=== PATIENT | female | born 1935 | race Caucasian/White ===

== ENCOUNTER 2016-05-29 10:18 | Inpatient (IN) | payer MEDICARE, MEDICAID ==
[~2016-05-29] VITALS: Ht 165.1 cm; Wt 54.4 kg
[~2016-05-29 10:18] MED LIST: BISACODYL5 MG ORAL; CARDIZEM30 M1 PO; COUMADIN6 MG ORAL; CULTURELLE1 EAC1 PO; D5NS 1000ml; DILTIAZEM HCL30 MG PO; DUONEB 0.5-3(2.53 ML HHN; HEPARIN SO5000 UNIT2 SUBQ; LEVOTHYROXINE112 MCG ORAL; LORAZEPAM1 MG ORAL; MILK OF MA400 MG/51 ORAL; MIRTAZAPINE15 M3 ORAL; MIRTAZAPINE15 MG ORAL; MOM30 ML ORAL; MORPHINE 22 MG/1 ML IV; MYLANTA PO; NAMENDA5 MG ORAL; RISPERDAL0.25 MG ORAL; SERTRALINE HCL100 MG PO; TEMAZEPAM15 MG ORAL; Tylenol PO; ZANTAC150 MG ORAL; ZOFRAN ODT4 MG ORAL; ZOFRAN4 M3 ORAL; ZOLOFT100 MG ORAL; ZOLOFT50 MG ORAL; [UNRECOGNIZED DRUG - OTHER]
[2016-05-29 10:28] VITALS: BP 132/90
[2016-05-29] MEDS ORDERED: SENNA LAX8.6 MG PO (10:34)
[2016-05-29] MEDS ORDERED: FAMOTIDINE20 MG ORAL (10:34)
[2016-05-29] MEDS ORDERED: ZOLPIDEM TARTRA10 MG ORAL (10:36)
--- NOTE | 2016-05-29 10:46 | Emergency Room Report ---
History of Present Illness General Chief Complaint: General Complaint Source: Patient, Medical Record, EMS, PMD Present Illness HPI Patient presents with insomnia. Taking ambien and ativan. Recurrent thoughts of not liking where she lives. Not suicidal. No antidepressants taken. Wants to go into a sleep study. Denies depression per se, but has rumination and perseveration with anxiety. Wants valium, though has been taking ativan. Constipation but moved bowels today (loose as took milk of magnesia). Prior was 3 days ago. No blood. Every time she eats she gets pain in her stomach. This is burning pain. She has not lost weight. There is no pain now. No fevers, chills, SOB, cough, vomiting, dysuria. Unknown if current thyroid problems as she has had low thyroid in the past. Allergies: Coded Allergies: PENICILLINS (Verified Allergy, Unknown, 01/12/16) SULFA (SULFONAMIDE ANTIBIOTICS) (Verified Allergy, Unknown, 01/12/16) Patient History Past Medical History: see triage record Past Surgical History: other - frederick rods Social History: Denies: alcohol use Social History Narrative [facility] - born in [place] Reviewed Nursing Documentation: PMH: Agreed, PSxH: Agreed Nursing Documentation-PMH Hx Cardiac Problems: Yes Hx Hypertension: Yes Hx Pacemaker: No Hx Asthma: No Hx COPD: Yes Hx Cancer: No Hx Dialysis: No History Of Psychiatric Problem: Yes - dementia,schizo Hx Neurological Problems: No Hx Cerebrovascular Accident: No Hx Seizures: No Review of Systems All Other Systems: negative except mentioned in HPI Physical Exam Vital Signs Date Time Temp Pulse Resp B/P Pulse Ox O2 Delivery O2 Flow Rate FiO2 05/29/16 10:18 97.5 100 16 144/88 96 Room Air Sp02 EP Interpretation: reviewed, normal General Appearance: well appearing, no apparent distress, GCS 15, thin Head: normocephalic, atraumatic Eyes: bilateral eye PERRL, bilateral eye normal inspection ENT: moist mucus membranes Neck: supple Respiratory: lungs clear, normal breath sounds Cardiovascular #1: tachycardia, irregularly irregular Cardiovascular #2: 2+ radial (R) Gastrointestinal: normal inspection, normal bowel sounds, non tender, no mass, non-distended Musculoskeletal: back normal, gait/station normal, normal range of motion Neurologic: alert, oriented x3, motor strength/tone normal, DTRs symmetric, sensory intact Psychiatric: no suicidal/homicidal ideation, anxious Skin: normal inspection, warm/dry, other - sallo Procedures Laceration/Wound Repair Laceration/Wound Repair : Consent: Verbal Wound Location: face Wound's Depth, Shape: stellate, contused tissue Wound Length (cm): 1 Wound Explored: clean Betadine Prep?: Yes Anesthesia: Lidocaine w/ Epi Wound Debrided: none Wound Repaired With: sutures Suture Size/Type: 6:0 Patient Tolerated: Well Complications: None Progress patient had lidocaine go down throat Medical Decision Making Diagnostic Impression: Primary Impression: Atrial fibrillation with RVR Additional Impressions: Abdominal pain Qualified Codes: R10.13 - Epigastric pain Hyperthyroidism Anxiety and depression ER Course Patient presents with resting tachycardia and inability to sleep with several GI complaints. DDx: hyperthyroid, electrolyte abnormality, arrhythmia, occult infection, anxiety/depression. Complicated patient needing broad w/u with labs , CXR, Abd films and EKG. Treatment with IV, ativan, zofran. EKG with a fib rapid vent response. Diltiazem given. Rate better. Patient ate here and had significant pain. Labs against pancreatitis. Treated with analgesia, mylanta and pepcid. Xrays unremarkable. Labs with low TSH suggesting hyperthyroidism. Improved with treatment but still with nausea, pain and anxiety. Admitted for observation to Dr. Kaiser. Laboratory Tests Test 05/29/16 10:50 05/29/16 11:00 Urine Color Yellow Urine Appearance Slightly cloudy Urine pH 8 (4.5-8.0) Urine Specific Welches 1.015 (1.005-1.035) Urine Protein Negative (NEGATIVE) Urine Glucose (UA) Negative (NEGATIVE) Urine Ketones Negative (NEGATIVE) Urine Occult Blood 1+ (NEGATIVE) H Urine Nitrite Negative (NEGATIVE) Urine Bilirubin Negative (NEGATIVE) Urine Urobilinogen Normal MG/DL (0.0-1.0) Urine Leukocyte Esterase 1+ (NEGATIVE) H Urine RBC 0-2 /HPF (0 - 2) Urine WBC 0-2 /HPF (0 - 2) Urine Squamous Epithelial Cells Few /LPF (NONE/OCC) Urine Bacteria Occasional /HPF (NONE) Urine Opiates Screen Negative (NEGATIVE) Urine Barbiturates Screen Negative (NEGATIVE) Phencyclidine (PCP) Screen Negative (NEGATIVE) Urine Amphetamines Screen Negative (NEGATIVE) Urine Benzodiazepines Screen Negative (NEGATIVE) Urine Cocaine Screen Negative (NEGATIVE) Urine Marijuana (THC) Screen Negative (NEGATIVE) White Blood Count 10.0 K/UL (4.8-10.8) Red Blood Count 4.99 M/UL (4.20-5.40) Hemoglobin 15.0 G/DL (12.0-16.0) Hematocrit 47.1 % (37.0-47.0) H Mean Corpuscular Volume 94 FL (80-99) Mean Corpuscular Hemoglobin 30.1 PG (27.0-31.0) Mean Corpuscular Hemoglobin Concent 31.8 G/DL (32.0-36.0) L Red Cell Distribution Width 12.1 % (11.6-14.8) Platelet Count 289 K/UL (150-450) Mean Platelet Volume 8.6 FL (6.5-10.1) Neutrophils (%) (Auto) 76.5 % (45.0-75.0) H Lymphocytes (%) (Auto) 12.4 % (20.0-45.0) L Monocytes (%) (Auto) 9.9 % (1.0-10.0) Eosinophils (%) (Auto) 0.8 % (0.0-3.0) Basophils (%) (Auto) 0.5 % (0.0-2.0) Prothrombin Time 10.3 SEC (9.30-11.50) Prothrombin Time INR 1.0 (0.9-1.1) PTT 25 SEC (23-33) Sodium Level 135 mEQ/L (135-145) Potassium Level 4.5 mEQ/L (3.4-4.9) Chloride Level 95 mEQ/L (98-107) L Carbon Dioxide Level 28 mEQ/L (20-30) Anion Gap 12 (5-15) Blood Urea Nitrogen 17 mg/dL (7-23) Creatinine 1.0 mg/dL (0.5-0.9) H Estimate Glomerular Filtration Rate mL/min (>60) Glucose Level 105 mg/dL (74-106) Calcium Level 9.1 mg/dL (8.6-10.2) Total Bilirubin 0.3 mg/dL (0.0-1.2) Aspartate Amino Transferase (AST) 16 U/L (5-40) Alanine Aminotransferase (ALT) 12 U/L (3-33) Alkaline Phosphatase 94 U/L (35-104) Total Creatine Kinase 66 U/L (26-140) Troponin I < 0.30 ng/mL (<=0.30) Pro-B-Type Natriuretic Peptide 2041 pg/mL (0-450) H Total Protein 7.0 g/dL (6.6-8.7) Albumin 3.7 g/dL (3.5-5.2) Globulin 3.3 g/dL Albumin/Globulin Ratio 1.1 (1.0-2.7) Thyroid Stimulating Hormone (TSH) 0.145 uIU/mL (0.300-4.500) EKG Diagnostic Results Rate: tachycardiac Rhythm: other - A fib ST Segments: no acute changes Rhythm Strip Diag. Results EP Interpretation: yes Rhythm: no PVC's, no ectopy, other - a fib Chest X-Ray Diagnostic Results EP Interpretation: Yes Findings: no consolidation, no effusion, no pneumothorax, other - frederick rods Number of Views: 1 Other X-Ray Diagnostic Results Other X-Ray Diagnostic Results : X-Ray Ordered: abd EP Interpretation: Yes Findings: other - frederick rods, nsbgp, no obstruction Number of Views: 1 Status: improved Disposition: ADMITTED INPATIENT Condition: Serious Alfredo Estrada M.D. May 29, 2016 10:46
[2016-05-29 11:06] LABS: BASOPHILS % (AUTO) 0.5 % (0.0-2.0); EOSINOPHILS % (AUTO) 0.8 % (0.0-3.0); LYMPHOCYTES % (AUTO) 12.4 % (20.0-45.0); MEAN CORPUSCULAR HEMOGLOBIN 30.1 PG (27.0-31.0); MEAN CORPUSCULAR HGB CONC 31.8 G/DL (32.0-36.0); MEAN CORPUSCULAR VOLUME 94 FL (80-99); MEAN PLATELET VOLUME 8.6 FL (6.5-10.1); MONOCYTES % (AUTO) 9.9 % (1.0-10.0); NEUTROPHILS % (AUTO) 76.5 % (45.0-75.0); PLATELET COUNT 289 K/UL (150-450); RED BLOOD COUNT 4.99 M/UL (4.20-5.40); RED CELL DISTRIBUTION WIDTH 12.1 % (11.6-14.8)
[2016-05-29 11:11] LABS: APPEARANCE,URINE SLIGHTLY CLOUDY; KETONES,URINE NEGATIVE (NEGATIVE); LEUKOCYTE ESTERASE ,URINE 1+ (NEGATIVE); NITRITE,URINE NEGATIVE (NEGATIVE); PH,URINE 8 (4.5-8.0); PROTEIN,URINE NEGATIVE (NEGATIVE); UROBILINOGEN,URINE NORMAL MG/DL (0.0-1.0)
[2016-05-29] MEDS ORDERED: Mylanta II UD 30ml ORAL ONE (11:15)
[2016-05-29] MEDS ORDERED: Diltiazem 50mg/10ml Inj IV ONE (11:15)
[2016-05-29] MEDS ORDERED: Famotidine 20 MG/ 2ML VIAL IVP ONE (11:15)
[2016-05-29 11:16] LABS: BACTERIA,URINE OCCASIONAL /HPF; RBC,URINE 0-2 /HPF (0 - 2); SQUAMOUS EPITHELIAL CELL,UR FEW /LPF (NONE/OCC); WBC,URINE 0-2 /HPF (0 - 2)
[2016-05-29 11:17] LABS: PROTHROMBIN TIME 10.3 SEC (9.30-11.50)
[2016-05-29 11:19] LABS: ALANINE AMINOTRANSFERASE 12 U/L (3-33); ALBUMIN/GLOBULIN RATIO 1.1 (1.0-2.7); ANION GAP 12 (5-15); ASPARTATE AMINO TRANSFERASE 16 U/L (5-40); CALCIUM 9.1 mg/dL (8.6-10.2); CARBON DIOXIDE 28 mEQ/L (20-30); CHLORIDE 95 mEQ/L (98-107); HEMOLYSIS 4; POTASSIUM 4.5 mEQ/L (3.4-4.9); SODIUM 135 mEQ/L (135-145); TROPONIN I < 0.30 ng/mL (<=0.30)
[2016-05-29 11:26] VITALS: BP 124/64
[2016-05-29] MEDS ORDERED: fentaNYL 100 mcg/2 mL IV ONE ×2 (13:00→14:30)
[2016-05-29 13:30] VITALS: BP 124/82
[2016-05-29] MEDS ORDERED: DuoNeb 0.5-3(2.5)mg/3ml neb HHN PRN (14:30)
[2016-05-29] MEDS ORDERED: Miralax 17gm pkt ORAL PRN (14:30)
[2016-05-29] MEDS ORDERED: Nitroglycerin Subl 0.4mg tab (Bottle Of 25) SL PRN (14:30)
[2016-05-29] MEDS ORDERED: Metoprolol 5mg/5ml Inj IVP PRN (14:30)
[2016-05-29] MEDS ORDERED: LORazepam Inj 2mg/ml 1ml IV ONE (14:45)
[2016-05-29 15:22] VITALS: BP 123/77
[2016-05-29 16:55] VITALS: BP 113/79
[2016-05-29] MEDS ORDERED: Morphine Sulfate 2mg/ml Inj IVP ONE (17:00)
[2016-05-29] MEDS ORDERED: Metoprolol 5mg/5ml Inj IVP ONE (19:40)
--- NOTE | 2016-05-29 19:57 | Cardiology Progress Note ---
Assessment/Plan Assessment/Plan The patient is seen and examined, full consult note will be dictated shortly. Objective Last 24 Hour Vital Signs Date Time Temp Pulse Resp B/P Pulse Ox O2 Delivery O2 Flow Rate FiO2 05/29/16 17:20 97.6 101 14 113/79 99 Room Air 95 05/29/16 16:55 97.6 95 14 113/79 99 Room Air 05/29/16 15:22 101 14 123/77 97 Room Air 05/29/16 15:18 97.5 05/29/16 14:15 97.5 05/29/16 13:30 94 14 124/82 97 Room Air 05/29/16 11:26 97.5 71 16 124/64 97 Room Air 05/29/16 11:13 96 132/90 05/29/16 10:28 97.5 96 16 132/90 97 Room Air 05/29/16 10:18 97.5 100 16 144/88 96 Room Air Laboratory Tests Test 05/29/16 10:50 05/29/16 11:00 Urine Color Yellow Urine Appearance Slightly cloudy Urine pH 8 (4.5-8.0) Urine Specific [place] 1.015 (1.005-1.035) Urine Protein Negative (NEGATIVE) Urine Glucose (UA) Negative (NEGATIVE) Urine Ketones Negative (NEGATIVE) Urine Occult Blood 1+ (NEGATIVE) H Urine Nitrite Negative (NEGATIVE) Urine Bilirubin Negative (NEGATIVE) Urine Urobilinogen Normal MG/DL (0.0-1.0) Urine Leukocyte Esterase 1+ (NEGATIVE) H Urine RBC 0-2 /HPF (0 - 2) Urine WBC 0-2 /HPF (0 - 2) Urine Squamous Epithelial Cells Few /LPF (NONE/OCC) Urine Bacteria Occasional /HPF (NONE) Urine Opiates Screen Negative (NEGATIVE) Urine Barbiturates Screen Negative (NEGATIVE) Phencyclidine (PCP) Screen Negative (NEGATIVE) Urine Amphetamines Screen Negative (NEGATIVE) Urine Benzodiazepines Screen Negative (NEGATIVE) Urine Cocaine Screen Negative (NEGATIVE) Urine Marijuana (THC) Screen Negative (NEGATIVE) White Blood Count 10.0 K/UL (4.8-10.8) Red Blood Count 4.99 M/UL (4.20-5.40) Hemoglobin 15.0 G/DL (12.0-16.0) Hematocrit 47.1 % (37.0-47.0) H Mean Corpuscular Volume 94 FL (80-99) Mean Corpuscular Hemoglobin 30.1 PG (27.0-31.0) Mean Corpuscular Hemoglobin Concent 31.8 G/DL (32.0-36.0) L Red Cell Distribution Width 12.1 % (11.6-14.8) Platelet Count 289 K/UL (150-450) Mean Platelet Volume 8.6 FL (6.5-10.1) Neutrophils (%) (Auto) 76.5 % (45.0-75.0) H Lymphocytes (%) (Auto) 12.4 % (20.0-45.0) L Monocytes (%) (Auto) 9.9 % (1.0-10.0) Eosinophils (%) (Auto) 0.8 % (0.0-3.0) Basophils (%) (Auto) 0.5 % (0.0-2.0) Prothrombin Time 10.3 SEC (9.30-11.50) Prothromb Time International Ratio 1.0 (0.9-1.1) Activated Partial Thromboplast Time 25 SEC (23-33) Sodium Level 135 mEQ/L (135-145) Potassium Level 4.5 mEQ/L (3.4-4.9) Chloride Level 95 mEQ/L (98-107) L Carbon Dioxide Level 28 mEQ/L (20-30) Anion Gap 12 (5-15) Blood Urea Nitrogen 17 mg/dL (7-23) Creatinine 1.0 mg/dL (0.5-0.9) H Estimat Glomerular Filtration Rate mL/min (>60) Glucose Level 105 mg/dL (74-106) Calcium Level 9.1 mg/dL (8.6-10.2) Total Bilirubin 0.3 mg/dL (0.0-1.2) Aspartate Amino Transf (AST/SGOT) 16 U/L (5-40) Alanine Aminotransferase (ALT/SGPT) 12 U/L (3-33) Alkaline Phosphatase 94 U/L (35-104) Total Creatine Kinase 66 U/L (26-140) Troponin I < 0.30 ng/mL (<=0.30) Pro-B-Type Natriuretic Peptide 2041 pg/mL (0-450) H Total Protein 7.0 g/dL (6.6-8.7) Albumin 3.7 g/dL (3.5-5.2) Globulin 3.3 g/dL Albumin/Globulin Ratio 1.1 (1.0-2.7) Thyroid Stimulating Hormone (TSH) 0.145 uIU/mL (0.300-4.500) PEREZ VILLEGAS May 29, 2016 19:57
[2016-05-29 20:00] VITALS: BP 121/69
[2016-05-29] MEDS: Eliquis 2.5mg tablet ORAL SCH (20:11)
[2016-05-29] MEDS: RisperiDONE 0.25mg tab ORAL SCH (20:12)
[2016-05-29] MEDS: Metoprolol 50mg tab ORAL SCH (20:18)
[2016-05-30] VITALS (7 sets, daily range): BP systolic 116–153; BP diastolic 69–99
[2016-05-30 07:06] LABS: BASOPHILS % (AUTO) 0.8 % (0.0-2.0); EOSINOPHILS % (AUTO) 1.9 % (0.0-3.0); LYMPHOCYTES % (AUTO) 18.3 % (20.0-45.0); MEAN CORPUSCULAR HEMOGLOBIN 30.7 PG (27.0-31.0); MEAN CORPUSCULAR HGB CONC 32.8 G/DL (32.0-36.0); MEAN CORPUSCULAR VOLUME 94 FL (80-99); MEAN PLATELET VOLUME 8.7 FL (6.5-10.1); MONOCYTES % (AUTO) 13.9 % (1.0-10.0); NEUTROPHILS % (AUTO) 65.1 % (45.0-75.0); PLATELET COUNT 243 K/UL (150-450); RED BLOOD COUNT 4.44 M/UL (4.20-5.40); RED CELL DISTRIBUTION WIDTH 12.2 % (11.6-14.8); WHITE BLOOD COUNT 7.6 K/UL (4.8-10.8)
[2016-05-30 07:29] LABS: INR 1.1 (0.9-1.1); PROTHROMBIN TIME 10.9 SEC (9.30-11.50)
[2016-05-30 07:36] LABS: CRP QUANT 0.3 mg/dL (< 0.5)
[2016-05-30 07:46] LABS: TROPONIN I < 0.30 ng/mL (<=0.30)
[2016-05-30] MEDS: RisperiDONE 0.25mg tab ORAL SCH ×2 (09:00→20:55)
[2016-05-30] MEDS: Sertraline 50mg tab ORAL SCH (09:25)
[2016-05-30] MEDS: Eliquis 2.5mg tablet ORAL SCH ×2 (09:25→20:55)
[2016-05-30] MEDS: Metoprolol 50mg tab ORAL SCH ×2 (09:25→20:54)
[2016-05-30] MEDS: Morphine Sulfate 2mg/ml Inj IVP PRN ×3 (11:00→19:12)
--- NOTE | 2016-05-30 11:23 | Diagnostic Imaging Report ---
Indication: Chest Pain Comparison: 01/12/16 A single view chest radiograph was obtained. Findings: Cardiac silhouette is enlarged. The lungs are clear. Fusion rods pedicle screws noted at most of the entire length of this thoracic spine. Bones are osteopenic. Impression: No acute cardiopulmonary disease
--- NOTE | 2016-05-30 11:23 | Diagnostic Imaging Report ---
Indication: Abdominal pain Comparison: None Single view of the abdomen obtained Findings: Bowel gas pattern is nonspecific. No mass, ectopic calcifications, or abnormal gas collections are identified. Bones are osteopenic. Degenerative changes of the lumbar spine noted. Impression: No acute findings
--- NOTE | 2016-05-30 12:22 | Consultation ---
History of Present Illness General Date patient seen: May 30, 2016 Chief Complaint: General Complaint Referring physician: Dr. Kaiser Present Illness HPI 80 year old female with psychiatric disorders presented with insomnia. She was found to have atrial fibrillation with rapid ventricular response. She is also complaining of chronic constipation but moved bowels today (loose as took milk of magnesia). Every time she eats she gets pain in her stomach. This is burning pain. she also has persistent cough and episodes of dyspnea. She is admitted to telemetry for further management. Allergies: Coded Allergies: PENICILLINS (Verified Allergy, Unknown, 01/12/16) SULFA (SULFONAMIDE ANTIBIOTICS) (Verified Allergy, Unknown, 01/12/16) Medication History Scheduled Diltiazem Hcl (Diltiazem Hcl), 30 MG PO Q8HR, (Reported) Famotidine (Famotidine), 20 MG ORAL DAILY, (Reported) Heparin Sod (Porcine) (Heparin Sodium*), 5,000 UNITS SUBQ EVERY 12 HOURS, ( Reported) Lactobacillus Rhamnosus Gg (Culturelle), 1 EACH PO TID, (Reported) Levothyroxine Sodium* (Levothyroxine Sodium*), 112 MCG ORAL ACBREAKFAST, ( Reported) Memantine Hcl* (Namenda*), 5 MG ORAL BID, (Reported) Mirtazapine* (Mirtazapine*), 15 MG ORAL BEDTIME, (Reported) Ranitidine Hcl* (Zantac*), 150 MG ORAL DAILY, (Reported) Risperidone* (Risperdal*), 0.25 MG ORAL BID, (Reported) Sertraline Hcl* (Zoloft*), 100 MG ORAL DAILY, (Reported) Scheduled PRN Lorazepam* (Lorazepam*), 1 MG ORAL Q6HR PRN for For Anxiety, (Reported) Magnesium Hydroxide (Milk of Magnesia), 30 ML ORAL Q6HR PRN for Constipation, ( Reported) Ondansetron Odt* (Zofran Odt*), 4 MG ORAL Q4HR PRN for Nausea & Vomiting, ( Reported) Temazepam (Temazepam*), 15 MG ORAL QHS PRN for Insomnia, (Reported) Zolpidem Tartrate* (Zolpidem Tartrate*), 10 MG ORAL BEDTIME PRN for Insomnia, ( Reported) Miscellaneous Medications Sennosides (Senna Lax), 8.6 MG PO, (Reported) Patient History Healthcare decision maker Resuscitation status Full Code Advanced Directive on File Past Medical/Surgical History Past Medical/Surgical History: (1) Anxiety and depression Family History Family History: (1) Anxiety and depression (2) Bronchitis Review of Systems Respiratory: Reports: cough Gastrointestinal: Reports: abdominal pain All Other Systems: negative except mentioned in HPI Physical Exam General Appearance: cachetic Lines, tubes and drains: peripheral, PICC HEENT: normocephalic, atraumatic Neck: non-tender, normal alignment Respiratory/Chest: chest wall non-tender, lungs clear Breasts: no masses Cardiovascular/Chest: normal rate Abdomen: normal bowel sounds, non tender, no organomegaly Last 24 Hour Vital Signs Date Time Temp Pulse Resp B/P Pulse Ox O2 Delivery O2 Flow Rate FiO2 05/30/16 11:30 98.3 05/30/16 11:22 98.3 72 18 130/80 97 Room Air 05/30/16 09:25 100 153/99 05/30/16 08:00 100 05/30/16 07:47 98.1 100 18 153/99 95 05/30/16 06:29 85 123/69 05/30/16 04:20 97.5 70 18 123/69 93 Room Air 05/30/16 04:00 85 05/30/16 00:37 98.6 69 19 128/76 98 Room Air 05/30/16 00:00 87 05/29/16 21:50 88 124/72 05/29/16 20:18 93 126/78 05/29/16 20:11 93 126/78 05/29/16 20:00 96.1 96 20 121/69 97 Room Air 05/29/16 20:00 78 05/29/16 17:30 96.1 05/29/16 17:20 97.6 101 14 113/79 99 Room Air 95 05/29/16 16:55 97.6 95 14 113/79 99 Room Air 05/29/16 15:22 101 14 123/77 97 Room Air 05/29/16 15:18 97.5 05/29/16 14:15 97.5 05/29/16 13:30 94 14 124/82 97 Room Air Intake and Output 05/29/16 05/30/16 19:00 07:00 Intake Total 120 ml Balance 120 ml Intake Oral 120 ml # Voids 1 4 Laboratory Tests Test 05/30/16 06:20 White Blood Count 7.6 K/UL (4.8-10.8) Red Blood Count 4.44 M/UL (4.20-5.40) Hemoglobin 13.6 G/DL (12.0-16.0) Hematocrit 41.6 % (37.0-47.0) Mean Corpuscular Volume 94 FL (80-99) Mean Corpuscular Hemoglobin 30.7 PG (27.0-31.0) Mean Corpuscular Hemoglobin Concent 32.8 G/DL (32.0-36.0) Red Cell Distribution Width 12.2 % (11.6-14.8) Platelet Count 243 K/UL (150-450) Mean Platelet Volume 8.7 FL (6.5-10.1) Neutrophils (%) (Auto) 65.1 % (45.0-75.0) Lymphocytes (%) (Auto) 18.3 % (20.0-45.0) L Monocytes (%) (Auto) 13.9 % (1.0-10.0) H Eosinophils (%) (Auto) 1.9 % (0.0-3.0) Basophils (%) (Auto) 0.8 % (0.0-2.0) Prothrombin Time 10.9 SEC (9.30-11.50) Prothromb Time International Ratio 1.1 (0.9-1.1) Activated Partial Thromboplast Time 25 SEC (23-33) Troponin I < 0.30 ng/mL (<=0.30) C-Reactive Protein, Quantitative 0.3 mg/dL (< 0.5) Triglycerides Level 61 mg/dL (< 150) Cholesterol Level 137 mg/dL (< 200) LDL Cholesterol 58 mg/dL (60-99) L HDL Cholesterol 67 mg/dL (> 60) H Cholesterol/HDL Ratio 2.0 (3.3-4.4) L Height (Feet): 5 Height (Inches): 5.00 Weight (Pounds): 120 Medications Current Medications Medications (Trade) Dose Ordered Sig/Dejan Route PRN Reason Start Time Stop Time Status Last Admin Dose Admin Acetaminophen (Tylenol) 650 mg Q4H PRN ORAL FEVER 05/29/16 14:30 06/28/16 14:29 Albuterol/ Ipratropium (DuoNeb 0.5-3(2.5)mg/3ml) 3 ml EVERY 4 HOURS PRN HHN Shortness of Breath 05/29/16 14:30 06/03/16 14:29 Apixaban (Eliquis) 2.5 mg Q12HR ORAL 05/29/16 21:00 06/28/16 20:59 05/30/16 09:25 Diazepam (Valium) 5 mg HSPRN PRN ORAL Insomnia 05/30/16 12:00 06/06/16 11:59 Diltiazem HCl (Cardizem) 30 mg Q8HR ORAL 05/29/16 22:00 06/28/16 21:59 05/30/16 06:29 Levothyroxine Sodium (Synthroid) 100 mcg ACBREAKFAST ORAL 05/31/16 06:30 06/30/16 06:29 Metoprolol Tartrate (Lopressor) 5 mg EVERY HOUR PRN IVP heart rate more than 140 05/29/16 14:30 06/28/16 14:29 Metoprolol Tartrate (Lopressor) 50 mg Q12HR ORAL 05/29/16 21:00 06/28/16 20:59 05/30/16 09:25 Morphine Sulfate (Morphine Sulfate) 2 mg EVERY 4 HOURS PRN IVP severe Pain (Pain Scale 7-10) 05/29/16 14:30 06/05/16 14:29 05/30/16 11:00 Nitroglycerin (Ntg) 0.4 mg Q5M PRN SL Prn Chest Pain 05/29/16 14:30 06/28/16 14:29 Ondansetron HCl (Zofran) 4 mg Q6H PRN IVP Nausea & Vomiting 05/29/16 14:30 06/28/16 14:29 Pantoprazole (Protonix) 40 mg DAILY ORAL 05/30/16 09:00 06/29/16 08:59 05/30/16 09:32 Polyethylene Glycol (Miralax) 17 gm DAILYPRN PRN ORAL Constipation 05/29/16 14:30 06/28/16 14:29 05/30/16 11:57 Risperidone (RisperDAL) 0.25 mg Q12HR ORAL 05/29/16 21:00 06/28/16 20:59 05/29/16 20:12 Sertraline HCl (Zoloft) 75 mg DAILY ORAL 05/30/16 09:00 06/29/16 08:59 05/30/16 09:25 Assessment/Plan Problem List: (1) Atrial fibrillation with RVR ICD Codes: I48.91 - Unspecified atrial fibrillation SNOMED: 869567383205895 (2) Bronchitis ICD Codes: J40 - Bronchitis, not specified as acute or chronic SNOMED: 85128474 (3) Abdominal pain ICD Codes: R10.9 - Unspecified abdominal pain SNOMED: 48985304 (4) halfway resident ICD Codes: Z59.3 - Problems related to living in residential institution SNOMED: 170436922 Assessment/Plan rate control, with Cardizem respiratory treatment antitussives check sputum psych evaluation. CRISTO BARAJAS May 30, 2016 12:22
--- NOTE | 2016-05-30 14:47 | History and Physical Report ---
DATE OF ADMISSION: 05/29/2016 Time Seen: Approximately 9:00 a.m. CONSULTANTS: 1. Sage Villalba M.D. 2. Richar Fleming M.D. 3. Natacha Snyder M.D. 4. Keon Candelaria M.D. CHIEF COMPLAINT: Abdominal pain and atrial fibrillation. BRIEF HISTORY: This is an 80-year-old female, from [facility], presents with increased abdominal pain and poor sleep. The patient was diagnosed with abdominal pain, atrial fibrillation with rapid ventricular response, anxiety, insomnia, and admitted to medical floor for further treatment. She is slightly anxious in bed, oriented x2, in no acute distress. PAST MEDICAL HISTORY: Atrial fibrillation, hiatal hernia, shortness of breath, hypothyroid, encephalopathy, and hypertension. PAST SURGICAL HISTORY: Unknown. ALLERGIES: Penicillin and sulfa. SOCIAL HISTORY: No smoking, no alcohol, and no intravenous drugs abuse. FAMILY HISTORY: Noncontributory. PHYSICAL EXAMINATION: GENERAL: Calm, slightly anxious in bed, oriented x2, in no acute distress. VITAL SIGNS: Temperature is 98, pulse 100, respirations 18, and blood pressure 153/99. CARDIOVASCULAR: Distant heart sounds. No murmur. LUNGS: Distant and clear. ABDOMEN: Positive bowel sounds. Soft, nontender, and nondistended. EXTREMITIES: No cyanosis, clubbing, or edema. NEUROLOGICAL: The patient moves all extremities, but slightly weak. LABORATORY DATA: Lab exam shows CBC is normal. BMP shows chloride 95 and creatinine 1.0. BNP is 2041. TSH is 0.145. INR is 1.1. Urinalysis, 1+ occult blood, 1+ leukocyte esterase. Urine toxicology is negative. MEDICATIONS: Zoloft, Protonix, Synthroid, Cardizem, Risperdal, Eliquis, Lopressor, nitroglycerin, Tylenol, morphine, MiraLax, and Zofran. ASSESSMENT: 1. Abdominal pain. 2. Urinary tract infection. 3. Atrial fibrillation with rapid ventricular response. 4. Anxiety. 5. Hypertension. 6. Insomnia. 7. Encephalopathy. PLAN: 1. Continue premeds. 2. GI followup. 3. Antibiotics per Infectious Disease. 4. Cardiology followup. 5. Blood pressure control. 6. Sleep aid as needed. 7. Psychiatric treatment. 8. OT/PT. 9. Dietary evaluation. 10. CBC and BMP in the morning. 11. Dr. Villalba, Dr. Fleming, Dr. Candelaria, Dr. Snyder, Dr. Monroy, and Dr. Dewey to consult. Ben Kaiser D.O. DR: ROMAN JOB#: [id number] CC:
--- NOTE | 2016-05-30 14:47 | Consultation ---
DATE OF CONSULTATION: 05/30/2016 CONSULTING PHYSICIAN: Osmani Monroy M.D. ATTENDING PHYSICIAN: Ben Kaiser D.O. REFERRING PHYSICIAN: Ben Kaiser D.O. REASON FOR CONSULTATION: Hypothyroidism. HISTORY OF PRESENT ILLNESS: The patient is a pleasant elderly lady who presents to the hospital with general complaints of insomnia. The patient is on Ambien and Ativan. As a part of an evaluation, the patient was noted to be in atrial fibrillation. Thyroid function test was obtained in which TSH was 0.1. The patient was diagnosed with hypothyroidism 3 years ago and she has been 112 mcg of levothyroxine. ALLERGIES: Penicillin and sulfa. PAST MEDICAL HISTORY: 1. Encephalopathy. 2. COPD. 3. Anxiety. 4. Atrial fibrillation. 5. Major depression. 6. CHF. 7. DVT. 8. Hypothyroidism. PAST SURGICAL HISTORY: Hysterectomy several years ago. MEDICATIONS: Reviewed and reconciled. Levothyroxine 112 mcg. SOCIAL HISTORY: The patient is a resident of a long-term facility. No smoking, alcohol, or drug use. REVIEW OF SYSTEMS: As per HPI. PHYSICAL EXAMINATION: VITAL SIGNS: Blood pressure 153/99, pulse of 100, temperature 98.1, respiratory rate 18. HEENT: Pupils are equal and reactive to light. Sclerae anicteric. NECK: No JVD. No thyromegaly. LUNGS: Clear. HEART: Irregular. ABDOMEN: Positive bowel sounds. EXTREMITIES: No clubbing, cyanosis, or edema. LABORATORY VALUES: WBC 10, hemoglobin 15, hematocrit 47, and platelets of 299,000. Sodium 135, potassium 4.5, chloride 95, bicarbonate 28, BUN 17, and creatinine 1.0. BNP 2041. TSH 0.145. LDL 58. DIAGNOSES: 1. Atrial fibrillation. 2. Insomnia. 3. Hypothyroidism. 4. Iatrogenic hyperthyroidism. PLAN: The current dose of levothyroxine is a bit too much. 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 Followup TSH should be obtained with free T4 in about two to three weeks. If free T4 is not done, I will order free T4 to be done during this admission as well. Thank you, Dr. Kaisre, for request of this consultation. Osmani Monroy M.D. DR: Levi JOB#: [id number] CC:
--- NOTE | 2016-05-30 23:19 | Cardiology Progress Note ---
Assessment/Plan Assessment/Plan 1. New onset atrial fibrillation, controlled better with metoprolol, will continue Eliquis. 2. HTN, increase metoprolol, DC Diltiazem 3. COPD 4. Dementia 5. Hypothyroidism Subjective Subjective A.fib with CVR at 86. Objective Last 24 Hour Vital Signs Date Time Temp Pulse Resp B/P Pulse Ox O2 Delivery O2 Flow Rate FiO2 05/30/16 21:00 84 118/76 05/30/16 20:54 82 116/72 05/30/16 20:00 97.2 82 20 116/72 97 Room Air 05/30/16 20:00 77 05/30/16 19:42 98.6 05/30/16 19:12 82 118/72 05/30/16 17:24 98.6 05/30/16 16:26 86 05/30/16 16:00 99.0 80 20 145/93 99 Room Air 05/30/16 16:00 66 05/30/16 15:04 72 130/80 05/30/16 11:22 98.3 72 18 130/80 97 Room Air 05/30/16 09:25 100 153/99 05/30/16 08:00 100 05/30/16 07:47 98.1 100 18 153/99 95 05/30/16 06:29 85 123/69 05/30/16 04:20 97.5 70 18 123/69 93 Room Air 05/30/16 04:00 85 05/30/16 00:37 98.6 69 19 128/76 98 Room Air 05/30/16 00:00 87 Intake and Output 05/29/16 05/30/16 19:00 07:00 Intake Total 120 ml Balance 120 ml Intake Oral 120 ml # Voids 1 4 2D Echo: EF 50%, ARNOLDO, severe MR, Restrictive LV physiology Laboratory Tests Test 05/30/16 06:20 White Blood Count 7.6 K/UL (4.8-10.8) Red Blood Count 4.44 M/UL (4.20-5.40) Hemoglobin 13.6 G/DL (12.0-16.0) Hematocrit 41.6 % (37.0-47.0) Mean Corpuscular Volume 94 FL (80-99) Mean Corpuscular Hemoglobin 30.7 PG (27.0-31.0) Mean Corpuscular Hemoglobin Concent 32.8 G/DL (32.0-36.0) Red Cell Distribution Width 12.2 % (11.6-14.8) Platelet Count 243 K/UL (150-450) Mean Platelet Volume 8.7 FL (6.5-10.1) Neutrophils (%) (Auto) 65.1 % (45.0-75.0) Lymphocytes (%) (Auto) 18.3 % (20.0-45.0) L Monocytes (%) (Auto) 13.9 % (1.0-10.0) H Eosinophils (%) (Auto) 1.9 % (0.0-3.0) Basophils (%) (Auto) 0.8 % (0.0-2.0) Prothrombin Time 10.9 SEC (9.30-11.50) Prothromb Time International Ratio 1.1 (0.9-1.1) Activated Partial Thromboplast Time 25 SEC (23-33) Troponin I < 0.30 ng/mL (<=0.30) C-Reactive Protein, Quantitative 0.3 mg/dL (< 0.5) Triglycerides Level 61 mg/dL (< 150) Cholesterol Level 137 mg/dL (< 200) LDL Cholesterol 58 mg/dL (60-99) L HDL Cholesterol 67 mg/dL (> 60) H Cholesterol/HDL Ratio 2.0 (3.3-4.4) L Free Thyroxine 1.62 ng/dL (0.86-1.85) Objective HEENT: Normocephalic, Pupils are equal and reactive to light, EOMI, Sclerae anicteric, dry mucosal membranes NECK: No JVD. no carotid bruit, upstroke 2+ LUNGS: Clear. HEART: Irregular irregular, normal S1S2, 2/6 HSM at the apex ABDOMEN: Positive bowel sounds, soft, Nt/ND EXTREMITIES: No clubbing, cyanosis, or edema. PEREZ VILLEGAS May 30, 2016 23:19
[2016-05-31 00:08] VITALS: BP 110/72
--- NOTE | 2016-05-31 04:27 | Consultation ---
DATE OF CONSULTATION: 05/29/2016 CARDIOLOGY CONSULTATION REFERRING PHYSICIAN: Ben Kaiser D.O. REASON FOR CONSULTATION: Management of new onset atrial tachy arrhythmias. HISTORY OF PRESENT ILLNESS: The patient is a very pleasant 80-year-old female, who was brought to [facility] Emergency Department with insomnia and . NOTE: Dictation Ends Abruptly Richar Fleming M.D. DR: Swapna JOB#: [id number] CC:
[2016-05-31 04:30] VITALS: BP 144/92
--- NOTE | 2016-05-31 04:57 | Consultation ---
DATE OF CONSULTATION: 05/29/2016 CARDIOLOGY CONSULTATION REFERRING PHYSICIAN: Ben Kaiser D.O. REASON FOR CONSULTATION: Management of atrial tachyarrhythmias. HISTORY OF PRESENT ILLNESS: The patient is a very unfortunate 80-year-old female, who is brought in to [facility] with complaints of insomnia, anxiety, and agitation, requesting for Valium for sleep. The patient also had some abdominal symptoms of constipation and abdominal pain, which according to her was something to do with eating food. At the time of arrival to the emergency department, she was found to be in atrial fibrillation with rapid ventricular response. Therefore, Cardiology consultation was made at the request of Dr. Ben Kaiser. In the emergency department, the patient received diltiazem, which helped with the ventricular response. PAST MEDICAL HISTORY: Includes history of COPD, history of hypertension, history of dementia, history of schizophrenia, and history of cardiac arrhythmias. PAST SURGICAL HISTORY: Presence of Poe rods. MEDICATIONS: List of medications includes diltiazem 30 mg p.o. q.8 h., famotidine 20 mg p.o. daily, heparin sulfate 5000 units q. 12h., lactobacillus rhamnosus one capsule three times daily, levothyroxine 112 mcg p.o. daily, lorazepam 1 mg p.o. q. 6h. p.r.n. anxiety, milk of magnesia 30 mL q. 6h. p.r.n. constipation, Namenda 5 mg p.o. twice daily, mirtazapine 15 mg p.o. nightly, Zofran 4 mg p.o. q. 4h. p.r.n. nausea and vomiting, Zantac 150 mg p.o. daily, Risperdal 0.25 mg twice daily, Senna-Lax 8.6 mg p.o. daily, Zoloft 100 mg p.o. daily, temazepam 15 mg p.o. nightly p.r.n. insomnia, and zolpidem 10 mg p.o. nightly p.r.n. insomnia. ALLERGIES: Penicillin and sulfa. REVIEW OF SYSTEMS: HEENT: Denies any headache, diplopia, or blurred vision. Constitutional: She complains of generalized weakness, but no fever or chills. Cardiovascular: Denies any chest pain, shortness of breath, PND, orthopnea, or leg swelling. She admits to fluttering of the heart every now and then. Pulmonary: Denies any cough, hemoptysis, or wheezing. Gastrointestinal: She had some burning abdominal pain with eating and constipation. No GI bleed. Genitourinary: Denies any hematuria, dysuria, or incontinence. Neurology: Denies any motor dysfunction, sensory deficits, or altered speech. PHYSICAL EXAMINATION: GENERAL: The patient is a very unfortunate 80-year-old female, in no apparent respiratory distress. Alert and oriented x4. VITAL SIGNS: Blood pressure was 144/88, pulse of 100, respirations 16, O2 saturation of 96% on room air, and temperature 97.5 degrees Fahrenheit. HEENT: Atraumatic and normocephalic. Anicteric. Pupils are equal, round, and reactive to light and accommodation. Extraocular muscles are intact. NECK: JVP is about 8 to 10 cm. No carotid bruits. Carotid upstrokes are 2+ bilaterally. CVS: Normal S1 and S2. Irregularly irregular rhythm. Tachycardic. A 2/6 mid systolic murmur in left sternal border. LUNGS: Clear to auscultation bilaterally. ABDOMEN: Soft, nontender, and nondistended. No hepatosplenomegaly. Positive bowel sounds. EXTREMITIES: No evidence of edema, clubbing, or cyanosis. LABORATORY AND DIAGNOSTIC DATA: WBC 10.0, hemoglobin 15.0, hematocrit 47.1, and platelet count 289,000. Sodium was 135, potassium was 4.5, chloride was 95, bicarbonate is 28, BUN of 17, creatinine 1.0, glucose is 105, and calcium is 9.1. ProBNP was 2041 and troponin I was less than 0.3. TSH was 0.145. Chest x-ray shows no acute cardiopulmonary disease. A 12-lead electrocardiogram showed atrial fibrillation at a rate of [address] and T-wave abnormalities. ASSESSMENT AND PLAN: This is a very unfortunate 80-year-old female, seen in Cardiology consultation at the request of Dr. Kaiser. 1. New onset atrial fibrillation. I would like to start the patient on 5 mg IV metoprolol followed by 50 mg metoprolol tartrate twice daily. I would consider discontinuing diltiazem for protection against cardioembolic stroke. I would like to start the patient on Eliquis 2.5 mg p.o. twice daily. We will continue monitoring the patient's rhythm. 2. History of hypertension. 3. History of chronic obstructive pulmonary disease. 4. History of dementia. I would like to obtain 2D echocardiography for assessment of LV systolic and diastolic function. I would like to thank Dr. Kaiser for allowing me to participate in the care of this patient. Richar Fleming M.D. DR: Marta JOB#: [id number] CC:
[2016-05-31 06:49] LABS: TROPONIN I < 0.30 ng/mL (<=0.30)
[2016-05-31 06:50] LABS: BASOPHILS % (AUTO) 0.7 % (0.0-2.0); EOSINOPHILS % (AUTO) 2.5 % (0.0-3.0); LYMPHOCYTES % (AUTO) 20.1 % (20.0-45.0); MEAN CORPUSCULAR HEMOGLOBIN 31.1 PG (27.0-31.0); MEAN CORPUSCULAR HGB CONC 32.5 G/DL (32.0-36.0); MEAN CORPUSCULAR VOLUME 96 FL (80-99); MEAN PLATELET VOLUME 8.4 FL (6.5-10.1); MONOCYTES % (AUTO) 12.7 % (1.0-10.0); PLATELET COUNT 231 K/UL (150-450); RED BLOOD COUNT 4.45 M/UL (4.20-5.40); WHITE BLOOD COUNT 7.7 K/UL (4.8-10.8)
[2016-05-31 06:56] LABS: ANION GAP 14 (5-15); CALCIUM 9.2 mg/dL (8.6-10.2); CARBON DIOXIDE 28 mEQ/L (20-30); CHLORIDE 95 mEQ/L (98-107); CREATININE 0.9 mg/dL (0.5-0.9); HEMOLYSIS 7; POTASSIUM 4.4 mEQ/L (3.4-4.9); SODIUM 137 mEQ/L (135-145)
--- NOTE | 2016-05-31 07:07 | General Progress Note ---
Assessment/Plan Problem List: (1) Iatrogenic hyperthyroidism ICD Codes: E05.80 - Other thyrotoxicosis without thyrotoxic crisis or storm SNOMED: 391487122 (2) Hypothyroidism ICD Codes: E03.9 - Hypothyroidism, unspecified SNOMED: 08547098 (3) Atrial fibrillation with RVR ICD Codes: I48.91 - Unspecified atrial fibrillation SNOMED: 009271913698409 Assessment/Plan levothyroxine dosage reduced to 100 mcg daily free T4 is normal and not elevated continue with current dosage - repeat TSH, free T4 in 4 weeks I will sign off Subjective Allergies: Coded Allergies: PENICILLINS (Verified Allergy, Unknown, 01/12/16) SULFA (SULFONAMIDE ANTIBIOTICS) (Verified Allergy, Unknown, 01/12/16) All Systems: reviewed and negative except above Subjective events noted - interval notes reviewed Objective Last 24 Hour Vital Signs Date Time Temp Pulse Resp B/P Pulse Ox O2 Delivery O2 Flow Rate FiO2 05/31/16 04:30 97.0 97 20 144/92 96 Room Air 05/31/16 04:00 58 05/31/16 00:08 97.0 75 20 110/72 98 Room Air 05/30/16 21:00 84 118/76 05/30/16 20:54 82 116/72 05/30/16 20:00 97.2 82 20 116/72 97 Room Air 05/30/16 20:00 77 05/30/16 19:42 98.6 05/30/16 19:12 82 118/72 05/30/16 17:24 98.6 05/30/16 16:26 86 05/30/16 16:00 99.0 80 20 145/93 99 Room Air 05/30/16 16:00 66 05/30/16 15:04 72 130/80 05/30/16 11:22 98.3 72 18 130/80 97 Room Air 05/30/16 09:25 100 153/99 05/30/16 08:00 100 05/30/16 07:47 98.1 100 18 153/99 95 Intake and Output 05/30/16 05/31/16 19:00 07:00 Intake Total 720 ml 240 ml Output Total 800 ml Balance 720 ml -560 ml Intake Oral 720 ml 240 ml Output Urine Total 800 ml # Voids 4 5 Laboratory Tests 05/31/16 05:30: White Blood Count 7.7, Red Blood Count 4.45, Hemoglobin 13.8, Hematocrit 42.6, Mean Corpuscular Volume 96, Mean Corpuscular Hemoglobin 31.1H, Mean Corpuscular Hemoglobin Concent 32.5, Red Cell Distribution Width 12.0, Platelet Count 231, Mean Platelet Volume 8.4, Neutrophils (%) (Auto) 64.0, Lymphocytes (%) (Auto) 20.1, Monocytes (%) (Auto) 12.7H, Eosinophils (%) (Auto) 2.5, Basophils (%) ( Auto) 0.7, Sodium Level 137, Potassium Level 4.4, Chloride Level 95L, Carbon Dioxide Level 28, Anion Gap 14, Blood Urea Nitrogen 18, Creatinine 0.9, Estimat Glomerular Filtration Rate , Glucose Level 99, Calcium Level 9.2, Troponin I < 0.30 Height (Feet): 5 Height (Inches): 5.00 Weight (Pounds): 120 General Appearance: no apparent distress Neck: normal alignment Cardiovascular: irregularly irregular Respiratory/Chest: normal breath sounds Abdomen: normal bowel sounds Pelvis: normal external exam Edema: no edema noted Arm (L), no edema noted Arm (R), no edema noted Leg (L), no edema noted Leg (R), no edema noted Pedal (L), no edema noted Pedal (R), no edema noted Generalized Objective Current Medications Medications (Trade) Dose Ordered Sig/Dejan Route PRN Reason Start Time Stop Time Status Last Admin Dose Admin Acetaminophen (Tylenol) 650 mg Q4H PRN ORAL FEVER 05/29/16 14:30 06/28/16 14:29 Albuterol/ Ipratropium (DuoNeb 0.5-3(2.5)mg/3ml) 3 ml EVERY 4 HOURS PRN HHN Shortness of Breath 05/29/16 14:30 06/03/16 14:29 Apixaban (Eliquis) 2.5 mg Q12HR ORAL 05/29/16 21:00 06/28/16 20:59 05/30/16 20:55 Diazepam (Valium) 5 mg HSPRN PRN ORAL Insomnia 05/30/16 12:00 06/06/16 11:59 05/30/16 22:15 Levothyroxine Sodium (Synthroid) 100 mcg ACBREAKFAST ORAL 05/31/16 06:30 06/30/16 06:29 05/31/16 06:42 Metoprolol Tartrate (Lopressor) 5 mg EVERY HOUR PRN IVP heart rate more than 140 05/29/16 14:30 06/28/16 14:29 Metoprolol Tartrate (Lopressor) 75 mg Q12HR ORAL 05/31/16 09:00 06/30/16 08:59 Morphine Sulfate (Morphine Sulfate) 2 mg EVERY 4 HOURS PRN IVP severe Pain (Pain Scale 7-10) 05/29/16 14:30 06/05/16 14:29 05/30/16 19:12 Nitroglycerin (Ntg) 0.4 mg Q5M PRN SL Prn Chest Pain 05/29/16 14:30 06/28/16 14:29 Ondansetron HCl (Zofran) 4 mg Q6H PRN IVP Nausea & Vomiting 05/29/16 14:30 06/28/16 14:29 Pantoprazole (Protonix) 40 mg DAILY ORAL 05/30/16 09:00 06/29/16 08:59 05/30/16 09:32 Polyethylene Glycol (Miralax) 17 gm DAILYPRN PRN ORAL Constipation 05/29/16 14:30 06/28/16 14:29 05/30/16 11:57 Risperidone (RisperDAL) 0.25 mg Q12HR ORAL 05/29/16 21:00 06/28/16 20:59 05/30/16 20:55 Sertraline HCl (Zoloft) 75 mg DAILY ORAL 05/30/16 09:00 06/29/16 08:59 05/30/16 09:25 RAMONA CARLISLE May 31, 2016 07:07
[2016-05-31 07:44] VITALS: BP 153/81
[2016-05-31] MEDS ORDERED: Metoprolol 25mg tab ORAL SCH (09:00)
[2016-05-31] MEDS: Eliquis 2.5mg tablet ORAL SCH ×3 (09:26→20:40)
[2016-05-31] MEDS: RisperiDONE 0.25mg tab ORAL SCH ×3 (09:26→20:40)
[2016-05-31] MEDS: Sertraline 50mg tab ORAL SCH (09:27)
[2016-05-31] MEDS: Morphine Sulfate 2mg/ml Inj IVP PRN ×2 (09:36→14:39)
--- NOTE | 2016-05-31 10:26 | Pulmonology Progress Note ---
Assessment/Plan Problems: (1) Atrial fibrillation with RVR (2) Bronchitis (3) Abdominal pain (4) group home resident (5) Anxiety and depression Assessment/Plan heart rate controlled titrate cardiac meds increase Valium at night to 10 start valium at 5 in am as requested by the pt, hold for somnolence. Subjective ROS Limited/Unobtainable: No Interval Events: still feels anxious, wants more valium at night and daytime as well Allergies: Coded Allergies: PENICILLINS (Verified Allergy, Unknown, 01/12/16) SULFA (SULFONAMIDE ANTIBIOTICS) (Verified Allergy, Unknown, 01/12/16) Objective Last 24 Hour Vital Signs Date Time Temp Pulse Resp B/P Pulse Ox O2 Delivery O2 Flow Rate FiO2 05/31/16 09:26 97 153/81 05/31/16 07:44 96.6 97 18 153/81 95 Room Air 05/31/16 04:30 97.0 97 20 144/92 96 Room Air 05/31/16 04:00 58 05/31/16 00:08 97.0 75 20 110/72 98 Room Air 05/30/16 21:00 84 118/76 05/30/16 20:54 82 116/72 05/30/16 20:00 97.2 82 20 116/72 97 Room Air 05/30/16 20:00 77 05/30/16 19:42 98.6 05/30/16 19:12 82 118/72 05/30/16 17:24 98.6 05/30/16 16:26 86 05/30/16 16:00 99.0 80 20 145/93 99 Room Air 05/30/16 16:00 66 05/30/16 15:04 72 130/80 05/30/16 11:22 98.3 72 18 130/80 97 Room Air Intake and Output 05/30/16 05/31/16 19:00 07:00 Intake Total 720 ml 240 ml Output Total 800 ml Balance 720 ml -560 ml Intake Oral 720 ml 240 ml Output Urine Total 800 ml # Voids 4 5 General Appearance: WD/WN HEENT: normocephalic, atraumatic Respiratory/Chest: chest wall non-tender, lungs clear Breasts: no masses Cardiovascular: normal peripheral pulses, normal rate Abdomen: normal bowel sounds, soft, non tender Genitourinary: normal external genitalia Extremities: no clubbing Skin: no rash Microbiology Date/Time Source Procedure Growth Status 05/29/16 14:00 Nasal Nares MRSA Culture - Final NO METHICILLIN RESISTANT STAPH AUREUS... Complete 05/29/16 14:00 Rectum VRE Culture - Final NO VANCOMYCIN RESISTANT ENTEROCOCCUS ... Complete Laboratory Tests 05/31/16 05:30: White Blood Count 7.7, Red Blood Count 4.45, Hemoglobin 13.8, Hematocrit 42.6, Mean Corpuscular Volume 96, Mean Corpuscular Hemoglobin 31.1H, Mean Corpuscular Hemoglobin Concent 32.5, Red Cell Distribution Width 12.0, Platelet Count 231, Mean Platelet Volume 8.4, Neutrophils (%) (Auto) 64.0, Lymphocytes (%) (Auto) 20.1, Monocytes (%) (Auto) 12.7H, Eosinophils (%) (Auto) 2.5, Basophils (%) ( Auto) 0.7, Sodium Level 137, Potassium Level 4.4, Chloride Level 95L, Carbon Dioxide Level 28, Anion Gap 14, Blood Urea Nitrogen 18, Creatinine 0.9, Estimat Glomerular Filtration Rate , Glucose Level 99, Calcium Level 9.2, Troponin I < 0.30 Current Medications Medications (Trade) Dose Ordered Sig/Dejan Route PRN Reason Start Time Stop Time Status Last Admin Dose Admin Acetaminophen (Tylenol) 650 mg Q4H PRN ORAL FEVER 05/29/16 14:30 06/28/16 14:29 Albuterol/ Ipratropium (DuoNeb 0.5-3(2.5)mg/3ml) 3 ml EVERY 4 HOURS PRN HHN Shortness of Breath 05/29/16 14:30 06/03/16 14:29 Apixaban (Eliquis) 2.5 mg Q12HR ORAL 05/29/16 21:00 06/28/16 20:59 05/31/16 09:26 Diazepam (Valium) 5 mg HSPRN PRN ORAL Insomnia 05/30/16 12:00 06/06/16 11:59 05/30/16 22:15 Levothyroxine Sodium (Synthroid) 100 mcg ACBREAKFAST ORAL 05/31/16 06:30 06/30/16 06:29 05/31/16 06:42 Metoprolol Tartrate (Lopressor) 5 mg EVERY HOUR PRN IVP heart rate more than 140 05/29/16 14:30 06/28/16 14:29 Metoprolol Tartrate (Lopressor) 75 mg Q12HR ORAL 05/31/16 09:00 06/30/16 08:59 05/31/16 09:26 Morphine Sulfate (Morphine Sulfate) 2 mg EVERY 4 HOURS PRN IVP severe Pain (Pain Scale 7-10) 05/29/16 14:30 06/05/16 14:29 05/31/16 09:36 Nitroglycerin (Ntg) 0.4 mg Q5M PRN SL Prn Chest Pain 05/29/16 14:30 06/28/16 14:29 Ondansetron HCl (Zofran) 4 mg Q6H PRN IVP Nausea & Vomiting 05/29/16 14:30 06/28/16 14:29 Pantoprazole (Protonix) 40 mg DAILY ORAL 05/30/16 09:00 06/29/16 08:59 05/31/16 09:26 Polyethylene Glycol (Miralax) 17 gm DAILYPRN PRN ORAL Constipation 05/29/16 14:30 06/28/16 14:29 05/30/16 11:57 Risperidone (RisperDAL) 0.25 mg Q12HR ORAL 05/29/16 21:00 06/28/16 20:59 05/31/16 09:26 Sertraline HCl (Zoloft) 75 mg DAILY ORAL 05/30/16 09:00 06/29/16 08:59 05/31/16 09:27 CRISTO BARAJAS May 31, 2016 10:26
--- NOTE | 2016-05-31 11:02 | Cardiology Report ---
APPROVED REPORT EXAM: Two-dimensional and M-mode echocardiogram with Doppler and color Doppler. INDICATION Atrial Fibrillation M-Mode DIMENSIONS IVSd0.5 (0.7-1.1cm)Left Atrium (MM)4.0 (1.6-4.0cm) LVDd5.8 (3.5-5.6cm)Aortic Root2.3 (2.0-3.7cm) PWd0.9 (0.7-1.1cm)Aortic Cusp Exc.1.7 (1.5-2.0cm) LVDs4.7 (2.5-4.0cm) PWs1.1 cm Increased left ventricular chamber size. Global LV hypokinesis. Left ventricular ejection fraction estimated to be 35 %. No evidence of left ventricular hypertrophy. No evidence of pericardial fat or effusion. Moderate left atrial enlargement by 2D. Mild right atrial enlargement by 2D. Focal aortic valve sclerosis with adequate cusp excursion Thickened mitral valve leaflets with normal excursion. Mitral annulus and aortic root calcification. Pulmonic valve not well visualized. Normal tricuspid valve structure. IVC is normal in size with physiologic collapse. A color flow and spectral Doppler study was performed and revealed: No aortic regurgitation. Moderate mitral regurgitation. Left ventricular diastolic dysfunction grade 3. Trace tricuspid regurgitation.
[2016-05-31 11:20] VITALS: BP 129/77
--- NOTE | 2016-05-31 12:27 | GI Initial Consult Note ---
MeghannLila Kent N.P. 05/31/16 1227: History of Present Illness General Date patient seen: May 31, 2016 Time patient seen: 10:00 Reason for Hospitalization: General Complaint Referring physician: Dr. Kaiser Reason for Consultation: CONSTIPATION Present Illness HPI Patient presents with insomnia. Taking ambien and ativan. Recurrent thoughts of not liking where she lives. Not suicidal. No antidepressants taken. Wants to go into a sleep study. Denies depression per se, but has rumination and perseveration with anxiety. Wants valium, though has been taking ativan. Constipation but moved bowels today (loose as took milk of magnesia). Prior was 3 days ago. No blood. Every time she eats she gets pain in her stomach. This is burning pain. She has not lost weight. There is no pain now. No fevers, chills, SOB, cough, vomiting, dysuria. Unknown if current thyroid problems as she has had low thyroid in the past. GI CONSULT: HPI as noted above. Pt seen on floor, awake A&Ox2 NAD c/o of insomnia and occasional abdominal pain. Pain directed to the lower pelvis, non tender. Pt states she has increased frequency of urination. In addition, the patient complains of constipation, last BM 4-5 days ago with no relief from lactulose. Denies any N/V. CBC, LFTs, Utox, and KUB all unremarkable. Unknown history of any endoscopic procedures. Home Meds Reported Medications Zolpidem Tartrate* (ZOLPIDEM TARTRATE*) 10 Mg Tablet, 10 MG ORAL BEDTIME Y for Insomnia, TAB 0 Refills 05/29/16 Sennosides (SENNA LAX) 8.6 Mg Tablet, 8.6 MG PO, TAB 05/29/16 Famotidine (FAMOTIDINE) 20 Mg Tablet, 20 MG ORAL DAILY, #30 TAB 0 Refills 05/29/16 Temazepam (TEMAZEPAM*) 15 Mg Capsule, 15 MG ORAL QHS Y for Insomnia, #30 CAP 0 Refills 01/14/16 Sertraline Hcl* (ZOLOFT*) 100 Mg Tablet, 100 MG ORAL DAILY, TAB 01/14/16 Risperidone* (RISPERDAL*) 0.25 Mg Tablet, 0.25 MG ORAL BID, #30 TAB 0 Refills 9/14/16 Ranitidine Hcl* (ZANTAC*) 150 Mg Tablet, 150 MG ORAL DAILY, #30 TAB 0 Refills 01/14/16 Ondansetron Odt* (ZOFRAN ODT*) 4 Mg Tab.rapdis, 4 MG ORAL Q4HR Y for Nausea & Vomiting, #30 TAB 01/14/16 Mirtazapine* (MIRTAZAPINE*) 15 Mg Tablet, 15 MG ORAL BEDTIME, TAB 01/14/16 Memantine Hcl* (NAMENDA*) 5 Mg Tablet, 5 MG ORAL BID, TAB 01/14/16 Magnesium Hydroxide (Milk of Magnesia) 400 Mg/5 Ml Oral.susp, 30 ML ORAL Q6HR Y for Constipation, ML 01/14/16 Lorazepam* (LORAZEPAM*) 1 Mg Tablet, 1 MG ORAL Q6HR Y for For Anxiety, TAB 01/14/16 Levothyroxine Sodium* (LEVOTHYROXINE SODIUM*) 112 Mcg Tablet, 112 MCG ORAL ACBREAKFAST, TAB Take in the morning on an empty stomach, at least 30 minutes before food. 01/14/16 Lactobacillus Rhamnosus Gg (CULTURELLE) 1 Each Cap.sprink, 1 EACH PO TID, CAP 01/14/16 Heparin Sod (Porcine) (HEPARIN SODIUM*) 5 000/1 Ml Vial, 5000 UNITS SUBQ EVERY 12 HOURS, VIAL 01/14/16 Diltiazem Hcl (DILTIAZEM HCL) 30 Mg Tablet, 30 MG PO Q8HR, TAB 01/14/16 Med list reviewed/reconciled: Yes Allergies: Coded Allergies: PENICILLINS (Verified Allergy, Unknown, 01/12/16) SULFA (SULFONAMIDE ANTIBIOTICS) (Verified Allergy, Unknown, 01/12/16) Patient History Limited by: medical condition History Provided By: Patient, Medical Record PMH Narrative Past Medical History: see triage record Past Surgical History: other - yoly gillis Social History: Denies: alcohol use Social History Narrative [place] - born in [place] Reviewed Nursing Documentation: PMH: Agreed, PSxH: Agreed Nursing Documentation-PM Hx Cardiac Problems: Yes Hx Hypertension: Yes Hx Pacemaker: No Hx Asthma: No Hx COPD: Yes Hx Cancer: No Hx Dialysis: No History Of Psychiatric Problem: Yes - dementia,schizo Hx Neurological Problems: No Hx Cerebrovascular Accident: No Hx Seizures: No Review of Systems All Other Systems: negative except mentioned in HPI Physical Exam Vital Signs Date Time Temp Pulse Resp B/P Pulse Ox O2 Delivery O2 Flow Rate FiO2 05/29/16 10:18 97.5 100 16 144/88 96 Room Air Sp02 EP Interpretation: reviewed Labs Laboratory Tests Test 05/31/16 05:30 White Blood Count 7.7 K/UL (4.8-10.8) Red Blood Count 4.45 M/UL (4.20-5.40) Hemoglobin 13.8 G/DL (12.0-16.0) Hematocrit 42.6 % (37.0-47.0) Mean Corpuscular Volume 96 FL (80-99) Mean Corpuscular Hemoglobin 31.1 PG (27.0-31.0) H Mean Corpuscular Hemoglobin Concent 32.5 G/DL (32.0-36.0) Red Cell Distribution Width 12.0 % (11.6-14.8) Platelet Count 231 K/UL (150-450) Mean Platelet Volume 8.4 FL (6.5-10.1) Neutrophils (%) (Auto) 64.0 % (45.0-75.0) Lymphocytes (%) (Auto) 20.1 % (20.0-45.0) Monocytes (%) (Auto) 12.7 % (1.0-10.0) H Eosinophils (%) (Auto) 2.5 % (0.0-3.0) Basophils (%) (Auto) 0.7 % (0.0-2.0) Sodium Level 137 mEQ/L (135-145) Potassium Level 4.4 mEQ/L (3.4-4.9) Chloride Level 95 mEQ/L (98-107) L Carbon Dioxide Level 28 mEQ/L (20-30) Anion Gap 14 (5-15) Blood Urea Nitrogen 18 mg/dL (7-23) Creatinine 0.9 mg/dL (0.5-0.9) Estimat Glomerular Filtration Rate mL/min (>60) Glucose Level 99 mg/dL (74-106) Calcium Level 9.2 mg/dL (8.6-10.2) Troponin I < 0.30 ng/mL (<=0.30) General Appearance: no apparent distress, alert, thin Head: normocephalic EENT: normal ENT inspection Neck: full range of motion Respiratory: normal breath sounds, no respiratory distress Cardiovascular: normal rate Gastrointestinal: non tender, soft Rectal: deferred Musculoskeletal: back normal Neurologic: alert, responsive Psychiatric: no delusions Skin: normal inspection, normal color, no rash, warm/dry Lymphatic: normal inspection, no adenopathy Current Medications Current Medications Medications (Trade) Dose Ordered Sig/Dejan Route PRN Reason Start Time Stop Time Status Last Admin Dose Admin Acetaminophen (Tylenol) 650 mg Q4H PRN ORAL FEVER 05/29/16 14:30 06/28/16 14:29 Albuterol/ Ipratropium (DuoNeb 0.5-3(2.5)mg/3ml) 3 ml EVERY 4 HOURS PRN HHN Shortness of Breath 05/29/16 14:30 06/03/16 14:29 Apixaban (Eliquis) 2.5 mg Q12HR ORAL 05/29/16 21:00 06/28/16 20:59 05/31/16 09:26 Diazepam (Valium) 5 mg DAILY ORAL 05/31/16 10:30 06/07/16 10:29 05/31/16 11:29 Diazepam (Valium) 10 mg HSPRN PRN ORAL Insomnia 05/31/16 21:00 06/07/16 20:59 Levothyroxine Sodium (Synthroid) 100 mcg ACBREAKFAST ORAL 05/31/16 06:30 06/30/16 06:29 05/31/16 06:42 Metoprolol Tartrate (Lopressor) 5 mg EVERY HOUR PRN IVP heart rate more than 140 05/29/16 14:30 06/28/16 14:29 Metoprolol Tartrate (Lopressor) 75 mg Q12HR ORAL 05/31/16 09:00 06/30/16 08:59 05/31/16 09:26 Morphine Sulfate (Morphine Sulfate) 2 mg EVERY 4 HOURS PRN IVP severe Pain (Pain Scale 7-10) 05/29/16 14:30 06/05/16 14:29 05/31/16 09:36 Nitroglycerin (Ntg) 0.4 mg Q5M PRN SL Prn Chest Pain 05/29/16 14:30 06/28/16 14:29 Ondansetron HCl (Zofran) 4 mg Q6H PRN IVP Nausea & Vomiting 05/29/16 14:30 06/28/16 14:29 Pantoprazole (Protonix) 40 mg DAILY ORAL 05/30/16 09:00 06/29/16 08:59 05/31/16 09:26 Polyethylene Glycol (Miralax) 17 gm DAILYPRN PRN ORAL Constipation 05/29/16 14:30 06/28/16 14:29 05/30/16 11:57 Risperidone (RisperDAL) 0.25 mg Q12HR ORAL 05/29/16 21:00 06/28/16 20:59 05/31/16 09:26 Sertraline HCl (Zoloft) 75 mg DAILY ORAL 05/30/16 09:00 06/29/16 08:59 05/31/16 09:27 GI: Plan Problems: (1) Constipation (2) Abdominal pain (3) GERD (gastroesophageal reflux disease) (4) Hiatal hernia Plan KUB negative Utox negative UA negative symptomatic treatment at this time MOM prn colace ppi regular diet fu labs outpatient colonoscopy Discussed with Dr. Sylvester. Thank you for referring this patient, we will follow. JEFF SYLVESTER 06/02/16 1021: History of Present Illness General Reason for Hospitalization: General Complaint Present Illness Home Meds Reported Medications Zolpidem Tartrate* (ZOLPIDEM TARTRATE*) 10 Mg Tablet, 10 MG ORAL BEDTIME Y for Insomnia, TAB 0 Refills 05/29/16 Sennosides (SENNA LAX) 8.6 Mg Tablet, 8.6 MG PO, TAB 05/29/16 Famotidine (FAMOTIDINE) 20 Mg Tablet, 20 MG ORAL DAILY, #30 TAB 0 Refills 05/29/16 Temazepam (TEMAZEPAM*) 15 Mg Capsule, 15 MG ORAL QHS Y for Insomnia, #30 CAP 0 Refills 01/14/16 Sertraline Hcl* (ZOLOFT*) 100 Mg Tablet, 100 MG ORAL DAILY, TAB 01/14/16 Risperidone* (RISPERDAL*) 0.25 Mg Tablet, 0.25 MG ORAL BID, #30 TAB 0 Refills 01/14/16 Ranitidine Hcl* (ZANTAC*) 150 Mg Tablet, 150 MG ORAL DAILY, #30 TAB 0 Refills 01/14/16 Ondansetron Odt* (ZOFRAN ODT*) 4 Mg Tab.rapdis, 4 MG ORAL Q4HR Y for Nausea & Vomiting, #30 TAB 01/14/16 Mirtazapine* (MIRTAZAPINE*) 15 Mg Tablet, 15 MG ORAL BEDTIME, TAB 01/14/16 Memantine Hcl* (NAMENDA*) 5 Mg Tablet, 5 MG ORAL BID, TAB 01/14/16 Magnesium Hydroxide (Milk of Magnesia) 400 Mg/5 Ml Oral.susp, 30 ML ORAL Q6HR Y for Constipation, ML 01/14/16 Lorazepam* (LORAZEPAM*) 1 Mg Tablet, 1 MG ORAL Q6HR Y for For Anxiety, TAB 01/14/16 Levothyroxine Sodium* (LEVOTHYROXINE SODIUM*) 112 Mcg Tablet, 112 MCG ORAL ACBREAKFAST, TAB Take in the morning on an empty stomach, at least 30 minutes before food. 01/14/16 Lactobacillus Rhamnosus Gg (CULTURELLE) 1 Each Cap.sprink, 1 EACH PO TID, CAP 01/14/16 Heparin Sod (Porcine) (HEPARIN SODIUM*) 5 000/1 Ml Vial, 5000 UNITS SUBQ EVERY 12 HOURS, VIAL 01/14/16 Diltiazem Hcl (DILTIAZEM HCL) 30 Mg Tablet, 30 MG PO Q8HR, TAB 01/14/16 Allergies: Coded Allergies: PENICILLINS (Verified Allergy, Unknown, 01/12/16) SULFA (SULFONAMIDE ANTIBIOTICS) (Verified Allergy, Unknown, 01/12/16) GI: Plan Plan The patient was seen and examined at bedside and all new and available data was reviewed in the patients chart. I agree with the above findings, impression and plan. (Patient seen earlier today. Signature stamp does not reflect patient encounter time.). -Kristen Posey MDh Donte N.PLeon May 31, 2016 12:27 JEFF SYLVESTER Jun 02, 2016 10:21
[2016-05-31] MEDS ORDERED: Milk of Magnesia 30ml Ud ORAL PRN (12:30)
--- NOTE | 2016-05-31 12:40 | Cardiology Report ---
APPROVED REPORT EKG Measurement Heart [id number] Atrial fibrillation with rapid ventricular response Voltage criteria for left ventricular hypertrophy Abnormal ECG
--- NOTE | 2016-05-31 13:23 | General Progress Note ---
Assessment/Plan Problem List: (1) UTI (urinary tract infection) ICD Codes: N39.0 - Urinary tract infection, site not specified SNOMED: 12491604 (2) Insomnia ICD Codes: G47.00 - Insomnia, unspecified SNOMED: 787288271 (3) HTN (hypertension) ICD Codes: I10 - Essential (primary) hypertension SNOMED: 14272873 (4) Anxiety and depression ICD Codes: F41.9 - Anxiety disorder, unspecified; F32.9 - Major depressive disorder, single episode, unspecified SNOMED: 964975930 (5) Abdominal pain ICD Codes: R10.9 - Unspecified abdominal pain SNOMED: 12421459 Qualifiers: Qualified Codes: R10.13 - Epigastric pain (6) Atrial fibrillation with RVR ICD Codes: I48.91 - Unspecified atrial fibrillation SNOMED: 668008020787720 Status: stable, progressing, tolerating diet Assessment/Plan ot pt diet abx cbc bmp am psyc transfer Subjective Constitutional: Reports: weakness Allergies: Coded Allergies: PENICILLINS (Verified Allergy, Unknown, 01/12/16) SULFA (SULFONAMIDE ANTIBIOTICS) (Verified Allergy, Unknown, 01/12/16) All Systems: reviewed and negative except above Subjective sl anxious Objective Last 24 Hour Vital Signs Date Time Temp Pulse Resp B/P Pulse Ox O2 Delivery O2 Flow Rate FiO2 05/31/16 11:20 97.1 74 18 129/77 100 Room Air 05/31/16 10:06 96.6 05/31/16 09:26 97 153/81 05/31/16 07:48 117 05/31/16 07:44 96.6 97 18 153/81 95 Room Air 05/31/16 04:30 97.0 97 20 144/92 96 Room Air 05/31/16 04:00 58 05/31/16 00:08 97.0 75 20 110/72 98 Room Air 05/30/16 21:00 84 118/76 05/30/16 20:54 82 116/72 05/30/16 20:00 97.2 82 20 116/72 97 Room Air 05/30/16 20:00 77 05/30/16 19:12 82 118/72 05/30/16 17:24 98.6 05/30/16 16:26 86 05/30/16 16:00 99.0 80 20 145/93 99 Room Air 05/30/16 16:00 66 05/30/16 15:04 72 130/80 Intake and Output 05/30/16 05/31/16 19:00 07:00 Intake Total 720 ml 240 ml Output Total 800 ml Balance 720 ml -560 ml Intake Oral 720 ml 240 ml Output Urine Total 800 ml # Voids 4 5 Laboratory Tests 05/31/16 05:30: White Blood Count 7.7, Red Blood Count 4.45, Hemoglobin 13.8, Hematocrit 42.6, Mean Corpuscular Volume 96, Mean Corpuscular Hemoglobin 31.1H, Mean Corpuscular Hemoglobin Concent 32.5, Red Cell Distribution Width 12.0, Platelet Count 231, Mean Platelet Volume 8.4, Neutrophils (%) (Auto) 64.0, Lymphocytes (%) (Auto) 20.1, Monocytes (%) (Auto) 12.7H, Eosinophils (%) (Auto) 2.5, Basophils (%) ( Auto) 0.7, Sodium Level 137, Potassium Level 4.4, Chloride Level 95L, Carbon Dioxide Level 28, Anion Gap 14, Blood Urea Nitrogen 18, Creatinine 0.9, Estimat Glomerular Filtration Rate , Glucose Level 99, Calcium Level 9.2, Troponin I < 0.30 Height (Feet): 5 Height (Inches): 5.00 Weight (Pounds): 120 General Appearance: alert EENT: normal ENT inspection Neck: normal alignment Cardiovascular: normal peripheral pulses, normal rate, regular rhythm Respiratory/Chest: chest wall non-tender, lungs clear, normal breath sounds Abdomen: normal bowel sounds, non tender, soft Extremities: normal inspection Edema: no edema noted Arm (L), no edema noted Arm (R), no edema noted Leg (L), no edema noted Leg (R), no edema noted Pedal (L), no edema noted Pedal (R), no edema noted Generalized Neurologic: responsive, motor weakness Skin: normal pigmentation, warm/dry CARLOS MOREIRA May 31, 2016 13:23
[2016-05-31] MEDS: Docusate 100mg cap ORAL SCH ×2 (13:53→18:20)
[2016-05-31 16:00] VITALS: BP 123/63
[2016-05-31 20:10] VITALS: BP 134/68
[2016-05-31] MEDS: Metoprolol 25mg tab ORAL SCH ×2 (20:29→20:42)
[2016-05-31] MEDS: TraZODone 100mg tab ORAL SCH ×2 (20:29→20:40)
--- NOTE | 2016-05-31 20:57 | Consultation ---
DATE OF CONSULTATION: 05/30/2016 INITIAL PSYCHIATRIC CONSULTATION HISTORY OF PRESENT ILLNESS: This is a female patient, who is 80 years old. She was admitted to the hospital secondary to atrial fibrillation. She came in from [facility] and this patient has depression, anxiety, and mood lability. She has got no logical plan for own self-care, but she has feelings of helplessness and hopelessness. She states that lot of her depression and anxiety is secondary to difficulties with sleep and she is requesting something very strong now for sleep. She has been taking Valium 10 mg at bedtime as needed, but she states that it has not been helping her to sleep. She states she still wakes up throughout the night. PAST MEDICAL HISTORY: Includes hypertension, hypothyroidism, chronic obstructive pulmonary disease, and atrial fibrillation. PSYCHIATRIC HISTORY: Major depression with psychotic features. MEDICATIONS: Psychotropic medications on admission, Zoloft 75 mg daily, Risperdal 0.25 mg q.12 h. ALLERGIES: To penicillin and sulfa antibiotics. SOCIAL HISTORY: She lives in a [facility] and financially supported by [facility] and Medicare. SUBSTANCE ABUSE HISTORY: The patient denies use of any drug or alcohol use. MENTAL STATUS EXAMINATION: This is an 80-year-old female with psychomotor retardation. Mood is depressed. Affect is guarded and restricted. Thought process is slightly disorganized, but she is able state her needs. Her insight and judgment is fair. DIAGNOSIS: Major depression with psychotic features, rule out pseudodementia. PLAN: My plans for this patient is, I am going to place this patient on trazodone 100 mg at bedtime for insomnia, provide her with supportive therapy, and encourage her to interact appropriately with staff and other patients. Chart reviewed and discussed with staff. Seen and assessed at bedside. Natacha Snyder M.D. DR: KAT JOB#: [id number] CC:
--- NOTE | 2016-05-31 22:08 | Cardiology Progress Note ---
Assessment/Plan Assessment/Plan 1. New onset atrial fibrillation, low ventricular response at times, will lower the dose of metoprolol, will continue Eliquis. 2. HTN, continue metoprolol. 3. COPD 4. Dementia 5. Hypothyroidism Subjective Subjective A.fib with slow ventricular response as low as 40s. Objective Last 24 Hour Vital Signs Date Time Temp Pulse Resp B/P Pulse Ox O2 Delivery O2 Flow Rate FiO2 05/31/16 20:10 96.8 76 20 134/68 99 Room Air 05/31/16 16:00 97.3 65 20 123/63 Room Air 05/31/16 15:09 97.1 05/31/16 11:20 97.1 74 18 129/77 100 Room Air 05/31/16 09:26 97 153/81 05/31/16 07:48 117 05/31/16 07:44 96.6 97 18 153/81 95 Room Air 05/31/16 04:30 97.0 97 20 144/92 96 Room Air 05/31/16 04:00 58 05/31/16 00:08 97.0 75 20 110/72 98 Room Air Intake and Output 05/30/16 05/31/16 19:00 07:00 Intake Total 720 ml 240 ml Output Total 800 ml Balance 720 ml -560 ml Intake Oral 720 ml 240 ml Output Urine Total 800 ml # Voids 4 5 2D Echo: EF 50%, ARNOLDO, severe MR, Restrictive LV physiology Laboratory Tests Test 05/31/16 05:30 White Blood Count 7.7 K/UL (4.8-10.8) Red Blood Count 4.45 M/UL (4.20-5.40) Hemoglobin 13.8 G/DL (12.0-16.0) Hematocrit 42.6 % (37.0-47.0) Mean Corpuscular Volume 96 FL (80-99) Mean Corpuscular Hemoglobin 31.1 PG (27.0-31.0) H Mean Corpuscular Hemoglobin Concent 32.5 G/DL (32.0-36.0) Red Cell Distribution Width 12.0 % (11.6-14.8) Platelet Count 231 K/UL (150-450) Mean Platelet Volume 8.4 FL (6.5-10.1) Neutrophils (%) (Auto) 64.0 % (45.0-75.0) Lymphocytes (%) (Auto) 20.1 % (20.0-45.0) Monocytes (%) (Auto) 12.7 % (1.0-10.0) H Eosinophils (%) (Auto) 2.5 % (0.0-3.0) Basophils (%) (Auto) 0.7 % (0.0-2.0) Sodium Level 137 mEQ/L (135-145) Potassium Level 4.4 mEQ/L (3.4-4.9) Chloride Level 95 mEQ/L (98-107) L Carbon Dioxide Level 28 mEQ/L (20-30) Anion Gap 14 (5-15) Blood Urea Nitrogen 18 mg/dL (7-23) Creatinine 0.9 mg/dL (0.5-0.9) Estimat Glomerular Filtration Rate mL/min (>60) Glucose Level 99 mg/dL (74-106) Calcium Level 9.2 mg/dL (8.6-10.2) Troponin I < 0.30 ng/mL (<=0.30) Microbiology Date/Time Source Procedure Growth Status 05/29/16 14:00 Nasal Nares MRSA Culture - Final NO METHICILLIN RESISTANT STAPH AUREUS... Complete 05/29/16 14:00 Rectum VRE Culture - Final NO VANCOMYCIN RESISTANT ENTEROCOCCUS ... Complete Objective HEENT: Normocephalic, Pupils are equal and reactive to light, EOMI, Sclerae anicteric, dry mucosal membranes NECK: No JVD. no carotid bruit, upstroke 2+ LUNGS: Clear. HEART: Irregular irregular, normal S1S2, 2/6 HSM at the apex ABDOMEN: Positive bowel sounds, soft, Nt/ND EXTREMITIES: No clubbing, cyanosis, or edema. PEREZ VILLEGAS May 31, 2016 22:08
--- NOTE | 2016-05-31 23:27 | Progress Note ---
DATE: 05/31/2016 SUBJECTIVE: This is an 80-year-old female patient. She has atrial fibrillation. PLAN: Treat this patient with Risperdal 0.25 mg q.12 hours and Zoloft mg daily, Valium 10 mg at bedtime for insomnia. I am going to continue to treat this patient with psychotropic medications such as trazodone 100 mg at bedtime, started on trazodone 100 mg at bedtime for insomnia, and she will continue to be followed by Psychiatry throughout her hospital course. Dr. Mary Staples will see this patient for psychiatry consultation as well. Chart was reviewed and discussed with the staff. The patient was seen and assessed in her room today. Natacha Snyder M.D. DR: MARQUISE JOB#: [id number] CC:
[2016-06-01] VITALS (7 sets, daily range): BP systolic 97–145; BP diastolic 55–84
[2016-06-01] MEDS ORDERED: Metoprolol 5mg/5ml Inj IVP PRN (01:00)
[2016-06-01] MEDS ORDERED: DuoNeb 0.5-3(2.5)mg/3ml neb HHN PRN (01:00)
[2016-06-01] MEDS ORDERED: Nitroglycerin Subl 0.4mg tab (Bottle Of 25) SL PRN (01:05)
[2016-06-01 08:01] LABS: BASOPHILS % (AUTO) 0.6 % (0.0-2.0); EOSINOPHILS % (AUTO) 1.4 % (0.0-3.0); MEAN CORPUSCULAR HEMOGLOBIN 31.8 PG (27.0-31.0); MEAN CORPUSCULAR HGB CONC 34.1 G/DL (32.0-36.0); MEAN CORPUSCULAR VOLUME 93 FL (80-99); MEAN PLATELET VOLUME 8.9 FL (6.5-10.1); NEUTROPHILS % (AUTO) 72.1 % (45.0-75.0); PLATELET COUNT 233 K/UL (150-450); RED BLOOD COUNT 4.25 M/UL (4.20-5.40); RED CELL DISTRIBUTION WIDTH 12.2 % (11.6-14.8); WHITE BLOOD COUNT 8.6 K/UL (4.8-10.8)
[2016-06-01 08:27] LABS: ANION GAP 11 (5-15); CALCIUM 9.3 mg/dL (8.6-10.2); CARBON DIOXIDE 29 mEQ/L (20-30); CHLORIDE 96 mEQ/L (98-107); CREATININE 0.8 mg/dL (0.5-0.9); HEMOLYSIS 2; POTASSIUM 4.5 mEQ/L (3.4-4.9); SODIUM 136 mEQ/L (135-145)
[2016-06-01] MEDS: Sertraline 50mg tab ORAL SCH (09:00)
[2016-06-01] MEDS: Metoprolol 25mg tab ORAL SCH ×2 (09:00→20:27)
[2016-06-01] MEDS: RisperiDONE 0.25mg tab ORAL SCH ×2 (10:42→20:26)
[2016-06-01] MEDS: Eliquis 2.5mg tablet ORAL SCH ×2 (10:42→20:25)
[2016-06-01] MEDS: Docusate 100mg cap ORAL SCH ×3 (10:42→17:27)
--- NOTE | 2016-06-01 11:28 | GI Progress Note ---
Assessment/Plan Problems: (1) halfway resident ICD Codes: Z59.3 - Problems related to living in residential institution SNOMED: 978061636 (2) Insomnia ICD Codes: G47.00 - Insomnia, unspecified SNOMED: 092150066 (3) GERD (gastroesophageal reflux disease) ICD Codes: K21.9 - Gastro-esophageal reflux disease without esophagitis SNOMED: 323221445 (4) Constipation ICD Codes: K59.00 - Constipation, unspecified SNOMED: 28156312 (5) Abdominal pain ICD Codes: R10.9 - Unspecified abdominal pain SNOMED: 59157189 (6) Nausea ICD Codes: R11.0 - Nausea SNOMED: 941806304 Status: stable Status Narrative Discussed with Dr. Candelaria. Assessment/Plan KUB negative Utox negative UA negative symptomatic treatment at this time MOM prn colace ppi regular diet fu labs outpatient colonoscopy The patient was seen and examined at bedside and all new and available data was reviewed in the patients chart. I agree with the above findings, impression and plan. (Patient seen earlier today. Signature stamp does not reflect patient encounter time.). -Keon Candelaria MD Subjective Gastrointestinal/Abdominal: Reports: no symptoms Objective Last 24 Hour Vital Signs Date Time Temp Pulse Resp B/P Pulse Ox O2 Delivery O2 Flow Rate FiO2 06/01/16 09:00 84 114/55 06/01/16 08:07 98.2 94 20 97/60 95 Room Air 06/01/16 04:00 97.4 87 18 136/80 97 Room Air 18 06/01/16 00:20 97.0 89 20 140/83 96 Room Air 05/31/16 20:10 96.8 76 20 134/68 99 Room Air 05/31/16 16:00 97.3 65 20 123/63 Room Air 05/31/16 15:09 97.1 Intake and Output 05/31/16 06/01/16 19:00 07:00 Intake Total 690 ml 240 ml Output Total 500 ml 400 ml Balance 190 ml -160 ml Intake Oral 690 ml 240 ml Output Urine Total 500 ml 400 ml # Voids 1 3 Laboratory Tests Test 06/01/16 07:30 White Blood Count 8.6 K/UL (4.8-10.8) Red Blood Count 4.25 M/UL (4.20-5.40) Hemoglobin 13.5 G/DL (12.0-16.0) Hematocrit 39.6 % (37.0-47.0) Mean Corpuscular Volume 93 FL (80-99) Mean Corpuscular Hemoglobin 31.8 PG (27.0-31.0) H Mean Corpuscular Hemoglobin Concent 34.1 G/DL (32.0-36.0) Red Cell Distribution Width 12.2 % (11.6-14.8) Platelet Count 233 K/UL (150-450) Mean Platelet Volume 8.9 FL (6.5-10.1) Neutrophils (%) (Auto) 72.1 % (45.0-75.0) Lymphocytes (%) (Auto) 13.0 % (20.0-45.0) L Monocytes (%) (Auto) 13.0 % (1.0-10.0) H Eosinophils (%) (Auto) 1.4 % (0.0-3.0) Basophils (%) (Auto) 0.6 % (0.0-2.0) Sodium Level 136 mEQ/L (135-145) Potassium Level 4.5 mEQ/L (3.4-4.9) Chloride Level 96 mEQ/L (98-107) L Carbon Dioxide Level 29 mEQ/L (20-30) Anion Gap 11 (5-15) Blood Urea Nitrogen 19 mg/dL (7-23) Creatinine 0.8 mg/dL (0.5-0.9) Estimat Glomerular Filtration Rate mL/min (>60) Glucose Level 81 mg/dL (74-106) Calcium Level 9.3 mg/dL (8.6-10.2) Height (Feet): 5 Height (Inches): 5.00 Weight (Pounds): 120 General Appearance: no apparent distress, alert Cardiovascular: normal rate Respiratory/Chest: normal breath sounds, no respiratory distress Abdominal Exam: normal bowel sounds, non tender, soft Lila Zavaleta N.PLeon Jun 01, 2016 11:28 KEON CANDELARIA Jun 02, 2016 10:23
[2016-06-01] MEDS: Milk of Magnesia 30ml Ud ORAL PRN (12:55)
--- NOTE | 2016-06-01 13:53 | General Progress Note ---
Assessment/Plan Problem List: (1) UTI (urinary tract infection) ICD Codes: N39.0 - Urinary tract infection, site not specified SNOMED: 51657609 (2) Insomnia ICD Codes: G47.00 - Insomnia, unspecified SNOMED: 070056558 (3) HTN (hypertension) ICD Codes: I10 - Essential (primary) hypertension SNOMED: 44826959 (4) Anxiety and depression ICD Codes: F41.9 - Anxiety disorder, unspecified; F32.9 - Major depressive disorder, single episode, unspecified SNOMED: 032895811 (5) Abdominal pain ICD Codes: R10.9 - Unspecified abdominal pain SNOMED: 10688824 Qualifiers: Qualified Codes: R10.13 - Epigastric pain (6) Atrial fibrillation with RVR ICD Codes: I48.91 - Unspecified atrial fibrillation SNOMED: 596101034160599 Status: stable, progressing, tolerating diet Assessment/Plan ot pt diet abx psyc transfer Subjective Constitutional: Reports: weakness Allergies: Coded Allergies: PENICILLINS (Verified Allergy, Unknown, 01/12/16) SULFA (SULFONAMIDE ANTIBIOTICS) (Verified Allergy, Unknown, 01/12/16) All Systems: reviewed and negative except above Subjective sl anxious Objective Last 24 Hour Vital Signs Date Time Temp Pulse Resp B/P Pulse Ox O2 Delivery O2 Flow Rate FiO2 06/01/16 11:52 97.8 84 20 114/55 95 Room Air 06/01/16 09:00 84 114/55 06/01/16 08:07 98.2 94 20 97/60 95 Room Air 06/01/16 04:00 97.4 87 18 136/80 97 Room Air 18 06/01/16 00:20 97.0 89 20 140/83 96 Room Air 05/31/16 20:10 96.8 76 20 134/68 99 Room Air 05/31/16 16:00 97.3 65 20 123/63 Room Air 05/31/16 15:09 97.1 Intake and Output 05/31/16 06/01/16 19:00 07:00 Intake Total 690 ml 240 ml Output Total 500 ml 400 ml Balance 190 ml -160 ml Intake Oral 690 ml 240 ml Output Urine Total 500 ml 400 ml # Voids 1 3 Laboratory Tests 06/01/16 07:30: White Blood Count 8.6, Red Blood Count 4.25, Hemoglobin 13.5, Hematocrit 39.6, Mean Corpuscular Volume 93, Mean Corpuscular Hemoglobin 31.8H, Mean Corpuscular Hemoglobin Concent 34.1, Red Cell Distribution Width 12.2, Platelet Count 233, Mean Platelet Volume 8.9, Neutrophils (%) (Auto) 72.1, Lymphocytes (%) (Auto) 13.0L, Monocytes (%) (Auto) 13.0H, Eosinophils (%) (Auto) 1.4, Basophils (%) ( Auto) 0.6, Sodium Level 136, Potassium Level 4.5, Chloride Level 96L, Carbon Dioxide Level 29, Anion Gap 11, Blood Urea Nitrogen 19, Creatinine 0.8, Estimat Glomerular Filtration Rate , Glucose Level 81, Calcium Level 9.3 Height (Feet): 5 Height (Inches): 5.00 Weight (Pounds): 120 General Appearance: alert EENT: normal ENT inspection Neck: normal alignment Cardiovascular: normal peripheral pulses, normal rate, regular rhythm Respiratory/Chest: chest wall non-tender, lungs clear, normal breath sounds Abdomen: normal bowel sounds, non tender, soft Extremities: normal inspection Edema: no edema noted Arm (L), no edema noted Arm (R), no edema noted Leg (L), no edema noted Leg (R), no edema noted Pedal (L), no edema noted Pedal (R), no edema noted Generalized Neurologic: responsive, motor weakness Skin: normal pigmentation, warm/dry CARLOS MOREIRA Jun 01, 2016 13:53
[2016-06-01] MEDS ORDERED: Miralax 17gm pkt ORAL PRN (14:30)
[2016-06-01] MEDS: TraZODone 100mg tab ORAL SCH (20:26)
[2016-06-01] MEDS: Morphine Sulfate 2mg/ml Inj IVP PRN (20:33)
--- NOTE | 2016-06-01 20:53 | Cardiology Progress Note ---
Assessment/Plan Assessment/Plan 1. New onset atrial fibrillation, downgraded to a lower level of care, continue metoprolol and Eliquis. 2. HTN, well controlled, continue metoprolol. 3. Acute diastolic CHF 4. COPD 5. Dementia 6. Hypothyroidism Subjective Subjective Transferred to the med-surg unit. No cardiac events. Objective Last 24 Hour Vital Signs Date Time Temp Pulse Resp B/P Pulse Ox O2 Delivery O2 Flow Rate FiO2 06/01/16 20:27 96 145/84 06/01/16 20:00 97.3 92 18 142/75 98 Room Air 06/01/16 16:06 98.0 96 20 145/84 96 Room Air 06/01/16 11:52 97.8 84 20 114/55 95 Room Air 06/01/16 09:00 84 114/55 06/01/16 08:07 98.2 94 20 97/60 95 Room Air 06/01/16 04:00 97.4 87 18 136/80 97 Room Air 18 06/01/16 00:20 97.0 89 20 140/83 96 Room Air Intake and Output 05/31/16 06/01/16 19:00 07:00 Intake Total 690 ml 240 ml Output Total 500 ml 400 ml Balance 190 ml -160 ml Intake Oral 690 ml 240 ml Output Urine Total 500 ml 400 ml # Voids 1 3 2D Echo: EF 50%, ARNOLDO, severe MR, Restrictive LV physiology Laboratory Tests Test 06/01/16 07:30 White Blood Count 8.6 K/UL (4.8-10.8) Red Blood Count 4.25 M/UL (4.20-5.40) Hemoglobin 13.5 G/DL (12.0-16.0) Hematocrit 39.6 % (37.0-47.0) Mean Corpuscular Volume 93 FL (80-99) Mean Corpuscular Hemoglobin 31.8 PG (27.0-31.0) H Mean Corpuscular Hemoglobin Concent 34.1 G/DL (32.0-36.0) Red Cell Distribution Width 12.2 % (11.6-14.8) Platelet Count 233 K/UL (150-450) Mean Platelet Volume 8.9 FL (6.5-10.1) Neutrophils (%) (Auto) 72.1 % (45.0-75.0) Lymphocytes (%) (Auto) 13.0 % (20.0-45.0) L Monocytes (%) (Auto) 13.0 % (1.0-10.0) H Eosinophils (%) (Auto) 1.4 % (0.0-3.0) Basophils (%) (Auto) 0.6 % (0.0-2.0) Sodium Level 136 mEQ/L (135-145) Potassium Level 4.5 mEQ/L (3.4-4.9) Chloride Level 96 mEQ/L (98-107) L Carbon Dioxide Level 29 mEQ/L (20-30) Anion Gap 11 (5-15) Blood Urea Nitrogen 19 mg/dL (7-23) Creatinine 0.8 mg/dL (0.5-0.9) Estimat Glomerular Filtration Rate mL/min (>60) Glucose Level 81 mg/dL (74-106) Calcium Level 9.3 mg/dL (8.6-10.2) Objective HEENT: Normocephalic, Pupils are equal and reactive to light, EOMI, Sclerae anicteric, dry mucosal membranes NECK: No JVD. no carotid bruit, upstroke 2+ LUNGS: Clear. HEART: Irregular irregular, normal S1S2, 2/6 HSM at the apex ABDOMEN: Positive bowel sounds, soft, Nt/ND EXTREMITIES: No clubbing, cyanosis, or edema. PEREZ VILLEGAS Jun 01, 2016 20:53
[2016-06-01] MEDS ORDERED: Metoprolol 25mg tab ORAL SCH (21:00)
[2016-06-01] MEDS: Miralax 17gm pkt ORAL SCH (22:42)
--- NOTE | 2016-06-01 23:35 | Pulmonology Progress Note ---
Assessment/Plan Problems: (1) Atrial fibrillation with RVR (2) Bronchitis (3) Abdominal pain (4) longterm resident (5) Anxiety and depression Assessment/Plan heart rate controlled titrate cardiac meds increase Valium at night to 10 start valium at 5 in am as requested by the pt, hold for somnolence. Subjective ROS Limited/Unobtainable: No Respiratory: Reports: dry cough, shortness of breath Cardiovascular: Reports: chest pain, palpitations Allergies: Coded Allergies: PENICILLINS (Verified Allergy, Unknown, 01/12/16) SULFA (SULFONAMIDE ANTIBIOTICS) (Verified Allergy, Unknown, 01/12/16) Objective Last 24 Hour Vital Signs Date Time Temp Pulse Resp B/P Pulse Ox O2 Delivery O2 Flow Rate FiO2 06/01/16 20:27 96 145/84 06/01/16 20:00 97.3 92 18 142/75 98 Room Air 06/01/16 16:06 98.0 96 20 145/84 96 Room Air 06/01/16 11:52 97.8 84 20 114/55 95 Room Air 06/01/16 09:00 84 114/55 06/01/16 08:07 98.2 94 20 97/60 95 Room Air 06/01/16 04:00 97.4 87 18 136/80 97 Room Air 18 06/01/16 00:20 97.0 89 20 140/83 96 Room Air Intake and Output 05/31/16 06/01/16 19:00 07:00 Intake Total 690 ml 240 ml Output Total 500 ml 400 ml Balance 190 ml -160 ml Intake Oral 690 ml 240 ml Output Urine Total 500 ml 400 ml # Voids 1 3 General Appearance: no acute distress HEENT: normocephalic, atraumatic, mucous membranes moist, PERRL Respiratory/Chest: chest wall non-tender, decreased breath sounds, accessory muscle use, rhonchi Breasts: no masses Cardiovascular: regularly irregular, no JVD, tachycardia, arrhythmia Abdomen: normal bowel sounds, soft, non tender, no organomegaly Genitourinary: normal external genitalia Skin: rash, lesions Neurologic/Psychiatric: rand butter II-XII grossly normal, no motor/sensory deficits Laboratory Tests 06/01/16 07:30: White Blood Count 8.6, Red Blood Count 4.25, Hemoglobin 13.5, Hematocrit 39.6, Mean Corpuscular Volume 93, Mean Corpuscular Hemoglobin 31.8H, Mean Corpuscular Hemoglobin Concent 34.1, Red Cell Distribution Width 12.2, Platelet Count 233, Mean Platelet Volume 8.9, Neutrophils (%) (Auto) 72.1, Lymphocytes (%) (Auto) 13.0L, Monocytes (%) (Auto) 13.0H, Eosinophils (%) (Auto) 1.4, Basophils (%) ( Auto) 0.6, Sodium Level 136, Potassium Level 4.5, Chloride Level 96L, Carbon Dioxide Level 29, Anion Gap 11, Blood Urea Nitrogen 19, Creatinine 0.8, Estimat Glomerular Filtration Rate , Glucose Level 81, Calcium Level 9.3 Current Medications Medications (Trade) Dose Ordered Sig/Dejan Route PRN Reason Start Time Stop Time Status Last Admin Dose Admin Acetaminophen (Tylenol) 650 mg Q4H PRN ORAL FEVER 06/01/16 02:30 07/01/16 02:29 Albuterol/ Ipratropium (DuoNeb 0.5-3(2.5)mg/3ml) 3 ml EVERY 4 HOURS PRN HHN Shortness of Breath 06/01/16 01:00 06/06/16 00:59 Apixaban (Eliquis) 2.5 mg Q12HR ORAL 06/01/16 09:00 07/01/16 08:59 06/01/16 20:25 Diazepam (Valium) 5 mg DAILY ORAL 06/01/16 09:00 06/08/16 08:59 06/01/16 22:42 Diazepam (Valium) 10 mg HSPRN PRN ORAL Insomnia 06/01/16 21:00 06/08/16 20:59 06/01/16 22:45 Docusate Sodium (Colace) 100 mg THREE TIMES A DAY ORAL 06/01/16 09:00 07/01/16 08:59 06/01/16 17:27 Levothyroxine Sodium (Synthroid) 100 mcg ACBREAKFAST ORAL 06/01/16 06:30 07/01/16 06:29 Magnesium Hydroxide (Mom) 30 ml DAILYPRN PRN ORAL Constipation 06/01/16 12:30 07/01/16 12:29 06/01/16 12:55 Metoprolol Tartrate (Lopressor) 75 mg Q12HR ORAL 06/02/16 09:00 07/02/16 08:59 Morphine Sulfate (Morphine Sulfate) 2 mg EVERY 4 HOURS PRN IVP severe Pain (Pain Scale 7-10) 06/01/16 01:00 06/08/16 00:59 06/01/16 20:33 Nitroglycerin (Ntg) 0.4 mg Q5M PRN SL Prn Chest Pain 06/01/16 01:05 07/01/16 01:04 Ondansetron HCl (Zofran) 4 mg Q6H PRN IVP Nausea & Vomiting 06/01/16 02:30 07/01/16 02:29 Pantoprazole (Protonix) 40 mg DAILY ORAL 06/01/16 09:00 07/01/16 08:59 06/01/16 10:42 Polyethylene Glycol (Miralax) 17 gm BEDTIME ORAL 06/01/16 21:30 07/01/16 21:29 06/01/16 22:42 Polyethylene Glycol (Miralax) 17 gm DAILYPRN PRN ORAL Constipation 06/01/16 14:30 07/01/16 14:29 Risperidone (RisperDAL) 0.25 mg Q12HR ORAL 06/01/16 09:00 07/01/16 08:59 06/01/16 20:26 Sertraline HCl (Zoloft) 75 mg DAILY ORAL 06/01/16 09:00 07/01/16 08:59 Trazodone HCl (Desyrel) 100 mg BEDTIME ORAL 06/01/16 21:00 07/01/16 20:59 06/01/16 20:26 CRISTO BARAJAS Jun 01, 2016 23:35
[2016-06-02 04:00] VITALS: BP 136/76
[2016-06-02 06:59] LABS: BASOPHILS % (AUTO) 0.7 % (0.0-2.0); EOSINOPHILS % (AUTO) 1.6 % (0.0-3.0); LYMPHOCYTES % (AUTO) 10.9 % (20.0-45.0); MEAN CORPUSCULAR HEMOGLOBIN 31.8 PG (27.0-31.0); MEAN CORPUSCULAR VOLUME 94 FL (80-99); MEAN PLATELET VOLUME 8.9 FL (6.5-10.1); MONOCYTES % (AUTO) 13.7 % (1.0-10.0); PLATELET COUNT 232 K/UL (150-450); RED BLOOD COUNT 4.32 M/UL (4.20-5.40); RED CELL DISTRIBUTION WIDTH 12.1 % (11.6-14.8)
[2016-06-02 07:08] LABS: ANION GAP 10 (5-15); CARBON DIOXIDE 29 mEQ/L (20-30); CHLORIDE 98 mEQ/L (98-107); CREATININE 0.8 mg/dL (0.5-0.9); HEMOLYSIS 5; POTASSIUM 4.3 mEQ/L (3.4-4.9); SODIUM 137 mEQ/L (135-145)
[2016-06-02 08:00] VITALS: BP 105/55
[2016-06-02] MEDS: Metoprolol 25mg tab ORAL SCH ×2 (09:17→21:40)
[2016-06-02] MEDS: Eliquis 2.5mg tablet ORAL SCH ×2 (09:18→21:40)
[2016-06-02] MEDS: Docusate 100mg cap ORAL SCH ×3 (09:18→18:29)
[2016-06-02] MEDS: Sertraline 50mg tab ORAL SCH (09:18)
[2016-06-02] MEDS: RisperiDONE 0.25mg tab ORAL SCH ×2 (09:18→21:41)
--- NOTE | 2016-06-02 11:54 | GI Progress Note ---
Assessment/Plan Problems: (1) group home resident ICD Codes: Z59.3 - Problems related to living in residential institution SNOMED: 779007522 (2) Insomnia ICD Codes: G47.00 - Insomnia, unspecified SNOMED: 864284226 (3) GERD (gastroesophageal reflux disease) ICD Codes: K21.9 - Gastro-esophageal reflux disease without esophagitis SNOMED: 608137936 (4) Constipation ICD Codes: K59.00 - Constipation, unspecified SNOMED: 10974925 (5) Abdominal pain ICD Codes: R10.9 - Unspecified abdominal pain SNOMED: 02644165 (6) Nausea ICD Codes: R11.0 - Nausea SNOMED: 073867514 Status: stable Status Narrative Discussed with Dr. Candelaria. Assessment/Plan KUB negative Utox negative UA negative symptomatic treatment at this time fleets x 1 today MOM daily colace + miralax ppi regular diet fu labs outpatient colonoscopy Subjective Subjective insomnia constipated Objective Last 24 Hour Vital Signs Date Time Temp Pulse Resp B/P Pulse Ox O2 Delivery O2 Flow Rate FiO2 06/02/16 09:17 68 136/76 06/02/16 08:00 97.8 79 18 105/55 97 Room Air 82 74 06/02/16 04:00 97.3 68 18 136/76 99 Room Air 06/01/16 23:39 97.4 67 18 125/71 98 Room Air 06/01/16 20:27 96 145/84 06/01/16 20:00 97.3 92 18 142/75 98 Room Air 06/01/16 16:06 98.0 96 20 145/84 96 Room Air 06/01/16 11:52 97.8 84 20 114/55 95 Room Air Intake and Output 06/01/16 06/02/16 19:00 07:00 Intake Total 1080 ml 440 ml Balance 1080 ml 440 ml Intake Oral 1080 ml 440 ml # Voids 6 4 Laboratory Tests Test 06/02/16 05:15 White Blood Count 10.0 K/UL (4.8-10.8) Red Blood Count 4.32 M/UL (4.20-5.40) Hemoglobin 13.8 G/DL (12.0-16.0) Hematocrit 40.5 % (37.0-47.0) Mean Corpuscular Volume 94 FL (80-99) Mean Corpuscular Hemoglobin 31.8 PG (27.0-31.0) H Mean Corpuscular Hemoglobin Concent 34.0 G/DL (32.0-36.0) Red Cell Distribution Width 12.1 % (11.6-14.8) Platelet Count 232 K/UL (150-450) Mean Platelet Volume 8.9 FL (6.5-10.1) Neutrophils (%) (Auto) 73.0 % (45.0-75.0) Lymphocytes (%) (Auto) 10.9 % (20.0-45.0) L Monocytes (%) (Auto) 13.7 % (1.0-10.0) H Eosinophils (%) (Auto) 1.6 % (0.0-3.0) Basophils (%) (Auto) 0.7 % (0.0-2.0) Sodium Level 137 mEQ/L (135-145) Potassium Level 4.3 mEQ/L (3.4-4.9) Chloride Level 98 mEQ/L (98-107) Carbon Dioxide Level 29 mEQ/L (20-30) Anion Gap 10 (5-15) Blood Urea Nitrogen 18 mg/dL (7-23) Creatinine 0.8 mg/dL (0.5-0.9) Estimat Glomerular Filtration Rate mL/min (>60) Glucose Level 77 mg/dL (74-106) Calcium Level 9.0 mg/dL (8.6-10.2) Height (Feet): 5 Height (Inches): 5.00 Weight (Pounds): 120 General Appearance: no apparent distress, alert Cardiovascular: normal rate Respiratory/Chest: normal breath sounds, no respiratory distress Abdominal Exam: normal bowel sounds, non tender, soft Lila Zavaleta N.P. Jun 02, 2016 11:54
[2016-06-02 12:00] VITALS: BP 110/58
[2016-06-02] MEDS ORDERED: Fleet's Enema 133ml RECTAL ONE (12:00)
[2016-06-02] MEDS: Milk of Magnesia 30ml Ud ORAL PRN (12:59)
--- NOTE | 2016-06-02 14:28 | General Progress Note ---
Assessment/Plan Problem List: (1) UTI (urinary tract infection) ICD Codes: N39.0 - Urinary tract infection, site not specified SNOMED: 76915302 (2) Insomnia ICD Codes: G47.00 - Insomnia, unspecified SNOMED: 513383712 (3) HTN (hypertension) ICD Codes: I10 - Essential (primary) hypertension SNOMED: 03943433 (4) Anxiety and depression ICD Codes: F41.9 - Anxiety disorder, unspecified; F32.9 - Major depressive disorder, single episode, unspecified SNOMED: 121797929 (5) Abdominal pain ICD Codes: R10.9 - Unspecified abdominal pain SNOMED: 67454895 Qualifiers: Qualified Codes: R10.13 - Epigastric pain (6) Atrial fibrillation with RVR ICD Codes: I48.91 - Unspecified atrial fibrillation SNOMED: 973967258132258 Status: stable, progressing, tolerating diet Assessment/Plan ot pt diet abx dc to snf Subjective Constitutional: Reports: weakness Allergies: Coded Allergies: PENICILLINS (Verified Allergy, Unknown, 01/12/16) SULFA (SULFONAMIDE ANTIBIOTICS) (Verified Allergy, Unknown, 01/12/16) All Systems: reviewed and negative except above Subjective sl anxious Objective Last 24 Hour Vital Signs Date Time Temp Pulse Resp B/P Pulse Ox O2 Delivery O2 Flow Rate FiO2 06/02/16 12:00 98.0 72 20 110/58 97 Room Air 76 80 06/02/16 09:17 68 136/76 06/02/16 08:00 97.8 79 18 105/55 97 Room Air 82 74 06/02/16 04:00 97.3 68 18 136/76 99 Room Air 06/01/16 23:39 97.4 67 18 125/71 98 Room Air 06/01/16 20:27 96 145/84 06/01/16 20:00 97.3 92 18 142/75 98 Room Air 06/01/16 16:06 98.0 96 20 145/84 96 Room Air Intake and Output 06/01/16 06/02/16 19:00 07:00 Intake Total 1080 ml 440 ml Balance 1080 ml 440 ml Intake Oral 1080 ml 440 ml # Voids 6 4 Laboratory Tests 06/02/16 05:15: White Blood Count 10.0, Red Blood Count 4.32, Hemoglobin 13.8, Hematocrit 40.5, Mean Corpuscular Volume 94, Mean Corpuscular Hemoglobin 31.8H, Mean Corpuscular Hemoglobin Concent 34.0, Red Cell Distribution Width 12.1, Platelet Count 232, Mean Platelet Volume 8.9, Neutrophils (%) (Auto) 73.0, Lymphocytes (%) (Auto) 10.9L, Monocytes (%) (Auto) 13.7H, Eosinophils (%) (Auto) 1.6, Basophils (%) ( Auto) 0.7, Sodium Level 137, Potassium Level 4.3, Chloride Level 98, Carbon Dioxide Level 29, Anion Gap 10, Blood Urea Nitrogen 18, Creatinine 0.8, Estimat Glomerular Filtration Rate , Glucose Level 77, Calcium Level 9.0 Height (Feet): 5 Height (Inches): 5.00 Weight (Pounds): 120 General Appearance: lethargic EENT: normal ENT inspection Neck: normal alignment Cardiovascular: normal peripheral pulses, normal rate, regular rhythm Respiratory/Chest: chest wall non-tender, lungs clear, normal breath sounds Abdomen: normal bowel sounds, non tender, soft Extremities: normal inspection Edema: no edema noted Arm (L), no edema noted Arm (R), no edema noted Leg (L), no edema noted Leg (R), no edema noted Pedal (L), no edema noted Pedal (R), no edema noted Generalized Neurologic: responsive, motor weakness Skin: normal pigmentation, warm/dry CARLOS MOREIRA Jun 02, 2016 14:28
[2016-06-02 16:00] VITALS: BP 108/58
[2016-06-02 20:00] VITALS: BP 111/56
[2016-06-02] MEDS ORDERED: Miralax 17gm pkt ORAL SCH (21:00)
[2016-06-02] MEDS: Morphine Sulfate 2mg/ml Inj IVP PRN (21:33)
[2016-06-02] MEDS: TraZODone 100mg tab ORAL SCH (21:40)
[2016-06-02] MEDS: Miralax 17gm pkt ORAL SCH (21:41)
--- NOTE | 2016-06-02 22:00 | Pulmonology Progress Note ---
Assessment/Plan Problems: (1) Atrial fibrillation with RVR (2) Bronchitis (3) Abdominal pain (4) senior care resident (5) Anxiety and depression Assessment/Plan heart rate controlled titrate cardiac meds increase Valium at night to 10 start valium at 5 in am as requested by the pt, hold for somnolence. Subjective ROS Limited/Unobtainable: No Respiratory: Reports: dyspnea at rest, productive cough, shortness of breath, sputum Allergies: Coded Allergies: PENICILLINS (Verified Allergy, Unknown, 01/12/16) SULFA (SULFONAMIDE ANTIBIOTICS) (Verified Allergy, Unknown, 01/12/16) Objective Last 24 Hour Vital Signs Date Time Temp Pulse Resp B/P Pulse Ox O2 Delivery O2 Flow Rate FiO2 06/02/16 21:40 68 128/68 06/02/16 20:00 97.9 74 20 111/56 99 Room Air 06/02/16 16:00 97.2 78 20 108/58 97 Room Air 80 72 06/02/16 12:00 98.0 72 20 110/58 97 Room Air 76 80 06/02/16 09:17 68 136/76 06/02/16 08:00 97.8 79 18 105/55 97 Room Air 82 74 06/02/16 04:00 97.3 68 18 136/76 99 Room Air 06/01/16 23:39 97.4 67 18 125/71 98 Room Air Intake and Output 06/01/16 06/02/16 19:00 07:00 Intake Total 1080 ml 440 ml Balance 1080 ml 440 ml Intake Oral 1080 ml 440 ml # Voids 6 4 General Appearance: no acute distress HEENT: normocephalic, atraumatic, PERRL Respiratory/Chest: chest wall non-tender, decreased breath sounds, accessory muscle use, rhonchi Breasts: no masses Cardiovascular: normal peripheral pulses, regularly irregular, no JVD Abdomen: normal bowel sounds, hyperactive bowel sounds, guarding, tender Genitourinary: normal external genitalia Extremities: no cyanosis Skin: no rash Neurologic/Psychiatric: clothes presser II-XII grossly normal, no motor/sensory deficits Laboratory Tests 06/02/16 05:15: White Blood Count 10.0, Red Blood Count 4.32, Hemoglobin 13.8, Hematocrit 40.5, Mean Corpuscular Volume 94, Mean Corpuscular Hemoglobin 31.8H, Mean Corpuscular Hemoglobin Concent 34.0, Red Cell Distribution Width 12.1, Platelet Count 232, Mean Platelet Volume 8.9, Neutrophils (%) (Auto) 73.0, Lymphocytes (%) (Auto) 10.9L, Monocytes (%) (Auto) 13.7H, Eosinophils (%) (Auto) 1.6, Basophils (%) ( Auto) 0.7, Sodium Level 137, Potassium Level 4.3, Chloride Level 98, Carbon Dioxide Level 29, Anion Gap 10, Blood Urea Nitrogen 18, Creatinine 0.8, Estimat Glomerular Filtration Rate , Glucose Level 77, Calcium Level 9.0 Current Medications Medications (Trade) Dose Ordered Sig/Dejan Route PRN Reason Start Time Stop Time Status Last Admin Dose Admin Acetaminophen (Tylenol) 650 mg Q4H PRN ORAL FEVER 06/01/16 02:30 07/01/16 02:29 Albuterol/ Ipratropium (DuoNeb 0.5-3(2.5)mg/3ml) 3 ml EVERY 4 HOURS PRN HHN Shortness of Breath 06/01/16 01:00 06/06/16 00:59 Apixaban (Eliquis) 2.5 mg Q12HR ORAL 06/01/16 09:00 07/01/16 08:59 06/02/16 21:40 Diazepam (Valium) 5 mg DAILY ORAL 06/01/16 09:00 06/08/16 08:59 06/02/16 21:44 Diazepam (Valium) 10 mg HSPRN PRN ORAL Insomnia 06/01/16 21:00 06/08/16 20:59 06/01/16 22:45 Docusate Sodium (Colace) 100 mg THREE TIMES A DAY ORAL 06/01/16 09:00 07/01/16 08:59 06/02/16 18:29 Levothyroxine Sodium (Synthroid) 100 mcg ACBREAKFAST ORAL 06/01/16 06:30 07/01/16 06:29 06/02/16 06:32 Magnesium Hydroxide (Mom) 30 ml DAILY ORAL 06/03/16 09:00 07/03/16 08:59 Magnesium Hydroxide (Mom) 30 ml DAILYPRN PRN ORAL Constipation 06/01/16 12:30 07/01/16 12:29 06/02/16 12:59 Metoprolol Tartrate (Lopressor) 75 mg Q12HR ORAL 06/02/16 09:00 07/02/16 08:59 06/02/16 21:40 Morphine Sulfate (Morphine Sulfate) 2 mg EVERY 4 HOURS PRN IVP severe Pain (Pain Scale 7-10) 06/01/16 01:00 06/08/16 00:59 06/02/16 21:33 Nitroglycerin (Ntg) 0.4 mg Q5M PRN SL Prn Chest Pain 06/01/16 01:05 07/01/16 01:04 Ondansetron HCl (Zofran) 4 mg Q6H PRN IVP Nausea & Vomiting 06/01/16 02:30 07/01/16 02:29 Pantoprazole (Protonix) 40 mg DAILY ORAL 06/01/16 09:00 07/01/16 08:59 06/02/16 09:17 Polyethylene Glycol (Miralax) 17 gm BEDTIME ORAL 06/01/16 21:30 07/01/16 21:29 06/02/16 21:41 Polyethylene Glycol (Miralax) 17 gm DAILYPRN PRN ORAL Constipation 06/01/16 14:30 07/01/16 14:29 Risperidone (RisperDAL) 0.25 mg Q12HR ORAL 06/01/16 09:00 07/01/16 08:59 06/02/16 21:41 Sertraline HCl (Zoloft) 75 mg DAILY ORAL 06/01/16 09:00 07/01/16 08:59 06/02/16 09:18 Trazodone HCl (Desyrel) 100 mg BEDTIME ORAL 06/01/16 21:00 07/01/16 20:59 06/02/16 21:40 CRISTO BARAJAS Jun 02, 2016 22:00
--- NOTE | 2016-06-02 22:46 | Cardiology Progress Note ---
Assessment/Plan Assessment/Plan 1. New onset atrial fibrillation, stable, continue metoprolol and Eliquis. 2. HTN, well controlled, continue metoprolol. 3. Acute diastolic CHF, resolved. 4. COPD 5. Dementia 6. Hypothyroidism Subjective Subjective Had constipation. No cardiac events. Objective Last 24 Hour Vital Signs Date Time Temp Pulse Resp B/P Pulse Ox O2 Delivery O2 Flow Rate FiO2 06/02/16 22:03 97.9 06/02/16 21:40 68 128/68 06/02/16 20:00 97.9 74 20 111/56 99 Room Air 06/02/16 16:00 97.2 78 20 108/58 97 Room Air 80 72 06/02/16 12:00 98.0 72 20 110/58 97 Room Air 76 80 06/02/16 09:17 68 136/76 06/02/16 08:00 97.8 79 18 105/55 97 Room Air 82 74 06/02/16 04:00 97.3 68 18 136/76 99 Room Air 06/01/16 23:39 97.4 67 18 125/71 98 Room Air Intake and Output 06/01/16 06/02/16 19:00 07:00 Intake Total 1080 ml 440 ml Balance 1080 ml 440 ml Intake Oral 1080 ml 440 ml # Voids 6 4 2D Echo: EF 50%, ARNOLDO, severe MR, Restrictive LV physiology Laboratory Tests Test 06/02/16 05:15 White Blood Count 10.0 K/UL (4.8-10.8) Red Blood Count 4.32 M/UL (4.20-5.40) Hemoglobin 13.8 G/DL (12.0-16.0) Hematocrit 40.5 % (37.0-47.0) Mean Corpuscular Volume 94 FL (80-99) Mean Corpuscular Hemoglobin 31.8 PG (27.0-31.0) H Mean Corpuscular Hemoglobin Concent 34.0 G/DL (32.0-36.0) Red Cell Distribution Width 12.1 % (11.6-14.8) Platelet Count 232 K/UL (150-450) Mean Platelet Volume 8.9 FL (6.5-10.1) Neutrophils (%) (Auto) 73.0 % (45.0-75.0) Lymphocytes (%) (Auto) 10.9 % (20.0-45.0) L Monocytes (%) (Auto) 13.7 % (1.0-10.0) H Eosinophils (%) (Auto) 1.6 % (0.0-3.0) Basophils (%) (Auto) 0.7 % (0.0-2.0) Sodium Level 137 mEQ/L (135-145) Potassium Level 4.3 mEQ/L (3.4-4.9) Chloride Level 98 mEQ/L (98-107) Carbon Dioxide Level 29 mEQ/L (20-30) Anion Gap 10 (5-15) Blood Urea Nitrogen 18 mg/dL (7-23) Creatinine 0.8 mg/dL (0.5-0.9) Estimat Glomerular Filtration Rate mL/min (>60) Glucose Level 77 mg/dL (74-106) Calcium Level 9.0 mg/dL (8.6-10.2) Objective HEENT: Normocephalic, Pupils are equal and reactive to light, EOMI, Sclerae anicteric, dry mucosal membranes NECK: No JVD. no carotid bruit, upstroke 2+ LUNGS: Clear. HEART: Irregular irregular, normal S1S2, 2/6 HSM at the apex ABDOMEN: Positive bowel sounds, soft, Nt/ND EXTREMITIES: No clubbing, cyanosis, or edema. PEREZ VILLEGAS Jun 02, 2016 22:46
[2016-06-03] VITALS: BP 122/75
[2016-06-03 04:00] VITALS: BP 121/78
[2016-06-03 06:31] LABS: BASOPHILS % (AUTO) 0.7 % (0.0-2.0); EOSINOPHILS % (AUTO) 1.9 % (0.0-3.0); LYMPHOCYTES % (AUTO) 16.2 % (20.0-45.0); MEAN CORPUSCULAR HEMOGLOBIN 30.7 PG (27.0-31.0); MEAN CORPUSCULAR HGB CONC 32.7 G/DL (32.0-36.0); MEAN CORPUSCULAR VOLUME 94 FL (80-99); MEAN PLATELET VOLUME 9.1 FL (6.5-10.1); MONOCYTES % (AUTO) 11.7 % (1.0-10.0); NEUTROPHILS % (AUTO) 69.6 % (45.0-75.0); PLATELET COUNT 234 K/UL (150-450); RED CELL DISTRIBUTION WIDTH 12.3 % (11.6-14.8); WHITE BLOOD COUNT 8.8 K/UL (4.8-10.8)
[2016-06-03 07:00] LABS: ANION GAP 9 (5-15); CALCIUM 8.9 mg/dL (8.6-10.2); CARBON DIOXIDE 30 mEQ/L (20-30); CHLORIDE 97 mEQ/L (98-107); CREATININE 0.9 mg/dL (0.5-0.9); HEMOLYSIS 9; POTASSIUM 4.6 mEQ/L (3.4-4.9); SODIUM 136 mEQ/L (135-145)
[2016-06-03 07:25] VITALS: BP 112/58
[2016-06-03] MEDS: Docusate 100mg cap ORAL SCH ×2 (08:37→12:24)
[2016-06-03] MEDS: RisperiDONE 0.25mg tab ORAL SCH (08:37)
[2016-06-03] MEDS: Sertraline 50mg tab ORAL SCH (08:37)
[2016-06-03] MEDS: Eliquis 2.5mg tablet ORAL SCH (08:38)
[2016-06-03] MEDS: Metoprolol 25mg tab ORAL SCH (08:38)
[2016-06-03] MEDS ORDERED: Milk of Magnesia 30ml Ud ORAL SCH (09:00)
[2016-06-03] MEDS ORDERED: ELIQUIS2.5 MG PO (09:56)
[2016-06-03] MEDS ORDERED: ACETAMINOPHEN325 M3 PO (09:56)
[2016-06-03] MEDS ORDERED: DIAZEPAM5 MG ORAL (09:57)
[2016-06-03] MEDS ORDERED: DIAZEPAM10 MG ORAL (09:58)
[2016-06-03] MEDS ORDERED: DOCUSATE SODIU100 MG ORAL (09:58)
[2016-06-03] MEDS ORDERED: DUONEB 0.5-3(2.53 ML HHN (10:01)
[2016-06-03] MEDS ORDERED: METOPROLOL TART75 MG PO (10:02)
[2016-06-03] MEDS ORDERED: MORPHINE 22 MG/1 ML IVP (10:04)
[2016-06-03] MEDS ORDERED: NITROGLYCERIN0.4 MG SL (10:08)
[2016-06-03] MEDS ORDERED: PANTOPRAZOLE SO40 MG ORAL (10:10)
[2016-06-03] MEDS ORDERED: POLYETHYLENE GL17 GM ORAL ×2 (10:10→10:11)
[2016-06-03] MEDS ORDERED: SERTRALINE HCL25 MG ORAL (10:12)
[2016-06-03] MEDS ORDERED: TRAZODONE HCL300 MG ORAL (10:13)
[2016-06-03] MEDS ORDERED: TRAZODONE HCL100 MG ORAL (10:13)
--- NOTE | 2016-06-03 11:36 | GI Progress Note ---
Assessment/Plan Problems: (1) [facility] resident ICD Codes: Z59.3 - Problems related to living in residential institution SNOMED: 337184296 (2) Insomnia ICD Codes: G47.00 - Insomnia, unspecified SNOMED: 467830072 (3) GERD (gastroesophageal reflux disease) ICD Codes: K21.9 - Gastro-esophageal reflux disease without esophagitis SNOMED: 184187051 (4) Constipation ICD Codes: K59.00 - Constipation, unspecified SNOMED: 61714718 (5) Abdominal pain ICD Codes: R10.9 - Unspecified abdominal pain SNOMED: 46862268 (6) Nausea ICD Codes: R11.0 - Nausea SNOMED: 644528906 Status: stable Status Narrative Discussed with Dr. Candelaria. Assessment/Plan KUB negative Utox negative UA negative symptomatic treatment at this time MOM daily colace + miralax ppi regular diet fu labs outpatient colonoscopy Subjective Gastrointestinal/Abdominal: Reports: no symptoms Subjective insomnia constipated Objective Last 24 Hour Vital Signs Date Time Temp Pulse Resp B/P Pulse Ox O2 Delivery O2 Flow Rate FiO2 06/03/16 08:38 64 112/58 06/03/16 07:25 96.8 64 18 112/58 95 Room Air 06/03/16 04:00 97.3 66 19 121/78 95 Room Air 06/03/16 00:00 96.8 69 19 122/75 96 Room Air 06/02/16 22:03 97.9 06/02/16 21:40 68 128/68 06/02/16 20:00 97.9 74 20 111/56 99 Room Air 06/02/16 16:00 97.2 78 20 108/58 97 Room Air 80 72 06/02/16 12:00 98.0 72 20 110/58 97 Room Air 76 80 Intake and Output 06/02/16 06/03/16 19:00 07:00 Intake Total 720 ml 400 ml Balance 720 ml 400 ml Intake Oral 720 ml 400 ml # Voids 2 # Bowel Movements 1 Laboratory Tests Test 06/03/16 04:45 White Blood Count 8.8 K/UL (4.8-10.8) Red Blood Count 4.30 M/UL (4.20-5.40) Hemoglobin 13.2 G/DL (12.0-16.0) Hematocrit 40.3 % (37.0-47.0) Mean Corpuscular Volume 94 FL (80-99) Mean Corpuscular Hemoglobin 30.7 PG (27.0-31.0) Mean Corpuscular Hemoglobin Concent 32.7 G/DL (32.0-36.0) Red Cell Distribution Width 12.3 % (11.6-14.8) Platelet Count 234 K/UL (150-450) Mean Platelet Volume 9.1 FL (6.5-10.1) Neutrophils (%) (Auto) 69.6 % (45.0-75.0) Lymphocytes (%) (Auto) 16.2 % (20.0-45.0) L Monocytes (%) (Auto) 11.7 % (1.0-10.0) H Eosinophils (%) (Auto) 1.9 % (0.0-3.0) Basophils (%) (Auto) 0.7 % (0.0-2.0) Sodium Level 136 mEQ/L (135-145) Potassium Level 4.6 mEQ/L (3.4-4.9) Chloride Level 97 mEQ/L (98-107) L Carbon Dioxide Level 30 mEQ/L (20-30) Anion Gap 9 (5-15) Blood Urea Nitrogen 22 mg/dL (7-23) Creatinine 0.9 mg/dL (0.5-0.9) Estimat Glomerular Filtration Rate mL/min (>60) Glucose Level 82 mg/dL (74-106) Calcium Level 8.9 mg/dL (8.6-10.2) Height (Feet): 5 Height (Inches): 5.00 Weight (Pounds): 120 General Appearance: no apparent distress, alert Cardiovascular: normal rate Respiratory/Chest: normal breath sounds, no respiratory distress Abdominal Exam: normal bowel sounds, non tender, soft Lila Zavaleta N.P. Jun 03, 2016 11:36
--- NOTE | 2016-06-03 11:38 | Progress Note ---
DATE: 06/02/2016 PSYCHOTHERAPY CONSULTATION PROGRESS NOTE TREATING ATTENDING PHYSICIAN: Ben Kaiser D.O. SUBJECTIVE: The patient is an 80-year-old female. The patient admitted to depression and anxiety. She is complaining about helpless and hopeless. tired, fatigue, agitated and irritable. She has poor judgement and poor impulse control and required continued hospitalization for stabilization of her symptoms. PLAN: This clinician assessed the patient. This clinician provided the patient with supportive psychotherapy, reality orientation and coping skills. Encouraging the patient to participate in treatment as well as with medication regimen and . Continue with medication management and behavioral management. This clinician has reviewed the patient's chart. Discussed the treatment with nursing staff. Mary Staples PsyD. DR: NALINI JOB#: [id number] CC:
--- NOTE | 2016-06-03 11:38 | Consultation ---
DATE OF CONSULTATION: 05/31/2016 INITIAL CONSULTATION CONSULTING PHYSICIAN: Mary Staples M.D. TREATING ATTENDING: Ben Kaiser D.O. HISTORY OF PRESENT ILLNESS: The patient is an 80-year-old female. The patient lives in [facility]. She has a history of depression as well as anxiety. The patient was brought to the [facility] as she has extensive atrial fibrillation and admitted to the hospital. She is complaining of depression, anxiety, difficulty sleeping, helplessness, and hopelessness. Denies suicidal or homicidal thoughts or ideation. This clinician assessed this patient. Assessed the patient's mood. Provided her with coping skills and . PAST MEDICAL HISTORY: Includes history of hypothyroidism, chronic obstructive pulmonary disease, hypertension, and atrial fibrillation. ALLERGIES: The patient is allergic to sulfa, antibiotics, and penicillin. SUBSTANCE USE HISTORY: The patient denies any history of alcohol use, illicit substance use, or smoking cigarettes. PSYCHIATRIC HISTORY: The patient . She has had multiple inpatient psychiatric hospitalizations and has a history of anxiety and depression with psychotic features. SOCIAL HISTORY: The patient is an 80-year-old female, convalescent home. Financially sustained through Medicare and [employer]. MENTAL STATUS EXAMINATION: The patient is alert and oriented x3, to person, place, and time. Mood is anxious and depressed. Affect is labile. Thought process is disorganized. Thought content is confused. The patient has poor attention and concentration. Poor insight, judgment, and impulse control. This clinician assessed this patient. Provided the patient with reality orientation, supportive psychotherapy, and coping skills. Encouraging the patient to participate in treatment as well as medication regimen. DIAGNOSES: AXIS I Major depressive disorder with psychotic features. AXIS II Deferred. AXIS III Per History and Physical. AXIS IV Problems with social environment. PLAN: Continue with medication management and behavioral management. This clinician has reviewed the patient's chart. Discussed the treatment with nursing staff. Mary Staples PsyD. DR: NALINI JOB#: [id number] CC:
[2016-06-03 12:00] VITALS: BP 104/54
--- NOTE | 2016-06-03 12:55 | General Progress Note ---
Assessment/Plan Problem List: (1) UTI (urinary tract infection) ICD Codes: N39.0 - Urinary tract infection, site not specified SNOMED: 50322520 (2) Insomnia ICD Codes: G47.00 - Insomnia, unspecified SNOMED: 823850062 (3) HTN (hypertension) ICD Codes: I10 - Essential (primary) hypertension SNOMED: 01168441 (4) Anxiety and depression ICD Codes: F41.9 - Anxiety disorder, unspecified; F32.9 - Major depressive disorder, single episode, unspecified SNOMED: 871796373 (5) Abdominal pain ICD Codes: R10.9 - Unspecified abdominal pain SNOMED: 39132570 Qualifiers: Qualified Codes: R10.13 - Epigastric pain (6) Atrial fibrillation with RVR ICD Codes: I48.91 - Unspecified atrial fibrillation SNOMED: 329779278984872 Status: stable, progressing, tolerating diet Assessment/Plan ot pt diet abx dc to snf Subjective Constitutional: Reports: weakness Allergies: Coded Allergies: PENICILLINS (Verified Allergy, Unknown, 01/12/16) SULFA (SULFONAMIDE ANTIBIOTICS) (Verified Allergy, Unknown, 01/12/16) All Systems: reviewed and negative except above Subjective sl anxious Objective Last 24 Hour Vital Signs Date Time Temp Pulse Resp B/P Pulse Ox O2 Delivery O2 Flow Rate FiO2 06/03/16 12:00 97.3 62 18 104/54 98 Room Air 06/03/16 08:38 64 112/58 06/03/16 07:25 96.8 64 18 112/58 95 Room Air 06/03/16 04:00 97.3 66 19 121/78 95 Room Air 06/03/16 00:00 96.8 69 19 122/75 96 Room Air 06/02/16 22:03 97.9 06/02/16 21:40 68 128/68 06/02/16 20:00 97.9 74 20 111/56 99 Room Air 06/02/16 16:00 97.2 78 20 108/58 97 Room Air 80 72 Intake and Output 06/02/16 06/03/16 19:00 07:00 Intake Total 720 ml 400 ml Balance 720 ml 400 ml Intake Oral 720 ml 400 ml # Voids 2 # Bowel Movements 1 Laboratory Tests 06/03/16 04:45: White Blood Count 8.8, Red Blood Count 4.30, Hemoglobin 13.2, Hematocrit 40.3, Mean Corpuscular Volume 94, Mean Corpuscular Hemoglobin 30.7, Mean Corpuscular Hemoglobin Concent 32.7, Red Cell Distribution Width 12.3, Platelet Count 234, Mean Platelet Volume 9.1, Neutrophils (%) (Auto) 69.6, Lymphocytes (%) (Auto) 16.2L, Monocytes (%) (Auto) 11.7H, Eosinophils (%) (Auto) 1.9, Basophils (%) ( Auto) 0.7, Sodium Level 136, Potassium Level 4.6, Chloride Level 97L, Carbon Dioxide Level 30, Anion Gap 9, Blood Urea Nitrogen 22, Creatinine 0.9, Estimat Glomerular Filtration Rate , Glucose Level 82, Calcium Level 8.9 Height (Feet): 5 Height (Inches): 5.00 Weight (Pounds): 120 General Appearance: alert EENT: normal ENT inspection Neck: non-tender, normal alignment, supple Cardiovascular: normal peripheral pulses, normal rate, regular rhythm Respiratory/Chest: chest wall non-tender, lungs clear, normal breath sounds Abdomen: normal bowel sounds, non tender, soft Extremities: normal inspection Edema: no edema noted Arm (L), no edema noted Arm (R), no edema noted Leg (L), no edema noted Leg (R), no edema noted Pedal (L), no edema noted Pedal (R), no edema noted Generalized Neurologic: responsive, motor weakness Skin: normal pigmentation, warm/dry CARLOS MOREIRA Jun 03, 2016 12:55
--- NOTE | 2016-06-03 17:13 | Pulmonology Progress Note ---
Assessment/Plan Problems: (1) Atrial fibrillation with RVR (2) Bronchitis (3) Abdominal pain (4) senior care resident (5) Anxiety and depression Assessment/Plan heart rate controlled titrate cardiac meds increase Valium at night to 10 start valium at 5 in am as requested by the pt, hold for somnolence. Subjective Allergies: Coded Allergies: PENICILLINS (Verified Allergy, Unknown, 01/12/16) SULFA (SULFONAMIDE ANTIBIOTICS) (Verified Allergy, Unknown, 01/12/16) Objective Last 24 Hour Vital Signs Date Time Temp Pulse Resp B/P Pulse Ox O2 Delivery O2 Flow Rate FiO2 06/03/16 12:00 97.3 62 18 104/54 98 Room Air 06/03/16 08:38 64 112/58 06/03/16 07:25 96.8 64 18 112/58 95 Room Air 06/03/16 04:00 97.3 66 19 121/78 95 Room Air 06/03/16 00:00 96.8 69 19 122/75 96 Room Air 06/02/16 22:03 97.9 06/02/16 21:40 68 128/68 06/02/16 20:00 97.9 74 20 111/56 99 Room Air Intake and Output 06/02/16 06/03/16 19:00 07:00 Intake Total 720 ml 400 ml Balance 720 ml 400 ml Intake Oral 720 ml 400 ml # Voids 2 # Bowel Movements 1 General Appearance: no acute distress HEENT: normocephalic, atraumatic, PERRL Respiratory/Chest: chest wall non-tender, decreased breath sounds, accessory muscle use, rhonchi Breasts: no masses Cardiovascular: normal peripheral pulses, regularly irregular, no JVD Abdomen: hypoactive bowel sounds, distended, tender Genitourinary: normal external genitalia Extremities: no cyanosis 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9, Estimat Glomerular Filtration Rate , Glucose Level 82, Calcium Level 8.9 Current Medications Medications (Trade) Dose Ordered Sig/Dejan Route PRN Reason Start Time Stop Time Status Last Admin Dose Admin Acetaminophen (Tylenol) 650 mg Q4H PRN ORAL FEVER 06/01/16 02:30 07/01/16 02:29 Albuterol/ Ipratropium (DuoNeb 0.5-3(2.5)mg/3ml) 3 ml EVERY 4 HOURS PRN HHN Shortness of Breath 06/01/16 01:00 06/06/16 00:59 Apixaban (Eliquis) 2.5 mg Q12HR ORAL 06/01/16 09:00 07/01/16 08:59 06/03/16 08:38 Diazepam (Valium) 5 mg DAILY ORAL 06/01/16 09:00 06/08/16 08:59 06/02/16 21:44 Diazepam (Valium) 10 mg HSPRN PRN ORAL Insomnia 06/01/16 21:00 06/08/16 20:59 06/01/16 22:45 Docusate Sodium (Colace) 100 mg THREE TIMES A DAY ORAL 06/01/16 09:00 07/01/16 08:59 06/03/16 12:24 Levothyroxine Sodium (Synthroid) 100 mcg ACBREAKFAST ORAL 06/01/16 06:30 07/01/16 06:29 06/03/16 06:43 Magnesium Hydroxide (Mom) 30 ml DAILY ORAL 06/03/16 09:00 07/03/16 08:59 06/03/16 08:37 Magnesium Hydroxide (Mom) 30 ml DAILYPRN PRN ORAL Constipation 06/01/16 12:30 07/01/16 12:29 06/02/16 12:59 Metoprolol Tartrate (Lopressor) 75 mg Q12HR ORAL 06/02/16 09:00 07/02/16 08:59 06/03/16 08:38 Morphine Sulfate (Morphine Sulfate) 2 mg EVERY 4 HOURS PRN IVP severe Pain (Pain Scale 7-10) 06/01/16 01:00 06/08/16 00:59 06/02/16 21:33 Nitroglycerin (Ntg) 0.4 mg Q5M PRN SL Prn Chest Pain 06/01/16 01:05 07/01/16 01:04 Ondansetron HCl (Zofran) 4 mg Q6H PRN IVP Nausea & Vomiting 06/01/16 02:30 07/01/16 02:29 Pantoprazole (Protonix) 40 mg DAILY ORAL 06/01/16 09:00 07/01/16 08:59 06/03/16 08:37 Polyethylene Glycol (Miralax) 17 gm BEDTIME ORAL 06/01/16 21:30 07/01/16 21:29 06/02/16 21:41 Polyethylene Glycol (Miralax) 17 gm DAILYPRN PRN ORAL Constipation 06/01/16 14:30 07/01/16 14:29 Risperidone (RisperDAL) 0.25 mg Q12HR ORAL 06/01/16 09:00 07/01/16 08:59 06/03/16 08:37 Sertraline HCl (Zoloft) 75 mg DAILY ORAL 06/01/16 09:00 07/01/16 08:59 06/03/16 08:37 Trazodone HCl (Desyrel) 100 mg BEDTIME ORAL 06/01/16 21:00 07/01/16 20:59 06/02/16 21:40 CRISTO BARAJAS Jun 03, 2016 17:13
--- NOTE | 2016-06-03 18:11 | Cardiology Progress Note ---
Assessment/Plan Assessment/Plan 1. New onset atrial fibrillation, stable, controlled ventricular response, continue metoprolol and Eliquis. 2. HTN, well controlled, continue metoprolol. 3. Acute diastolic CHF, resolved. 4. COPD 5. Dementia 6. Hypothyroidism 7. Constipation Subjective Subjective No cardiac events. Denies chest pain, SOB or palpitations. Objective Last 24 Hour Vital Signs Date Time Temp Pulse Resp B/P Pulse Ox O2 Delivery O2 Flow Rate FiO2 06/03/16 12:00 97.3 62 18 104/54 98 Room Air 06/03/16 08:38 64 112/58 06/03/16 07:25 96.8 64 18 112/58 95 Room Air 06/03/16 04:00 97.3 66 19 121/78 95 Room Air 06/03/16 00:00 96.8 69 19 122/75 96 Room Air 06/02/16 22:03 97.9 06/02/16 21:40 68 128/68 06/02/16 20:00 97.9 74 20 111/56 99 Room Air Intake and Output 06/02/16 06/03/16 19:00 07:00 Intake Total 720 ml 400 ml Balance 720 ml 400 ml Intake Oral 720 ml 400 ml # Voids 2 # Bowel Movements 1 2D Echo: EF 50%, ARNOLDO, severe MR, Restrictive LV physiology Laboratory Tests Test 06/03/16 04:45 White Blood Count 8.8 K/UL (4.8-10.8) Red Blood Count 4.30 M/UL (4.20-5.40) Hemoglobin 13.2 G/DL (12.0-16.0) Hematocrit 40.3 % (37.0-47.0) Mean Corpuscular Volume 94 FL (80-99) Mean Corpuscular Hemoglobin 30.7 PG (27.0-31.0) Mean Corpuscular Hemoglobin Concent 32.7 G/DL (32.0-36.0) Red Cell Distribution Width 12.3 % (11.6-14.8) Platelet Count 234 K/UL (150-450) Mean Platelet Volume 9.1 FL (6.5-10.1) Neutrophils (%) (Auto) 69.6 % (45.0-75.0) Lymphocytes (%) (Auto) 16.2 % (20.0-45.0) L Monocytes (%) (Auto) 11.7 % (1.0-10.0) H Eosinophils (%) (Auto) 1.9 % (0.0-3.0) Basophils (%) (Auto) 0.7 % (0.0-2.0) Sodium Level 136 mEQ/L (135-145) Potassium Level 4.6 mEQ/L (3.4-4.9) Chloride Level 97 mEQ/L (98-107) L Carbon Dioxide Level 30 mEQ/L (20-30) Anion Gap 9 (5-15) Blood Urea Nitrogen 22 mg/dL (7-23) Creatinine 0.9 mg/dL (0.5-0.9) Estimat Glomerular Filtration Rate mL/min (>60) Glucose Level 82 mg/dL (74-106) Calcium Level 8.9 mg/dL (8.6-10.2) Objective HEENT: Normocephalic, Pupils are equal and reactive to light, EOMI, Sclerae anicteric, dry mucosal membranes NECK: No JVD. no carotid bruit, upstroke 2+ LUNGS: Clear. HEART: Irregular irregular, normal S1S2, 2/6 HSM at the apex ABDOMEN: Positive bowel sounds, soft, Nt/ND EXTREMITIES: No clubbing, cyanosis, or edema. PEREZ VILLEGAS Jun 03, 2016 18:11
--- NOTE | 2016-06-04 19:15 | Discharge Summary ---
Discharge Summary Hospital Course Date of Admission May 29, 2016 at 13:09 Date of Discharge Jun 03, 2016 at 15:00 Admitting Diagnosis ATRIAL FIB ,RVR. HPI Shelby Espinal is a 80 year old female who was admitted on May 29, 2016 at 13: 09 for Atrial Fibrillation With Rapid Ventricular Rate Hospital Course [id number] Discharge Discharge Disposition Patient was discharged to SNF/Subacute Facility(03) Discharge Diagnoses: Madonna Hamm NP Jun 04, 2016 19:15
--- NOTE | 2016-06-05 03:27 | Discharge Summary 2 SIG ---
DATE OF ADMISSION: 05/29/2016 DATE OF DISCHARGE: 06/03/2016 CONSULTANTS: 1. Richar Fleming M.D. 2. Sage Villalba M.D. 3. Mary Staples M.D. 4. Natacha Snyder M.D. 5. Osmani Monroy M.D. BRIEF HOSPITAL COURSE: The patient is an 80-year-old female from [facility], presented with increased abdominal pain and poor sleep. On evaluation at ED, the patient was in atrial fibrillation with rapid ventricular response. Diltiazem was given. Dr. Fleming was consulted. The patient was started on metoprolol and was given Eliquis. Echocardiogram was done showed ejection fraction of 35% with global LV hypokinesis and increased left ventricular chamber size. Dr. Monroy was consulted for evaluation of abnormal thyroid test. TSH was 0.1. The patient was diagnosed with hypothyroidism three years ago and has been on 112 mcg of levothyroxine. Dosage was lowered down and recommend to repeat a thyroid check in two to three weeks. GI consultation with Dr. Candelaria was done. KUB was negative. Urine toxicology was negative. Urinalysis was negative. The patient was given symptomatic treatment with milk of magnesia, Colace and recommended outpatient colonoscopy. She was seen by Psychiatry and was diagnosed to have major depression with psychotic features and was started on trazodone for the patient's insomnia and apparently was given Risperdal and Zoloft. Heart rate was controlled. The patient was given Valium q.h.s. as requested by the patient. She was eventually discharged to half-way to SNF. FINAL DIAGNOSES: 1. New onset atrial fibrillation with rapid ventricular response. 2. Hypertension. 3. Acute diastolic congestive heart failure. 4. Chronic obstructive pulmonary disease 5. Dementia. 6. Hypothyroidism. 7. Constipation. 8. Bronchitis. 9. Major depressive disorder with psychotic features. 10. Constipation. 11. Gastroesophageal reflux disease. Ben Kaiser D.O. I have been assigned to dictate discharge summary on this account and I was not involved in the patient's management. Madonna Hamm N.P. DR: DEONTE JOB#: [id number] CC:
--- NOTE | 2016-06-06 21:08 | Progress Note ---
DATE: 06/01/2016 Continue treating this patient with trazodone, Zoloft, and Valium as well as Risperdal 0.25 mg twice a day to stabilize her mood. Chart reviewed and discussed with staff. Seen and assessed at bedside. Natacha Snyder M.D. DR: KAT JOB#: [id number] CC:
--- NOTE | 2016-06-06 21:08 | Progress Note ---
DATE: 06/02/2016 SUBJECTIVE: This patient has atrial fibrillation. She is confused and disorganized. PLAN: I am going to continue to treat her with medication regimen of Risperdal 0.25 mg twice a day and trazodone 100 mg at bedtime. We will continue the Zoloft to reduce depression and anxiety. Seen and assessed at bedside. Natacha Snyder M.D. DR: KAT JOB#: [id number] CC:
--- NOTE | 2016-06-06 21:58 | Progress Note ---
DATE: 06/03/2016 I am going to continue treatment with psychotropic medications to prevent any further decline in her cognition. Chart is reviewed and discussed with staff. Seen and assessed at bedside. She will continue to be followed by Psychiatry throughout the hospital course. Natacha Snyder M.D. DR: KAT JOB#: [id number] CC:
--- NOTE | 2016-07-02 09:20 | Consultation ---
DATE OF CONSULTATION: 05/31/2016 PSYCHOTHERAPY CONSULTATION PROGRESS NOTE CONSULTING PHYSICIAN: Mary Staples M.D. TREATING ATTENDING: Ben Kaiser D.O. HISTORY OF PRESENT ILLNESS: The patient is an 80-year-old female. The patient was brought into the hospital due to extensive atrial fibrillation. The patient resides in a convalescent home. The patient has been complaining of anxiety as well as depression. She is also . The patient denies suicidal or homicidal thoughts or ideations. As above, endorses feelings of anxiety, depression, and difficulty breathing. PAST MEDICAL HISTORY: History of and hypertension. ALLERGIES: The patient is allergic to sulfa and penicillin. 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 She has been hospitalized in a psychiatric hospital. SOCIAL HISTORY: The patient is an 80-year-old female, living independently in a convalescent home. Financially sustained through [employer] and Medicare. MENTAL STATUS EXAMINATION: The patient is alert and oriented x3 to person, place, and time. Her mood is slightly anxious, mildly depressed. Affect is labile Thought process is disorganized. Thought content is . The patient has poor attention and concentration. Poor insight, judgment, and impulse control. There is no indication of auditory or visual hallucinations. The patient denies suicidal or homicidal thoughts or ideation. DIAGNOSES: AXIS I: Major depressive disorder, with psychotic features . AXIS II: Deferred. AXIS III: Per History and Physical. AXIS IV: Problems with social environment with psychosocial stressors. PLAN: This clinician assessed this patient and provided the patient with reality orientation, supportive psychotherapy, and coping skills. Continue with medication management and behavioral management. This clinician has reviewed the patient's chart and discussed the treatment with nursing staff. Mary Staples PsyD. DR: Jian JOB#: [id number] CC:
== END 2016-06-03 15:00 | DRG 308 ==
LOC: EDBD 10:18 → EMR 10:55 → EDBEDREQ 13:06 → 2E 13:09 → EDBEDREQ 17:11 → 2E 17:40 → 4W 06-01 01:32
DX: I48.91 Unspecified atrial fibrillation (principal); I50.31 Acute diastolic (congestive) heart failure; F32.3 Major depressive disorder, single episode, severe with psychotic features; N39.0 Urinary tract infection, site not specified; F03.90 Unspecified dementia, unspecified severity, without behavioral disturbance, psychotic disturbance, mood disturbance, and anxiety; J44.9 Chronic obstructive pulmonary disease, unspecified; J40 Bronchitis, not specified as acute or chronic; R10.9 Unspecified abdominal pain; F41.8 Other specified anxiety disorders; E03.9 Hypothyroidism, unspecified; Z88.0 Allergy status to penicillin; Z88.2 Allergy status to sulfonamides; K59.00 Constipation, unspecified; K21.9 Gastro-esophageal reflux disease without esophagitis; G47.00 Insomnia, unspecified; K44.9 Diaphragmatic hernia without obstruction or gangrene; E05.80 Other thyrotoxicosis without thyrotoxic crisis or storm; Z88.1 Allergy status to other antibiotic agents
CPT/HCPCS: 36415; 71010; 74000; 80048; 80053; 80061; 80300; 81003; 82550; 83880; 84439; 84443; 84484; 85025; 85610; 85730; 86140; 87081; 93005; 93306; 97803; J2405

== ENCOUNTER 2018-04-20 16:18 | Inpatient (IN) | payer MEDICARE, MEDICAID ==
[~2018-04-20] VITALS: Ht 170.2 cm; Wt 61.7 kg
[~2018-04-20 16:18] MED LIST changes: +ACETAMINOPHEN325 M3 PO; +DIAZEPAM10 MG ORAL; +DIAZEPAM5 MG ORAL; +DOCUSATE SODIU100 MG ORAL; +ELIQUIS2.5 MG PO; +FAMOTIDINE20 MG ORAL; +METOPROLOL TART75 MG PO; +MORPHINE 22 MG/1 ML IVP; +NITROGLYCERIN0.4 MG SL; +PANTOPRAZOLE SO40 MG ORAL; +POLYETHYLENE GL17 GM ORAL; +SENNA LAX8.6 MG PO; +SERTRALINE HCL25 MG ORAL; +TRAZODONE HCL100 MG ORAL; +TRAZODONE HCL300 MG ORAL; +ZOLPIDEM TARTRA10 MG ORAL
[2018-04-20] MEDS ORDERED: Sodium Chloride 500ML 500 ML IV ONE (16:29)
[2018-04-20] MEDS ORDERED: Isovue-300 100ml vial INJ PRN (16:30)
--- NOTE | 2018-04-20 16:33 | Emergency Room Report ---
History of Present Illness General Chief Complaint: Abdominal Pain Source: Patient Present Illness HPI Patient is an 80-year-old female sent in by facility after recent fall. Patient had been noted to have increased generalized weakness and bilateral lower extremity pain. She reports having fallen yesterday. Patient reports having decreased urine output. She reports having bilateral leg numbness. She reports having prior history of nerve type pain. She had been taking gabapentin without any relief.Pain was described as tingling in nature. Patient denies any difficulty with movement.Patient reports having lower abdominal discomfort. She states she had prior urologic surgery Allergies: Coded Allergies: PENICILLINS (Verified Allergy, Unknown, 01/12/16) SULFA (SULFONAMIDE ANTIBIOTICS) (Verified Allergy, Unknown, 01/12/16) Patient History Past Medical History: see triage record, CAD, dementia Reviewed Nursing Documentation: PMH: Agreed; PSxH: Agreed Nursing Documentation-PMH Past Medical History: No History, Except For Hx Cardiac Problems: Yes Hx Hypertension: Yes Hx Pacemaker: No Hx Asthma: No Hx COPD: Yes Hx Cancer: No Hx Dialysis: No Hx Neurological Problems: No Hx Cerebrovascular Accident: No Hx Seizures: No Review of Systems All Other Systems: negative except mentioned in HPI Physical Exam Vital Signs Date Time Temp Pulse Resp B/P (MAP) Pulse Ox O2 Delivery O2 Flow Rate FiO2 04/20/18 16:15 97.9 43 18 99/61 98 Room Air Sp02 EP Interpretation: reviewed, normal General Appearance: normal inspection, alert, GCS 15, thin, Chronically Ill Head: atraumatic ENT: normal ENT inspection, hearing grossly normal, normal voice Neck: normal inspection, full range of motion, supple, no bony tend, limited range of motion Respiratory: normal inspection, lungs clear, normal breath sounds, no respiratory distress, no retraction, no wheezing, other - kyphosis Cardiovascular #1: regular rate, rhythm, no edema Cardiovascular #2: 2+ femoral (R), 2+ femoral (L), 2+ dorsalis pedis (R), 2+ dorsalis pedis (L) Gastrointestinal: normal bowel sounds, soft, no guarding, no hernia, tenderness - suprapubic Genitourinary: no CVA tenderness Musculoskeletal: normal inspection, back normal, normal range of motion Neurologic: normal inspection, alert, oriented x3, responsive, speech normal Psychiatric: normal inspection, judgement/insight normal, depressed affect Skin: normal inspection, normal color, no rash Medical Decision Making Diagnostic Impression: Primary Impression: Bradycardia Additional Impressions: UTI (urinary tract infection) Hyperkalemia ER Course Patient presented for abdominal pain. Differential diagnoses included ischemic bowel, appendicitis, perforated viscus, abdominal aortic aneurysm, inferior myocardial infarction, viral gastroenteritis. Because of complexity of patient' s case laboratory testing and imaging studies were ordered.Patient was noted to have atrial fibrillation with bradycardia on the rhythm strip. EKG interpreted by me showed atrial fibrillation with a rate in the 40s without any PVCs or ectopy. Patient was noted to have hyperkalemia and rectal Kayexalate was ordered. Patient will appear to have some evidence of urinary infection and Macrobid was ordered however patient stated that she cannot take this. Patient appears to be awake and alert. Dr. Amber Lord was contacted for inpatient management Labs Test 04/20/18 16:50 04/20/18 17:00 04/20/18 18:00 04/21/18 04:50 Prothrombin Time 10.9 SEC (9.30-11.50) Prothromb Time International Ratio 1.0 (0.9-1.1) Activated Partial Thromboplast Time 26 SEC (23-33) Troponin I 0.000 ng/mL (0.000-0.056) Urine Color Pale yellow Urine Appearance Cloudy Urine pH 6 (4.5-8.0) Urine Specific [place] 1.010 (1.005-1.035) Urine Protein Negative (NEGATIVE) Urine Glucose (UA) Negative (NEGATIVE) Urine Ketones Negative (NEGATIVE) Urine Blood 1+ (NEGATIVE) Urine Nitrite Negative (NEGATIVE) Urine Bilirubin Negative (NEGATIVE) Urine Urobilinogen Normal MG/DL (0.0-1.0) Urine Leukocyte Esterase 3+ (NEGATIVE) Urine RBC 0-2 /HPF (0 - 2) Urine WBC 10-15 /HPF (0 - 2) Urine Squamous Epithelial Cells Many /LPF (NONE/OCC) Urine Bacteria Few /HPF (NONE) Lipase 162 U/L (73-393) White Blood Count 6.5 K/UL (4.8-10.8) Red Blood Count 4.41 M/UL (4.20-5.40) Hemoglobin 13.5 G/DL (12.0-16.0) Hematocrit 41.7 % (37.0-47.0) Mean Corpuscular Volume 95 FL (80-99) Mean Corpuscular Hemoglobin 30.7 PG (27.0-31.0) Mean Corpuscular Hemoglobin Concent 32.4 G/DL (32.0-36.0) Red Cell Distribution Width 13.3 % (11.6-14.8) Platelet Count 128 K/UL (150-450) Mean Platelet Volume 11.3 FL (6.5-10.1) Neutrophils (%) (Auto) 61.3 % (45.0-75.0) Lymphocytes (%) (Auto) 21.9 % (20.0-45.0) Monocytes (%) (Auto) 14.0 % (1.0-10.0) Eosinophils (%) (Auto) 1.7 % (0.0-3.0) Basophils (%) (Auto) 1.2 % (0.0-2.0) Sodium Level 138 MMOL/L (136-145) Potassium Level 4.3 MMOL/L (3.5-5.1) Chloride Level 104 MMOL/L (98-107) Carbon Dioxide Level 28 MMOL/L (21-32) Anion Gap 6 mmol/L (5-15) Blood Urea Nitrogen 13 mg/dL (7-18) Creatinine 1.2 MG/DL (0.55-1.30) Estimat Glomerular Filtration Rate mL/min (>60) Glucose Level 67 MG/DL (74-106) Calcium Level 8.5 MG/DL (8.5-10.1) Total Bilirubin 0.5 MG/DL (0.2-1.0) Aspartate Amino Transf (AST/SGOT) 18 U/L (15-37) Alanine Aminotransferase (ALT/SGPT) 19 U/L (12-78) Alkaline Phosphatase 100 U/L (46-116) Total Protein 6.5 G/DL (6.4-8.2) Albumin 2.9 G/DL (3.4-5.0) Globulin 3.6 g/dL Albumin/Globulin Ratio 0.8 (1.0-2.7) Thyroid Stimulating Hormone (TSH) 2.836 uiU/mL (0.358-3.740) Free Thyroxine 1.24 NG/DL (0.76-1.46) Rhythm Strip Diag. Results EP Interpretation: yes Rhythm: no PVC's, no ectopy, other - afib Last Vital Signs Date Time Temp Pulse Resp B/P (MAP) Pulse Ox O2 Delivery O2 Flow Rate FiO2 04/20/18 16:15 97.9 43 18 99/61 98 Room Air Status: unchanged Disposition: ADMITTED INPATIENT Condition: Serious Gustavo Tong MD Apr 20, 2018 16:33
[2018-04-20] MEDS ORDERED: BENAZEPRIL HCL10 MG ORAL (16:35)
[2018-04-20] MEDS ORDERED: NORCO 10-325 T1 EACH ORAL (16:35)
[2018-04-20] MEDS ORDERED: SENNA LAXATIVE8.6 MG PO (16:35)
[2018-04-20] MEDS ORDERED: DIGOXIN250 MCG ORAL (16:35)
[2018-04-20] MEDS ORDERED: NAMENDA5 MG ORAL (16:35)
[2018-04-20] MEDS ORDERED: OXYTROL1 EACH TD (16:35)
[2018-04-20] MEDS ORDERED: DULCOLAX10 MG RC (16:35)
[2018-04-20] MEDS ORDERED: FLEET ENEMA133 ML RECTAL (16:35)
[2018-04-20] MEDS ORDERED: GABAPENTIN300 MG ORAL (16:35)
[2018-04-20] MEDS ORDERED: MIRTAZAPINE30 MG ORAL (16:35)
[2018-04-20 16:40] VITALS: BP 103/49
[2018-04-20 17:18] LABS: EOSINOPHILS % (AUTO) 1.2 % (0.0-3.0); HEMATOCRIT 43.3 % (37.0-47.0); HEMOGLOBIN 13.9 G/DL (12.0-16.0); LYMPHOCYTES % (AUTO) 14.1 % (20.0-45.0); MEAN CORPUSCULAR VOLUME 94 FL (80-99); MONOCYTES % (AUTO) 11.9 % (1.0-10.0); NEUTROPHILS % (AUTO) 71.9 % (45.0-75.0); PLATELET COUNT 150 K/UL (150-450); RED BLOOD COUNT 4.62 M/UL (4.20-5.40); RED CELL DISTRIBUTION WIDTH 13.1 % (11.6-14.8); WHITE BLOOD COUNT 8.3 K/UL (4.8-10.8)
[2018-04-20 17:42] LABS: APPEARANCE,URINE CLOUDY; BILIRUBIN, URINE NEGATIVE (NEGATIVE); COLOR,URINE PALE YELLOW; GLUCOSE, URINE (UA) NEGATIVE (NEGATIVE); KETONES,URINE NEGATIVE (NEGATIVE); LEUKOCYTE ESTERASE ,URINE 3+ (NEGATIVE); NITRITE,URINE NEGATIVE (NEGATIVE); PH,URINE 6 (4.5-8.0); PROTEIN,URINE NEGATIVE (NEGATIVE); UROBILINOGEN,URINE NORMAL MG/DL (0.0-1.0)
[2018-04-20 18:38] LABS: ALANINE AMINOTRANSFERASE 19 U/L (12-78); ALBUMIN 2.8 G/DL (3.4-5.0); ALBUMIN/GLOBULIN RATIO 0.8 (1.0-2.7); ALKALINE PHOSPHATASE 97 U/L (46-116); ANION GAP 5 mmol/L (5-15); ASPARTATE AMINO TRANSFERASE 21 U/L (15-37); BILIRUBIN,TOTAL 0.5 MG/DL (0.2-1.0); BLOOD UREA NITROGEN 15 mg/dL (7-18); CALCIUM 8.1 MG/DL (8.5-10.1); CARBON DIOXIDE 28 MMOL/L (21-32); CHLORIDE 101 MMOL/L (98-107); CREATININE 1.4 MG/DL (0.55-1.30); SODIUM 134 MMOL/L (136-145)
[2018-04-20 19:09] VITALS: BP 105/56
[2018-04-20] MEDS ORDERED: Sodium Polystyrene Sulfonate Enema RECTAL ONE (19:30)
[2018-04-20 20:20] VITALS: BP 109/55
[2018-04-20 21:00] VITALS: BP 130/48
[2018-04-20] MEDS ORDERED: Sennosides 8.6mg tab ORAL PRN (21:00)
[2018-04-20] MEDS ORDERED: Miralax 17gm pkt ORAL PRN (21:15)
[2018-04-20] MEDS ORDERED: HYDROcodone/Acetamin 10/325 tab ORAL PRN (21:15)
[2018-04-20] MEDS ORDERED: Albuterol/Ipratropium 3ml neb HHN PRN (21:15)
[2018-04-20] MEDS ORDERED: Morphine Sulfate 2mg/ml Inj IVP PRN (21:15)
[2018-04-20] MEDS ORDERED: Nitroglycerin Subl 0.4mg tab SL PRN (21:15)
--- NOTE | 2018-04-20 21:53 | Consultation ---
History of Present Illness General Chief Complaint: Abdominal Pain Present Illness HPI the patient is an 82 yo female with hx of mmp depressio anxiety and ocm was brought in with bilateral numbness in the feet. The patient has severe neuropathy, non-alcohol related. The patient is not diabetic, states has worsening paresthesia on both extremities, especially the feet. the pt was severely anxious the pt is bradycardic Allergies: Coded Allergies: PENICILLINS (Verified Allergy, Unknown, 01/12/16) SULFA (SULFONAMIDE ANTIBIOTICS) (Verified Allergy, Unknown, 01/12/16) Medication History Scheduled Apixaban (Eliquis), 2.5 MG PO EVERY 12 HOURS, (Reported) Benazepril Hcl* (Benazepril Hcl*), 5 MG ORAL DAILY, (Reported) Diazepam* (Diazepam*), 5 MG ORAL DAILY, (Reported) Digoxin* (Digoxin*), 0.25 MG ORAL DAILY, (Reported) Docusate Sodium* (Docusate Sodium*), 100 MG ORAL THREE TIMES A DAY, (Reported) Gabapentin* (Gabapentin*), 300 MG ORAL THREE TIMES A DAY, (Reported) Levothyroxine Sodium* (Levothyroxine Sodium*), 112 MCG ORAL ACBREAKFAST, ( Reported) Memantine Hcl* (Namenda*), 5 MG ORAL DAILY, (Reported) Metoprolol Tartrate (Metoprolol Tartrate), 75 MG PO EVERY 12 HOURS, (Reported) Mirtazapine* (Remeron*), 30 MG ORAL BEDTIME, (Reported) Na Phos,M-B/Na Phos,Di-Ba* (Fleet Enema*), 133 ML RECTAL DAILY, (Reported) Pantoprazole* (Pantoprazole*), 40 MG ORAL DAILY, (Reported) Polyethylene Glycol 3350* (Polyethylene Glycol 3350*), 17 GM ORAL BEDTIME, ( Reported) Risperidone* (Risperdal*), 0.25 MG ORAL BID, (Reported) Sertraline Hcl* (Sertraline Hcl*), 75 MG ORAL DAILY, (Reported) Trazodone Hcl* (Desyrel*), 100 MG ORAL BEDTIME, (Reported) Scheduled PRN Acetaminophen (Acetaminophen), 650 MG PO Q4HR PRN for Fever/Headache/Mild Pain, (Reported) Diazepam* (Diazepam*), 10 MG ORAL HS PRN for Insomnia, (Reported) Hydrocodone Bit/Acetaminophen 10-325* ([place] 10-325*), 1 TAB ORAL Q4H PRN for For Pain, (Reported) Ipratropium/Albuterol Sulfate (DuoNeb 0.5-3(2.5)mg/3ml), 3 ML HHN Q4HR PRN for Shortness of Breath, (Reported) Magnesium Hydroxide (Milk of Magnesia), 30 ML ORAL Q6HR PRN for Constipation, ( Reported) Morphine Sulfate* (Morphine Sulfate*), 2 MG IVP Q4HR PRN for Severe Pain (Pain Scale 7-10), (Reported) Nitroglycerin (Nitroglycerin), 0.4 MG SL Q5M PRN for chest pain, (Reported) Ondansetron Odt* (Zofran Odt*), 4 MG ORAL Q4HR PRN for Nausea & Vomiting, ( Reported) Polyethylene Glycol 3350* (Polyethylene Glycol 3350*), 17 GM ORAL DAILY PRN for Constipation, (Reported) Miscellaneous Medications Bisacodyl (Dulcolax), 10 MG RC, (Reported) Oxybutynin (Oxytrol), 1 EACH TD, (Reported) Sennosides (Senna Laxative), 17.2 MG PO, (Reported) Patient History History Provided By: Patient, Medical Record, PMD Healthcare decision maker Resuscitation status Advanced Directive on File Past Medical/Surgical History Past Medical/Surgical History: (1) LFTs abnormal (2) Hyponatremia (3) Persistent cough (4) SOB (shortness of breath) (5) Leukocytosis (6) Abdominal pain (7) Atrial fibrillation with RVR (8) Bronchitis (9) Hyponatremia (10) Abdominal pain (11) Hypothyroidism (12) Iatrogenic hyperthyroidism (13) Hiatal hernia (14) Insomnia (15) HTN (hypertension) (16) Nausea (17) Hyperkalemia (18) Bradycardia (19) UTI (urinary tract infection) (20) Constipation (21) Dehydration (22) Failure to thrive (23) GERD (gastroesophageal reflux disease) (24) Severe malnutrition Review of Systems Psychiatric: Reports: anxiety, depressed feelings, emotional problems Physical Exam General Appearance: no apparent distress, alert Neurologic: oriented x 3, responsive, depressed affect Last 24 Hour Vital Signs Date Time Temp Pulse Resp B/P (MAP) Pulse Ox O2 Delivery O2 Flow Rate FiO2 04/20/18 21:00 96.8 66 17 130/48 (75) 96 04/20/18 19:09 97.3 44 14 105/56 99 Room Air 04/20/18 16:40 44 12 Room Air 04/20/18 16:40 97.1 44 12 103/49 99 Room Air 04/20/18 16:15 97.9 43 18 99/61 98 Room Air Laboratory Tests Test 04/20/18 16:50 04/20/18 17:00 04/20/18 18:00 White Blood Count 8.3 K/UL (4.8-10.8) Red Blood Count 4.62 M/UL (4.20-5.40) Hemoglobin 13.9 G/DL (12.0-16.0) Hematocrit 43.3 % (37.0-47.0) Mean Corpuscular Volume 94 FL (80-99) Mean Corpuscular Hemoglobin 30.1 PG (27.0-31.0) Mean Corpuscular Hemoglobin Concent 32.1 G/DL (32.0-36.0) Red Cell Distribution Width 13.1 % (11.6-14.8) Platelet Count 150 K/UL (150-450) Mean Platelet Volume 11.1 FL (6.5-10.1) H Neutrophils (%) (Auto) 71.9 % (45.0-75.0) Lymphocytes (%) (Auto) 14.1 % (20.0-45.0) L Monocytes (%) (Auto) 11.9 % (1.0-10.0) H Eosinophils (%) (Auto) 1.2 % (0.0-3.0) Basophils (%) (Auto) 1.0 % (0.0-2.0) Prothrombin Time 10.9 SEC (9.30-11.50) Prothromb Time International Ratio 1.0 (0.9-1.1) Activated Partial Thromboplast Time 26 SEC (23-33) Troponin I 0.000 ng/mL (0.000-0.056) Urine Color Pale yellow Urine Appearance Cloudy Urine pH 6 (4.5-8.0) Urine Specific [place] 1.010 (1.005-1.035) Urine Protein Negative (NEGATIVE) Urine Glucose (UA) Negative (NEGATIVE) Urine Ketones Negative (NEGATIVE) Urine Blood 1+ (NEGATIVE) H Urine Nitrite Negative (NEGATIVE) Urine Bilirubin Negative (NEGATIVE) Urine Urobilinogen Normal MG/DL (0.0-1.0) Urine Leukocyte Esterase 3+ (NEGATIVE) H Urine RBC 0-2 /HPF (0 - 2) Urine WBC 10-15 /HPF (0 - 2) H Urine Squamous Epithelial Cells Many /LPF (NONE/OCC) H Urine Bacteria Few /HPF (NONE) Sodium Level 134 MMOL/L (136-145) L Potassium Level 6.0 MMOL/L (3.5-5.1) *H Chloride Level 101 MMOL/L (98-107) Carbon Dioxide Level 28 MMOL/L (21-32) Anion Gap 5 mmol/L (5-15) Blood Urea Nitrogen 15 mg/dL (7-18) Creatinine 1.4 MG/DL (0.55-1.30) H Estimat Glomerular Filtration Rate mL/min (>60) Glucose Level 88 MG/DL (74-106) Calcium Level 8.1 MG/DL (8.5-10.1) L Total Bilirubin 0.5 MG/DL (0.2-1.0) Aspartate Amino Transf (AST/SGOT) 21 U/L (15-37) Alanine Aminotransferase (ALT/SGPT) 19 U/L (12-78) Alkaline Phosphatase 97 U/L (46-116) Total Protein 6.3 G/DL (6.4-8.2) L Albumin 2.8 G/DL (3.4-5.0) L Globulin 3.5 g/dL Albumin/Globulin Ratio 0.8 (1.0-2.7) L Lipase 162 U/L (73-393) Height (Feet): 5 Height (Inches): 9.00 Weight (Pounds): 115 Medications Current Medications Medications (Trade) Dose Ordered Sig/Dejan Route PRN Reason Start Time Stop Time Status Last Admin Dose Admin Acetaminophen (Tylenol) 650 mg Q4H PRN ORAL Mild Pain/Temp > 100.5 04/20/18 21:30 05/20/18 21:29 Acetaminophen/ Hydrocodone Bitart ([place] 10/325) 1 tab Q4H PRN ORAL For Pain 04/20/18 21:15 04/27/18 21:14 Albuterol/ Ipratropium (Albuterol/ Ipratropium) 3 ml Q4H PRN HHN Shortness of Breath 04/20/18 21:15 04/25/18 21:14 Apixaban (Eliquis) 2.5 mg EVERY 12 HOURS ORAL 04/21/18 09:00 05/21/18 08:59 Benazepril HCl (Lotensin) 5 mg DAILY ORAL 04/21/18 09:00 05/21/18 08:59 Bisacodyl (Dulcolax) 10 mg DAILY PRN RECTAL Constipation 04/20/18 21:15 05/20/18 21:14 Diazepam (Valium) 5 mg DAILY ORAL 04/21/18 09:00 04/28/18 08:59 Diazepam (Valium) 10 mg ONCE ORAL 04/20/18 22:00 04/20/18 23:59 Digoxin (Lanoxin) 0.25 mg DAILY ORAL 04/21/18 09:00 05/21/18 08:59 Docusate Sodium (Colace) 100 mg THREE TIMES A DAY ORAL 04/21/18 09:00 05/21/18 08:59 Gabapentin (Neurontin) 300 mg THREE TIMES A DAY ORAL 04/21/18 09:00 05/21/18 08:59 Iopamidol (Isovue-300 100ml) 100 ml NOW PRN INJ Radiology Procedure 04/20/18 16:30 Levothyroxine Sodium (Synthroid) 112 mcg ACBREAKFAST ORAL 04/21/18 06:30 05/21/18 06:29 Magnesium Hydroxide (Mom) 30 ml Q6HR PRN ORAL Constipation 04/20/18 21:15 05/20/18 21:14 Memantine (Namenda) 5 mg DAILY ORAL 04/21/18 09:00 05/21/18 08:59 Metoprolol Tartrate (Lopressor) 100 mg EVERY 12 HOURS ORAL 04/21/18 09:00 05/21/18 08:59 Mirtazapine (Remeron) 30 mg BEDTIME ORAL 04/20/18 22:00 05/20/18 21:59 Morphine Sulfate (Morphine Sulfate) 2 mg Q4H PRN IVP Severe Pain (Pain Scale 7-10) 04/20/18 21:15 04/27/18 21:14 Nitroglycerin (Ntg) 0.4 mg Q5M PRN SL chest pain 04/20/18 21:15 05/20/18 21:14 Ondansetron HCl (Zofran ODT) 4 mg Q4H PRN ORAL Nausea & Vomiting 04/20/18 21:15 05/20/18 21:14 Oxybutynin Chloride (Ditropan) 5 mg BEDTIME ORAL 04/21/18 21:00 05/21/18 20:59 Pantoprazole (Protonix) 40 mg DAILY ORAL 04/21/18 09:00 05/21/18 08:59 Polyethylene Glycol (Miralax) 17 gm BEDTIME ORAL 04/21/18 21:00 05/21/18 20:59 Polyethylene Glycol (Miralax) 17 gm DAILY PRN ORAL Constipation 04/20/18 21:15 05/20/18 21:14 Risperidone (RisperDAL) 0.25 mg BID ORAL 04/21/18 09:00 05/21/18 08:59 Sennosides (Senokot) 17.2 mg DAILY PRN ORAL Constipation 04/20/18 21:00 05/20/18 20:59 Sertraline HCl (Zoloft) 75 mg DAILY ORAL 04/21/18 09:00 05/21/18 08:59 Sodium Phosphate (Fleet's Sodium Phosl Enema) 133 ml DAILY RECTAL 04/21/18 09:00 05/21/18 08:59 Trazodone HCl (Desyrel) 100 mg BEDTIME ORAL 04/21/18 21:00 05/21/18 20:59 Assessment/Plan Problem List: (1) Anxiety disorder ICD Codes: F41.9 - Anxiety disorder, unspecified SNOMED: 948067872 (2) MDD (major depressive disorder) ICD Codes: F32.9 - Major depressive disorder, single episode, unspecified SNOMED: 203685895 (3) OCD (obsessive compulsive disorder) ICD Codes: F42.9 - Obsessive-compulsive disorder, unspecified SNOMED: 595045572 Status: unchanged Assessment/Plan valium remeron risperdal provided /Manuela Gooden MD Apr 20, 2018 21:52
[2018-04-21] VITALS: BP 82/50
[2018-04-21 06:35] LABS: BASOPHILS % (AUTO) 1.2 % (0.0-2.0); EOSINOPHILS % (AUTO) 1.7 % (0.0-3.0); HEMATOCRIT 41.7 % (37.0-47.0); HEMOGLOBIN 13.5 G/DL (12.0-16.0); LYMPHOCYTES % (AUTO) 21.9 % (20.0-45.0); MEAN CORPUSCULAR VOLUME 95 FL (80-99); NEUTROPHILS % (AUTO) 61.3 % (45.0-75.0); PLATELET COUNT 128 K/UL (150-450); RED BLOOD COUNT 4.41 M/UL (4.20-5.40); RED CELL DISTRIBUTION WIDTH 13.3 % (11.6-14.8); WHITE BLOOD COUNT 6.5 K/UL (4.8-10.8)
[2018-04-21 07:07] LABS: ALANINE AMINOTRANSFERASE 19 U/L (12-78); ALBUMIN 2.9 G/DL (3.4-5.0); ALBUMIN/GLOBULIN RATIO 0.8 (1.0-2.7); ALKALINE PHOSPHATASE 100 U/L (46-116); ANION GAP 6 mmol/L (5-15); ASPARTATE AMINO TRANSFERASE 18 U/L (15-37); BILIRUBIN,TOTAL 0.5 MG/DL (0.2-1.0); BLOOD UREA NITROGEN 13 mg/dL (7-18); CALCIUM 8.5 MG/DL (8.5-10.1); CARBON DIOXIDE 28 MMOL/L (21-32); CHLORIDE 104 MMOL/L (98-107); CREATININE 1.2 MG/DL (0.55-1.30); POTASSIUM 4.3 MMOL/L (3.5-5.1); SODIUM 138 MMOL/L (136-145)
[2018-04-21 08:00] VITALS: BP 102/53
--- NOTE | 2018-04-21 08:13 | Cardiac Electrophysiology PN ---
Subjective Subjective [id number] Objective Last 24 Hour Vital Signs Date Time Temp Pulse Resp B/P (MAP) Pulse Ox O2 Delivery O2 Flow Rate FiO2 04/21/18 04:00 44 04/21/18 00:00 39 04/21/18 00:00 96.8 40 16 82/50 (61) 91 04/20/18 21:34 Room Air 04/20/18 21:00 96.8 66 17 130/48 (75) 96 04/20/18 20:25 97.1 44 16 109/55 99 Room Air 45 04/20/18 20:20 97.1 45 16 109/55 99 Room Air 04/20/18 19:09 97.3 44 14 105/56 99 Room Air 04/20/18 16:40 44 12 Room Air 04/20/18 16:40 97.1 44 12 103/49 99 Room Air 04/20/18 16:15 97.9 43 18 99/61 98 Room Air Intake and Output 04/20/18 04/21/18 19:00 07:00 Intake Total 500 ml 100 ml Balance 500 ml 100 ml Intake Oral 100 ml IV Total 500 ml # Voids 1 # Bowel Movements 1 Laboratory Tests Test 04/20/18 16:50 04/20/18 17:00 04/20/18 18:00 04/21/18 04:50 White Blood Count 8.3 K/UL (4.8-10.8) 6.5 K/UL (4.8-10.8) Red Blood Count 4.62 M/UL (4.20-5.40) 4.41 M/UL (4.20-5.40) Hemoglobin 13.9 G/DL (12.0-16.0) 13.5 G/DL (12.0-16.0) Hematocrit 43.3 % (37.0-47.0) 41.7 % (37.0-47.0) Mean Corpuscular Volume 94 FL (80-99) 95 FL (80-99) Mean Corpuscular Hemoglobin 30.1 PG (27.0-31.0) 30.7 PG (27.0-31.0) Mean Corpuscular Hemoglobin Concent 32.1 G/DL (32.0-36.0) 32.4 G/DL (32.0-36.0) Red Cell Distribution Width 13.1 % (11.6-14.8) 13.3 % (11.6-14.8) Platelet Count 150 K/UL (150-450) 128 K/UL (150-450) L Mean Platelet Volume 11.1 FL (6.5-10.1) H 11.3 FL (6.5-10.1) H Neutrophils (%) (Auto) 71.9 % (45.0-75.0) 61.3 % (45.0-75.0) Lymphocytes (%) (Auto) 14.1 % (20.0-45.0) L 21.9 % (20.0-45.0) Monocytes (%) (Auto) 11.9 % (1.0-10.0) H 14.0 % (1.0-10.0) H Eosinophils (%) (Auto) 1.2 % (0.0-3.0) 1.7 % (0.0-3.0) Basophils (%) (Auto) 1.0 % (0.0-2.0) 1.2 % (0.0-2.0) Prothrombin Time 10.9 SEC (9.30-11.50) Prothromb Time International Ratio 1.0 (0.9-1.1) Activated Partial Thromboplast Time 26 SEC (23-33) Troponin I 0.000 ng/mL (0.000-0.056) Urine Color Pale yellow Urine Appearance Cloudy Urine pH 6 (4.5-8.0) Urine Specific [place] 1.010 (1.005-1.035) Urine Protein Negative (NEGATIVE) Urine Glucose (UA) Negative (NEGATIVE) Urine Ketones Negative (NEGATIVE) Urine Blood 1+ (NEGATIVE) H Urine Nitrite Negative (NEGATIVE) Urine Bilirubin Negative (NEGATIVE) Urine Urobilinogen Normal MG/DL (0.0-1.0) Urine Leukocyte Esterase 3+ (NEGATIVE) H Urine RBC 0-2 /HPF (0 - 2) Urine WBC 10-15 /HPF (0 - 2) H Urine Squamous Epithelial Cells Many /LPF (NONE/OCC) H Urine Bacteria Few /HPF (NONE) Sodium Level 134 MMOL/L (136-145) L 138 MMOL/L (136-145) Potassium Level 6.0 MMOL/L (3.5-5.1) *H 4.3 MMOL/L (3.5-5.1) Chloride Level 101 MMOL/L (98-107) 104 MMOL/L (98-107) Carbon Dioxide Level 28 MMOL/L (21-32) 28 MMOL/L (21-32) Anion Gap 5 mmol/L (5-15) 6 mmol/L (5-15) Blood Urea Nitrogen 15 mg/dL (7-18) 13 mg/dL (7-18) Creatinine 1.4 MG/DL (0.55-1.30) H 1.2 MG/DL (0.55-1.30) Estimat Glomerular Filtration Rate mL/min (>60) mL/min (>60) Glucose Level 88 MG/DL (74-106) 67 MG/DL (74-106) L Calcium Level 8.1 MG/DL (8.5-10.1) L 8.5 MG/DL (8.5-10.1) Total Bilirubin 0.5 MG/DL (0.2-1.0) 0.5 MG/DL (0.2-1.0) Aspartate Amino Transf (AST/SGOT) 21 U/L (15-37) 18 U/L (15-37) Alanine Aminotransferase (ALT/SGPT) 19 U/L (12-78) 19 U/L (12-78) Alkaline Phosphatase 97 U/L (46-116) 100 U/L (46-116) Total Protein 6.3 G/DL (6.4-8.2) L 6.5 G/DL (6.4-8.2) Albumin 2.8 G/DL (3.4-5.0) L 2.9 G/DL (3.4-5.0) L Globulin 3.5 g/dL 3.6 g/dL Albumin/Globulin Ratio 0.8 (1.0-2.7) L 0.8 (1.0-2.7) L Lipase 162 U/L (73-393) Thyroid Stimulating Hormone (TSH) 2.836 uiU/mL (0.358-3.740) Free Thyroxine 1.24 NG/DL (0.76-1.46) Richar Kessler MD Apr 21, 2018 08:13
[2018-04-21] MEDS: Docusate 100mg cap ORAL SCH ×3 (08:44→17:23)
[2018-04-21] MEDS: Memantine 10mg tab ORAL SCH (08:45)
[2018-04-21] MEDS: Sertraline 50mg tab ORAL SCH (08:45)
[2018-04-21] MEDS: Eliquis 2.5mg tablet ORAL SCH ×2 (08:45→21:49)
[2018-04-21] MEDS ORDERED: Fleet's Enema 133ml RECTAL SCH (09:00)
[2018-04-21] MEDS ORDERED: Benazepril 10mg tab ORAL SCH (09:00)
[2018-04-21] MEDS: Milk of Magnesia 30ml Ud ORAL PRN (09:08)
--- NOTE | 2018-04-21 10:22 | Consultation ---
History of Present Illness General Date patient seen: Apr 21, 2018 Present Illness Allergies: Coded Allergies: PENICILLINS (Verified Allergy, Unknown, 01/12/16) SULFA (SULFONAMIDE ANTIBIOTICS) (Verified Allergy, Unknown, 01/12/16) Medication History Scheduled Apixaban (Eliquis), 2.5 MG PO EVERY 12 HOURS, (Reported) Benazepril Hcl* (Benazepril Hcl*), 5 MG ORAL DAILY, (Reported) Diazepam* (Diazepam*), 5 MG ORAL DAILY, (Reported) Digoxin* (Digoxin*), 0.25 MG ORAL DAILY, (Reported) Docusate Sodium* (Docusate Sodium*), 100 MG ORAL THREE TIMES A DAY, (Reported) Gabapentin* (Gabapentin*), 300 MG ORAL THREE TIMES A DAY, (Reported) Levothyroxine Sodium* (Levothyroxine Sodium*), 112 MCG ORAL ACBREAKFAST, ( Reported) Memantine Hcl* (Namenda*), 5 MG ORAL DAILY, (Reported) Metoprolol Tartrate (Metoprolol Tartrate), 75 MG PO EVERY 12 HOURS, (Reported) Mirtazapine* (Remeron*), 30 MG ORAL BEDTIME, (Reported) Na Phos,M-B/Na Phos,Di-Ba* (Fleet Enema*), 133 ML RECTAL DAILY, (Reported) Pantoprazole* (Pantoprazole*), 40 MG ORAL DAILY, (Reported) Polyethylene Glycol 3350* (Polyethylene Glycol 3350*), 17 GM ORAL BEDTIME, ( Reported) Risperidone* (Risperdal*), 0.25 MG ORAL BID, (Reported) Sertraline Hcl* (Sertraline Hcl*), 75 MG ORAL DAILY, (Reported) Trazodone Hcl* (Desyrel*), 100 MG ORAL BEDTIME, (Reported) Scheduled PRN Acetaminophen (Acetaminophen), 650 MG PO Q4HR PRN for Fever/Headache/Mild Pain, (Reported) Diazepam* (Diazepam*), 10 MG ORAL HS PRN for Insomnia, (Reported) Hydrocodone Bit/Acetaminophen 10-325* ([place] 10-325*), 1 TAB ORAL Q4H PRN for For Pain, (Reported) Ipratropium/Albuterol Sulfate (DuoNeb 0.5-3(2.5)mg/3ml), 3 ML HHN Q4HR PRN for Shortness of Breath, (Reported) Magnesium Hydroxide (Milk of Magnesia), 30 ML ORAL Q6HR PRN for Constipation, ( Reported) Morphine Sulfate* (Morphine Sulfate*), 2 MG IVP Q4HR PRN for Severe Pain (Pain Scale 7-10), (Reported) Nitroglycerin (Nitroglycerin), 0.4 MG SL Q5M PRN for chest pain, (Reported) Ondansetron Odt* (Zofran Odt*), 4 MG ORAL Q4HR PRN for Nausea & Vomiting, ( Reported) Polyethylene Glycol 3350* (Polyethylene Glycol 3350*), 17 GM ORAL DAILY PRN for Constipation, (Reported) Miscellaneous Medications Bisacodyl (Dulcolax), 10 MG RC, (Reported) Oxybutynin (Oxytrol), 1 EACH TD, (Reported) Sennosides (Senna Laxative), 17.2 MG PO, (Reported) Patient History Healthcare decision maker Resuscitation status Do Not Resuscitate Advanced Directive on File Yes Physical Exam Last 24 Hour Vital Signs Date Time Temp Pulse Resp B/P (MAP) Pulse Ox O2 Delivery O2 Flow Rate FiO2 04/21/18 09:00 Room Air 04/21/18 08:00 97.4 47 18 102/53 (69) 98 47 04/21/18 07:54 48 04/21/18 04:00 44 04/21/18 00:00 39 04/21/18 00:00 96.8 40 16 82/50 (61) 91 04/20/18 21:34 Room Air 04/20/18 21:00 96.8 66 17 130/48 (75) 96 04/20/18 20:25 97.1 44 16 109/55 99 Room Air 45 04/20/18 20:20 97.1 45 16 109/55 99 Room Air 04/20/18 19:09 97.3 44 14 105/56 99 Room Air 04/20/18 16:40 44 12 Room Air 04/20/18 16:40 97.1 44 12 103/49 99 Room Air 04/20/18 16:15 97.9 43 18 99/61 98 Room Air Intake and Output 04/20/18 04/21/18 19:00 07:00 Intake Total 500 ml 100 ml Balance 500 ml 100 ml Intake Oral 100 ml IV Total 500 ml # Voids 1 # Bowel Movements 1 Laboratory Tests Test 04/20/18 16:50 04/20/18 17:00 04/20/18 18:00 04/21/18 04:50 White Blood Count 8.3 K/UL (4.8-10.8) 6.5 K/UL (4.8-10.8) Red Blood Count 4.62 M/UL (4.20-5.40) 4.41 M/UL (4.20-5.40) Hemoglobin 13.9 G/DL (12.0-16.0) 13.5 G/DL (12.0-16.0) Hematocrit 43.3 % (37.0-47.0) 41.7 % (37.0-47.0) Mean Corpuscular Volume 94 FL (80-99) 95 FL (80-99) Mean Corpuscular Hemoglobin 30.1 PG (27.0-31.0) 30.7 PG (27.0-31.0) Mean Corpuscular Hemoglobin Concent 32.1 G/DL (32.0-36.0) 32.4 G/DL (32.0-36.0) Red Cell Distribution Width 13.1 % (11.6-14.8) 13.3 % (11.6-14.8) Platelet Count 150 K/UL (150-450) 128 K/UL (150-450) L Mean Platelet Volume 11.1 FL (6.5-10.1) H 11.3 FL (6.5-10.1) H Neutrophils (%) (Auto) 71.9 % (45.0-75.0) 61.3 % (45.0-75.0) Lymphocytes (%) (Auto) 14.1 % (20.0-45.0) L 21.9 % (20.0-45.0) Monocytes (%) (Auto) 11.9 % (1.0-10.0) H 14.0 % (1.0-10.0) H Eosinophils (%) (Auto) 1.2 % (0.0-3.0) 1.7 % (0.0-3.0) Basophils (%) (Auto) 1.0 % (0.0-2.0) 1.2 % (0.0-2.0) Prothrombin Time 10.9 SEC (9.30-11.50) Prothromb Time International Ratio 1.0 (0.9-1.1) Activated Partial Thromboplast Time 26 SEC (23-33) Troponin I 0.000 ng/mL (0.000-0.056) Urine Color Pale yellow Urine Appearance Cloudy Urine pH 6 (4.5-8.0) Urine Specific [address] 1.010 (1.005-1.035) Urine Protein Negative (NEGATIVE) Urine Glucose (UA) Negative (NEGATIVE) Urine Ketones Negative (NEGATIVE) Urine Blood 1+ (NEGATIVE) H Urine Nitrite Negative (NEGATIVE) Urine Bilirubin Negative (NEGATIVE) Urine Urobilinogen Normal MG/DL (0.0-1.0) Urine Leukocyte Esterase 3+ (NEGATIVE) H Urine RBC 0-2 /HPF (0 - 2) Urine WBC 10-15 /HPF (0 - 2) H Urine Squamous Epithelial Cells Many /LPF (NONE/OCC) H Urine Bacteria Few /HPF (NONE) Sodium Level 134 MMOL/L (136-145) L 138 MMOL/L (136-145) Potassium Level 6.0 MMOL/L (3.5-5.1) *H 4.3 MMOL/L (3.5-5.1) Chloride Level 101 MMOL/L (98-107) 104 MMOL/L (98-107) Carbon Dioxide Level 28 MMOL/L (21-32) 28 MMOL/L (21-32) Anion Gap 5 mmol/L (5-15) 6 mmol/L (5-15) Blood Urea Nitrogen 15 mg/dL (7-18) 13 mg/dL (7-18) Creatinine 1.4 MG/DL (0.55-1.30) H 1.2 MG/DL (0.55-1.30) Estimat Glomerular Filtration Rate mL/min (>60) mL/min (>60) Glucose Level 88 MG/DL (74-106) 67 MG/DL (74-106) L Calcium Level 8.1 MG/DL (8.5-10.1) L 8.5 MG/DL (8.5-10.1) Total Bilirubin 0.5 MG/DL (0.2-1.0) 0.5 MG/DL (0.2-1.0) Aspartate Amino Transf (AST/SGOT) 21 U/L (15-37) 18 U/L (15-37) Alanine Aminotransferase (ALT/SGPT) 19 U/L (12-78) 19 U/L (12-78) Alkaline Phosphatase 97 U/L (46-116) 100 U/L (46-116) Total Protein 6.3 G/DL (6.4-8.2) L 6.5 G/DL (6.4-8.2) Albumin 2.8 G/DL (3.4-5.0) L 2.9 G/DL (3.4-5.0) L Globulin 3.5 g/dL 3.6 g/dL Albumin/Globulin Ratio 0.8 (1.0-2.7) L 0.8 (1.0-2.7) L Lipase 162 U/L (73-393) Thyroid Stimulating Hormone (TSH) 2.836 uiU/mL (0.358-3.740) Free Thyroxine 1.24 NG/DL (0.76-1.46) Height (Feet): 5 Height (Inches): 7.00 Weight (Pounds): 115 Medications Current Medications Medications (Trade) Dose Ordered Sig/Dejan Route PRN Reason Start Time Stop Time Status Last Admin Dose Admin Acetaminophen (Tylenol) 650 mg Q4H PRN ORAL Mild Pain/Temp > 100.5 04/20/18 21:30 05/20/18 21:29 Acetaminophen/ Hydrocodone Bitart ([place] 10/325) 1 tab Q4H PRN ORAL For Pain 04/20/18 21:15 04/27/18 21:14 Albuterol/ Ipratropium (Albuterol/ Ipratropium) 3 ml Q4H PRN HHN Shortness of Breath 04/20/18 21:15 04/25/18 21:14 Apixaban (Eliquis) 2.5 mg EVERY 12 HOURS ORAL 04/21/18 09:00 05/21/18 08:59 04/21/18 08:45 Bisacodyl (Dulcolax) 10 mg DAILY PRN RECTAL Constipation 04/20/18 21:15 05/20/18 21:14 Cefepime HCl 1 gm/ Dextrose 50 ml @ 100 mls/hr Q12HR IVPB 04/21/18 09:30 04/28/18 09:29 Clonidine HCl (Catapres Tab) 0.1 mg Q4H PRN ORAL sbp>170 04/21/18 08:30 05/21/18 08:29 Diazepam (Valium) 10 mg BID PRN ORAL anxiety 04/21/18 09:00 04/28/18 08:59 Docusate Sodium (Colace) 100 mg THREE TIMES A DAY ORAL 04/21/18 09:00 05/21/18 08:59 04/21/18 08:44 Gabapentin (Neurontin) 300 mg QID ORAL 04/21/18 13:00 05/21/18 08:59 UNV Iopamidol (Isovue-300 100ml) 100 ml NOW PRN INJ Radiology Procedure 04/20/18 16:30 Levothyroxine Sodium (Synthroid) 112 mcg ACBREAKFAST ORAL 04/21/18 06:30 05/21/18 06:29 04/21/18 05:58 Magnesium Hydroxide (Mom) 30 ml Q6HR PRN ORAL Constipation 04/20/18 21:15 05/20/18 21:14 04/21/18 09:08 Memantine (Namenda) 5 mg DAILY ORAL 04/21/18 09:00 05/21/18 08:59 04/21/18 08:45 Mirtazapine (Remeron) 30 mg BEDTIME ORAL 04/20/18 22:00 05/20/18 21:59 Morphine Sulfate (Morphine Sulfate) 2 mg Q4H PRN IVP Severe Pain (Pain Scale 7-10) 04/20/18 21:15 04/27/18 21:14 Nitroglycerin (Ntg) 0.4 mg Q5M PRN SL chest pain 04/20/18 21:15 05/20/18 21:14 Ondansetron HCl (Zofran ODT) 4 mg Q4H PRN ORAL Nausea & Vomiting 04/20/18 21:15 05/20/18 21:14 Oxybutynin Chloride (Ditropan) 5 mg BEDTIME ORAL 04/21/18 21:00 05/21/18 20:59 Pantoprazole (Protonix) 40 mg DAILY ORAL 04/21/18 09:00 05/21/18 08:59 04/21/18 08:43 Polyethylene Glycol (Miralax) 17 gm BEDTIME ORAL 04/21/18 21:00 05/21/18 20:59 Polyethylene Glycol (Miralax) 17 gm DAILY PRN ORAL Constipation 04/20/18 21:15 05/20/18 21:14 Risperidone (RisperDAL) 0.25 mg BID ORAL 04/21/18 09:00 05/21/18 08:59 04/21/18 08:44 Sennosides (Senokot) 17.2 mg DAILY PRN ORAL Constipation 04/20/18 21:00 05/20/18 20:59 Sertraline HCl (Zoloft) 75 mg DAILY ORAL 04/21/18 09:00 05/21/18 08:59 04/21/18 08:45 Sodium Phosphate (Fleet's Sodium Phosl Enema) 133 ml DAILY RECTAL 04/22/18 09:00 05/21/18 08:59 Trazodone HCl (Desyrel) 100 mg BEDTIME ORAL 04/21/18 21:00 05/21/18 20:59 Assessment/Plan Assessment/Plan (1) B/L LE pain (2) Peripheral Neuropathy (3) Back pain s/p fall (5) Osteoarthritis seen dictated Sebastian Portillo Apr 21, 2018 10:22
--- NOTE | 2018-04-21 10:31 | Diagnostic Imaging Report ---
Clinical Indication: Abdominal pain Technique: No oral contrast utilized, per emergency room physician request IV administration nonionic contrast. Venous phase spiral acquisition obtained through the abdomen and pelvis. Multiplanar reconstructions were generated. Total dose length product 510.64 mGycm. CTDIvol(s) 10.99 mGy. Dose reduction achieved using automated exposure control Comparison: Noncontrast CT 01/12/2016 Findings: The appendix is only questionably visualized, but there are no findings to suggest acute appendicitis. No evidence of diverticulosis or diverticulitis. Moderate amount of stool is seen in the ascending colon, but no evidence of constipation elsewhere. No small bowel distention. No free or loculated intraperitoneal gas or fluid distal esophagus, stomach, duodenum are unremarkable. The liver demonstrates some periportal edema. There is focal fatty infiltration in the usual location adjacent to the falciform ligament. No focal abnormality otherwise. The gallbladder is nondistended, no definite gallstones. No biliary ductal dilatation. Pancreas, spleen, adrenals, kidneys are all unremarkable. No retroperitoneal or mesenteric mass or adenopathy. No pelvic mass or adenopathy. There is bilateral pleural fluid, small on the right and trace on the left. There is diffuse edema of the subcutaneous and mesenteric and pelvic fat. The included lung bases demonstrate some posterior dependent atelectatic changes. The bones demonstrate fusion hardware in the lower thoracic spine. Impression: Evidence of mild anasarca, with trace bilateral pleural fluid, edema of the subcutaneous, mesenteric, retroperitoneal and periportal fat No acute process Incidental findings as noted, including focal fatty infiltration of the liver, posterior dependent pulmonary parenchymal atelectatic changes, evidence of prior thoracic spinal fusion surgery This agrees with the preliminary interpretation provided overnight by [facility] teleradiology service. The CT scanner at [facility] is accredited by the [employer] and the scans are performed using protocols designed to limit radiation exposure to as low as reasonably achievable to attain images of sufficient resolution adequate for diagnostic evaluation.
[2018-04-21 12:00] VITALS: BP 105/79
--- NOTE | 2018-04-21 14:17 | GI Initial Consult Note ---
History of Present Illness General Date patient seen: Apr 21, 2018 Time patient seen: 14:11 Reason for Hospitalization: Abdominal Pain Referring physician: TODD GUERRERO Reason for Consultation: CONSTIPATION Present Illness HPI Patient is an 80-year-old female sent in by facility after recent fall. Patient had been noted to have increased generalized weakness and bilateral lower extremity pain. She reports having fallen yesterday. Patient reports having decreased urine output. She reports having bilateral leg numbness. She reports having prior history of nerve type pain. She had been taking gabapentin without any relief.Pain was described as tingling in nature. Patient denies any difficulty with movement.Patient reports having lower abdominal discomfort. She states she had prior urologic surgery GI consulted for failure to thrive, constipation. Patient was seen, awake alert and oriented x4 no apparent distress. Patient noted to have increased generalized weakness. Reported that the reason she has not been eating is because the food at her intermediate was not to her liking. In addition the patient complains of constipation. Labs reviewed; no leukocytosis, no anemia, no transaminitis. The patient had an episode of hyperkalemia, however is now resolved. Unknown history of endoscopic or colonoscopy. Home Meds Reported Medications Sennosides (SENNA LAXATIVE) 8.6 Mg Tablet, 17.2 MG PO, TAB 04/20/18 Mirtazapine* (REMERON*) 30 Mg Tablet, 30 MG ORAL BEDTIME, TAB 04/20/18 Oxybutynin (OXYTROL) 1 Each Patch.tdsw, 1 EACH TD, PATCH 04/20/18 Hydrocodone Bit/Acetaminophen 10-325* (NORCO 10-325*) 1 Each Tablet, 1 TAB ORAL Q4H PRN for For Pain, TAB 0 Refills PRN PAIN 04/20/18 Gabapentin* (GABAPENTIN*) 300 Mg Capsule, 300 MG ORAL THREE TIMES A DAY, CAP 0 Refills 04/20/18 Memantine Hcl* (NAMENDA*) 5 Mg Tablet, 5 MG ORAL DAILY, TAB 04/20/18 Na Phos,M-B/Na Phos,Di-Ba* (FLEET ENEMA*) 133 Ml Enema, 133 ML RECTAL DAILY, ML 0 Refills 04/20/18 Bisacodyl (DULCOLAX) 10 Mg Supp.rect, 10 MG RC, SUPP 04/20/18 Digoxin* (DIGOXIN*) 250 Mcg Tablet, 0.25 MG ORAL DAILY, TAB 04/20/18 Benazepril Hcl* (BENAZEPRIL HCL*) 10 Mg Tablet, 5 MG ORAL DAILY, TAB 04/20/18 Trazodone Hcl* (DESYREL*) 100 Mg Tablet, 100 MG ORAL BEDTIME, TAB 06/03/16 Sertraline Hcl* (SERTRALINE HCL*) 25 Mg Tablet, 75 MG ORAL DAILY, TAB 06/03/16 Polyethylene Glycol 3350* (POLYETHYLENE GLYCOL 3350*) 17 Gm Powd.pack, 17 GM ORAL BEDTIME, PACKET 06/03/16 Polyethylene Glycol 3350* (POLYETHYLENE GLYCOL 3350*) 17 Gm Powd.pack, 17 GM ORAL DAILY PRN for Constipation, PACKET 06/03/16 Pantoprazole* (PANTOPRAZOLE*) 40 Mg Tablet.dr, 40 MG ORAL DAILY, TAB 06/03/16 Nitroglycerin (NITROGLYCERIN) 0.4 Mg Tab.subl, 0.4 MG SL Q5M PRN for chest pain , TAB 06/03/16 Morphine Sulfate* (MORPHINE SULFATE*) 2 Mg/1 Ml Cartridge, 2 MG IVP Q4HR PRN for Severe Pain (Pain Scale 7-10), EA 06/03/16 Metoprolol Tartrate (Metoprolol Tartrate) 75 Mg Tablet, 75 MG PO EVERY 12 HOURS , TAB 06/03/16 Ipratropium/Albuterol Sulfate (DuoNeb 0.5-3(2.5)mg/3ml) 3 Ml Ampul.neb, 3 ML HHN Q4HR PRN for Shortness of Breath, EA 06/03/16 Docusate Sodium* (DOCUSATE SODIUM*) 100 Mg Capsule, 100 MG ORAL THREE TIMES A DAY, CAP 06/03/16 Diazepam* (DIAZEPAM*) 10 Mg Tablet, 10 MG ORAL HS PRN for Insomnia, TAB 0 Refills 06/03/16 Diazepam* (DIAZEPAM*) 5 Mg Tablet, 5 MG ORAL DAILY, #30 TAB 0 Refills 06/03/16 Apixaban (ELIQUIS) 2.5 Mg Tablet, 2.5 MG PO EVERY 12 HOURS, TAB 06/03/16 Acetaminophen (Acetaminophen) 325 Mg Capsule, 650 MG PO Q4HR PRN for Fever/ Headache/Mild Pain, CAP 06/03/16 Risperidone* (RISPERDAL*) 0.25 Mg Tablet, 0.25 MG ORAL BID, #30 TAB 0 Refills 01/14/16 Ondansetron Odt* (ZOFRAN ODT*) 4 Mg Tab.rapdis, 4 MG ORAL Q4HR PRN for Nausea & Vomiting, #30 TAB 01/14/16 Magnesium Hydroxide (Milk of Magnesia) 400 Mg/5 Ml Oral.susp, 30 ML ORAL Q6HR PRN for Constipation, ML 01/14/16 Levothyroxine Sodium* (LEVOTHYROXINE SODIUM*) 112 Mcg Tablet, 112 MCG ORAL ACBREAKFAST, TAB Take in the morning on an empty stomach, at least 30 minutes before food. 01/14/16 Med list reviewed/reconciled: Yes Allergies: Coded Allergies: PENICILLINS (Verified Allergy, Unknown, 01/12/16) SULFA (SULFONAMIDE ANTIBIOTICS) (Verified Allergy, Unknown, 01/12/16) Patient History History Provided By: Patient, Medical Record PMH Narrative Past Medical History: see triage record, CAD, dementia Reviewed Nursing Documentation: PMH: Agreed; PSxH: Agreed Nursing Documentation-PMH Past Medical History: No History, Except For Hx Cardiac Problems: Yes Hx Hypertension: Yes Hx Pacemaker: No Hx Asthma: No Hx COPD: Yes Hx Cancer: No Hx Dialysis: No Hx Neurological Problems: No Hx Cerebrovascular Accident: No Hx Seizures: No Social History: Denies: smoking, alcohol use, drug use, other Review of Systems All Other Systems: negative except mentioned in HPI Physical Exam Vital Signs Date Time Temp Pulse Resp B/P (MAP) Pulse Ox O2 Delivery O2 Flow Rate FiO2 04/20/18 16:15 97.9 43 18 99/61 98 Room Air Sp02 EP Interpretation: reviewed, normal Labs Laboratory Tests Test 04/20/18 16:50 04/20/18 17:00 04/20/18 18:00 04/21/18 04:50 White Blood Count 8.3 K/UL (4.8-10.8) 6.5 K/UL (4.8-10.8) Red Blood Count 4.62 M/UL (4.20-5.40) 4.41 M/UL (4.20-5.40) Hemoglobin 13.9 G/DL (12.0-16.0) 13.5 G/DL (12.0-16.0) Hematocrit 43.3 % (37.0-47.0) 41.7 % (37.0-47.0) Mean Corpuscular Volume 94 FL (80-99) 95 FL (80-99) Mean Corpuscular Hemoglobin 30.1 PG (27.0-31.0) 30.7 PG (27.0-31.0) Mean Corpuscular Hemoglobin Concent 32.1 G/DL (32.0-36.0) 32.4 G/DL (32.0-36.0) Red Cell Distribution Width 13.1 % (11.6-14.8) 13.3 % (11.6-14.8) Platelet Count 150 K/UL (150-450) 128 K/UL (150-450) L Mean Platelet Volume 11.1 FL (6.5-10.1) H 11.3 FL (6.5-10.1) H Neutrophils (%) (Auto) 71.9 % (45.0-75.0) 61.3 % (45.0-75.0) Lymphocytes (%) (Auto) 14.1 % (20.0-45.0) L 21.9 % (20.0-45.0) Monocytes (%) (Auto) 11.9 % (1.0-10.0) H 14.0 % (1.0-10.0) H Eosinophils (%) (Auto) 1.2 % (0.0-3.0) 1.7 % (0.0-3.0) Basophils (%) (Auto) 1.0 % (0.0-2.0) 1.2 % (0.0-2.0) Prothrombin Time 10.9 SEC (9.30-11.50) Prothromb Time International Ratio 1.0 (0.9-1.1) Activated Partial Thromboplast Time 26 SEC (23-33) Troponin I 0.000 ng/mL (0.000-0.056) Urine Color Pale yellow Urine Appearance Cloudy Urine pH 6 (4.5-8.0) Urine Specific [place] 1.010 (1.005-1.035) Urine Protein Negative (NEGATIVE) Urine Glucose (UA) Negative (NEGATIVE) Urine Ketones Negative (NEGATIVE) Urine Blood 1+ (NEGATIVE) H Urine Nitrite Negative (NEGATIVE) Urine Bilirubin Negative (NEGATIVE) Urine Urobilinogen Normal MG/DL (0.0-1.0) Urine Leukocyte Esterase 3+ (NEGATIVE) H Urine RBC 0-2 /HPF (0 - 2) Urine WBC 10-15 /HPF (0 - 2) H Urine Squamous Epithelial Cells Many /LPF (NONE/OCC) H Urine Bacteria Few /HPF (NONE) Sodium Level 134 MMOL/L (136-145) L 138 MMOL/L (136-145) Potassium Level 6.0 MMOL/L (3.5-5.1) *H 4.3 MMOL/L (3.5-5.1) Chloride Level 101 MMOL/L (98-107) 104 MMOL/L (98-107) Carbon Dioxide Level 28 MMOL/L (21-32) 28 MMOL/L (21-32) Anion Gap 5 mmol/L (5-15) 6 mmol/L (5-15) Blood Urea Nitrogen 15 mg/dL (7-18) 13 mg/dL (7-18) Creatinine 1.4 MG/DL (0.55-1.30) H 1.2 MG/DL (0.55-1.30) Estimat Glomerular Filtration Rate mL/min (>60) mL/min (>60) Glucose Level 88 MG/DL (74-106) 67 MG/DL (74-106) L Calcium Level 8.1 MG/DL (8.5-10.1) L 8.5 MG/DL (8.5-10.1) Total Bilirubin 0.5 MG/DL (0.2-1.0) 0.5 MG/DL (0.2-1.0) Aspartate Amino Transf (AST/SGOT) 21 U/L (15-37) 18 U/L (15-37) Alanine Aminotransferase (ALT/SGPT) 19 U/L (12-78) 19 U/L (12-78) Alkaline Phosphatase 97 U/L (46-116) 100 U/L (46-116) Total Protein 6.3 G/DL (6.4-8.2) L 6.5 G/DL (6.4-8.2) Albumin 2.8 G/DL (3.4-5.0) L 2.9 G/DL (3.4-5.0) L Globulin 3.5 g/dL 3.6 g/dL Albumin/Globulin Ratio 0.8 (1.0-2.7) L 0.8 (1.0-2.7) L Lipase 162 U/L (73-393) Thyroid Stimulating Hormone (TSH) 2.836 uiU/mL (0.358-3.740) Free Thyroxine 1.24 NG/DL (0.76-1.46) Test 04/21/18 11:00 Troponin I 0.009 ng/mL (0.000-0.056) General Appearance: well appearing, no apparent distress, alert, thin Head: normocephalic EENT: PERRL/EOMI, normal ENT inspection Neck: supple Respiratory: normal breath sounds, no respiratory distress Cardiovascular: normal rate Gastrointestinal: normal inspection, non tender, soft, normal bowel sounds, non -distended Rectal: deferred Genitourinary: no CVA tenderness Musculoskeletal: normal inspection, back normal Neurologic: normal inspection, alert, oriented x3, responsive Psychiatric: normal inspection, judgement/insight normal, memory normal Skin: normal inspection, normal color, no rash, warm/dry, palpation normal, well hydrated Lymphatic: normal inspection, no adenopathy Current Medications Current Medications Medications (Trade) Dose Ordered Sig/Dejan Route PRN Reason Start Time Stop Time Status Last Admin Dose Admin Acetaminophen (Tylenol) 650 mg Q4H PRN ORAL Mild Pain/Temp > 100.5 04/20/18 21:30 05/20/18 21:29 Acetaminophen/ Hydrocodone Bitart ([place] 10/325) 1 tab Q4H PRN ORAL For Pain 04/20/18 21:15 04/27/18 21:14 Albuterol/ Ipratropium (Albuterol/ Ipratropium) 3 ml Q4H PRN HHN Shortness of Breath 04/20/18 21:15 04/25/18 21:14 Apixaban (Eliquis) 2.5 mg EVERY 12 HOURS ORAL 04/21/18 09:00 05/21/18 08:59 04/21/18 08:45 Bisacodyl (Dulcolax) 10 mg DAILY PRN RECTAL Constipation 04/20/18 21:15 05/20/18 21:14 Cefepime HCl 1 gm/ Dextrose 50 ml @ 100 mls/hr Q12HR IVPB 04/21/18 09:30 04/28/18 09:29 04/21/18 10:26 Clonidine HCl (Catapres Tab) 0.1 mg Q4H PRN ORAL sbp>170 04/21/18 08:30 05/21/18 08:29 Diazepam (Valium) 10 mg BID PRN ORAL anxiety 04/21/18 09:00 04/28/18 08:59 Docusate Sodium (Colace) 100 mg THREE TIMES A DAY ORAL 04/21/18 09:00 05/21/18 08:59 04/21/18 13:03 Gabapentin (Neurontin) 300 mg QID ORAL 04/21/18 13:00 05/21/18 08:59 04/21/18 13:03 Iopamidol (Isovue-300 100ml) 100 ml NOW PRN INJ Radiology Procedure 04/20/18 16:30 Levothyroxine Sodium (Synthroid) 112 mcg ACBREAKFAST ORAL 04/21/18 06:30 05/21/18 06:29 04/21/18 05:58 Magnesium Hydroxide (Mom) 30 ml Q6HR PRN ORAL Constipation 04/20/18 21:15 05/20/18 21:14 04/21/18 09:08 Memantine (Namenda) 5 mg DAILY ORAL 04/21/18 09:00 05/21/18 08:59 04/21/18 08:45 Mirtazapine (Remeron) 30 mg BEDTIME ORAL 04/20/18 22:00 05/20/18 21:59 Morphine Sulfate (Morphine Sulfate) 2 mg Q4H PRN IVP Severe Pain (Pain Scale 7-10) 04/20/18 21:15 04/27/18 21:14 Nitroglycerin (Ntg) 0.4 mg Q5M PRN SL chest pain 04/20/18 21:15 05/20/18 21:14 Ondansetron HCl (Zofran ODT) 4 mg Q4H PRN ORAL Nausea & Vomiting 04/20/18 21:15 05/20/18 21:14 Oxybutynin Chloride (Ditropan) 5 mg BEDTIME ORAL 04/21/18 21:00 05/21/18 20:59 Pantoprazole (Protonix) 40 mg DAILY ORAL 04/21/18 09:00 05/21/18 08:59 04/21/18 08:43 Polyethylene Glycol (Miralax) 17 gm BEDTIME ORAL 04/21/18 21:00 05/21/18 20:59 Polyethylene Glycol (Miralax) 17 gm DAILY PRN ORAL Constipation 04/20/18 21:15 05/20/18 21:14 Risperidone (RisperDAL) 0.25 mg BID ORAL 04/21/18 09:00 05/21/18 08:59 04/21/18 08:44 Sennosides (Senokot) 17.2 mg DAILY PRN ORAL Constipation 04/20/18 21:00 05/20/18 20:59 Sertraline HCl (Zoloft) 75 mg DAILY ORAL 04/21/18 09:00 05/21/18 08:59 04/21/18 08:45 Sodium Phosphate (Fleet's Sodium Phosl Enema) 133 ml DAILY RECTAL 04/22/18 09:00 05/21/18 08:59 Trazodone HCl (Desyrel) 100 mg BEDTIME ORAL 04/21/18 21:00 05/21/18 20:59 GI: Plan Problems: (1) Failure to thrive (2) Dehydration (3) Severe malnutrition (4) GERD (gastroesophageal reflux disease) (5) Constipation Plan Will defer any GI procedures given advanced age, no noted signs of anemia Supportive care Patient will require nutrition consult We will add calorie count for 48 hours to see if nutritional needs are met Strict aspiration precautions, one-to-one feeder Bowel regimen to include Colace MiraLAX nightly We will consider Marinol GI procedures if necessary fu labs Discussed with Dr. Candelaria. Thank you for this patient referral, we will follow. The patient was seen and examined at bedside and all new and available data was reviewed in the patients chart. I agree with the above findings, impression and plan. (Patient seen earlier today. Signature stamp does not reflect patient encounter time.). - MD Meghann Newton,[facility] [employer] [employer] Apr 21, 2018 14:17
[2018-04-21 16:00] VITALS: BP 112/49
--- NOTE | 2018-04-21 17:01 | Consultation ---
DATE OF CONSULTATION: 04/21/2018 CARDIOLOGY CONSULTATION CONSULTING PHYSICIAN: Richar Kessler M.D. REFERRING PHYSICIAN: Amber Gallegos M.D. REASON FOR CONSULTATION: Weakness and bradycardia in the patient with atrial fibrillation. HISTORY OF PRESENT ILLNESS: The patient is an 82-year-old lady, who was sent to facility after recent fall. The patient also had increased generalized weakness and bilateral lower extremity pain. The patient also had decreased urine output. The patient was noted to be bradycardic and EKG with the heart rate dropping to 30s and atrial fibrillation. Cardiology consultation was obtained for further evaluation and management. PAST MEDICAL HISTORY: 1. Hypertension. 2. Atrial fibrillation. 3. COPD. FAMILY HISTORY: Noncontributory. SOCIAL HISTORY: [facility]. Does not smoke or drink alcohol. PHYSICAL EXAMINATION: VITAL SIGNS: Blood pressure is 82/50, pulse is 40, respirations 18, and she is afebrile. HEAD AND NECK: Shows no JVD. LUNGS: Clear. CARDIOVASCULAR: Shows S1 and S2 with no gallop or murmur. ABDOMEN: Soft. EXTREMITIES: No pitting edema. LABORATORY AND DIAGNOSTIC DATA: Her EKG showed atrial fibrillation, rate of 44, and nonspecific ST-T wave abnormality. Her telemetry strip showed bradycardia, heart rate down to 30s. Laboratories, white count of 6.5, hemoglobin 13.5, hematocrit 41.7, and platelet count is 128. Sodium 134, potassium 4.3, BUN of 30, creatinine 1.2, and glucose of 67. Troponin is negative. T4, TSH within normal range. ASSESSMENT AND PLAN: 1. Atrial fibrillation with bradycardia. Both digoxin and metoprolol have been discontinued. The patient was on metoprolol 100 mg and digoxin 0.25 mg daily. I will get a stat digoxin level regardless. We may need to resume her metoprolol at the lower dosage to prevent atrial fibrillation rapid ventricular response. At the time of anticoagulation, the patient remains on Eliquis 2.5 mg b.i.d. I will get an echocardiogram. 2. History of hypotension. The patient metoprolol that has been discontinued for bradycardia. The patient is on Lotensin only 5 mg daily, but the blood pressure was as low as 80 this morning, that will be held. 3. Status post fall, could be syncope due to profound bradycardia. Again, echocardiogram is pending. 4. Urinary tract infection. 5. Hyperkalemia with potassium of 6 that was corrected. Benazepril will be discontinued, again that puts the patient at high risk of hyperkalemia. Thank you very much, Dr. Gallegos, for allowing me to participate in the care of this patient. Please do not hesitate to contact me for any questions regarding my evaluation. Richar Kessler M.D. DR: IVONNE JOB#: [id number] CC:
[2018-04-21 20:00] VITALS: BP 92/49
--- NOTE | 2018-04-21 20:15 | History and Physical Report ---
DATE OF ADMISSION: 04/20/2018 HISTORY OF PRESENT ILLNESS: The patient comes in with bilateral numbness in the feet. The patient has severe neuropathy, non-alcohol related. The patient is not diabetic, states has worsening paresthesia on both extremities, especially the feet. The patient also has pain in the feet. The patient also has pain in the bilateral elbows and had headache. The patient also complains of abdominal pain and has history of constipation. The patient also has a history of depression. The patient takes multiple medications for pain as well as for neuropathy. However, this is a breakthrough neuropathy and the patient is being admitted for breakthrough pain, worsening neuropathy as well as abdominal pain. The patient also has bradycardia. The patient is also admitted for bradycardia. This is a long-term patient of mine from a [facility]. PAST MEDICAL HISTORY: Significant for depression, hypertension, depression, anxiety, constipation, hypothyroidism, chronic pain syndrome, GERD, mild organic brain syndrome as well as hypothyroidism as well as urinary incontinence. PAST SURGICAL HISTORY: Back surgery, bladder surgery, hysterectomy. MEDICATIONS: Benazepril, bisacodyl, diazepam, digoxin, Colace, Namenda, oxybutynin, Risperdal, Senokot, sertraline. ALLERGIES: To penicillin and sulfa. SOCIAL HISTORY: Remote history of smoking, comes from a [facility]. Denies history of drug or alcohol abuse. The patient is 82-year-old. FAMILY HISTORY: Noncontributory. REVIEW OF SYSTEMS: HEENT: Denies headaches. RESPIRATORY: Denies shortness of breath. Denies cough. CARDIOVASCULAR: Denies chest pain. Denies orthopnea. GASTROINTESTINAL: Reports abdominal pain, constipation. Denies rectal bleeding. Denies hemorrhoids. EXTREMITIES: Does have paresthesia and pain in the lower feet as well as pain in the bilateral elbows, otherwise was able to ambulate, walks with a walker. Cranial nerves intact. NEUROLOGIC: Sensory intact to light touch. LABORATORY DATA: WBC of 8.3, hemoglobin 13.9, and platelets of 150. Sodium 134, potassium of 6, chloride 101, BUN of 15, creatinine 1.4, and glucose of 88. Normal TSH. ASSESSMENT AND PLAN: 1. Bradycardia. 2. Hyperkalemia could be due to bradycardia. 3. Worsening neuropathy. 4. Chronic pain control. I have asked Dr. Giraldo, Dr. Kessler, Dr. Aly, Dr. Candelaria, Dr. Grewal to see the patient for above-mentioned diagnoses and treatment. Amber Gallegos M.D. DR: Anju JOB#: [id number] CC:
--- NOTE | 2018-04-21 20:30 | Consultation ---
DATE OF CONSULTATION: 04/21/2018 PAIN MANAGEMENT CONSULTATION CONSULTING PHYSICIAN: Tara Grewal M.D. REFERRING PHYSICIAN: Amber Gallegos M.D. PHYSICIAN INTERNAL GRINDING MACHINE OPERATOR: Alfredo Garcia CHIEF COMPLAINT: Back and bilateral lower extremity pain. HISTORY OF PRESENT ILLNESS: The patient is an 82-year-old female, who is being seen on the telemetry floor of [facility] for comprehensive pain management consultation. The patient was admitted under the care of Dr. Gallegos due to bradycardia and bilateral lower extremity pain and numbness. She reports history of having this numbness and tingling in her feet, receiving Neurontin 300 mg t.i.d., which she stated had been helping her, however, subsequently had stopped working. She reports she had a fall and landed on her back causing her to have back pain as well recently. At this time, the patient was continued on Motley 10/325 one tablet every 4 hours as needed for moderate pain, which she was taking in the nursing facility and started on morphine 2 mg IV every 4 hours as needed for severe pain. She is lying in the bed. No signs of pain and distress and we were consulted to help the patient to have adequate pain control while here in the hospital. REVIEW OF SYSTEMS: Denies rash, fever, chills, sweating, dizziness, drowsiness, or change in weight. No shortness of breath or chest pain. No nausea, vomiting, or blood in the stool or urine. No bowel or bladder incontinence. No dysuria. The patient is complaining of back pain and bilateral lower extremity pain. PHYSICAL EXAMINATION: GENERAL: Alert, awake, and oriented. VITAL SIGNS: Blood pressure 102/53, heart rate is 47, oxygen saturation 98%, respirations 18, and temperature is 97.4 degrees Fahrenheit. LUNGS: Decreased breath sounds bilaterally. HEART: S1 and S2, regular. ABDOMEN: Benign. BACK: Range of motion is decreased in flexion and extension with tenderness to paraspinal muscles. No tenderness to trapezius or rhomboid muscles. EXTREMITIES: No cyanosis. No clubbing. No edema. NEUROLOGICAL: Decreased range of motion in the upper and lower extremities. ASSESSMENT AND PLAN: This is an 82-year-old female with bilateral lower extremity pain plus neuropathy, back pain, status post fall. The patient will be continued on Motley and morphine and increased the Neurontin to 4 times a day. I ordered x-ray of the thoracic lumbar spine to rule out fracture. The patient was discussed with Dr. Grewal and concurred. We will follow the patient. Thank you very much for the courtesy of this consultation. Tara Grewal M.D. SOM Garcia DR: [place] JOB#: [id number] CC:
[2018-04-21] MEDS ORDERED: Miralax 17gm pkt ORAL SCH (21:00)
[2018-04-21] MEDS: Miralax 17gm pkt ORAL SCH ×2 (21:00→21:48)
[2018-04-21] MEDS: TraZODone 100mg tab ORAL SCH (21:49)
[2018-04-21] MEDS: Oxybutynin 5mg tab ORAL SCH (21:49)
[2018-04-22] VITALS: BP 94/45
[2018-04-22] MEDS: Milk of Magnesia 30ml Ud ORAL PRN ×2 (00:08→20:43)
--- NOTE | 2018-04-22 01:04 | General Progress Note ---
Assessment/Plan Problem List: (1) Anxiety disorder ICD Codes: F41.9 - Anxiety disorder, unspecified SNOMED: 960817806 (2) MDD (major depressive disorder) ICD Codes: F32.9 - Major depressive disorder, single episode, unspecified SNOMED: 253607268 (3) OCD (obsessive compulsive disorder) ICD Codes: F42.9 - Obsessive-compulsive disorder, unspecified SNOMED: 674265949 Status: unchanged Assessment/Plan valium remeron risperdal provided ro/st Subjective Date patient seen: Apr 21, 2018 Neurologic/Psychiatric: Reports: anxiety, depressed, emotional problems Allergies: Coded Allergies: PENICILLINS (Verified Allergy, Unknown, 01/12/16) SULFA (SULFONAMIDE ANTIBIOTICS) (Verified Allergy, Unknown, 01/12/16) Objective Last 24 Hour Vital Signs Date Time Temp Pulse Resp B/P (MAP) Pulse Ox O2 Delivery O2 Flow Rate FiO2 04/21/18 21:00 Room Air 04/21/18 20:16 55 20 Room Air 04/21/18 20:00 65 04/21/18 20:00 100.1 56 20 92/49 (63) 98 04/21/18 16:11 55 04/21/18 16:00 98.0 55 20 112/49 (70) 96 04/21/18 12:00 46 46 04/21/18 12:00 46 04/21/18 12:00 98.1 105/79 (88) 04/21/18 10:22 57 15 Room Air 04/21/18 10:22 96 Room Air 04/21/18 09:00 Room Air 04/21/18 08:00 97.4 47 18 102/53 (69) 98 47 04/21/18 07:54 48 04/21/18 04:00 44 Intake and Output 04/21/18 04/22/18 19:00 07:00 # Voids 2 Laboratory Tests 04/21/18 04:50: White Blood Count 6.5, Red Blood Count 4.41, Hemoglobin 13.5, Hematocrit 41.7, Mean Corpuscular Volume 95, Mean Corpuscular Hemoglobin 30.7, Mean Corpuscular Hemoglobin Concent 32.4, Red Cell Distribution Width 13.3, Platelet Count 128L, Mean Platelet Volume 11.3H, Neutrophils (%) (Auto) 61.3, Lymphocytes (%) (Auto) 21.9, Monocytes (%) (Auto) 14.0H, Eosinophils (%) (Auto) 1.7, Basophils (%) ( Auto) 1.2, Sodium Level 138, Potassium Level 4.3, Chloride Level 104, Carbon Dioxide Level 28, Anion Gap 6, Blood Urea Nitrogen 13, Creatinine 1.2, Estimat Glomerular Filtration Rate , Glucose Level 67L, Calcium Level 8.5, Total Bilirubin 0.5, Aspartate Amino Transf (AST/SGOT) 18, Alanine Aminotransferase ( ALT/SGPT) 19, Alkaline Phosphatase 100, Total Protein 6.5, Albumin 2.9L, Globulin 3.6, Albumin/Globulin Ratio 0.8L, Thyroid Stimulating Hormone (TSH) 2.836, Free Thyroxine 1.24 04/21/18 11:00: Troponin I 0.009 04/21/18 18:15: Troponin I 0.004 Height (Feet): 5 Height (Inches): 7.00 Weight (Pounds): 115 General Appearance: alert, severe distress, agitated Manuela Giraldo MD Apr 22, 2018 01:04
[2018-04-22 03:40] LABS: BASOPHILS % (AUTO) 1.2 % (0.0-2.0); EOSINOPHILS % (AUTO) 1.5 % (0.0-3.0); HEMATOCRIT 38.8 % (37.0-47.0); HEMOGLOBIN 12.4 G/DL (12.0-16.0); LYMPHOCYTES % (AUTO) 20.4 % (20.0-45.0); MEAN CORPUSCULAR VOLUME 94 FL (80-99); MONOCYTES % (AUTO) 15.2 % (1.0-10.0); NEUTROPHILS % (AUTO) 61.8 % (45.0-75.0); PLATELET COUNT 120 K/UL (150-450); RED BLOOD COUNT 4.13 M/UL (4.20-5.40); RED CELL DISTRIBUTION WIDTH 13.5 % (11.6-14.8); WHITE BLOOD COUNT 6.9 K/UL (4.8-10.8)
[2018-04-22 04:00] VITALS: BP 100/54
[2018-04-22 04:13] LABS: ANION GAP 5 mmol/L (5-15); BLOOD UREA NITROGEN 18 mg/dL (7-18); CALCIUM 8.1 MG/DL (8.5-10.1); CARBON DIOXIDE 30 MMOL/L (21-32); CHLORIDE 103 MMOL/L (98-107); CREATININE 1.4 MG/DL (0.55-1.30); POTASSIUM 4.6 MMOL/L (3.5-5.1); SODIUM 138 MMOL/L (136-145)
[2018-04-22 08:00] VITALS: BP 106/64
--- NOTE | 2018-04-22 08:39 | General Progress Note ---
Assessment/Plan Problem List: (1) HTN (hypertension) ICD Codes: I10 - Essential (primary) hypertension SNOMED: 96274331 (2) Abdominal pain ICD Codes: R10.9 - Unspecified abdominal pain SNOMED: 54730704 (3) Hiatal hernia ICD Codes: K44.9 - Diaphragmatic hernia without obstruction or gangrene SNOMED: 82860991 (4) Atrial fibrillation with RVR ICD Codes: I48.91 - Unspecified atrial fibrillation SNOMED: 604088594065272 (5) Severe malnutrition ICD Codes: E43 - Unspecified severe protein-calorie malnutrition SNOMED: 91881668 Assessment/Plan fu caloric count encourage po intake fu labs PEG if needed Subjective ROS Limited/Unobtainable: Yes Allergies: Coded Allergies: PENICILLINS (Verified Allergy, Unknown, 01/12/16) SULFA (SULFONAMIDE ANTIBIOTICS) (Verified Allergy, Unknown, 01/12/16) Objective Last 24 Hour Vital Signs Date Time Temp Pulse Resp B/P (MAP) Pulse Ox O2 Delivery O2 Flow Rate FiO2 04/22/18 04:00 97.0 64 20 100/54 (69) 96 04/22/18 04:00 60 04/22/18 00:00 52 04/22/18 00:00 98.4 52 20 94/45 (61) 98 52 04/21/18 21:00 Room Air 04/21/18 20:16 55 20 Room Air 04/21/18 20:00 65 04/21/18 20:00 100.1 56 20 92/49 (63) 98 04/21/18 16:11 55 04/21/18 16:00 98.0 55 20 112/49 (70) 96 04/21/18 12:00 46 46 04/21/18 12:00 46 04/21/18 12:00 98.1 105/79 (88) 04/21/18 10:22 57 15 Room Air 04/21/18 10:22 96 Room Air 04/21/18 09:00 Room Air Intake and Output 04/21/18 04/22/18 18:59 06:59 Intake Total 125 ml Balance 125 ml Intake Oral 75 ml IV Total 50 ml # Voids 2 2 Laboratory Tests 04/21/18 11:00: Troponin I 0.009 04/21/18 18:15: Troponin I 0.004 04/22/18 03:10: Troponin I 0.000, White Blood Count 6.9, Red Blood Count 4.13L, Hemoglobin 12.4 , Hematocrit 38.8, Mean Corpuscular Volume 94, Mean Corpuscular Hemoglobin 30.1 , Mean Corpuscular Hemoglobin Concent 32.0, Red Cell Distribution Width 13.5, Platelet Count 120L, Mean Platelet Volume 11.1H, Neutrophils (%) (Auto) 61.8, Lymphocytes (%) (Auto) 20.4, Monocytes (%) (Auto) 15.2H, Eosinophils (%) (Auto) 1.5, Basophils (%) (Auto) 1.2, Sodium Level 138, Potassium Level 4.6, Chloride Level 103, Carbon Dioxide Level 30, Anion Gap 5, Blood Urea Nitrogen 18, Creatinine 1.4H, Estimat Glomerular Filtration Rate , Glucose Level 94, Calcium Level 8.1L, Pro-B-Type Natriuretic Peptide 1782H, Digoxin Level 1.0 Height (Feet): 5 Height (Inches): 7.00 Weight (Pounds): 115 General Appearance: alert EENT: normal ENT inspection Neck: supple Cardiovascular: normal rate Respiratory/Chest: decreased breath sounds Abdomen: normal bowel sounds, non tender, soft Extremities: non-tender Keon Candelaria MD Apr 22, 2018 08:39
[2018-04-22] MEDS: Memantine 10mg tab ORAL SCH (09:08)
[2018-04-22] MEDS: Docusate 100mg cap ORAL SCH ×3 (09:08→18:11)
[2018-04-22] MEDS: Fleet's Enema 133ml RECTAL SCH (09:09)
[2018-04-22] MEDS: Sertraline 50mg tab ORAL SCH (09:09)
[2018-04-22] MEDS: Eliquis 2.5mg tablet ORAL SCH ×2 (09:09→20:43)
--- NOTE | 2018-04-22 10:41 | Consultation ---
Consult Note Consult Note HEMATOLOGY-ONCOLOGY CONSULTATION REFERRING PHYSICIAN: Amber Gallegos REASON FOR CONSULT: Thrombocytopenia DATE OF CONSULT: 04/22/2018 HISTORY OF PRESENT ILLNESS: The patient came in with bilateral numbness in the feet. The patient has severe neuropathy, non-alcohol related. The patient is not diabetic, states has worsening paresthesia on both extremities, especially the feet. The patient also has pain in the feet.The patient also has pain in the bilateral elbows and had headache. The patient also complains of abdominal pain and has history of constipation. The patient takes multiple medications for pain as well as for neuropathy. The patient was also admitted for bradycardia. Hematology service consulted for the evaluation of thrombocytopenia. PAST MEDICAL HISTORY: depression, hypertension, anxiety, constipation, hypothyroidism, chronic pain syndrome, GERD, mild organic brain syndrome as well as hypothyroidism as well as urinary incontinence. PAST SURGICAL HISTORY: Back surgery, bladder surgery, hysterectomy. ALLERGIES: penicillin and sulfa. SOCIAL HISTORY: Remote history of smoking, comes from a residential. Denies history of drug or alcohol abuse. FAMILY HISTORY: Noncontributory. REVIEW OF SYSTEMS: HEENT: Denies headaches. RESPIRATORY: Denies shortness of breath. Denies cough. CARDIOVASCULAR: Denies chest pain. Denies orthopnea. GASTROINTESTINAL: Reports abdominal pain, constipation. Denies rectal bleeding. Denies hemorrhoids. EXTREMITIES: Does have paresthesia and pain in the lower feet as well as pain in the bilateral elbows, otherwise was able to ambulate, walks with a walker. Cranial nerves intact. NEUROLOGIC: Sensory intact to light touch. PHYSICAL EXAMINATION: GENERAL: Alert, awake, and oriented. VITAL SIGNS: Have been reviewed. LUNGS: Decreased breath sounds bilaterally. HEART: S1 and S2, regular. ABDOMEN: Benign. BACK: Range of motion is decreased in flexion and extension with tenderness to paraspinal muscles. No tenderness to trapezius or rhomboid muscles. EXTREMITIES: No cyanosis. No clubbing. No edema. NEUROLOGICAL: Decreased range of motion in the upper and lower extremities LABORATORY DATA: wbc 6.9 hgb 12.4 plt 120 MEDICATIONS: Benazepril, bisacodyl, diazepam, digoxin, Colace, Namenda, oxybutynin, Risperdal, Senokot, sertraline. IMAGING: CT abd --> Evidence of mild anasarca, with trace bilateral pleural fluid, edema of the subcutaneous, mesenteric, retroperitoneal and periportal fat. Focal fatty infiltration of the liver, posterior dependent pulmonary parenchymal atelectatic changes, evidence of prior thoracic spinal fusion surgery ASSESSMENT AND RECOMMENDATIONS # Thrombocytopenia - potential causes multifactorial, evaluate liver and viral etiologies to begin, also could be related to underlying medications patient has received. --> Hep panel and HIV ordered --> CT abd shows focal fatty infiltration of the liver --> Peripheral smear ordered to evaluate for blasts /schistocytes --> abx and other meds have been reviewed --> ok for ppx if plt >50k w/ wither heparin or lovenox --> Transfuse if Plt < 20k and fever, or if Plt < 10k without fever # Malnutrition. --> F/U calorie count --> Encourage po intake --> Potential PEG # Bradycardia. # Hyperkalemia could be due to bradycardia. # Worsening neuropathy. # Chronic pain control. GREATLY APPRECIATE CONSULTATION. Edwin Orozco MD Apr 22, 2018 10:41
[2018-04-22 11:45] VITALS: BP 107/63
--- NOTE | 2018-04-22 11:52 | Cardiology Progress Note ---
Assessment/Plan Status: stable Assessment/Plan Assessment/Plan Problem List: (1) HTN (hypertension) (2) Abdominal pain (3) Hiatal hernia (4) Atrial fibrillation with RVR (5) Severe malnutrition (6) bradycardia/sick sinus syndrome 1. Atrial fibrillation with bradycardia. Both digoxin and metoprolol have been discontinued. The patient was on metoprolol 100 mg and digoxin 0.25 mg daily. I will get a stat digoxin level regardless. We may need to resume her metoprolol at the lower dosage to prevent atrial fibrillation rapid ventricular response. At the time of anticoagulation, the patient remains on Eliquis 2.5 mg b.i.d. I will get an echocardiogram. 2. History of hypotension. The patient metoprolol that has been discontinued for bradycardia. The patient is on Lotensin only 5 mg daily, but the blood pressure was as low as 80 this morning, that will be held. 3. Status post fall, could be syncope due to profound bradycardia. Again, echocardiogram is pending. 4. Urinary tract infection. 5. Hyperkalemia with potassium of 6 that was corrected. Benazepril will be discontinued, again that puts the patient at high risk of hyperkalemia. Subjective Cardiovascular: Reports: no symptoms Respiratory: Reports: no symptoms Gastrointestinal/Abdominal: Reports: no symptoms Genitourinary: Reports: no symptoms Subjective COVERAGE FOR TOLUIE The patient was admitted for bradycardia. Objective Last 24 Hour Vital Signs Date Time Temp Pulse Resp B/P (MAP) Pulse Ox O2 Delivery O2 Flow Rate FiO2 04/22/18 11:45 97.4 53 18 107/63 (78) 100 04/22/18 09:13 51 16 Room Air 04/22/18 09:00 Room Air 04/22/18 08:00 97.5 59 17 106/64 (78) 100 04/22/18 08:00 58 04/22/18 04:00 97.0 64 20 100/54 (69) 96 04/22/18 04:00 60 04/22/18 00:00 52 04/22/18 00:00 98.4 52 20 94/45 (61) 98 52 04/21/18 21:00 Room Air 04/21/18 20:16 55 20 Room Air 04/21/18 20:00 65 04/21/18 20:00 100.1 56 20 92/49 (63) 98 04/21/18 16:11 55 04/21/18 16:00 98.0 55 20 112/49 (70) 96 04/21/18 12:00 46 46 04/21/18 12:00 46 04/21/18 12:00 98.1 105/79 (88) General Appearance: no apparent distress, alert EENT: PERRL/EOMI, normal ENT inspection Neck: non-tender, normal alignment, supple Rhythm: SB Cardiovascular: normal peripheral pulses, normal rate, regular rhythm Respiratory/Chest: chest wall non-tender, lungs clear, normal breath sounds, no respiratory distress Abdomen: normal bowel sounds, non tender, hyperactive bowel sounds Extremities: normal range of motion, non-tender Neurologic: crew lead II-XII grossly normal, no motor/sensory deficits, abnormal gait Intake and Output 04/21/18 04/22/18 19:00 07:00 Intake Total 125 ml Balance 125 ml Intake Oral 75 ml IV Total 50 ml # Voids 2 2 Laboratory Tests Test 04/21/18 18:15 04/22/18 03:10 Troponin I 0.004 ng/mL (0.000-0.056) 0.000 ng/mL (0.000-0.056) White Blood Count 6.9 K/UL (4.8-10.8) Red Blood Count 4.13 M/UL (4.20-5.40) L Hemoglobin 12.4 G/DL (12.0-16.0) Hematocrit 38.8 % (37.0-47.0) Mean Corpuscular Volume 94 FL (80-99) Mean Corpuscular Hemoglobin 30.1 PG (27.0-31.0) Mean Corpuscular Hemoglobin Concent 32.0 G/DL (32.0-36.0) Red Cell Distribution Width 13.5 % (11.6-14.8) Platelet Count 120 K/UL (150-450) L Mean Platelet Volume 11.1 FL (6.5-10.1) H Neutrophils (%) (Auto) 61.8 % (45.0-75.0) Lymphocytes (%) (Auto) 20.4 % (20.0-45.0) Monocytes (%) (Auto) 15.2 % (1.0-10.0) H Eosinophils (%) (Auto) 1.5 % (0.0-3.0) Basophils (%) (Auto) 1.2 % (0.0-2.0) Sodium Level 138 MMOL/L (136-145) Potassium Level 4.6 MMOL/L (3.5-5.1) Chloride Level 103 MMOL/L (98-107) Carbon Dioxide Level 30 MMOL/L (21-32) Anion Gap 5 mmol/L (5-15) Blood Urea Nitrogen 18 mg/dL (7-18) Creatinine 1.4 MG/DL (0.55-1.30) H Estimat Glomerular Filtration Rate mL/min (>60) Glucose Level 94 MG/DL (74-106) Calcium Level 8.1 MG/DL (8.5-10.1) L Pro-B-Type Natriuretic Peptide 1782 pg/mL (0-125) H Digoxin Level 1.0 NG/ML (0.9-2.0) Microbiology Date/Time Source Procedure Growth Status 04/20/18 18:00 Nasal Nares MRSA Culture - Final NO METHICILLIN RESISTANT STAPH AUREUS... Complete 04/20/18 17:00 Urine,Clean Catch Urine Culture - Final Lactobacillus Species Gram Positive Cocci Complete 04/20/18 18:00 Rectum VRE Culture - Final NO VANCOMYCIN RESISTANT ENTEROCOCCUS ... Complete 04/20/18 18:00 Rectum - Final NO CARBAPENEM-RESISTANT ENTEROBACTERI... Complete Alfredo Joseph MD Apr 22, 2018 11:52
[2018-04-22] MEDS ORDERED: Vancomycin 1gm/D5W 275ml IVPB ONE ×2 (12:00)
--- NOTE | 2018-04-22 12:46 | Cardiology Report ---
APPROVED REPORT EXAM: Two-dimensional and M-mode echocardiogram with Doppler and color Doppler. INDICATION Bradycardia M-Mode DIMENSIONS IVSd1.0 (0.7-1.1cm)Left Atrium (MM)4.7 (1.6-4.0cm) LVDd4.3 (3.5-5.6cm)Aortic Root2.6 (2.0-3.7cm) PWd1.0 (0.7-1.1cm)Aortic Cusp Exc.2.0 (1.5-2.0cm) LVDs2.0 (2.5-4.0cm) PWs1.8 cm Technically difficult study due to poor acoustic windows. Study quality precludes accurate assessment of regional wall motion. Normal left ventricular chamber size, systolic function and wall motion. Left ventricular ejection fraction estimated to be 55 %. No evidence of left ventricular hypertrophy. No evidence of pericardial effusion. Moderate left atrial enlargement. Right cardiac chamber sizes are within normal limits. Focal aortic valve sclerosis with adequate cusp excursion. Mildly thickened mitral valve leaflets with normal excursion. Mild mitral annulus and aortic root calcification. Pulmonic valve not well visualized. Normal tricuspid valve structure. IVC measures at 2.0 cm without physiological collapse, suggestive of increased RA pressure. A color flow and spectral Doppler study was performed and revealed: Trace aortic insufficiency. No mitral regurgitation. Left ventricular diastolic function could not be determined due to A-Fib. Mild tricuspid regurgitation. Tricuspid systolic velocities suggests peak right ventricular systolic pressure of 39 mmHg, consistent with mild pulmonary hypertension. No pulmonic regurgitation present.
[2018-04-22 16:00] VITALS: BP 109/61
[2018-04-22 20:00] VITALS: BP 98/43
--- NOTE | 2018-04-22 20:15 | Consultation ---
DATE OF CONSULTATION: 04/22/2018 INFECTIOUS DISEASES CONSULTATION CONSULTING PHYSICIAN: Jing Acosta M.D. REFERRING PHYSICIAN: Amber Gallegos M.D. This consultation has been done on behalf of Dr. Hemant Szymanski. REASON FOR CONSULTATION: Urinary tract infection. HISTORY OF PRESENTING ILLNESS: This is an 82-year-old lady with history of hypertension, depression, hypothyroidism, GERD, who came in, who was had increasing pain in the feet as well as abdominal pain. She was found to have urinary tract infection and an Infectious Diseases consultation has been obtained for antibiotics. PAST MEDICAL HISTORY: 1. History of hypertension. 2. Depression. 3. Anxiety. 4. Hypothyroidism. 5. Chronic pain syndrome. 6. GERD. 7. Dementia. 8. Back surgery. 9. Bladder surgery. 10. Hysterectomy. 11. Atrial fibrillation. SOCIAL HISTORY: She does not smoke, drink, or use drugs. FAMILY HISTORY: Noncontributory. REVIEW OF SYSTEMS: RESPIRATORY: She has fever and chills. No cough. No shortness of breath or chest pain. CARDIAC: No chest pain. No palpitations. No dizziness. No syncope. GASTROINTESTINAL: No nausea. No vomiting. No abdominal pain or diarrhea. : She complains of dysuria, but no hematuria. MEDICATIONS: As an inpatient, she is on trazodone, oxybutynin, MiraLAX, docusate, gabapentin, cefepime, Eliquis, Namenda, Protonix, Risperdal, Zoloft, Valium, clonidine, Synthroid, Remeron, Tylenol, Dulcolax, Gilbert, albuterol, ipratropium, milk of magnesia, morphine, nitroglycerin, Zofran, polyethylene glycol, Senokot, and iopamidol. ALLERGIES: 1. Penicillin, but she tolerates cephalosporins. 2. Sulfa. PHYSICAL EXAMINATION: VITAL SIGNS: Temperature of 97.5, T-max of 100.1, pulse of 51, respiratory rate of 16, blood pressure 106/64, and O2 saturation of 100%. HEENT: Pupils equally reactive to light and accommodation. Mouth appears clean without thrush. NECK: Supple. No adenopathy. No JVD. CARDIOVASCULAR: Regular rate and rhythm. No murmurs. LUNGS: Clear to auscultation bilaterally. No crackles. No wheezes. ABDOMEN: Soft and nontender. No organomegaly. EXTREMITIES: No cyanosis, no clubbing, no edema. LABORATORY AND DIAGNOSTIC DATA: White count 6.9, hemoglobin 12.4, hematocrit 38.8, MCV 94, and platelet count of 120,000. Sodium 138, potassium 4.6, chloride 103, bicarbonate 30, BUN 18, creatinine 1.4, glucose 94, and calcium 8.1. Brain natriuretic peptide 1782. Troponin 0. UA is showing 10 to 15 white cells. Urine culture showing Gram-positive cocci as well as Lactobacillus species. Nasal swab was negative for MRSA. Rectal swab was negative for VRE. CT abdomen and pelvis showing evidence of mild anasarca with trace bilateral pleural fluid, edema of the subcutaneous, mesenteric, retroperitoneal, and periportal fat, no acute process, focal fatty liver with atelectasis, and previous thoracic spinal fusion surgery. ASSESSMENT: This is an 82-year-old lady with history of hypertension as well as hypothyroidism and depression, who comes in with weakness and abdominal pain as well as dysuria and fever and chills and is found to have, 1. Urinary tract infection with Gram-positive cocci and Lactobacillus. 2. Hypertension. 3. Hypothyroidism. PLAN: 1. Continue cefepime. 2. We will start the patient on IV vancomycin. 3. We will follow up cultures and adjust antibiotics accordingly. I would like to thank, Dr. Gallegos, for this consultation. Jing Acosta M.D. DR: SHA JOB#: [id number] CC: Amber Gallegos M.D.; Fax#: [phone]
[2018-04-22] MEDS: Oxybutynin 5mg tab ORAL SCH (20:43)
[2018-04-22] MEDS: Miralax 17gm pkt ORAL SCH (20:43)
[2018-04-22] MEDS: TraZODone 100mg tab ORAL SCH (20:43)
--- NOTE | 2018-04-22 21:52 | General Progress Note ---
Assessment/Plan Problem List: (1) Anxiety disorder ICD Codes: F41.9 - Anxiety disorder, unspecified SNOMED: 659747887 (2) MDD (major depressive disorder) ICD Codes: F32.9 - Major depressive disorder, single episode, unspecified SNOMED: 009093618 (3) OCD (obsessive compulsive disorder) ICD Codes: F42.9 - Obsessive-compulsive disorder, unspecified SNOMED: 263319998 Assessment/Plan valium remeron risperdal provided ro/st Subjective Neurologic/Psychiatric: Reports: anxiety, depressed, emotional problems Allergies: Coded Allergies: PENICILLINS (Verified Allergy, Unknown, 01/12/16) SULFA (SULFONAMIDE ANTIBIOTICS) (Verified Allergy, Unknown, 01/12/16) Objective Last 24 Hour Vital Signs Date Time Temp Pulse Resp B/P (MAP) Pulse Ox O2 Delivery O2 Flow Rate FiO2 04/22/18 20:16 56 16 Room Air 04/22/18 16:00 58 04/22/18 16:00 97.6 63 18 109/61 (77) 93 04/22/18 12:00 47 04/22/18 11:45 97.4 53 18 107/63 (78) 100 04/22/18 09:13 51 16 Room Air 04/22/18 09:00 Room Air 04/22/18 08:00 97.5 59 17 106/64 (78) 100 04/22/18 08:00 58 04/22/18 04:00 97.0 64 20 100/54 (69) 96 04/22/18 04:00 60 04/22/18 00:00 52 04/22/18 00:00 98.4 52 20 94/45 (61) 98 52 Intake and Output 04/21/18 04/22/18 19:00 07:00 Intake Total 125 ml Balance 125 ml Intake Oral 75 ml IV Total 50 ml # Voids 2 2 Laboratory Tests 04/22/18 03:10: White Blood Count 6.9, Red Blood Count 4.13L, Hemoglobin 12.4, Hematocrit 38.8, Mean Corpuscular Volume 94, Mean Corpuscular Hemoglobin 30.1, Mean Corpuscular Hemoglobin Concent 32.0, Red Cell Distribution Width 13.5, Platelet Count 120L, Mean Platelet Volume 11.1H, Neutrophils (%) (Auto) 61.8, Lymphocytes (%) (Auto) 20.4, Monocytes (%) (Auto) 15.2H, Eosinophils (%) (Auto) 1.5, Basophils (%) ( Auto) 1.2, Sodium Level 138, Potassium Level 4.6, Chloride Level 103, Carbon Dioxide Level 30, Anion Gap 5, Blood Urea Nitrogen 18, Creatinine 1.4H, Estimat Glomerular Filtration Rate , Glucose Level 94, Calcium Level 8.1L, Troponin I 0.000, Pro-B-Type Natriuretic Peptide 1782H, Digoxin Level 1.0 04/22/18 04:00: HIV (1&2) Antibody Rapid Negative Height (Feet): 5 Height (Inches): 7.00 Weight (Pounds): 115 General Appearance: alert, moderate distress, cachetic Neurologic: oriented x 3, responsive, depressed affect Manuela Giraldo MD Apr 22, 2018 21:52
[2018-04-23] VITALS: BP 107/54
[2018-04-23 04:00] VITALS: BP 110/66
--- NOTE | 2018-04-23 07:23 | General Progress Note ---
Assessment/Plan Status: stable Assessment/Plan COVERING FOR DR. GUERRERO ASSESSMENT AND RECOMMENDATIONS # Bradycardia. Cardiology service is following, appreciate recs --> Both digoxin and metoprolol have been discontinued. --> may need to resume her metoprolol at the lower dosage to prevent atrial fibrillation rapid ventricular response --> at this time off anticoagulation, the patient remains on Eliquis 2.5 mg b.i.d. # Status post fall, could be syncope due to profound bradycardia. --> Again, echocardiogram is pending. # Thrombocytopenia - potential causes multifactorial, evaluate liver and viral etiologies to begin, also could be related to underlying medications patient has received. --> Hep panel pending, HIV negative --> CT abd shows focal fatty infiltration of the liver --> Peripheral smear ordered to evaluate for blasts /schistocytes --> abx and other meds have been reviewed --> ok for ppx if plt >50k w/ wither heparin or lovenox --> Transfuse if Plt < 20k and fever, or if Plt < 10k without fever # Malnutrition. --> F/U calorie count --> Encourage po intake --> Potential PEG as per gi prn # Hyperkalemia. Resolved. # Worsening neuropathy. # Chronic pain control. Subjective Date patient seen: Apr 23, 2018 Allergies: Coded Allergies: PENICILLINS (Verified Allergy, Unknown, 01/12/16) SULFA (SULFONAMIDE ANTIBIOTICS) (Verified Allergy, Unknown, 01/12/16) All Systems: reviewed and negative except above Subjective Pt awake and alert. No acute events. On abx. VS stable. Objective Last 24 Hour Vital Signs Date Time Temp Pulse Resp B/P (MAP) Pulse Ox O2 Delivery O2 Flow Rate FiO2 04/23/18 04:00 60 04/23/18 04:00 97.0 58 20 110/66 (81) 95 04/23/18 00:00 98.1 56 20 107/54 (71) 95 04/23/18 00:00 47 04/22/18 21:00 Room Air 04/22/18 20:16 56 16 Room Air 04/22/18 20:00 55 04/22/18 20:00 97.7 55 20 98/43 (61) 98 04/22/18 16:00 58 04/22/18 16:00 97.6 63 18 109/61 (77) 93 04/22/18 12:00 47 04/22/18 11:45 97.4 53 18 107/63 (78) 100 04/22/18 09:13 51 16 Room Air 04/22/18 09:00 Room Air 04/22/18 08:00 97.5 59 17 106/64 (78) 100 04/22/18 08:00 58 Intake and Output 04/22/18 04/23/18 18:59 06:59 Intake Total 220 ml 50 ml Output Total 100 ml 450 ml Balance 120 ml -400 ml Intake Oral 220 ml IV Total 50 ml Output Urine Total 100 ml 450 ml # Voids 1 # Bowel Movements 1 Height (Feet): 5 Height (Inches): 7.00 Weight (Pounds): 115 Objective PHYSICAL EXAMINATION: GENERAL: Alert, awake, and oriented. VITAL SIGNS: Have been reviewed. LUNGS: Decreased breath sounds bilaterally. HEART: S1 and S2, regular. ABDOMEN: Benign. BACK: Range of motion is decreased in flexion and extension with tenderness to paraspinal muscles. No tenderness to trapezius or rhomboid muscles. EXTREMITIES: No cyanosis. No clubbing. No edema. NEUROLOGICAL: Decreased range of motion in the upper and lower extremities Edwin Orozco MD Apr 23, 2018 07:23
[2018-04-23 08:00] VITALS: BP 100/52
--- NOTE | 2018-04-23 08:35 | General Progress Note ---
Assessment/Plan Problem List: (1) HTN (hypertension) ICD Codes: I10 - Essential (primary) hypertension SNOMED: 08446288 (2) Abdominal pain ICD Codes: R10.9 - Unspecified abdominal pain SNOMED: 31400155 (3) Hiatal hernia ICD Codes: K44.9 - Diaphragmatic hernia without obstruction or gangrene SNOMED: 50036967 (4) Atrial fibrillation with RVR ICD Codes: I48.91 - Unspecified atrial fibrillation SNOMED: 862597805907741 (5) Severe malnutrition ICD Codes: E43 - Unspecified severe protein-calorie malnutrition SNOMED: 93250692 Assessment/Plan fu caloric count encourage po intake fu labs PEG if needed Subjective ROS Limited/Unobtainable: Yes Allergies: Coded Allergies: PENICILLINS (Verified Allergy, Unknown, 01/12/16) SULFA (SULFONAMIDE ANTIBIOTICS) (Verified Allergy, Unknown, 01/12/16) Subjective no event over night Objective Last 24 Hour Vital Signs Date Time Temp Pulse Resp B/P (MAP) Pulse Ox O2 Delivery O2 Flow Rate FiO2 04/23/18 04:00 60 04/23/18 04:00 97.0 58 20 110/66 (81) 95 04/23/18 00:00 98.1 56 20 107/54 (71) 95 04/23/18 00:00 47 04/22/18 21:00 Room Air 04/22/18 20:16 56 16 Room Air 04/22/18 20:00 55 04/22/18 20:00 97.7 55 20 98/43 (61) 98 04/22/18 16:00 58 04/22/18 16:00 97.6 63 18 109/61 (77) 93 04/22/18 12:00 47 04/22/18 11:45 97.4 53 18 107/63 (78) 100 04/22/18 09:13 51 16 Room Air 04/22/18 09:00 Room Air Intake and Output 04/22/18 04/23/18 18:59 06:59 Intake Total 220 ml 170 ml Output Total 100 ml 450 ml Balance 120 ml -280 ml Intake Oral 220 ml 120 ml IV Total 50 ml Output Urine Total 100 ml 450 ml # Voids 1 # Bowel Movements 1 Height (Feet): 5 Height (Inches): 7.00 Weight (Pounds): 115 General Appearance: alert EENT: normal ENT inspection Neck: supple Cardiovascular: normal rate Respiratory/Chest: decreased breath sounds Abdomen: normal bowel sounds, non tender, soft Extremities: non-tender Keon Candelaria MD Apr 23, 2018 08:35
[2018-04-23] MEDS: Sertraline 50mg tab ORAL SCH (09:36)
[2018-04-23] MEDS: Eliquis 2.5mg tablet ORAL SCH ×2 (09:36→20:39)
[2018-04-23] MEDS: Docusate 100mg cap ORAL SCH ×3 (09:36→17:41)
[2018-04-23] MEDS: Memantine 10mg tab ORAL SCH (09:37)
[2018-04-23] MEDS: Fleet's Enema 133ml RECTAL SCH (10:11)
--- NOTE | 2018-04-23 10:50 | Infectious Diseases Prog Note ---
"Assessment/Plan Assessment/Plan antibiotics : vancomycin iv, cefepime A 1. UTI with lactobacillus | gram positive cocci 2. hypertension 3. hypothyroidism P 1. continue vancomycin iv, cefepime 2. will follow up cultures Subjective ROS Limited/Unobtainable: Yes Allergies: Coded Allergies: PENICILLINS (Verified Allergy, Unknown, 01/12/16) SULFA (SULFONAMIDE ANTIBIOTICS) (Verified Allergy, Unknown, 01/12/16) Objective Vital Signs Last 24 Hour Vital Signs Date Time Temp Pulse Resp B/P (MAP) Pulse Ox O2 Delivery O2 Flow Rate FiO2 04/23/18 08:00 97.4 57 18 100/52 (68) 95 04/23/18 06:35 59 16 Room Air 04/23/18 04:00 60 04/23/18 04:00 97.0 58 20 110/66 (81) 95 04/23/18 00:00 98.1 56 20 107/54 (71) 95 04/23/18 00:00 47 04/22/18 21:00 Room Air 04/22/18 20:16 56 16 Room Air 04/22/18 20:00 55 04/22/18 20:00 97.7 55 20 98/43 (61) 98 04/22/18 16:00 58 04/22/18 16:00 97.6 63 18 109/61 (77) 93 04/22/18 12:00 47 04/22/18 11:45 97.4 53 18 107/63 (78) 100 Height (Feet): 5 Height (Inches): 7.00 Weight (Pounds): 115 Respiratory/Chest: lungs clear Cardiovascular: normal rate, regular rhythm, no gallop/murmur Abdomen: soft, non tender Extremities: no edema Microbiology Date/Time Source Procedure Growth Status 04/20/18 18:00 Nasal Nares MRSA Culture - Final NO METHICILLIN RESISTANT STAPH AUREUS... Complete 04/20/18 17:00 Urine,Clean Catch Urine Culture - Final Lactobacillus Species Gram Positive Cocci Complete 04/20/18 18:00 Rectum VRE Culture - Final NO VANCOMYCIN RESISTANT ENTEROCOCCUS ... Complete 04/20/18 18:00 Rectum - Final NO CARBAPENEM-RESISTANT ENTEROBACTERI... Complete Current Medications Medications (Trade) Dose Ordered Sig/Dejan Route PRN Reason Start Time Stop Time Status Last Admin Dose Admin Acetaminophen (Tylenol) 650 mg Q4H PRN ORAL Mild Pain/Temp > 100.5 04/20/18 21:30 05/20/18 21:29 Acetaminophen/ Hydrocodone Bitart ([place] [address]) 1 tab Q4H PRN ORAL For Pain 04/20/18 21:15 04/27/18 21:14 Albuterol/ Ipratropium (Albuterol/ Ipratropium) 3 ml Q4H PRN HHN Shortness of Breath 04/20/18 21:15 04/25/18 21:14 Apixaban (Eliquis) 2.5 mg EVERY 12 HOURS ORAL 04/21/18 09:00 05/21/18 08:59 04/23/18 09:36 Bisacodyl (Dulcolax) 10 mg DAILY PRN RECTAL Constipation 04/20/18 21:15 05/20/18 21:14 Cefepime HCl 1 gm/ Dextrose 50 ml @ 100 mls/hr Q12HR IVPB 04/21/18 09:30 04/28/18 09:29 04/23/18 09:39 Clonidine HCl (Catapres Tab) 0.1 mg Q4H PRN ORAL sbp>170 04/21/18 08:30 05/21/18 08:29 Diazepam (Valium) 10 mg BID PRN ORAL anxiety 04/21/18 09:00 04/28/18 08:59 Docusate Sodium (Colace) 100 mg THREE TIMES A DAY ORAL 04/21/18 18:00 05/21/18 17:59 04/23/18 09:36 Gabapentin (Neurontin) 300 mg QID ORAL 04/21/18 13:00 05/21/18 08:59 04/23/18 09:36 Iopamidol (Isovue-300 100ml) 100 ml NOW PRN INJ Radiology Procedure 04/20/18 16:30 Levothyroxine Sodium (Synthroid) 112 mcg ACBREAKFAST ORAL 04/21/18 06:30 05/21/18 06:29 04/23/18 05:58 Magnesium Hydroxide (Mom) 30 ml Q6HR PRN ORAL Constipation 04/20/18 21:15 05/20/18 21:14 04/22/18 20:43 Memantine (Namenda) 5 mg DAILY ORAL 04/21/18 09:00 05/21/18 08:59 04/23/18 09:37 Mirtazapine (Remeron) 30 mg BEDTIME ORAL 04/20/18 22:00 05/20/18 21:59 04/22/18 20:43 Morphine Sulfate (Morphine Sulfate) 2 mg Q4H PRN IVP Severe Pain (Pain Scale 7-10) 04/20/18 21:15 04/27/18 21:14 Nitroglycerin (Ntg) 0.4 mg Q5M PRN SL chest pain 04/20/18 21:15 05/20/18 21:14 Ondansetron HCl (Zofran ODT) 4 mg Q4H PRN ORAL Nausea & Vomiting 04/20/18 21:15 05/20/18 21:14 Oxybutynin Chloride (Ditropan) 5 mg BEDTIME ORAL 04/21/18 21:00 05/21/18 20:59 04/22/18 20:43 Pantoprazole (Protonix) 40 mg DAILY ORAL 04/21/18 09:00 05/21/18 08:59 04/23/18 09:37 Polyethylene Glycol (Miralax) 17 gm BEDTIME ORAL 04/21/18 21:00 05/21/18 20:59 04/22/18 20:43 Polyethylene Glycol (Miralax) 17 gm DAILY PRN ORAL Constipation 04/20/18 21:15 05/20/18 21:14 Risperidone (RisperDAL) 0.25 mg BID ORAL 04/21/18 09:00 05/21/18 08:59 04/23/18 09:36 Sennosides (Senokot) 17.2 mg DAILY PRN ORAL Constipation 04/20/18 21:00 05/20/18 20:59 Sertraline HCl (Zoloft) 75 mg DAILY ORAL 04/21/18 09:00 05/21/18 08:59 04/23/18 09:36 Sodium Phosphate (Fleet's Sodium Phosl Enema) 133 ml DAILY RECTAL 04/22/18 09:00 05/21/18 08:59 04/23/18 10:11 Trazodone HCl (Desyrel) 100 mg BEDTIME ORAL 04/21/18 21:00 05/21/18 20:59 04/22/18 20:43 Vancomycin HCl (Vanco rx to dose) 1 ea DAILY PRN MISC Per rx protocol 04/22/18 10:30 05/22/18 10:29 Vancomycin HCl 500 mg/Dextrose 110 ml @ 110 mls/hr Q24H IVPB 04/23/18 12:00 04/28/18 11:59 Jing Acosta MD Apr 23, 2018 10:50"
[2018-04-23 12:00] VITALS: BP 114/55
[2018-04-23] MEDS ORDERED: Vancomycin 500mg/D5W 110ml IVPB SCH ×2 (12:00)
--- NOTE | 2018-04-23 13:09 | General Progress Note ---
Assessment/Plan Assessment/Plan (1) B/L LE pain (2) Peripheral Neuropathy (3) Back pain s/p fall (5) Osteoarthritis Patient will be continued on Morphine and [place] as needed. Xrays pending D/w Dr. Grewal and he concurred. Subjective Date patient seen: Apr 23, 2018 Time patient seen: 11:45 - am Allergies: Coded Allergies: PENICILLINS (Verified Allergy, Unknown, 01/12/16) SULFA (SULFONAMIDE ANTIBIOTICS) (Verified Allergy, Unknown, 01/12/16) Subjective REVIEW OF SYSTEMS: Denies rash, fever, chills, sweating, dizziness, drowsiness, or change in weight. No shortness of breath or chest pain. No nausea, vomiting, or blood in the stool or urine. No bowel or bladder incontinence. No dysuria. The patient is complaining of back pain and bilateral lower extremity pain. SUBJECTIVE: Patient is in bed reporting she is doing better. Pain has been stable on the medications. Objective Last 24 Hour Vital Signs Date Time Temp Pulse Resp B/P (MAP) Pulse Ox O2 Delivery O2 Flow Rate FiO2 04/23/18 08:00 97.4 57 18 100/52 (68) 95 04/23/18 06:35 59 16 Room Air 04/23/18 04:00 60 04/23/18 04:00 97.0 58 20 110/66 (81) 95 04/23/18 00:00 98.1 56 20 107/54 (71) 95 04/23/18 00:00 47 04/22/18 21:00 Room Air 04/22/18 20:16 56 16 Room Air 04/22/18 20:00 55 04/22/18 20:00 97.7 55 20 98/43 (61) 98 04/22/18 16:00 58 04/22/18 16:00 97.6 63 18 109/61 (77) 93 Intake and Output 04/22/18 04/23/18 18:59 06:59 Intake Total 220 ml 170 ml Output Total 100 ml 450 ml Balance 120 ml -280 ml Intake Oral 220 ml 120 ml IV Total 50 ml Output Urine Total 100 ml 450 ml # Voids 1 # Bowel Movements 1 Height (Feet): 5 Height (Inches): 7.00 Weight (Pounds): 115 Objective GENERAL: Alert, awake, and oriented. LUNGS: Decreased breath sounds bilaterally. HEART: S1 and S2, regular. ABDOMEN: Benign. EXTREMITIES: No cyanosis. No clubbing. No edema. NEUROLOGICAL: No changes. Sebastian Portillo Apr 23, 2018 13:09
--- NOTE | 2018-04-23 14:16 | Cardiology Report ---
APPROVED REPORT EKG Measurement Heart [id number] Atrial fibrillation with slow ventricular response Possible Anterior infarct, age undetermined Abnormal ECG
[2018-04-23 16:00] VITALS: BP 118/59
--- NOTE | 2018-04-23 18:17 | Cardiology Progress Note ---
Assessment/Plan Status: stable Assessment/Plan Assessment/Plan Problem List: (1) HTN (hypertension) (2) Abdominal pain (3) Hiatal hernia (4) Atrial fibrillation with RVR (5) Severe malnutrition (6) bradycardia/sick sinus syndrome 1. Atrial fibrillation with bradycardia. Both digoxin and metoprolol have been discontinued. The patient was on metoprolol 100 mg and digoxin 0.25 mg daily. I will get a stat digoxin level regardless. We may need to resume her metoprolol at the lower dosage to prevent atrial fibrillation rapid ventricular response. At the time of anticoagulation, the patient remains on Eliquis 2.5 mg b.i.d. I will get an echocardiogram. 2. History of hypotension. The patient metoprolol that has been discontinued for bradycardia. The patient is on Lotensin only 5 mg daily, but the blood pressure was as low as 80 this morning, that will be held. 3. Status post fall, could be syncope due to profound bradycardia. Again, echocardiogram is pending. 4. Urinary tract infection. 5. Hyperkalemia with potassium of 6 that was corrected. Benazepril will be discontinued, again that puts the patient at high risk of hyperkalemia. Subjective Cardiovascular: Reports: no symptoms Respiratory: Reports: no symptoms Gastrointestinal/Abdominal: Reports: no symptoms Genitourinary: Reports: no symptoms Subjective COVERAGE FOR TOLUIE The patient was admitted for bradycardia. Objective Last 24 Hour Vital Signs Date Time Temp Pulse Resp B/P (MAP) Pulse Ox O2 Delivery O2 Flow Rate FiO2 04/23/18 16:00 70 04/23/18 16:00 97.2 67 18 118/59 (78) 98 04/23/18 12:00 98.0 64 18 114/55 (74) 93 04/23/18 12:00 68 04/23/18 09:00 Room Air Room Air 04/23/18 08:00 97.4 57 18 100/52 (68) 95 04/23/18 08:00 71 04/23/18 06:35 59 16 Room Air 04/23/18 04:00 60 04/23/18 04:00 97.0 58 20 110/66 (81) 95 04/23/18 00:00 98.1 56 20 107/54 (71) 95 04/23/18 00:00 47 04/22/18 21:00 Room Air 04/22/18 20:16 56 16 Room Air 04/22/18 20:00 55 04/22/18 20:00 97.7 55 20 98/43 (61) 98 General Appearance: no apparent distress, alert, severe distress EENT: normal ENT inspection Neck: non-tender, normal alignment, supple, normal inspection, no JVD Rhythm: SB Cardiovascular: normal peripheral pulses, normal rate, regular rhythm Respiratory/Chest: chest wall non-tender, lungs clear Abdomen: normal bowel sounds, non tender, soft Extremities: normal range of motion, non-tender Neurologic: all around patternmaker II-XII grossly normal, no motor/sensory deficits Intake and Output 04/22/18 04/23/18 19:00 07:00 Intake Total 220 ml 170 ml Output Total 100 ml 450 ml Balance 120 ml -280 ml Intake Oral 220 ml 120 ml IV Total 50 ml Output Urine Total 100 ml 450 ml # Voids 1 # Bowel Movements 1 Alfredo Joseph MD Apr 23, 2018 18:17
[2018-04-23 20:00] VITALS: BP 105/52
[2018-04-23] MEDS: Oxybutynin 5mg tab ORAL SCH (20:39)
[2018-04-23] MEDS: Miralax 17gm pkt ORAL SCH (20:39)
[2018-04-23] MEDS: TraZODone 100mg tab ORAL SCH (20:39)
[2018-04-23] MEDS: Milk of Magnesia 30ml Ud ORAL PRN (22:27)
--- NOTE | 2018-04-23 22:32 | General Progress Note ---
Assessment/Plan Problem List: (1) Anxiety disorder ICD Codes: F41.9 - Anxiety disorder, unspecified SNOMED: 247248861 (2) MDD (major depressive disorder) ICD Codes: F32.9 - Major depressive disorder, single episode, unspecified SNOMED: 729194558 (3) OCD (obsessive compulsive disorder) ICD Codes: F42.9 - Obsessive-compulsive disorder, unspecified SNOMED: 456285749 Assessment/Plan valium remeron risperdal provided ro/st Subjective Neurologic/Psychiatric: Reports: anxiety, depressed, emotional problems Allergies: Coded Allergies: PENICILLINS (Verified Allergy, Unknown, 01/12/16) SULFA (SULFONAMIDE ANTIBIOTICS) (Verified Allergy, Unknown, 01/12/16) Objective Last 24 Hour Vital Signs Date Time Temp Pulse Resp B/P (MAP) Pulse Ox O2 Delivery O2 Flow Rate FiO2 04/23/18 16:00 70 04/23/18 16:00 97.2 67 18 118/59 (78) 98 04/23/18 12:00 98.0 64 18 114/55 (74) 93 04/23/18 12:00 68 04/23/18 09:00 Room Air Room Air 04/23/18 08:00 97.4 57 18 100/52 (68) 95 04/23/18 08:00 71 04/23/18 06:35 59 16 Room Air 04/23/18 04:00 60 04/23/18 04:00 97.0 58 20 110/66 (81) 95 04/23/18 00:00 98.1 56 20 107/54 (71) 95 04/23/18 00:00 47 Intake and Output 04/22/18 04/23/18 19:00 07:00 Intake Total 220 ml 170 ml Output Total 100 ml 450 ml Balance 120 ml -280 ml Intake Oral 220 ml 120 ml IV Total 50 ml Output Urine Total 100 ml 450 ml # Voids 1 # Bowel Movements 1 Height (Feet): 5 Height (Inches): 7.00 Weight (Pounds): 115 General Appearance: alert, cachetic Neurologic: responsive, depressed affect Manuela Giraldo MD Apr 23, 2018 22:32
[2018-04-24] VITALS: BP 116/56
[2018-04-24 04:00] VITALS: BP 94/56
[2018-04-24 08:00] VITALS: BP 110/62
[2018-04-24] MEDS: Eliquis 2.5mg tablet ORAL SCH ×2 (08:12→21:17)
[2018-04-24] MEDS: Docusate 100mg cap ORAL SCH ×3 (08:12→17:50)
[2018-04-24] MEDS: Memantine 10mg tab ORAL SCH (08:12)
[2018-04-24] MEDS: Sertraline 50mg tab ORAL SCH (08:13)
--- NOTE | 2018-04-24 08:54 | General Progress Note ---
Assessment/Plan Problem List: (1) HTN (hypertension) ICD Codes: I10 - Essential (primary) hypertension SNOMED: 84494302 (2) Abdominal pain ICD Codes: R10.9 - Unspecified abdominal pain SNOMED: 73279789 (3) Hiatal hernia ICD Codes: K44.9 - Diaphragmatic hernia without obstruction or gangrene SNOMED: 33438473 (4) Atrial fibrillation with RVR ICD Codes: I48.91 - Unspecified atrial fibrillation SNOMED: 572118001211805 (5) Severe malnutrition ICD Codes: E43 - Unspecified severe protein-calorie malnutrition SNOMED: 42892942 Assessment/Plan fu caloric count encourage po intake fu labs PEG if needed Subjective ROS Limited/Unobtainable: Yes Allergies: Coded Allergies: PENICILLINS (Verified Allergy, Unknown, 01/12/16) SULFA (SULFONAMIDE ANTIBIOTICS) (Verified Allergy, Unknown, 01/12/16) Subjective no event over night Objective Last 24 Hour Vital Signs Date Time Temp Pulse Resp B/P (MAP) Pulse Ox O2 Delivery O2 Flow Rate FiO2 04/24/18 08:00 96.6 74 16 110/62 (78) 95 04/24/18 07:48 63 18 Room Air 21 04/24/18 04:00 62 04/24/18 04:00 99.8 82 22 94/56 (69) 98 04/24/18 00:00 97.9 81 19 116/56 (76) 98 04/24/18 00:00 75 04/23/18 23:43 65 20 Room Air 21 04/23/18 21:00 Room Air Room Air 04/23/18 20:00 98.6 69 19 105/52 (69) 98 04/23/18 20:00 67 04/23/18 16:00 70 04/23/18 16:00 97.2 67 18 118/59 (78) 98 04/23/18 12:00 98.0 64 18 114/55 (74) 93 04/23/18 12:00 68 04/23/18 09:00 Room Air Room Air Intake and Output 04/23/18 04/24/18 19:00 07:00 Intake Total 1050 ml 150 ml Output Total 300 ml 600 ml Balance 750 ml -450 ml Intake Oral 1050 ml 100 ml IV Total 50 ml Output Urine Total 300 ml 600 ml # Bowel Movements 1 Height (Feet): 5 Height (Inches): 7.00 Weight (Pounds): 115 General Appearance: no apparent distress EENT: normal ENT inspection Neck: supple Cardiovascular: normal rate Respiratory/Chest: decreased breath sounds Abdomen: normal bowel sounds, non tender, soft Extremities: non-tender Keon Candelaria MD Apr 24, 2018 08:54
[2018-04-24] MEDS: Fleet's Enema 133ml RECTAL SCH (09:00)
--- NOTE | 2018-04-24 09:00 | General Progress Note ---
Assessment/Plan Assessment/Plan (1) B/L LE pain (2) Peripheral Neuropathy (3) Back pain s/p fall (5) Osteoarthritis Patient will be continued on Morphine and [place] as needed. Xrays pending d/w nurse. D/w Dr. Grewal and he concurred. Subjective Date patient seen: Apr 24, 2018 Time patient seen: 07:45 - am Allergies: Coded Allergies: PENICILLINS (Verified Allergy, Unknown, 01/12/16) SULFA (SULFONAMIDE ANTIBIOTICS) (Verified Allergy, Unknown, 01/12/16) Subjective REVIEW OF SYSTEMS: Denies rash, fever, chills, sweating, dizziness, drowsiness, or change in weight. No shortness of breath or chest pain. No nausea, vomiting, or blood in the stool or urine. No bowel or bladder incontinence. No dysuria. The patient is complaining of back pain and bilateral lower extremity pain. SUBJECTIVE: Patient has been doing well and reports that pain has been tolerated on the morphine and norco when needed. She has no new complaints at this time. Objective Last 24 Hour Vital Signs Date Time Temp Pulse Resp B/P (MAP) Pulse Ox O2 Delivery O2 Flow Rate FiO2 04/24/18 08:00 96.6 74 16 110/62 (78) 95 04/24/18 07:48 63 18 Room Air 21 04/24/18 04:00 62 04/24/18 04:00 99.8 82 22 94/56 (69) 98 04/24/18 00:00 97.9 81 19 116/56 (76) 98 04/24/18 00:00 75 04/23/18 23:43 65 20 Room Air 21 04/23/18 21:00 Room Air Room Air 04/23/18 20:00 98.6 69 19 105/52 (69) 98 04/23/18 20:00 67 04/23/18 16:00 70 04/23/18 16:00 97.2 67 18 118/59 (78) 98 04/23/18 12:00 98.0 64 18 114/55 (74) 93 04/23/18 12:00 68 04/23/18 09:00 Room Air Room Air Intake and Output 04/23/18 04/24/18 18:59 06:59 Intake Total 1050 ml 150 ml Output Total 300 ml 600 ml Balance 750 ml -450 ml Intake Oral 1050 ml 100 ml IV Total 50 ml Output Urine Total 300 ml 600 ml # Bowel Movements 1 Height (Feet): 5 Height (Inches): 7.00 Weight (Pounds): 115 Objective GENERAL: Alert, awake, and oriented. LUNGS: Decreased breath sounds bilaterally. HEART: S1 and S2, regular. ABDOMEN: Benign. EXTREMITIES: No cyanosis. No clubbing. No edema. NEUROLOGICAL: No changes. Sebastian Portillo Apr 24, 2018 09:00
--- NOTE | 2018-04-24 09:38 | General Progress Note ---
Assessment/Plan Assessment/Plan COVERING FOR DR. GUERRERO ASSESSMENT AND RECOMMENDATIONS # Bradycardia. Cardiology service is following, appreciate recs --> Both digoxin and metoprolol have been discontinued. --> may need to resume her metoprolol at the lower dosage to prevent atrial fibrillation rapid ventricular response --> at this time, patient remains on Eliquis 2.5 mg b.i.d. # Status post fall, could be syncope due to profound bradycardia. --> Again, echocardiogram is pending. # Thrombocytopenia - potential causes multifactorial, evaluate liver and viral etiologies to begin, also could be related to underlying medications patient has received. --> Hep panel pending, HIV negative --> CT abd shows focal fatty infiltration of the liver --> Peripheral smear ordered to evaluate for blasts /schistocytes --> abx and other meds have been reviewed --> ok for ppx if plt >50k w/ wither heparin or lovenox --> Transfuse if Plt < 20k and fever, or if Plt < 10k without fever # Malnutrition. F/U on calorie count --> Encourage po intake --> Potential PEG as per gi prn # Hyperkalemia. Resolved. --> received kayxelate # Worsening neuropathy. # Chronic pain control. Subjective Constitutional: Denies: no symptoms, chills, diaphoresis, fever, malaise, weakness, other Cardiovascular: Denies: no symptoms, chest pain, edema, irregular heart rate, lightheadedness, palpitations, syncope, other Respiratory: Denies: no symptoms, cough, orthopnea, shortness of breath, SOB with excertion, SOB at rest, sputum, stridor, wheezing, other Gastrointestinal/Abdominal: Denies: no symptoms, abdomen distended, abdominal pain, black stools, tarry stools, blood in stool, constipated, diarrhea, difficulty swallowing, nausea, poor appetite, poor fluid intake, rectal bleeding , vomiting, other Genitourinary: Denies: no symptoms, burning, discharge, frequency, flank pain, hematuria, incontinence, pain, urgency, other Neurologic/Psychiatric: Denies: no symptoms, anxiety, depressed, emotional problems, headache, numbness, paresthesia, pre-existing deficit, seizure, tingling, tremors, weakness, other Endocrine: Denies: no symptoms, excessive sweating, flushing, intolerance to cold, intolerance to heat, increased hunger, increased thirst, increased urine, unexplained weight gain, unexplained weight loss, other Hematologic/Lymphatic: Denies: no symptoms, anemia, easy bleeding, easy bruising, other Allergies: Coded Allergies: PENICILLINS (Verified Allergy, Unknown, 01/12/16) SULFA (SULFONAMIDE ANTIBIOTICS) (Verified Allergy, Unknown, 01/12/16) Subjective Pt awake and alert. No acute events. On abx. VS are stable. Objective Last 24 Hour Vital Signs Date Time Temp Pulse Resp B/P (MAP) Pulse Ox O2 Delivery O2 Flow Rate FiO2 04/24/18 08:00 96.6 74 16 110/62 (78) 95 04/24/18 07:48 63 18 Room Air 21 04/24/18 04:00 62 04/24/18 04:00 99.8 82 22 94/56 (69) 98 04/24/18 00:00 97.9 81 19 116/56 (76) 98 04/24/18 00:00 75 04/23/18 23:43 65 20 Room Air 21 04/23/18 21:00 Room Air Room Air 04/23/18 20:00 98.6 69 19 105/52 (69) 98 04/23/18 20:00 67 04/23/18 16:00 70 04/23/18 16:00 97.2 67 18 118/59 (78) 98 04/23/18 12:00 98.0 64 18 114/55 (74) 93 04/23/18 12:00 68 Intake and Output 04/23/18 04/24/18 18:59 06:59 Intake Total 1050 ml 150 ml Output Total 300 ml 600 ml Balance 750 ml -450 ml Intake Oral 1050 ml 100 ml IV Total 50 ml Output Urine Total 300 ml 600 ml # Bowel Movements 1 Height (Feet): 5 Height (Inches): 7.00 Weight (Pounds): 115 Objective PE: GENERAL: Alert, awake, and oriented. VITAL SIGNS: Have been reviewed. LUNGS: Decreased breath sounds bilaterally. HEART: S1 and S2, regular. ABDOMEN: Benign. BACK: Range of motion is decreased in flexion and extension with tenderness to paraspinal muscles. No ttp. EXTREMITIES: No cce NEUROLOGICAL: Decreased range of motion in the upper and lower extremities Edwin Orozco MD Apr 24, 2018 09:38
[2018-04-24 12:00] VITALS: BP 113/54
[2018-04-24] MEDS: Vancomycin 500mg/D5W 110ml IVPB SCH ×2 (12:36)
--- NOTE | 2018-04-24 13:44 | Diagnostic Imaging Report ---
Indications: Mid back pain Technique: Two views of the thoracic spine Comparison: None Findings: Bones are profoundly osteoporotic. Bony alignment is normal. Fusion hardware extends from T4 to T12. Vertebral body heights are preserved. There is smooth kyphotic deformity despite this, however. No definite acute fractures. There are anterior bridging osteophytes. No gross paraspinous mass. Impression: Very limited, due to osteoporosis and overlying surgical hardware. No definite acute abnormality
--- NOTE | 2018-04-24 13:46 | Diagnostic Imaging Report ---
Indication: Low back pain Technique: 4 views of the lumbar spine Comparison: None Findings: The bones are profoundly osteoporotic. This limits assessment. Thoracic spine surgical hardware is seen extending to the T12 level. Lumbar bony alignment is normal. Vertebral body heights are preserved. Disc spaces are preserved. There is evidence of multilevel facet arthrosis, particularly inferiorly. No definite acute fractures. Sacroiliac joint spaces are preserved. Sacral arches are preserved. The surrounding soft tissues are unremarkable. Impression: Limited exam due to osteoporosis No definite acute process Postsurgical changes of the thoracic spine
--- NOTE | 2018-04-24 14:19 | Cardiology Report ---
APPROVED REPORT EKG Measurement Heart [id number] Atrial fibrillation with slow ventricular response Nonspecific ST abnormality Abnormal QRS-T angle, consider primary T wave abnormality Abnormal ECG
--- NOTE | 2018-04-24 15:21 | Cardiology Progress Note ---
Assessment/Plan Status: stable Assessment/Plan Assessment/Plan Problem List: (1) HTN (hypertension) (2) Abdominal pain (3) Hiatal hernia (4) Atrial fibrillation with RVR (5) Severe malnutrition (6) bradycardia/sick sinus syndrome 1. Atrial fibrillation with bradycardia. Both digoxin and metoprolol have been discontinued. The patient was on metoprolol 100 mg and digoxin 0.25 mg daily. I will get a stat digoxin level regardless. We may need to resume her metoprolol at the lower dosage to prevent atrial fibrillation rapid ventricular response. At the time of anticoagulation, the patient remains on Eliquis 2.5 mg b.i.d. I will get an echocardiogram -> Left ventricular ejection fraction estimated to be 55 %. 2. History of hypotension. The patient metoprolol that has been discontinued for bradycardia. The patient is on Lotensin only 5 mg daily, but the blood pressure was as low as 80 this morning, that will be held. 3. Status post fall, could be syncope due to profound bradycardia. Currently heart rates normal no indication for pacemaker 4. Urinary tract infection. Abx per primary 5. Hyperkalemia with potassium of 6 that was corrected. Benazepril will be discontinued, again that puts the patient at high risk of hyperkalemia. Subjective Cardiovascular: Reports: no symptoms Respiratory: Reports: no symptoms Gastrointestinal/Abdominal: Reports: no symptoms Genitourinary: Reports: no symptoms Subjective COVERAGE FOR TOLUIE The patient was admitted for bradycardia. Patient is awake aox4. Breathing even and unlabored on Room Air. Vital signs stable. Bradycardia resolved Objective Last 24 Hour Vital Signs Date Time Temp Pulse Resp B/P (MAP) Pulse Ox O2 Delivery O2 Flow Rate FiO2 04/24/18 12:00 97.5 80 18 113/54 (73) 98 04/24/18 11:51 77 04/24/18 08:00 96.6 74 16 110/62 (78) 95 04/24/18 08:00 Room Air Room Air 04/24/18 07:59 63 04/24/18 07:48 63 18 Room Air 21 04/24/18 04:00 62 04/24/18 04:00 99.8 82 22 94/56 (69) 98 04/24/18 00:00 97.9 81 19 116/56 (76) 98 04/24/18 00:00 75 04/23/18 23:43 65 20 Room Air 21 04/23/18 21:00 Room Air Room Air 04/23/18 20:00 98.6 69 19 105/52 (69) 98 04/23/18 20:00 67 04/23/18 16:00 70 04/23/18 16:00 97.2 67 18 118/59 (78) 98 General Appearance: no apparent distress EENT: PERRL/EOMI, normal ENT inspection Neck: non-tender, normal alignment, supple, normal inspection, no JVD Rhythm: SB Cardiovascular: normal peripheral pulses, normal rate, regular rhythm Respiratory/Chest: chest wall non-tender, lungs clear Abdomen: normal bowel sounds, non tender, soft Extremities: normal range of motion, non-tender 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
--- NOTE | 2018-04-24 15:52 | Infectious Diseases Prog Note ---
"Assessment/Plan Assessment/Plan antibiotics : vancomycin iv, cefepime A 1. UTI with lactobacillus | gram positive cocci 2. hypertension 3. hypothyroidism P 1. continue vancomycin iv, cefepime 2. will follow up cultures Subjective Constitutional: Denies: fever, chills Respiratory: Denies: shortness of breath, dry cough Gastrointestinal/Abdominal: Denies: nausea, vomiting, diarrhea Musculoskeletal: Denies: pain Allergies: Coded Allergies: PENICILLINS (Verified Allergy, Unknown, 01/12/16) SULFA (SULFONAMIDE ANTIBIOTICS) (Verified Allergy, Unknown, 01/12/16) Objective Vital Signs Last 24 Hour Vital Signs Date Time Temp Pulse Resp B/P (MAP) Pulse Ox O2 Delivery O2 Flow Rate FiO2 04/24/18 12:00 97.5 80 18 113/54 (73) 98 04/24/18 11:51 77 04/24/18 08:00 96.6 74 16 110/62 (78) 95 04/24/18 08:00 Room Air Room Air 04/24/18 07:59 63 04/24/18 07:48 63 18 Room Air 21 04/24/18 04:00 62 04/24/18 04:00 99.8 82 22 94/56 (69) 98 04/24/18 00:00 97.9 81 19 116/56 (76) 98 04/24/18 00:00 75 04/23/18 23:43 65 20 Room Air 21 04/23/18 21:00 Room Air Room Air 04/23/18 20:00 98.6 69 19 105/52 (69) 98 04/23/18 20:00 67 04/23/18 16:00 70 04/23/18 16:00 97.2 67 18 118/59 (78) 98 Height (Feet): 5 Height (Inches): 7.00 Weight (Pounds): 115 Respiratory/Chest: lungs clear Cardiovascular: normal rate, regular rhythm, no gallop/murmur Abdomen: soft, non tender Extremities: no edema Laboratory Tests Test 04/24/18 10:45 Vancomycin Level Trough 6.3 ug/mL (5.0-12.0) Current Medications Medications (Trade) Dose Ordered Sig/Dejan Route PRN Reason Start Time Stop Time Status Last Admin Dose Admin Acetaminophen (Tylenol) 650 mg Q4H PRN ORAL Mild Pain/Temp > 100.5 04/20/18 21:30 05/20/18 21:29 Acetaminophen/ Hydrocodone Bitart (Creole 10/325) 1 tab Q4H PRN ORAL For Pain 04/20/18 21:15 04/27/18 21:14 Albuterol/ Ipratropium (Albuterol/ Ipratropium) 3 ml Q4H PRN HHN Shortness of Breath 04/20/18 21:15 04/25/18 21:14 Apixaban (Eliquis) 2.5 mg EVERY 12 HOURS ORAL 04/21/18 09:00 05/21/18 08:59 04/24/18 08:12 Bisacodyl (Dulcolax) 10 mg DAILY PRN RECTAL Constipation 04/20/18 21:15 05/20/18 21:14 Cefepime HCl 1 gm/ Dextrose 50 ml @ 100 mls/hr DAILY IVPB 04/25/18 09:00 04/28/18 08:59 Clonidine HCl (Catapres Tab) 0.1 mg Q4H PRN ORAL sbp>170 04/21/18 08:30 05/21/18 08:29 Diazepam (Valium) 10 mg BID PRN ORAL anxiety 04/21/18 09:00 04/28/18 08:59 04/24/18 08:11 Docusate Sodium (Colace) 100 mg THREE TIMES A DAY ORAL 04/21/18 18:00 05/21/18 17:59 04/24/18 14:21 Gabapentin (Neurontin) 300 mg Q12HR ORAL 04/24/18 21:00 05/21/18 12:59 Iopamidol (Isovue-300 100ml) 100 ml NOW PRN INJ Radiology Procedure 04/20/18 16:30 Levothyroxine Sodium (Synthroid) 112 mcg ACBREAKFAST ORAL 04/21/18 06:30 05/21/18 06:29 04/24/18 06:48 Magnesium Hydroxide (Mom) 30 ml Q6HR PRN ORAL Constipation 04/20/18 21:15 05/20/18 21:14 04/23/18 22:27 Memantine (Namenda) 5 mg DAILY ORAL 04/21/18 09:00 05/21/18 08:59 04/24/18 08:12 Mirtazapine (Remeron) 30 mg BEDTIME ORAL 04/20/18 22:00 05/20/18 21:59 04/23/18 20:38 Morphine Sulfate (Morphine Sulfate) 2 mg Q4H PRN IVP Severe Pain (Pain Scale 7-10) 04/20/18 21:15 04/27/18 21:14 04/23/18 23:31 Nitroglycerin (Ntg) 0.4 mg Q5M PRN SL chest pain 04/20/18 21:15 05/20/18 21:14 Ondansetron HCl (Zofran ODT) 4 mg Q4H PRN ORAL Nausea & Vomiting 04/20/18 21:15 05/20/18 21:14 Oxybutynin Chloride (Ditropan) 5 mg BEDTIME ORAL 04/21/18 21:00 05/21/18 20:59 04/23/18 20:39 Pantoprazole (Protonix) 40 mg DAILY ORAL 04/21/18 09:00 05/21/18 08:59 04/24/18 08:12 Polyethylene Glycol (Miralax) 17 gm BEDTIME ORAL 04/21/18 21:00 05/21/18 20:59 04/23/18 20:39 Polyethylene Glycol (Miralax) 17 gm DAILY PRN ORAL Constipation 04/20/18 21:15 05/20/18 21:14 Risperidone (RisperDAL) 0.25 mg BID ORAL 04/21/18 09:00 05/21/18 08:59 04/24/18 08:11 Sennosides (Senokot) 17.2 mg DAILY PRN ORAL Constipation 04/20/18 21:00 05/20/18 20:59 Sertraline HCl (Zoloft) 75 mg DAILY ORAL 04/21/18 09:00 05/21/18 08:59 04/24/18 08:13 Sodium Phosphate (Fleet's Sodium Phosl Enema) 133 ml DAILY RECTAL 04/22/18 09:00 05/21/18 08:59 04/23/18 10:11 Trazodone HCl (Desyrel) 100 mg BEDTIME ORAL 04/21/18 21:00 05/21/18 20:59 04/23/18 20:39 Vancomycin HCl (Vanco rx to dose) 1 ea DAILY PRN MISC Per rx protocol 04/22/18 10:30 05/22/18 10:29 Vancomycin HCl 500 mg/Dextrose 110 ml @ 110 mls/hr Q12H IVPB 04/24/18 13:00 04/29/18 12:59 04/24/18 12:36 Jing Acosta MD Apr 24, 2018 15:52"
[2018-04-24 16:00] VITALS: BP 110/57
--- NOTE | 2018-04-24 18:20 | General Progress Note ---
Assessment/Plan Problem List: (1) Anxiety disorder ICD Codes: F41.9 - Anxiety disorder, unspecified SNOMED: 008843982 (2) MDD (major depressive disorder) ICD Codes: F32.9 - Major depressive disorder, single episode, unspecified SNOMED: 043097101 (3) OCD (obsessive compulsive disorder) ICD Codes: F42.9 - Obsessive-compulsive disorder, unspecified SNOMED: 608766296 Status: stable, progressing Assessment/Plan valium remeron risperdal provided ro/st Subjective Neurologic/Psychiatric: Reports: anxiety, depressed, emotional problems Allergies: Coded Allergies: PENICILLINS (Verified Allergy, Unknown, 01/12/16) SULFA (SULFONAMIDE ANTIBIOTICS) (Verified Allergy, Unknown, 01/12/16) Objective Last 24 Hour Vital Signs Date Time Temp Pulse Resp B/P (MAP) Pulse Ox O2 Delivery O2 Flow Rate FiO2 04/24/18 16:00 97.7 90 18 110/57 (74) 95 04/24/18 12:00 97.5 80 18 113/54 (73) 98 04/24/18 11:51 77 04/24/18 08:00 96.6 74 16 110/62 (78) 95 04/24/18 08:00 Room Air Room Air 04/24/18 07:59 63 04/24/18 07:48 63 18 Room Air 21 04/24/18 04:00 62 04/24/18 04:00 99.8 82 22 94/56 (69) 98 04/24/18 00:00 97.9 81 19 116/56 (76) 98 04/24/18 00:00 75 04/23/18 23:43 65 20 Room Air 21 04/23/18 21:00 Room Air Room Air 04/23/18 20:00 98.6 69 19 105/52 (69) 98 04/23/18 20:00 67 Intake and Output 04/23/18 04/24/18 19:00 07:00 Intake Total 1050 ml 150 ml Output Total 300 ml 600 ml Balance 750 ml -450 ml Intake Oral 1050 ml 100 ml IV Total 50 ml Output Urine Total 300 ml 600 ml # Bowel Movements 1 Laboratory Tests 04/24/18 10:45: Vancomycin Level Trough 6.3 Height (Feet): 5 Height (Inches): 7.00 Weight (Pounds): 115 General Appearance: alert, cachetic Neurologic: oriented x 3, responsive, depressed affect Manuela Giraldo MD Apr 24, 2018 18:20
[2018-04-24 20:00] VITALS: BP 100/55
[2018-04-24] MEDS: TraZODone 100mg tab ORAL SCH (21:18)
[2018-04-24] MEDS: Oxybutynin 5mg tab ORAL SCH (21:18)
[2018-04-24] MEDS: Miralax 17gm pkt ORAL SCH (21:19)
[2018-04-24] MEDS: Milk of Magnesia 30ml Ud ORAL PRN (21:33)
[2018-04-25] VITALS: BP 108/59
[2018-04-25] MEDS: Vancomycin 500mg/D5W 110ml IVPB SCH ×2 (01:08)
[2018-04-25 04:00] VITALS: BP 109/57
[2018-04-25 07:30] LABS: BASOPHILS % (AUTO) 1.1 % (0.0-2.0); EOSINOPHILS % (AUTO) 2.3 % (0.0-3.0); HEMATOCRIT 35.7 % (37.0-47.0); HEMOGLOBIN 11.6 G/DL (12.0-16.0); LYMPHOCYTES % (AUTO) 25.1 % (20.0-45.0); MEAN CORPUSCULAR VOLUME 95 FL (80-99); MONOCYTES % (AUTO) 18.9 % (1.0-10.0); NEUTROPHILS % (AUTO) 52.7 % (45.0-75.0); PLATELET COUNT 119 K/UL (150-450); RED BLOOD COUNT 3.75 M/UL (4.20-5.40); RED CELL DISTRIBUTION WIDTH 13.9 % (11.6-14.8); WHITE BLOOD COUNT 5.7 K/UL (4.8-10.8)
[2018-04-25 07:46] LABS: ANION GAP 4 mmol/L (5-15); BLOOD UREA NITROGEN 24 mg/dL (7-18); CALCIUM 8.4 MG/DL (8.5-10.1); CARBON DIOXIDE 33 MMOL/L (21-32); CHLORIDE 99 MMOL/L (98-107); CREATININE 1.1 MG/DL (0.55-1.30); POTASSIUM 4.4 MMOL/L (3.5-5.1); SODIUM 135 MMOL/L (136-145)
[2018-04-25 08:00] VITALS: BP 117/57
[2018-04-25] MEDS: Eliquis 2.5mg tablet ORAL SCH ×2 (08:33→21:33)
[2018-04-25] MEDS: Docusate 100mg cap ORAL SCH ×3 (08:33→17:18)
[2018-04-25] MEDS: Memantine 10mg tab ORAL SCH (08:33)
[2018-04-25] MEDS: Fleet's Enema 133ml RECTAL SCH (08:35)
[2018-04-25] MEDS: Sertraline 50mg tab ORAL SCH (08:35)
--- NOTE | 2018-04-25 09:10 | General Progress Note ---
Assessment/Plan Assessment/Plan (1) B/L LE pain (2) Peripheral Neuropathy (3) Back pain s/p fall (5) Osteoarthritis (6) H/O T-spine fusion Patient will be discontinued off Morphine and [place] will be reduced to 5/325mg PO 1 tab as needed. D/w Dr. Grewal and he concurred. Subjective Date patient seen: Apr 25, 2018 Time patient seen: 07:30 - am Allergies: Coded Allergies: PENICILLINS (Verified Allergy, Unknown, 01/12/16) SULFA (SULFONAMIDE ANTIBIOTICS) (Verified Allergy, Unknown, 01/12/16) Subjective REVIEW OF SYSTEMS: Denies rash, fever, chills, sweating, dizziness, drowsiness, or change in weight. No shortness of breath or chest pain. No nausea, vomiting, or blood in the stool or urine. No bowel or bladder incontinence. No dysuria. The patient is complaining of back pain and bilateral lower extremity pain. SUBJECTIVE: Patient is in bed no pain at this time. Xray was reviewed showing no acute fx, h/o T-spine fusion. Objective Last 24 Hour Vital Signs Date Time Temp Pulse Resp B/P (MAP) Pulse Ox O2 Delivery O2 Flow Rate FiO2 04/25/18 04:00 82 04/25/18 04:00 98.7 85 20 109/57 (74) 95 04/25/18 00:00 81 04/25/18 00:00 99.4 82 20 108/59 (75) 96 04/24/18 21:00 Room Air Room Air 04/24/18 20:00 98.9 96 18 100/55 (70) 96 04/24/18 20:00 88 04/24/18 18:50 67 18 Room Air 21 04/24/18 18:15 83 04/24/18 16:00 97.7 90 18 110/57 (74) 95 04/24/18 12:00 97.5 80 18 113/54 (73) 98 04/24/18 11:51 77 Intake and Output 04/24/18 04/25/18 19:00 07:00 Intake Total 840 ml 200 ml Output Total 300 ml Balance 540 ml 200 ml Intake Oral 840 ml 200 ml Output Urine Total 300 ml # Voids 1 2 # Bowel Movements 2 Laboratory Tests 04/24/18 10:45: Vancomycin Level Trough 6.3 04/25/18 04:50: White Blood Count 5.7, Red Blood Count 3.75L, Hemoglobin 11.6L, Hematocrit 35.7L , Mean Corpuscular Volume 95, Mean Corpuscular Hemoglobin 30.8, Mean Corpuscular Hemoglobin Concent 32.4, Red Cell Distribution Width 13.9, Platelet Count 119L, Mean Platelet Volume 9.4, Neutrophils (%) (Auto) 52.7, Lymphocytes ( %) (Auto) 25.1, Monocytes (%) (Auto) 18.9H, Eosinophils (%) (Auto) 2.3, Basophils (%) (Auto) 1.1, Sodium Level 135L, Potassium Level 4.4, Chloride Level 99, Carbon Dioxide Level 33H, Anion Gap 4L, Blood Urea Nitrogen 24H, Creatinine 1.1, Estimat Glomerular Filtration Rate , Glucose Level 88, Calcium Level 8.4L Height (Feet): 5 Height (Inches): 7.00 Weight (Pounds): 129 Objective GENERAL: Alert, awake, and oriented. LUNGS: Decreased breath sounds bilaterally. HEART: S1 and S2, regular. ABDOMEN: Benign. EXTREMITIES: No cyanosis. No clubbing. No edema. NEUROLOGICAL: No changes. Procedure: XRAY T Spine 2v Findings: Bones are profoundly osteoporotic. Bony alignment is normal. Fusion hardware extends from T4 to T12. Vertebral body heights are preserved. There is smooth kyphotic deformity despite this, however. No definite acute fractures. There are anterior bridging osteophytes. No gross paraspinous mass. Impression: Very limited, due to osteoporosis and overlying surgical hardware. No definite acute abnormality Procedure: XRAY L Spine Min 4v Findings: The bones are profoundly osteoporotic. This limits assessment. Thoracic spine surgical hardware is seen extending to the T12 level. Lumbar bony alignment is normal. Vertebral body heights are preserved. Disc spaces are preserved. There is evidence of multilevel facet arthrosis, particularly inferiorly. No definite acute fractures. Sacroiliac joint spaces are preserved. Sacral arches are preserved. The surrounding soft tissues are unremarkable. Impression: Limited exam due to osteoporosis No definite acute process Postsurgical changes of the thoracic spine Sebastian Portillo Apr 25, 2018 09:10
[2018-04-25] MEDS ORDERED: Norco 5mg/325mg tab ORAL PRN (09:15)
--- NOTE | 2018-04-25 10:24 | Infectious Diseases Prog Note ---
"Assessment/Plan Assessment/Plan A 1. UTI with lactobacillus | gram positive cocci 2. hypertension 3. hypothyroidism 4. Major depression P 1.discontinue vancomycin iv, Continue cefepime 2. will follow up cultures Subjective ROS Limited/Unobtainable: No Constitutional: Reports: no symptoms Cardiovascular: Reports: no symptoms Gastrointestinal/Abdominal: Reports: constipation Genitourinary: Reports: no symptoms Allergies: Coded Allergies: PENICILLINS (Verified Allergy, Unknown, 01/12/16) SULFA (SULFONAMIDE ANTIBIOTICS) (Verified Allergy, Unknown, 01/12/16) Objective Vital Signs Last 24 Hour Vital Signs Date Time Temp Pulse Resp B/P (MAP) Pulse Ox O2 Delivery O2 Flow Rate FiO2 04/25/18 09:00 Room Air Room Air 04/25/18 08:00 97.5 80 17 117/57 (77) 97 04/25/18 04:00 82 04/25/18 04:00 98.7 85 20 109/57 (74) 95 04/25/18 00:00 81 04/25/18 00:00 99.4 82 20 108/59 (75) 96 04/24/18 21:00 Room Air Room Air 04/24/18 20:00 98.9 96 18 100/55 (70) 96 04/24/18 20:00 88 04/24/18 18:50 67 18 Room Air 21 04/24/18 18:15 83 04/24/18 16:00 97.7 90 18 110/57 (74) 95 04/24/18 12:00 97.5 80 18 113/54 (73) 98 04/24/18 11:51 77 Height (Feet): 5 Height (Inches): 7.00 Weight (Pounds): 129 General Appearance: no acute distress HEENT: mucous membranes moist Respiratory/Chest: lungs clear Cardiovascular: normal rate Abdomen: soft, non tender Extremities: no edema Neurologic/Psychiatric: alert, responsive Laboratory Tests Test 04/24/18 10:45 04/25/18 04:50 Vancomycin Level Trough 6.3 ug/mL (5.0-12.0) White Blood Count 5.7 K/UL (4.8-10.8) Red Blood Count 3.75 M/UL (4.20-5.40) L Hemoglobin 11.6 G/DL (12.0-16.0) L Hematocrit 35.7 % (37.0-47.0) L Mean Corpuscular Volume 95 FL (80-99) Mean Corpuscular Hemoglobin 30.8 PG (27.0-31.0) Mean Corpuscular Hemoglobin Concent 32.4 G/DL (32.0-36.0) Red Cell Distribution Width 13.9 % (11.6-14.8) Platelet Count 119 K/UL (150-450) L Mean Platelet Volume 9.4 FL (6.5-10.1) Neutrophils (%) (Auto) 52.7 % (45.0-75.0) Lymphocytes (%) (Auto) 25.1 % (20.0-45.0) Monocytes (%) (Auto) 18.9 % (1.0-10.0) H Eosinophils (%) (Auto) 2.3 % (0.0-3.0) Basophils (%) (Auto) 1.1 % (0.0-2.0) Sodium Level 135 MMOL/L (136-145) L Potassium Level 4.4 MMOL/L (3.5-5.1) Chloride Level 99 MMOL/L (98-107) Carbon Dioxide Level 33 MMOL/L (21-32) H Anion Gap 4 mmol/L (5-15) L Blood Urea Nitrogen 24 mg/dL (7-18) H Creatinine 1.1 MG/DL (0.55-1.30) Estimat Glomerular Filtration Rate mL/min (>60) Glucose Level 88 MG/DL (74-106) Calcium Level 8.4 MG/DL (8.5-10.1) L Current Medications Medications (Trade) Dose Ordered Sig/Dejan Route PRN Reason Start Time Stop Time Status Last Admin Dose Admin Acetaminophen (Tylenol) 650 mg Q4H PRN ORAL Mild Pain/Temp > 100.5 04/20/18 21:30 05/20/18 21:29 Acetaminophen/ Hydrocodone Bitart (Moran 5/325) 1 tab Q4H PRN ORAL Severe Pain (Pain Scale 7-10) 04/25/18 09:15 05/02/18 09:14 Albuterol/ Ipratropium (Albuterol/ Ipratropium) 3 ml Q4H PRN HHN Shortness of Breath 04/20/18 21:15 04/25/18 21:14 Apixaban (Eliquis) 2.5 mg EVERY 12 HOURS ORAL 04/21/18 09:00 05/21/18 08:59 04/25/18 08:33 Bisacodyl (Dulcolax) 10 mg DAILY PRN RECTAL Constipation 04/20/18 21:15 05/20/18 21:14 Cefepime HCl 1 gm/ Dextrose 50 ml @ 100 mls/hr DAILY IVPB 04/25/18 09:00 04/28/18 08:59 04/25/18 08:34 Clonidine HCl (Catapres Tab) 0.1 mg Q4H PRN ORAL sbp>170 04/21/18 08:30 05/21/18 08:29 Diazepam (Valium) 10 mg BID PRN ORAL anxiety 04/21/18 09:00 04/28/18 08:59 04/24/18 21:25 Docusate Sodium (Colace) 100 mg THREE TIMES A DAY ORAL 04/21/18 18:00 05/21/18 17:59 04/25/18 08:33 Gabapentin (Neurontin) 300 mg Q12HR ORAL 04/24/18 21:00 05/21/18 12:59 04/25/18 08:33 Iopamidol (Isovue-300 100ml) 100 ml NOW PRN INJ Radiology Procedure 04/20/18 16:30 Levothyroxine Sodium (Synthroid) 112 mcg ACBREAKFAST ORAL 04/21/18 06:30 05/21/18 06:29 04/25/18 06:20 Magnesium Hydroxide (Mom) 30 ml Q6HR PRN ORAL Constipation 04/20/18 21:15 05/20/18 21:14 04/24/18 21:33 Memantine (Namenda) 5 mg DAILY ORAL 04/21/18 09:00 05/21/18 08:59 04/25/18 08:33 Mirtazapine (Remeron) 30 mg BEDTIME ORAL 04/20/18 22:00 05/20/18 21:59 04/24/18 21:19 Nitroglycerin (Ntg) 0.4 mg Q5M PRN SL chest pain 04/20/18 21:15 05/20/18 21:14 Ondansetron HCl (Zofran ODT) 4 mg Q4H PRN ORAL Nausea & Vomiting 12/20/18 21:15 05/20/18 21:14 Oxybutynin Chloride (Ditropan) 5 mg BEDTIME ORAL 04/21/18 21:00 05/21/18 20:59 04/24/18 21:18 Pantoprazole (Protonix) 40 mg DAILY ORAL 04/21/18 09:00 05/21/18 08:59 04/25/18 08:33 Polyethylene Glycol (Miralax) 17 gm BEDTIME ORAL 04/21/18 21:00 05/21/18 20:59 04/24/18 21:19 Polyethylene Glycol (Miralax) 17 gm DAILY PRN ORAL Constipation 04/20/18 21:15 05/20/18 21:14 Risperidone (RisperDAL) 0.25 mg BID ORAL 04/21/18 09:00 05/21/18 08:59 04/25/18 08:34 Sennosides (Senokot) 17.2 mg DAILY PRN ORAL Constipation 04/20/18 21:00 05/20/18 20:59 04/24/18 21:41 Sertraline HCl (Zoloft) 75 mg DAILY ORAL 04/21/18 09:00 05/21/18 08:59 04/25/18 08:35 Sodium Phosphate (Fleet's Sodium Phosl Enema) 133 ml DAILY RECTAL 04/22/18 09:00 05/21/18 08:59 04/23/18 10:11 Trazodone HCl (Desyrel) 100 mg BEDTIME ORAL 04/21/18 21:00 05/21/18 20:59 04/24/18 21:18 Vancomycin HCl (Vanco rx to dose) 1 ea DAILY PRN MISC Per rx protocol 04/22/18 10:30 05/22/18 10:29 Vancomycin HCl 500 mg/Dextrose 110 ml @ 110 mls/hr Q12H IVPB 04/24/18 13:00 04/29/18 12:59 04/25/18 01:08 Hemant Szymanski MD Apr 25, 2018 10:24"
--- NOTE | 2018-04-25 10:44 | General Progress Note ---
Assessment/Plan Problem List: (1) HTN (hypertension) ICD Codes: I10 - Essential (primary) hypertension SNOMED: 45776255 (2) Abdominal pain ICD Codes: R10.9 - Unspecified abdominal pain SNOMED: 26047517 (3) Hiatal hernia ICD Codes: K44.9 - Diaphragmatic hernia without obstruction or gangrene SNOMED: 49999193 (4) Atrial fibrillation with RVR ICD Codes: I48.91 - Unspecified atrial fibrillation SNOMED: 189268668817843 (5) Severe malnutrition ICD Codes: E43 - Unspecified severe protein-calorie malnutrition SNOMED: 97120137 Assessment/Plan fu caloric count encourage po intake fu labs PEG plans on hold patient is eating better Subjective ROS Limited/Unobtainable: Yes Allergies: Coded Allergies: PENICILLINS (Verified Allergy, Unknown, 01/12/16) SULFA (SULFONAMIDE ANTIBIOTICS) (Verified Allergy, Unknown, 01/12/16) Subjective no event over night Objective Last 24 Hour Vital Signs Date Time Temp Pulse Resp B/P (MAP) Pulse Ox O2 Delivery O2 Flow Rate FiO2 04/25/18 09:00 Room Air Room Air 04/25/18 08:00 97.5 80 17 117/57 (77) 97 04/25/18 04:00 82 04/25/18 04:00 98.7 85 20 109/57 (74) 95 04/25/18 00:00 81 04/25/18 00:00 99.4 82 20 108/59 (75) 96 04/24/18 21:00 Room Air Room Air 04/24/18 20:00 98.9 96 18 100/55 (70) 96 04/24/18 20:00 88 04/24/18 18:50 67 18 Room Air 21 04/24/18 18:15 83 04/24/18 16:00 97.7 90 18 110/57 (74) 95 04/24/18 12:00 97.5 80 18 113/54 (73) 98 04/24/18 11:51 77 Intake and Output 04/24/18 04/25/18 19:00 07:00 Intake Total 840 ml 200 ml Output Total 300 ml Balance 540 ml 200 ml Intake Oral 840 ml 200 ml Output Urine Total 300 ml # Voids 1 2 # Bowel Movements 2 Laboratory Tests 04/24/18 10:45: Vancomycin Level Trough 6.3 04/25/18 04:50: White Blood Count 5.7, Red Blood Count 3.75L, Hemoglobin 11.6L, Hematocrit 35.7L , Mean Corpuscular Volume 95, Mean Corpuscular Hemoglobin 30.8, Mean Corpuscular Hemoglobin Concent 32.4, Red Cell Distribution Width 13.9, Platelet Count 119L, Mean Platelet Volume 9.4, Neutrophils (%) (Auto) 52.7, Lymphocytes ( %) (Auto) 25.1, Monocytes (%) (Auto) 18.9H, Eosinophils (%) (Auto) 2.3, Basophils (%) (Auto) 1.1, Sodium Level 135L, Potassium Level 4.4, Chloride Level 99, Carbon Dioxide Level 33H, Anion Gap 4L, Blood Urea Nitrogen 24H, Creatinine 1.1, Estimat Glomerular Filtration Rate , Glucose Level 88, Calcium Level 8.4L Height (Feet): 5 Height (Inches): 7.00 Weight (Pounds): 129 General Appearance: no apparent distress EENT: PERRL/EOMI Neck: supple Cardiovascular: normal rate Respiratory/Chest: decreased breath sounds Abdomen: normal bowel sounds, non tender, soft Extremities: non-tender Keon Candelaria MD Apr 25, 2018 10:44
[2018-04-25 12:00] VITALS: BP 106/64
--- NOTE | 2018-04-25 14:52 | General Progress Note ---
Assessment/Plan Assessment/Plan COVERING FOR DR. GUERRERO ASSESSMENT AND RECOMMENDATIONS # Bradycardia. Cardiology service is following, appreciate recs --> Both digoxin and metoprolol have been discontinued. --> may need to resume her metoprolol at the lower dosage to prevent atrial fibrillation rapid ventricular response --> at this time, patient remains on Eliquis 2.5 mg b.i.d. --> appreciate cards recs # Thrombocytopenia - potential causes multifactorial, evaluate liver and viral etiologies to begin, also could be related to underlying medications patient has received. --> Hep panel pending, HIV negative --> CT abd shows focal fatty infiltration of the liver --> Peripheral smear ordered to evaluate for blasts /schistocytes --> abx and other meds have been reviewed # Status post fall, could be syncope due to profound bradycardia. # Malnutrition. F/U on calorie count --> Encourage po intake --> has been eating better, peg on hold # Hyperkalemia. Resolved. --> received kayxelate # Worsening neuropathy. # Chronic pain control. Subjective Allergies: Coded Allergies: PENICILLINS (Verified Allergy, Unknown, 01/12/16) SULFA (SULFONAMIDE ANTIBIOTICS) (Verified Allergy, Unknown, 01/12/16) Subjective Pt awake and alert. No acute events. On abx. VS are stable. 04/25: off vanc, only on cefepime, peg tube on holding, encouraging po intake Objective Last 24 Hour Vital Signs Date Time Temp Pulse Resp B/P (MAP) Pulse Ox O2 Delivery O2 Flow Rate FiO2 04/25/18 12:00 97.7 71 18 106/64 (78) 96 04/25/18 12:00 72 04/25/18 09:00 Room Air Room Air 04/25/18 08:00 97.5 80 17 117/57 (77) 97 04/25/18 08:00 59 04/25/18 04:00 82 04/25/18 04:00 98.7 85 20 109/57 (74) 95 04/25/18 00:00 81 04/25/18 00:00 99.4 82 20 108/59 (75) 96 04/24/18 21:00 Room Air Room Air 04/24/18 20:00 98.9 96 18 100/55 (70) 96 04/24/18 20:00 88 04/24/18 18:50 67 18 Room Air 21 04/24/18 18:15 83 04/24/18 16:00 97.7 90 18 110/57 (74) 95 Intake and Output 04/24/18 04/25/18 18:59 06:59 Intake Total 840 ml 200 ml Output Total 300 ml Balance 540 ml 200 ml Intake Oral 840 ml 200 ml Output Urine Total 300 ml # Voids 1 2 # Bowel Movements 2 Laboratory Tests 04/25/18 04:50: White Blood Count 5.7, Red Blood Count 3.75L, Hemoglobin 11.6L, Hematocrit 35.7L , Mean Corpuscular Volume 95, Mean Corpuscular Hemoglobin 30.8, Mean Corpuscular Hemoglobin Concent 32.4, Red Cell Distribution Width 13.9, Platelet Count 119L, Mean Platelet Volume 9.4, Neutrophils (%) (Auto) 52.7, Lymphocytes ( %) (Auto) 25.1, Monocytes (%) (Auto) 18.9H, Eosinophils (%) (Auto) 2.3, Basophils (%) (Auto) 1.1, Sodium Level 135L, Potassium Level 4.4, Chloride Level 99, Carbon Dioxide Level 33H, Anion Gap 4L, Blood Urea Nitrogen 24H, Creatinine 1.1, Estimat Glomerular Filtration Rate , Glucose Level 88, Calcium Level 8.4L Height (Feet): 5 Height (Inches): 7.00 Weight (Pounds): 129 Objective PE: GENERAL: Alert, awake, and oriented. VITAL SIGNS: Have been reviewed. LUNGS: Decreased breath sounds bilaterally. HEART: S1 and S2, regular. ABDOMEN: Benign. BACK: Range of motion is decreased in flexion and extension with tenderness to paraspinal muscles. No ttp. EXTREMITIES: No cce NEUROLOGICAL: Decreased range of motion in the upper and lower extremities Edwin Orozco MD Apr 25, 2018 14:52
[2018-04-25 16:13] VITALS: BP 121/62
[2018-04-25 20:00] VITALS: BP 111/59
[2018-04-25] MEDS: TraZODone 100mg tab ORAL SCH (21:33)
[2018-04-25] MEDS: Oxybutynin 5mg tab ORAL SCH (21:33)
[2018-04-25] MEDS: Miralax 17gm pkt ORAL SCH (21:34)
--- NOTE | 2018-04-25 22:18 | Cardiology Progress Note ---
Assessment/Plan Status: stable Assessment/Plan Assessment/Plan Problem List: (1) HTN (hypertension) (2) Abdominal pain (3) Hiatal hernia (4) Atrial fibrillation with RVR (5) Severe malnutrition (6) bradycardia/sick sinus syndrome 1. Atrial fibrillation with bradycardia. Both digoxin and metoprolol have been discontinued. The patient was on metoprolol 100 mg and digoxin 0.25 mg daily. I will get a stat digoxin level regardless. We may need to resume her metoprolol at the lower dosage to prevent atrial fibrillation rapid ventricular response. At the time of anticoagulation, the patient remains on Eliquis 2.5 mg b.i.d. I will get an echocardiogram -> Left ventricular ejection fraction estimated to be 55 %. 2. History of hypotension. The patient metoprolol that has been discontinued for bradycardia. The patient is on Lotensin only 5 mg daily, but the blood pressure was as low as 80 this morning, that will be held. 3. Status post fall, could be syncope due to profound bradycardia. Currently heart rates normal no indication for pacemaker 4. Urinary tract infection. Abx per primary 5. Hyperkalemia with potassium of 6 that was corrected. Benazepril will be discontinued, again that puts the patient at high risk of hyperkalemia. Subjective Cardiovascular: Reports: no symptoms Respiratory: Reports: no symptoms Gastrointestinal/Abdominal: Reports: no symptoms Genitourinary: Reports: no symptoms Subjective COVERAGE FOR TOL[place] The patient was admitted for bradycardia. Patient is awake aox4. Breathing even and unlabored on Room Air. Vital signs stable. Bradycardia resolved Objective Last 24 Hour Vital Signs Date Time Temp Pulse Resp B/P (MAP) Pulse Ox O2 Delivery O2 Flow Rate FiO2 04/25/18 20:00 99.0 81 18 111/59 (76) 97 04/25/18 19:44 62 18 Room Air 21 04/25/18 19:00 77 04/25/18 16:13 97.7 74 18 121/62 (81) 97 04/25/18 16:00 82 04/25/18 12:00 97.7 71 18 106/64 (78) 96 04/25/18 12:00 72 04/25/18 09:00 Room Air Room Air 04/25/18 08:00 97.5 80 17 117/57 (77) 97 04/25/18 08:00 59 04/25/18 04:00 82 04/25/18 04:00 98.7 85 20 109/57 (74) 95 04/25/18 00:00 81 04/25/18 00:00 99.4 82 20 108/59 (75) 96 General Appearance: no apparent distress, alert EENT: PERRL/EOMI, normal ENT inspection, TMs normal, pharynx normal Neck: non-tender, supple, normal inspection, no JVD Rhythm: NSR Cardiovascular: normal peripheral pulses, normal rate, regularly irregular Respiratory/Chest: chest wall non-tender, lungs clear, normal breath sounds Abdomen: normal bowel sounds, non tender, soft, no mass Extremities: normal range of motion 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, no motor/sensory deficits Intake and Output 04/24/18 04/25/18 19:00 07:00 Intake Total 840 ml 200 ml Output Total 300 ml Balance 540 ml 200 ml Intake Oral 840 ml 200 ml Output Urine Total 300 ml # Voids 1 2 # Bowel Movements 2 Laboratory Tests Test 04/25/18 04:50 White Blood Count 5.7 K/UL (4.8-10.8) Red Blood Count 3.75 M/UL (4.20-5.40) L Hemoglobin 11.6 G/DL (12.0-16.0) L Hematocrit 35.7 % (37.0-47.0) L Mean Corpuscular Volume 95 FL (80-99) Mean Corpuscular Hemoglobin 30.8 PG (27.0-31.0) Mean Corpuscular Hemoglobin Concent 32.4 G/DL (32.0-36.0) Red Cell Distribution Width 13.9 % (11.6-14.8) Platelet Count 119 K/UL (150-450) L Mean Platelet Volume 9.4 FL (6.5-10.1) Neutrophils (%) (Auto) 52.7 % (45.0-75.0) Lymphocytes (%) (Auto) 25.1 % (20.0-45.0) Monocytes (%) (Auto) 18.9 % (1.0-10.0) H Eosinophils (%) (Auto) 2.3 % (0.0-3.0) Basophils (%) (Auto) 1.1 % (0.0-2.0) Sodium Level 135 MMOL/L (136-145) L Potassium Level 4.4 MMOL/L (3.5-5.1) Chloride Level 99 MMOL/L (98-107) Carbon Dioxide Level 33 MMOL/L (21-32) H Anion Gap 4 mmol/L (5-15) L Blood Urea Nitrogen 24 mg/dL (7-18) H Creatinine 1.1 MG/DL (0.55-1.30) Estimat Glomerular Filtration Rate mL/min (>60) Glucose Level 88 MG/DL (74-106) Calcium Level 8.4 MG/DL (8.5-10.1) L Alfredo Joseph MD Apr 25, 2018 22:18
[2018-04-25] MEDS: Milk of Magnesia 30ml Ud ORAL PRN (22:41)
[2018-04-26] VITALS: BP 101/61
[2018-04-26 04:00] VITALS: BP 100/53
[2018-04-26 08:00] VITALS: BP 106/51
[2018-04-26] MEDS: Fleet's Enema 133ml RECTAL SCH (09:00)
[2018-04-26] MEDS: Docusate 100mg cap ORAL SCH (09:01)
[2018-04-26] MEDS: Sertraline 50mg tab ORAL SCH (09:02)
[2018-04-26] MEDS: Memantine 10mg tab ORAL SCH (09:02)
[2018-04-26] MEDS: Eliquis 2.5mg tablet ORAL SCH (09:03)
--- NOTE | 2018-04-26 09:13 | General Progress Note ---
Assessment/Plan Assessment/Plan (1) B/L LE pain (2) Peripheral Neuropathy (3) Back pain s/p fall (5) Osteoarthritis (6) H/O T-spine fusion Patient will be continued on [place]. D/w Dr. Grewal and he concurred. Subjective Date patient seen: Apr 26, 2018 Time patient seen: 08:30 - am Allergies: Coded Allergies: PENICILLINS (Verified Allergy, Unknown, 01/12/16) SULFA (SULFONAMIDE ANTIBIOTICS) (Verified Allergy, Unknown, 01/12/16) Subjective REVIEW OF SYSTEMS: Denies rash, fever, chills, sweating, dizziness, drowsiness, or change in weight. No shortness of breath or chest pain. No nausea, vomiting, or blood in the stool or urine. No bowel or bladder incontinence. No dysuria. The patient is complaining of back pain and bilateral lower extremity pain. SUBJECTIVE: Patient showing no signs of pain or distress. The [place] has helped with the [place]. Objective Last 24 Hour Vital Signs Date Time Temp Pulse Resp B/P (MAP) Pulse Ox O2 Delivery O2 Flow Rate FiO2 04/26/18 04:00 98.1 77 18 100/53 (69) 97 04/26/18 03:43 71 04/26/18 00:00 98.0 82 20 101/61 (74) 97 04/25/18 23:56 78 04/25/18 21:00 Room Air Room Air 04/25/18 20:00 99.0 81 18 111/59 (76) 97 04/25/18 19:44 62 18 Room Air 21 04/25/18 19:00 77 04/25/18 16:13 97.7 74 18 121/62 (81) 97 04/25/18 16:00 82 04/25/18 12:00 97.7 71 18 106/64 (78) 96 04/25/18 12:00 72 Intake and Output 04/25/18 04/26/18 19:00 07:00 Intake Total 600 ml Balance 600 ml Intake Oral 600 ml # Voids 3 1 # Bowel Movements 2 Height (Feet): 5 Height (Inches): 7.00 Weight (Pounds): 136 Objective GENERAL: Alert, awake, and oriented. LUNGS: Decreased breath sounds bilaterally. HEART: S1 and S2, regular. ABDOMEN: Benign. EXTREMITIES: No cyanosis. No clubbing. No edema. NEUROLOGICAL: No changes. Procedure: XRAY T Spine 2v Findings: Bones are profoundly osteoporotic. Bony alignment is normal. Fusion hardware extends from T4 to T12. Vertebral body heights are preserved. There is smooth kyphotic deformity despite this, however. No definite acute fractures. There are anterior bridging osteophytes. No gross paraspinous mass. Impression: Very limited, due to osteoporosis and overlying surgical hardware. No definite acute abnormality Procedure: XRAY L Spine Min 4v Findings: The bones are profoundly osteoporotic. This limits assessment. Thoracic spine surgical hardware is seen extending to the T12 level. Lumbar bony alignment is normal. Vertebral body heights are preserved. Disc spaces are preserved. There is evidence of multilevel facet arthrosis, particularly inferiorly. No definite acute fractures. Sacroiliac joint spaces are preserved. Sacral arches are preserved. The surrounding soft tissues are unremarkable. Impression: Limited exam due to osteoporosis No definite acute process Postsurgical changes of the thoracic spine Sebastian Portillo Apr 26, 2018 09:13
--- NOTE | 2018-04-26 10:10 | General Progress Note ---
Assessment/Plan Status: stable Assessment/Plan COVERING FOR DR. GUERRERO ASSESSMENT AND RECOMMENDATIONS # Bradycardia. Cardiology service is following, appreciate recs --> Both digoxin and metoprolol have been discontinued. --> may need to resume her metoprolol at the lower dosage to prevent atrial fibrillation rapid ventricular response --> at this time, patient remains on Eliquis 2.5 mg b.i.d. --> appreciate cards recs # Thrombocytopenia - potential causes multifactorial, evaluate liver and viral etiologies to begin, also could be related to underlying medications patient has received. --> Hep panel pending, HIV negative --> CT abd shows focal fatty infiltration of the liver --> Peripheral smear ordered to evaluate for blasts /schistocytes --> abx and other meds have been reviewed # Status post fall, could be syncope due to profound bradycardia. # Malnutrition. F/U on calorie count --> Encourage po intake --> has been eating better, peg on hold # Hyperkalemia. Resolved. --> received kayxelate # Worsening neuropathy. # Chronic pain control. Subjective Date patient seen: Apr 26, 2018 Allergies: Coded Allergies: PENICILLINS (Verified Allergy, Unknown, 01/12/16) SULFA (SULFONAMIDE ANTIBIOTICS) (Verified Allergy, Unknown, 01/12/16) All Systems: reviewed and negative except above Subjective Pt awake and alert. No acute events. VS stable. Completed abx. Objective Last 24 Hour Vital Signs Date Time Temp Pulse Resp B/P (MAP) Pulse Ox O2 Delivery O2 Flow Rate FiO2 04/26/18 09:00 Room Air Room Air 04/26/18 08:00 97.8 85 19 106/51 (69) 97 04/26/18 04:00 98.1 77 18 100/53 (69) 97 04/26/18 03:43 71 04/26/18 00:00 98.0 82 20 101/61 (74) 97 04/25/18 23:56 78 04/25/18 21:00 Room Air Room Air 04/25/18 20:00 99.0 81 18 111/59 (76) 97 04/25/18 19:44 62 18 Room Air 21 04/25/18 19:00 77 04/25/18 16:13 97.7 74 18 121/62 (81) 97 04/25/18 16:00 82 04/25/18 12:00 97.7 71 18 106/64 (78) 96 04/25/18 12:00 72 Intake and Output 04/25/18 04/26/18 19:00 07:00 Intake Total 600 ml Balance 600 ml Intake Oral 600 ml # Voids 3 1 # Bowel Movements 2 Height (Feet): 5 Height (Inches): 7.00 Weight (Pounds): 136 Objective PE: GENERAL: Alert, awake, and oriented. VITAL SIGNS: Have been reviewed. LUNGS: Decreased breath sounds bilaterally. HEART: S1 and S2, regular. ABDOMEN: Benign. BACK: Range of motion is decreased in flexion and extension with tenderness to paraspinal muscles. No ttp. EXTREMITIES: No cce NEUROLOGICAL: Decreased range of motion in the upper and lower extremities Edwin Orozco MD Apr 26, 2018 10:10
--- NOTE | 2018-04-26 10:51 | GI Progress Note ---
Assessment/Plan Problems: (1) Anxiety disorder ICD Codes: F41.9 - Anxiety disorder, unspecified SNOMED: 345211132 (2) Nausea ICD Codes: R11.0 - Nausea SNOMED: 564153476 (3) Dehydration ICD Codes: E86.0 - Dehydration SNOMED: 43255195 (4) Constipation ICD Codes: K59.00 - Constipation, unspecified SNOMED: 20985587 (5) Failure to thrive SNOMED: 90515693 (6) GERD (gastroesophageal reflux disease) ICD Codes: K21.9 - Gastro-esophageal reflux disease without esophagitis SNOMED: 729300869 (7) Severe malnutrition ICD Codes: E43 - Unspecified severe protein-calorie malnutrition SNOMED: 96808665 Status: stable Status Narrative Discussed with Dr. Candelaria. Assessment/Plan fu caloric count encourage po intake fu labs PEG plans on hold patient is eating better dc planning Subjective Gastrointestinal/Abdominal: Reports: no symptoms Subjective No general complaints Patient eating well Objective Last 24 Hour Vital Signs Date Time Temp Pulse Resp B/P (MAP) Pulse Ox O2 Delivery O2 Flow Rate FiO2 04/26/18 09:00 Room Air Room Air 04/26/18 08:00 77 04/26/18 08:00 97.8 85 19 106/51 (69) 97 04/26/18 04:00 98.1 77 18 100/53 (69) 97 04/26/18 03:43 71 04/26/18 00:00 98.0 82 20 101/61 (74) 97 04/25/18 23:56 78 04/25/18 21:00 Room Air Room Air 04/25/18 20:00 99.0 81 18 111/59 (76) 97 04/25/18 19:44 62 18 Room Air 21 04/25/18 19:00 77 04/25/18 16:13 97.7 74 18 121/62 (81) 97 04/25/18 16:00 82 04/25/18 12:00 97.7 71 18 106/64 (78) 96 04/25/18 12:00 72 Intake and Output 04/25/18 04/26/18 19:00 07:00 Intake Total 600 ml Balance 600 ml Intake Oral 600 ml # Voids 3 1 # Bowel Movements 2 Height (Feet): 5 Height (Inches): 7.00 Weight (Pounds): 136 General Appearance: WD/WN, no apparent distress, alert Cardiovascular: normal rate Respiratory/Chest: normal breath sounds, no respiratory distress Abdominal Exam: normal bowel sounds, non tender, soft Extremities: non-tender Jen Zavaleta NP Apr 26, 2018 10:51
--- NOTE | 2018-04-26 11:24 | Cardiac Electrophysiology PN ---
Assessment/Plan Assessment/Plan 1. Atrial fibrillation with bradycardia. Both digoxin and metoprolol have been discontinued. HR has improved off any AVN blockers. On Eliquis 2.5 mg b.i.d. Echocardiogram -> Left ventricular ejection fraction estimated to be 55 %. 2. History of hypotension. Only on prn Clonidine 3. Status post fall, could be syncope due to profound bradycardia. Currently heart rates normal no indication for pacemaker 4. Urinary tract infection. Abx per primary 5. Hyperkalemia with potassium of 6 that was corrected. STEPHANIE RN DC planning today Subjective Subjective Remained in atrial fib with controlled rate. No CP or SOB. Objective Last 24 Hour Vital Signs Date Time Temp Pulse Resp B/P (MAP) Pulse Ox O2 Delivery O2 Flow Rate FiO2 04/26/18 09:00 Room Air Room Air 04/26/18 08:00 77 04/26/18 08:00 97.8 85 19 106/51 (69) 97 04/26/18 04:00 98.1 77 18 100/53 (69) 97 04/26/18 03:43 71 04/26/18 00:00 98.0 82 20 101/61 (74) 97 04/25/18 23:56 78 04/25/18 21:00 Room Air Room Air 04/25/18 20:00 99.0 81 18 111/59 (76) 97 04/25/18 19:44 62 18 Room Air 21 04/25/18 19:00 77 04/25/18 16:13 97.7 74 18 121/62 (81) 97 04/25/18 16:00 82 04/25/18 12:00 97.7 71 18 106/64 (78) 96 04/25/18 12:00 72 Intake and Output 04/25/18 04/26/18 19:00 07:00 Intake Total 600 ml Balance 600 ml Intake Oral 600 ml # Voids 3 1 # Bowel Movements 2 Objective HEAD AND NECK: Shows no JVD. LUNGS: Clear. CARDIOVASCULAR: Shows irregular S1 and S2 with no gallop or murmur. ABDOMEN: Soft. EXTREMITIES: No pitting edema. Richar Kessler MD Apr 26, 2018 11:24
[2018-04-26 12:00] VITALS: BP 108/59
[2018-04-26] MEDS ORDERED: ACETAMINOPHEN325 M1 ORAL (12:55)
[2018-04-26] MEDS ORDERED: ELIQUIS2.5 MG PO (12:56)
[2018-04-26] MEDS ORDERED: BISACODYL5 MG ORAL (12:57)
[2018-04-26] MEDS ORDERED: CATAPRES0.1 MG ORAL (13:00)
[2018-04-26] MEDS ORDERED: DIAZEPAM10 MG ORAL (13:03)
[2018-04-26] MEDS ORDERED: DOCUSATE SODIU100 MG ORAL (13:03)
[2018-04-26] MEDS ORDERED: GABAPENTIN300 MG ORAL (13:04)
[2018-04-26] MEDS ORDERED: NORCO 5-325 TA1 EACH ORAL (13:05)
[2018-04-26] MEDS ORDERED: LEVOTHYROXINE75 MCG ORAL (13:06)
[2018-04-26] MEDS ORDERED: NAMENDA5 MG ORAL (13:07)
[2018-04-26] MEDS ORDERED: MILK OF MA400 MG/51 ORAL (13:07)
[2018-04-26] MEDS ORDERED: MIRTAZAPINE15 M3 ORAL (13:08)
[2018-04-26] MEDS ORDERED: ZOFRAN4 M3 ORAL (13:09)
[2018-04-26] MEDS ORDERED: OXYBUTYNIN CHLOR5 M1 ORAL (13:10)
[2018-04-26] MEDS ORDERED: POLYETHYLENE GL17 GM ORAL (13:11)
[2018-04-26] MEDS ORDERED: PANTOPRAZOLE SO40 MG ORAL (13:11)
[2018-04-26] MEDS ORDERED: RISPERDAL0.25 MG ORAL (13:12)
[2018-04-26] MEDS ORDERED: SENNOSIDES8.6 MG ORAL (13:13)
[2018-04-26] MEDS ORDERED: TRAZODONE HCL100 MG ORAL (13:14)
[2018-04-26] MEDS ORDERED: SERTRALINE HCL50 MG ORAL (13:14)
--- NOTE | 2018-04-26 14:00 | Infectious Diseases Prog Note ---
"Assessment/Plan Assessment/Plan A 1. UTI with lactobacillus | gram positive cocci treated 2. hypertension 3. hypothyroidism 4. Major depression P 1.discontinue cefepime 2. Agree with discharge to SNF Subjective ROS Limited/Unobtainable: Yes Respiratory: Reports: no symptoms Gastrointestinal/Abdominal: Reports: no symptoms Genitourinary: Reports: no symptoms Allergies: Coded Allergies: PENICILLINS (Verified Allergy, Unknown, 01/12/16) SULFA (SULFONAMIDE ANTIBIOTICS) (Verified Allergy, Unknown, 01/12/16) Objective Vital Signs Last 24 Hour Vital Signs Date Time Temp Pulse Resp B/P (MAP) Pulse Ox O2 Delivery O2 Flow Rate FiO2 04/26/18 12:00 98.0 68 21 108/59 (75) 96 04/26/18 09:00 Room Air Room Air 04/26/18 08:00 77 04/26/18 08:00 97.8 85 19 106/51 (69) 97 04/26/18 04:00 98.1 77 18 100/53 (69) 97 04/26/18 03:43 71 04/26/18 00:00 98.0 82 20 101/61 (74) 97 04/25/18 23:56 78 04/25/18 21:00 Room Air Room Air 04/25/18 20:00 99.0 81 18 111/59 (76) 97 04/25/18 19:44 62 18 Room Air 21 04/25/18 19:00 77 04/25/18 16:13 97.7 74 18 121/62 (81) 97 04/25/18 16:00 82 Height (Feet): 5 Height (Inches): 7.00 Weight (Pounds): 136 General Appearance: no acute distress HEENT: mucous membranes moist Respiratory/Chest: lungs clear Cardiovascular: normal rate Abdomen: soft, non tender Extremities: no edema Neurologic/Psychiatric: alert, responsive Current Medications Medications (Trade) Dose Ordered Sig/Dejan Route PRN Reason Start Time Stop Time Status Last Admin Dose Admin Acetaminophen (Tylenol) 650 mg Q4H PRN ORAL Mild Pain/Temp > 100.5 04/20/18 21:30 05/20/18 21:29 04/25/18 21:36 Acetaminophen/ Hydrocodone Bitart ([place] 5/325) 1 tab Q4H PRN ORAL Severe Pain (Pain Scale 7-10) 04/25/18 09:15 05/02/18 09:14 Apixaban (Eliquis) 2.5 mg EVERY 12 HOURS ORAL 04/21/18 09:00 05/21/18 08:59 04/26/18 09:03 Bisacodyl (Dulcolax) 10 mg DAILY PRN RECTAL Constipation 04/20/18 21:15 05/20/18 21:14 Cefepime HCl 1 gm/ Dextrose 50 ml @ 100 mls/hr DAILY IVPB 04/25/18 09:00 04/28/18 08:59 04/26/18 09:02 Clonidine HCl (Catapres Tab) 0.1 mg Q4H PRN ORAL sbp>170 04/21/18 08:30 05/21/18 08:29 Diazepam (Valium) 10 mg BID PRN ORAL anxiety 04/21/18 09:00 04/28/18 08:59 04/25/18 22:41 Docusate Sodium (Colace) 100 mg THREE TIMES A DAY ORAL 04/21/18 18:00 05/21/18 17:59 04/26/18 09:01 Gabapentin (Neurontin) 300 mg Q12HR ORAL 04/24/18 21:00 05/21/18 12:59 04/26/18 09:02 Iopamidol (Isovue-300 100ml) 100 ml NOW PRN INJ Radiology Procedure 04/20/18 16:30 Levothyroxine Sodium (Synthroid) 112 mcg ACBREAKFAST ORAL 04/21/18 06:30 05/21/18 06:29 04/26/18 06:38 Magnesium Hydroxide (Mom) 30 ml Q6HR PRN ORAL Constipation 04/20/18 21:15 05/20/18 21:14 04/25/18 22:41 Memantine (Namenda) 5 mg DAILY ORAL 04/21/18 09:00 05/21/18 08:59 04/26/18 09:02 Mirtazapine (Remeron) 30 mg BEDTIME ORAL 04/20/18 22:00 05/20/18 21:59 04/25/18 22:41 Nitroglycerin (Ntg) 0.4 mg Q5M PRN SL chest pain 04/20/18 21:15 05/20/18 21:14 Ondansetron HCl (Zofran ODT) 4 mg Q4H PRN ORAL Nausea & Vomiting 04/20/18 21:15 05/20/18 21:14 Oxybutynin Chloride (Ditropan) 5 mg BEDTIME ORAL 04/21/18 21:00 05/21/18 20:59 04/25/18 21:33 Pantoprazole (Protonix) 40 mg DAILY ORAL 04/21/18 09:00 05/21/18 08:59 04/26/18 09:02 Polyethylene Glycol (Miralax) 17 gm BEDTIME ORAL 04/21/18 21:00 05/21/18 20:59 04/25/18 21:34 Polyethylene Glycol (Miralax) 17 gm DAILY PRN ORAL Constipation 04/20/18 21:15 05/20/18 21:14 Risperidone (RisperDAL) 0.25 mg BID ORAL 04/21/18 09:00 05/21/18 08:59 04/26/18 09:02 Sennosides (Senokot) 17.2 mg DAILY PRN ORAL Constipation 04/20/18 21:00 05/20/18 20:59 04/24/18 21:41 Sertraline HCl (Zoloft) 75 mg DAILY ORAL 04/21/18 09:00 05/21/18 08:59 04/26/18 09:02 Sodium Phosphate (Fleet's Sodium Phosl Enema) 133 ml DAILY RECTAL 04/22/18 09:00 05/21/18 08:59 04/23/18 10:11 Trazodone HCl (Desyrel) 100 mg BEDTIME ORAL 04/21/18 21:00 05/21/18 20:59 04/25/18 21:33 Hemant Szymanski MD Apr 26, 2018 14:00"
[2018-04-26] MEDS ORDERED: Fleet's Enema 133ml RECTAL ONE (14:45)
--- NOTE | 2018-04-26 20:06 | General Progress Note ---
Assessment/Plan Problem List: (1) Anxiety disorder ICD Codes: F41.9 - Anxiety disorder, unspecified SNOMED: 804114231 (2) MDD (major depressive disorder) ICD Codes: F32.9 - Major depressive disorder, single episode, unspecified SNOMED: 652135405 (3) OCD (obsessive compulsive disorder) ICD Codes: F42.9 - Obsessive-compulsive disorder, unspecified SNOMED: 736975310 Status: stable, progressing Assessment/Plan valium remeron risperdal provided ro/st Subjective Neurologic/Psychiatric: Reports: anxiety, depressed, emotional problems Allergies: Coded Allergies: PENICILLINS (Verified Allergy, Unknown, 01/12/16) SULFA (SULFONAMIDE ANTIBIOTICS) (Verified Allergy, Unknown, 01/12/16) Objective Last 24 Hour Vital Signs Date Time Temp Pulse Resp B/P (MAP) Pulse Ox O2 Delivery O2 Flow Rate FiO2 04/26/18 12:00 98.0 68 21 108/59 (75) 96 04/26/18 09:00 Room Air Room Air 04/26/18 08:00 77 04/26/18 08:00 97.8 85 19 106/51 (69) 97 04/26/18 04:00 98.1 77 18 100/53 (69) 97 04/26/18 03:43 71 04/26/18 00:00 98.0 82 20 101/61 (74) 97 04/25/18 23:56 78 04/25/18 21:00 Room Air Room Air Intake and Output 04/25/18 04/26/18 18:59 06:59 Intake Total 600 ml Balance 600 ml Intake Oral 600 ml # Voids 3 1 # Bowel Movements 2 Height (Feet): 5 Height (Inches): 7.00 Weight (Pounds): 136 General Appearance: alert, cachetic Neurologic: oriented x 3, responsive, depressed affect Manuela Giraldo MD Apr 26, 2018 20:06
--- NOTE | 2018-04-27 12:20 | Discharge Summary ---
Discharge Summary Discharge Summary _ DATE OF ADMISSION: 04/20/2018 DATE OF DISCHARGE: 04/26/2018 DISCHARGED BY: Dr. Edwin Orozco ADMITTING MD: Dr. Amber Manning CONSULTANTS: Dr. Edwin Grewal [facility] HOSPITAL COURSE: Patient is an 83-year-old female, came in with bilateral numbness in the feet. Patient has severe neuropathy, nonalcoholic related. Patient is not diabetic, she stated she had worsening paresthesia in both extremities especially the feet. She also complained of bilateral elbow pain and headache. She had been taking gabapentin without any relief. Pain was described to be tingling in nature. She complained of abdominal pain. She has history of constipation. On evaluation at ED, was noted to be bradycardic. EKG showed atrial fibrillation at a rate of 40s without any PVC or ectopy. Blood work showed hyperkalemia, potassium level of 6. She was given rectal Kayexalate. Urinalysis showed 10-15 WBC, 0-2 RBC, 2+ leukocyte esterase, negative nitrite, 3 + leukocyte esterase. Abdominal and pelvic CT showed evidence of mild anasarca , with trace bilateral pleural fluid, no acute process. Was then admitted for evaluation of bradycardia, UTI, hyperkalemia and worsening neuropathy. She was given pain management. Neurontin was increased to 4 times a day. She was given [place] and morphine as needed. She was evaluated by psychiatrist. Was diagnosed with anxiety and depression with obsessive-compulsive disorder. She was given Valium, Remeron and Risperdal. Cardiac evaluation was done. Patient had atrial fibrillation with bradycardia. Both digoxin and metoprolol were discontinued. Digoxin level was 1.0. She was continued on anticoagulation with Eliquis. Patient had an episode of hypotension, Lotensin was discontinued. Cardiogram done showed left ventricular ejection fraction of 55%. Heart rate improved off AV blockers. She was taken off antihypertensives and was placed only on prn clonidine. Patient is status post fall, possibly syncopal episode due to profound bradycardia. There was no current indication for pacemaker. She had an episode of fever. Urine showed growth of gram-positive cocci and lactobacillus. She was given IV vancomycin and cefepime. She had an x-ray of the thoracic spine which showed osteoporosis. No definite acute abnormality. Lumbar spine x-ray showed postsurgical changes on the thoracic spine. No definite acute process She complained of constipation and had not been eating well. She was given supportive care. Given bowel regimen consisting of MiraLAX, Senokot and enema. She was advised strict aspiration precautions with one-to-one feed. She had thrombocytopenia. HIV screen negative. She completed antibiotic treatment with cefepime and vancomycin. She was then discharged back to SNF. FINAL DIAGNOSES: UTI with lactobacillus and gram-positive cocci, treated Hypertension Hypothyroidism Major depression Anxiety disorder Obsessive-compulsive disorder Atrial fibrillation with bradycardia Hyperkalemia Status post fall could be syncope due to profound bradycardia Thrombocytopenia Severe protein calorie malnutrition worsening neuropathy Hiatal hernia Osteoarthritis DISPOSITION: Patient was discharged to a SNF. DISCHARGE MEDICATIONS: Refer to Discharge Medication List. I have been assigned to dictate discharge summary on this account, and I was not involved in the patient's management. Madonna Hamm NP Apr 27, 2018 12:20
--- NOTE | 2018-04-27 17:01 | Diagnostic Imaging Report ---
APPROVED REPORT CPT Code: 35426 Present Symptoms Lower Extremity Pain: Bilateral BILATERAL: Imaging reveals a patent deep venous system bilaterally. There is no evidence of thrombus within the femoral, popliteal or tibial segments. The greater saphenous veins are also within normal limits. Doppler indicates normal spontaneous flow within these segments.
--- NOTE | 2018-04-27 17:02 | Diagnostic Imaging Report ---
APPROVED REPORT CPT Code: 85595 Vascular Symptoms Syncope Doppler Spectral Velocity Analysis RightLeft RIGHT SIDE: CCA - Imaging reveals no significant plaque within the extracranial carotid arteries. The Doppler spectral flow analysis is within normal limits throughout the extracranial carotid arteries. VERTEBRAL - The vertebral artery is within normal limits. LEFT SIDE: CCA - Imaging reveals no significant plaque within the common carotid artery. Imaging reveals irregular plaque in the external carotid artery and internal carotid artery. The Doppler signal indicates the degree of stenosis is moderate (50-69%) in the external carotid artery and distal internal carotid artery. VERTEBRAL - The vertebral artery is patent, without evidence of stenosis or steal.
== END 2018-04-26 14:40 | DRG 689 ==
LOC: EDBD 16:18 → EMR 17:59 → 2E 18:01 → EDBEDREQ 18:57
DX: N39.0 Urinary tract infection, site not specified (principal); E43 Unspecified severe protein-calorie malnutrition; Z68.1 Body mass index [BMI] 19.9 or less, adult; I10 Essential (primary) hypertension; E03.9 Hypothyroidism, unspecified; K21.9 Gastro-esophageal reflux disease without esophagitis; Z88.0 Allergy status to penicillin; Z88.2 Allergy status to sulfonamides; R00.1 Bradycardia, unspecified; E87.5 Hyperkalemia; G62.9 Polyneuropathy, unspecified; G89.4 Chronic pain syndrome; F32.9 Major depressive disorder, single episode, unspecified; F41.9 Anxiety disorder, unspecified; F42.9 Obsessive-compulsive disorder, unspecified; Z91.81 History of falling; D69.6 Thrombocytopenia, unspecified; B96.89 Other specified bacterial agents as the cause of diseases classified elsewhere; I48.91 Unspecified atrial fibrillation; K44.9 Diaphragmatic hernia without obstruction or gangrene; M19.90 Unspecified osteoarthritis, unspecified site; J44.9 Chronic obstructive pulmonary disease, unspecified; M54.9 Dorsalgia, unspecified; Z98.1 Arthrodesis status; Z66 Do not resuscitate
CPT/HCPCS: 36415; 72070; 72110; 74177; 80048; 80053; 80162; 80202; 81003; 83690; 83880; 84439; 84443; 84484; 85025; 85610; 85730; 86703; 86850; 86900; 86901; 87081; 87086; 93005; 93306; 93880; 93970; 94664; 94760; 96374; 99285; J2405

== ENCOUNTER 2018-10-09 10:51 | Inpatient (IN) | payer MEDICARE, MEDICAID ==
[~2018-10-09] VITALS: Ht 167.6 cm; Wt 46.7 kg
[~2018-10-09 10:51] MED LIST changes: +ACETAMINOPHEN325 M1 ORAL; +BENAZEPRIL HCL10 MG ORAL; +CATAPRES0.1 MG ORAL; +DIGOXIN250 MCG ORAL; +DULCOLAX10 MG RC; +FLEET ENEMA133 ML RECTAL; +GABAPENTIN300 MG ORAL; +LEVOTHYROXINE75 MCG ORAL; +MIRTAZAPINE30 MG ORAL; +NORCO 10-325 T1 EACH ORAL; +NORCO 5-325 TA1 EACH ORAL; +OXYBUTYNIN CHLOR5 M1 ORAL; +OXYTROL1 EACH TD; +SENNA LAXATIVE8.6 MG PO; +SENNOSIDES8.6 MG ORAL; +SERTRALINE HCL50 MG ORAL
--- NOTE | 2018-10-09 11:00 | NUR ---
ED Nurse Note: Pt brought in to ER by ambulance from [facility] due to FTT. pt aao x4 and bedbound due to weakness. skin clean and intact but pale. per pt, she has lost appetite for last 1 year. 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
--- NOTE | 2018-10-09 11:17 | NUR ---
ED Nurse Note: x-ray at bedside.
[2018-10-09 11:44] LABS: BASOPHILS % (AUTO) 1.4 % (0.0-2.0); EOSINOPHILS % (AUTO) 2.9 % (0.0-3.0); HEMATOCRIT 41.8 % (37.0-47.0); HEMOGLOBIN 13.5 G/DL (12.0-16.0); LYMPHOCYTES % (AUTO) 16.4 % (20.0-45.0); MEAN CORPUSCULAR VOLUME 90 FL (80-99); MONOCYTES % (AUTO) 12.2 % (1.0-10.0); NEUTROPHILS % (AUTO) 67.1 % (45.0-75.0); PLATELET COUNT 252 K/UL (150-450); RED BLOOD COUNT 4.63 M/UL (4.20-5.40); RED CELL DISTRIBUTION WIDTH 12.7 % (11.6-14.8); WHITE BLOOD COUNT 4.6 K/UL (4.8-10.8)
--- NOTE | 2018-10-09 11:46 | Diagnostic Imaging Report ---
Indication: Chest pain Comparison: None A single view chest radiograph was obtained. Findings: The rib fractures on the left which appear old. Bones are osteopenic. Extensive posterior fusion hardware noted within the thoracic spine. Cardiomegaly is present. No infiltrate seen. IMPRESSION: No acute cardiopulmonary disease identified. Other findings as above
--- NOTE | 2018-10-09 11:47 | Diagnostic Imaging Report ---
Indication: Abdominal pain Comparison: 05/29/2016 Single view of the abdomen obtained Findings: Bowel gas pattern is nonspecific. No mass, ectopic calcifications, or abnormal gas collections are identified. The bones are osteopenic. Thoracic hardware noted. Impression: No acute findings
[2018-10-09 11:55] LABS: INR 1.1 (0.9-1.1)
[2018-10-09 11:56] LABS: ANION GAP 6 mmol/L (5-15); BLOOD UREA NITROGEN 17 mg/dL (7-18); CALCIUM 9.5 MG/DL (8.5-10.1); CARBON DIOXIDE 30 MMOL/L (21-32); CHLORIDE 99 MMOL/L (98-107); CREATININE 1.1 MG/DL (0.55-1.30); POTASSIUM 4.5 MMOL/L (3.5-5.1); SODIUM 135 MMOL/L (136-145)
[2018-10-09 12:01] LABS: ALANINE AMINOTRANSFERASE 22 U/L (12-78); ALBUMIN 3.4 G/DL (3.4-5.0); ALBUMIN/GLOBULIN RATIO 0.8 (1.0-2.7); ALKALINE PHOSPHATASE 120 U/L (46-116); ASPARTATE AMINO TRANSFERASE 27 U/L (15-37); BILIRUBIN,TOTAL 0.3 MG/DL (0.2-1.0); CREATINE KINASE 81 U/L (26-308)
[2018-10-09 12:28] VITALS: BP 125/68
[2018-10-09] MEDS ORDERED: OXYBUTYNIN CHLOR5 M1 ORAL (12:59)
[2018-10-09] MEDS ORDERED: BENAZEPRIL HCL10 MG ORAL (12:59)
[2018-10-09] MEDS ORDERED: LACTULOSE20 GM/301 ORAL (12:59)
[2018-10-09] MEDS ORDERED: SENNA8.6 M2 PO (12:59)
[2018-10-09] MEDS ORDERED: CRANBERRY400 MG PO (12:59)
--- NOTE | 2018-10-09 13:08 | NUR ---
ED Nurse Note: attempted to give report. nurse Janeth is discharging another pt. will call back in 10 minutes.
[2018-10-09 13:25] LABS: APPEARANCE,URINE CLEAR; BILIRUBIN, URINE NEGATIVE (NEGATIVE); COLOR,URINE PALE YELLOW; GLUCOSE, URINE (UA) NEGATIVE (NEGATIVE); KETONES,URINE NEGATIVE (NEGATIVE); LEUKOCYTE ESTERASE ,URINE 2+ (NEGATIVE); NITRITE,URINE NEGATIVE (NEGATIVE); PH,URINE 5 (4.5-8.0); PROTEIN,URINE NEGATIVE (NEGATIVE); UROBILINOGEN,URINE NORMAL MG/DL (0.0-1.0)
--- NOTE | 2018-10-09 13:25 | NUR ---
ED Nurse Note: report given to KELLIE Fowler
--- NOTE | 2018-10-09 13:31 | NUR ---
ED Nurse Note: pt left unit with 1 RN in stable condition.
--- NOTE | 2018-10-09 13:35 | NUR ---
NURSE NOTES: Received pt from ED, Honorio RN. pt stable condition, VSS, pt under Medical supervision under DR. Gallegos, for failure to thrive , pt A/o x 4, breathing regular, full body assessment done, pictures were taken. Belonging was signed and keep at bedside. will continue to monitor.
--- NOTE | 2018-10-09 13:41 | Emergency Room Report ---
History of Present Illness General Chief Complaint: Generalized Weakness Source: Medical Record, PMD Present Illness HPI Patient presents emergency department today complaining of abdominal discomfort intermittently and become worse over the last week associated decreased appetite and essentially failure to thrive. Patient complains of abdominal discomfort. She denies any dysuria urinary frequency. Symptoms noted to be severe. Patient's primary care physician is Dr. Amber Manning he sent the patient here for further evaluation. No other modifying factors. No other associated signs and symptoms. No other complaints were noted. Allergies: Coded Allergies: PENICILLINS (Verified Allergy, Unknown, 01/12/16) SULFA (SULFONAMIDE ANTIBIOTICS) (Verified Allergy, Unknown, 01/12/16) Patient History Past Medical History: HTN, COPD Past Surgical History: none Pertinent Family History: none Social History: Denies: smoking, alcohol use, drug use Reviewed Nursing Documentation: PMH: Agreed; PSxH: Agreed Nursing Documentation-PMH Past Medical History: No History, Except For Hx Cardiac Problems: No Hx Hypertension: Yes Hx Pacemaker: No Hx Asthma: No Hx COPD: Yes Hx Cancer: No Hx Gastrointestinal Problems: Yes Hx Dialysis: No Hx Neurological Problems: No Hx Cerebrovascular Accident: No Hx Seizures: No Review of Systems All Other Systems: negative except mentioned in HPI Physical Exam Vital Signs Date Time Temp Pulse Resp B/P (MAP) Pulse Ox O2 Delivery O2 Flow Rate FiO2 10/09/18 10:52 97.5 83 18 104/69 (81) 94 Room Air Sp02 EP Interpretation: reviewed, abnormal - Interpreted to be low by me General Appearance: alert, mild distress, cachetic, thin Head: normocephalic, atraumatic Eyes: bilateral eye normal inspection ENT: hearing grossly normal, normal voice, dry mucus membranes Neck: normal inspection, full range of motion, supple, no bony tend Respiratory: normal inspection, lungs clear, normal breath sounds, no respiratory distress, no retraction, no wheezing Cardiovascular #1: regular rate, rhythm, no edema Gastrointestinal: normal inspection, normal bowel sounds, soft, no guarding, no hernia, other - Easily tender Genitourinary: no CVA tenderness Musculoskeletal: normal inspection, back normal, normal range of motion Neurologic: alert, responsive Psychiatric: anxious Skin: normal inspection, normal color, no rash Medical Decision Making Diagnostic Impression: Primary Impression: Abdominal pain Additional Impressions: Failure to thrive Dehydration Weakness ER Course Patient presents emergency department today complaining of severe generalized weakness and inability to eat and abdominal discomfort. Differential considerations include dehydration, electro abnormality, gastritis, failure to thrive just name a few. Given the severity of the patient's presentation I felt this is a highly complex patient. This patient required extensive workup. Patient appears acutely ill weak and dehydrated with abdominal discomfort. Patient is also emaciated. I felt the patient require admission for further treatment and work-up. Case was discussed in detail with Dr. Amber Manning. The patient will be admitted to [facility] for the treatment. Labs Test 10/09/18 11:30 10/09/18 13:15 White Blood Count 4.6 K/UL (4.8-10.8) Red Blood Count 4.63 M/UL (4.20-5.40) Hemoglobin 13.5 G/DL (12.0-16.0) Hematocrit 41.8 % (37.0-47.0) Mean Corpuscular Volume 90 FL (80-99) Mean Corpuscular Hemoglobin 29.2 PG (27.0-31.0) Mean Corpuscular Hemoglobin Concent 32.3 G/DL (32.0-36.0) Red Cell Distribution Width 12.7 % (11.6-14.8) Platelet Count 252 K/UL (150-450) Mean Platelet Volume 8.4 FL (6.5-10.1) Neutrophils (%) (Auto) 67.1 % (45.0-75.0) Lymphocytes (%) (Auto) 16.4 % (20.0-45.0) Monocytes (%) (Auto) 12.2 % (1.0-10.0) Eosinophils (%) (Auto) 2.9 % (0.0-3.0) Basophils (%) (Auto) 1.4 % (0.0-2.0) Prothrombin Time 11.5 SEC (9.30-11.50) Prothromb Time International Ratio 1.1 (0.9-1.1) Activated Partial Thromboplast Time 29 SEC (23-33) Sodium Level 135 MMOL/L (136-145) Potassium Level 4.5 MMOL/L (3.5-5.1) Chloride Level 99 MMOL/L (98-107) Carbon Dioxide Level 30 MMOL/L (21-32) Anion Gap 6 mmol/L (5-15) Blood Urea Nitrogen 17 mg/dL (7-18) Creatinine 1.1 MG/DL (0.55-1.30) Estimat Glomerular Filtration Rate mL/min (>60) Glucose Level 86 MG/DL (74-106) Calcium Level 9.5 MG/DL (8.5-10.1) Total Bilirubin 0.3 MG/DL (0.2-1.0) Aspartate Amino Transf (AST/SGOT) 27 U/L (15-37) Alanine Aminotransferase (ALT/SGPT) 22 U/L (12-78) Alkaline Phosphatase 120 U/L (46-116) Total Creatine Kinase 81 U/L (26-308) Troponin I 0.002 ng/mL (0.000-0.056) Total Protein 7.6 G/DL (6.4-8.2) Albumin 3.4 G/DL (3.4-5.0) Globulin 4.2 g/dL Albumin/Globulin Ratio 0.8 (1.0-2.7) Lipase 142 U/L (73-393) Urine Color Pale yellow Urine Appearance Clear Urine pH 5 (4.5-8.0) Urine Specific [place] 1.005 (1.005-1.035) Urine Protein Negative (NEGATIVE) Urine Glucose (UA) Negative (NEGATIVE) Urine Ketones Negative (NEGATIVE) Urine Blood Negative (NEGATIVE) Urine Nitrite Negative (NEGATIVE) Urine Bilirubin Negative (NEGATIVE) Urine Urobilinogen Normal MG/DL (0.0-1.0) Urine Leukocyte Esterase 2+ (NEGATIVE) Urine RBC 0 /HPF (0 - 2) Urine WBC 2-4 /HPF (0 - 2) Urine Squamous Epithelial Cells Few /LPF (NONE/OCC) Urine Bacteria Occasional /HPF (NONE) EKG Diagnostic Results Rate: normal Rhythm: other - A. fib ST Segments: no acute changes Rhythm Strip Diag. Results EP Interpretation: yes Rate: 70s Rhythm: no PVC's, other - Atrial fibrillation no PVCs no other ectopy Chest X-Ray Diagnostic Results Chest X-Ray Diagnostic Results : Chest X-Ray Ordered: Yes # of Views/Limited/Complete: 1 View Indication: Shortness of Breath EP Interpretation: No Impression: No acute disease Other X-Ray Diagnostic Results Other X-Ray Diagnostic Results : # of Views/Limited Vs Complete: 1 View Indication: Pain EP Interpretation: No Impression: No acute disease Last Vital Signs Date Time Temp Pulse Resp B/P (MAP) Pulse Ox O2 Delivery O2 Flow Rate FiO2 10/09/18 12:28 97.5 71 13 125/68 100 Room Air Status: improved Disposition: ADMITTED INPATIENT Condition: Serious Referrals: Amber Gallegos MD (PCP) Chandler Dodge MD Oct 09, 2018 13:41
--- NOTE | 2018-10-09 15:11 | GI Initial Consult Note ---
History of Present Illness General Date patient seen: Oct 09, 2018 Time patient seen: 15:10 Reason for Hospitalization: Generalized Weakness Referring physician: TODD GUERRERO Reason for Consultation: FTT Present Illness HPI Patient presents emergency department today complaining of abdominal discomfort intermittently and become worse over the last week associated decreased appetite and essentially failure to thrive. Patient complains of abdominal discomfort. She denies any dysuria urinary frequency. Symptoms noted to be severe. Patient's primary care physician is Dr. Todd Manning he sent the patient here for further evaluation. No other modifying factors. No other associated signs and symptoms. No other complaints were noted. GI consulted for failure to thrive, abdominal cramping and pain. Patient seen, awake alert and oriented x4 no apparent distress with no active signs symptoms of nausea vomiting. The patient was admitted here back in April 2018, which we had plans to place a gastric tube to meet her nutritional needs at the patient. However, the patient began to increase her p.o. intake and was eventually discharged. Patient denies any diarrhea, has complaint of constipation in which she states she takes milk of magnesia and lactulose. The patient states is because of her abdominal cramping that she had a decrease in appetite and p.o. intake from the shelter. In addition, the patient stated that she disliked the food given to her there. The patient states that her last EGD and colonoscopy was approximately 2 years ago, in which she was diagnosed with gastric ulcer. Labs reviewed; no leukocytosis, no anemia, no transaminitis. Note that the patient is on Eliquis. Home Meds Reported Medications Sennosides (SENNA) 8.6 Mg Tablet, PO HS, TAB 10/09/18 Oxybutynin Chloride (OXYBUTYNIN CHLORIDE) 5 Mg Tablet, 5 MG ORAL DAILY, #30 TAB 0 Refills 10/09/18 Lactulose (LACTULOSE*) 20 Gm/30 Ml Solution, 30 ML ORAL DAILY, ML 0 Refills 10/09/18 Cranberry (CRANBERRY) 400 Mg Capsule, 450 MG PO BID, CAP 10/09/18 Benazepril Hcl* (BENAZEPRIL HCL*) 10 Mg Tablet, 5 MG ORAL DAILY, TAB 10/09/18 Trazodone Hcl* (DESYREL*) 100 Mg Tablet, 100 MG ORAL BEDTIME, TAB 04/26/18 Sertraline Hcl* (ZOLOFT*) 50 Mg Tablet, 75 MG ORAL DAILY, TAB 04/26/18 Sennosides* (SENNOSIDES*) 8.6 Mg Tablet, 17.2 MG ORAL DAILY PRN for constipation , TAB 04/26/18 Risperidone* (RISPERDAL*) 0.25 Mg Tablet, 0.25 MG ORAL BID, #30 TAB 0 Refills 04/26/18 Polyethylene Glycol 3350* (POLYETHYLENE GLYCOL 3350*) 17 Gm Powd.pack, 17 GM ORAL DAILY for constipation, PACKET 04/26/18 Pantoprazole* (PANTOPRAZOLE*) 40 Mg Tablet.dr, 40 MG ORAL DAILY, TAB 04/26/18 Oxybutynin Chloride (OXYBUTYNIN CHLORIDE) 5 Mg Tablet, 5 MG ORAL BEDTIME, #30 TAB 0 Refills 04/26/18 Ondansetron* (ZOFRAN*) 4 Mg Tablet, 4 MG ORAL Q4HR PRN for Nausea & Vomiting, TAB 04/26/18 Memantine Hcl* (NAMENDA*) 5 Mg Tablet, 5 MG ORAL DAILY, TAB 04/26/18 Magnesium Hydroxide* (MILK OF MAGNESIA*) 400 Mg/5 Ml Oral.susp, 30 ML ORAL Q6HR for constipation, ML 04/26/18 Levothyroxine Sodium* (LEVOTHYROXINE SODIUM*) 75 Mcg Tablet, 112 MCG ORAL ACBREAKFAST, TAB Take in the morning on an empty stomach, at least 30 minutes before food. 04/26/18 Hydrocodone Bit/Acetaminophen 5-325* (NORCO 5-325*) 1 Each Tablet, 1 TAB ORAL Q4H PRN for Severe Pain (Pain Scale 7-10), TAB 0 Refills 04/26/18 Gabapentin* (GABAPENTIN*) 300 Mg Capsule, 300 MG ORAL Q12HR, CAP 0 Refills 04/26/18 Docusate Sodium* (DOCUSATE SODIUM*) 100 Mg Capsule, 100 MG ORAL THREE TIMES A DAY, CAP 04/26/18 Clonidine Hcl* (CATAPRES*) 0.1 Mg Tablet, 0.1 MG ORAL EVERY 4 HOURS for sbp >170 , TAB 04/26/18 Bisacodyl* (DULCOLAX*) 5 Mg Tablet.dr, 10 MG ORAL DAILY PRN for Constipation, # 10 TAB 0 Refills 04/26/18 Apixaban (ELIQUIS) 2.5 Mg Tablet, 2.5 MG PO Q12HR, TAB 04/26/18 Acetaminophen* (ACETAMINOPHEN 325MG TABLET*) 325 Mg Tablet, 650 MG ORAL Q4H PRN for Mild Pain/Temp > 100.5, TAB 04/26/18 Mirtazapine* (REMERON*) 30 Mg Tablet, 30 MG ORAL BEDTIME, TAB 04/20/18 Gabapentin* (GABAPENTIN*) 300 Mg Capsule, 300 MG ORAL THREE TIMES A DAY, CAP 0 Refills 04/20/18 Na Phos,M-B/Na Phos,Di-Ba* (FLEET ENEMA*) 133 Ml Enema, 133 ML RECTAL DAILY, ML 0 Refills 04/20/18 Nitroglycerin (NITROGLYCERIN) 0.4 Mg Tab.subl, 0.4 MG SL Q5M PRN for chest pain , TAB 06/03/16 Diazepam* (DIAZEPAM*) 10 Mg Tablet, 10 MG ORAL HS PRN for Insomnia, TAB 0 Refills 06/03/16 Med list reviewed/reconciled: Yes Allergies: Coded Allergies: PENICILLINS (Verified Allergy, Unknown, 01/12/16) SULFA (SULFONAMIDE ANTIBIOTICS) (Verified Allergy, Unknown, 01/12/16) Patient History History Provided By: Patient, Medical Record PMH Narrative Past Medical History: HTN, COPD Past Surgical History: none Pertinent Family History: none Social History: Denies: smoking, alcohol use, drug use Reviewed Nursing Documentation: PMH: Agreed; PSxH: Agreed Nursing Documentation-PMH Past Medical History: No History, Except For Hx Cardiac Problems: No Hx Hypertension: Yes Hx Pacemaker: No Hx Asthma: No Hx COPD: Yes Hx Cancer: No Hx Gastrointestinal Problems: Yes Hx Dialysis: No Hx Neurological Problems: No Hx Cerebrovascular Accident: No Hx Seizures: No Social History: Denies: smoking, alcohol use, drug use, other Review of Systems All Other Systems: negative except mentioned in HPI Physical Exam Vital Signs Date Time Temp Pulse Resp B/P (MAP) Pulse Ox O2 Delivery O2 Flow Rate FiO2 10/09/18 10:52 97.5 83 18 104/69 (81) 94 Room Air Sp02 EP Interpretation: reviewed, normal Labs Laboratory Tests Test 10/09/18 11:30 10/09/18 13:15 White Blood Count 4.6 K/UL (4.8-10.8) L Red Blood Count 4.63 M/UL (4.20-5.40) Hemoglobin 13.5 G/DL (12.0-16.0) Hematocrit 41.8 % (37.0-47.0) Mean Corpuscular Volume 90 FL (80-99) Mean Corpuscular Hemoglobin 29.2 PG (27.0-31.0) Mean Corpuscular Hemoglobin Concent 32.3 G/DL (32.0-36.0) Red Cell Distribution Width 12.7 % (11.6-14.8) Platelet Count 252 K/UL (150-450) Mean Platelet Volume 8.4 FL (6.5-10.1) Neutrophils (%) (Auto) 67.1 % (45.0-75.0) Lymphocytes (%) (Auto) 16.4 % (20.0-45.0) L Monocytes (%) (Auto) 12.2 % (1.0-10.0) H Eosinophils (%) (Auto) 2.9 % (0.0-3.0) Basophils (%) (Auto) 1.4 % (0.0-2.0) Prothrombin Time 11.5 SEC (9.30-11.50) Prothromb Time International Ratio 1.1 (0.9-1.1) Activated Partial Thromboplast Time 29 SEC (23-33) Sodium Level 135 MMOL/L (136-145) L Potassium Level 4.5 MMOL/L (3.5-5.1) Chloride Level 99 MMOL/L (98-107) Carbon Dioxide Level 30 MMOL/L (21-32) Anion Gap 6 mmol/L (5-15) Blood Urea Nitrogen 17 mg/dL (7-18) Creatinine 1.1 MG/DL (0.55-1.30) Estimat Glomerular Filtration Rate mL/min (>60) Glucose Level 86 MG/DL (74-106) Calcium Level 9.5 MG/DL (8.5-10.1) Total Bilirubin 0.3 MG/DL (0.2-1.0) Aspartate Amino Transf (AST/SGOT) 27 U/L (15-37) Alanine Aminotransferase (ALT/SGPT) 22 U/L (12-78) Alkaline Phosphatase 120 U/L (46-116) H Total Creatine Kinase 81 U/L (26-308) Troponin I 0.002 ng/mL (0.000-0.056) Total Protein 7.6 G/DL (6.4-8.2) Albumin 3.4 G/DL (3.4-5.0) Globulin 4.2 g/dL Albumin/Globulin Ratio 0.8 (1.0-2.7) L Lipase 142 U/L (73-393) Urine Color Pale yellow Urine Appearance Clear Urine pH 5 (4.5-8.0) Urine Specific [place] 1.005 (1.005-1.035) Urine Protein Negative (NEGATIVE) Urine Glucose (UA) Negative (NEGATIVE) Urine Ketones Negative (NEGATIVE) Urine Blood Negative (NEGATIVE) Urine Nitrite Negative (NEGATIVE) Urine Bilirubin Negative (NEGATIVE) Urine Urobilinogen Normal MG/DL (0.0-1.0) Urine Leukocyte Esterase 2+ (NEGATIVE) H Urine RBC 0 /HPF (0 - 2) Urine WBC 2-4 /HPF (0 - 2) Urine Squamous Epithelial Cells Few /LPF (NONE/OCC) Urine Bacteria Occasional /HPF (NONE) General Appearance: well appearing, no apparent distress, alert, thin Head: normocephalic EENT: PERRL/EOMI, normal ENT inspection Neck: supple Respiratory: normal breath sounds, no respiratory distress Cardiovascular: normal rate Gastrointestinal: normal inspection, non tender, soft, normal bowel sounds, non -distended Rectal: deferred Genitourinary: no CVA tenderness Musculoskeletal: normal inspection, back normal Neurologic: normal inspection, alert, oriented x3, responsive Psychiatric: normal inspection, judgement/insight normal, memory normal Skin: normal inspection, normal color, no rash, warm/dry, palpation normal, well hydrated Lymphatic: normal inspection, no adenopathy GI: Plan Problems: (1) Abdominal cramping (2) Constipation (3) GERD (gastroesophageal reflux disease) (4) Severe malnutrition (5) Abdominal pain (6) Failure to thrive (7) Dehydration Plan Will consider endoscopy and colonoscopy if symptoms not relieved by medications. Bentyl as needed for abdominal Cramping Bowel regimen, hold all laxatives at this time Colace 100 mg 3 times daily Push p.o. Zofran as needed PPI IV/PO Hydration Discussed with Dr. Candelaria. Thank you for this patient referral, we will follow. The patient was seen and examined at bedside and all new and available data was reviewed in the patients chart. I agree with the above findings, impression and plan. (Patient seen earlier today. Signature stamp does not reflect patient encounter time.). - MD Meghann NewtonHoly Cross HospitalDrew BASS Oct 09, 2018 15:11
[2018-10-09] MEDS ORDERED: Bisacodyl EC 5mg tab ORAL PRN ×2 (15:15→15:45)
[2018-10-09] MEDS ORDERED: Sennosides 8.6mg tab ORAL PRN (15:15)
[2018-10-09] MEDS ORDERED: Dicyclomine 10mg Cap ORAL PRN (15:15)
[2018-10-09] MEDS ORDERED: FLEET ENEMA133 ML RECTAL (15:54)
[2018-10-09] MEDS ORDERED: CATAPRES0.1 MG ORAL (15:54)
[2018-10-09] MEDS ORDERED: MILK OF MA400 MG/51 ORAL (15:54)
[2018-10-09 16:00] VITALS: BP 119/69
[2018-10-09] MEDS ORDERED: Fleet's Enema 133ml RECTAL PRN (16:00)
[2018-10-09] MEDS: Docusate 100mg cap ORAL SCH (17:23)
[2018-10-09] MEDS ORDERED: Milk of Magnesia 30ml Ud ORAL SCH (18:00)
[2018-10-09] MEDS ORDERED: Docusate 100mg cap ORAL SCH (18:00)
--- NOTE | 2018-10-09 19:15 | NUR ---
NURSE NOTES: Received a report from KELLIE Fowler. Pt is in stable condition. AAOX4. Able to make needs known. On room air. No c/o pain/discomfort. IV site is patent and intact. Bed in lowest position. Bed alarm is on. Call light within reach. Will continue to monitor.
[2018-10-09 20:00] VITALS: BP 104/57
--- NOTE | 2018-10-09 20:00 | NUR ---
NURSE NOTES: Called Dr. Gallegos for Valium because pt requested it. Waiting for call back.
[2018-10-09] MEDS: Oxybutynin 5mg tab ORAL SCH (20:16)
[2018-10-09] MEDS: Eliquis 2.5mg tablet ORAL SCH (20:16)
--- NOTE | 2018-10-09 22:30 | NUR ---
NURSE NOTES: Dr. Gallegos called and he told Chica HOPKINS to contact Dr. Giraldo for Valium. Contacted Dr. Giraldo and left a voicemail, waiting for Dr. Giraldo's response. Charge Nurse Mony made aware.
[2018-10-10] VITALS (7 sets, daily range): BP systolic 83–115; BP diastolic 48–62
--- NOTE | 2018-10-10 07:15 | NUR ---
HAND-OFF: Report given to Kathe Luna RN. Kathe HOPKINS will follow up with Dr. Giraldo about the Valium which the pt requested.
--- NOTE | 2018-10-10 07:31 | NUR ---
NURSE NOTES: Patient received resting in bed, breathing unlabored on room air. Alert and oriented. Denies SOB or pain at this time. IV on right arm observed, saline lock. Bed locked in lowest position, call light placed within reach. Will continue to monitor.
[2018-10-10 08:13] LABS: BASOPHILS % (AUTO) 1.3 % (0.0-2.0); EOSINOPHILS % (AUTO) 6.5 % (0.0-3.0); HEMOGLOBIN 12.6 G/DL (12.0-16.0); LYMPHOCYTES % (AUTO) 22.8 % (20.0-45.0); MEAN CORPUSCULAR VOLUME 90 FL (80-99); MONOCYTES % (AUTO) 13.2 % (1.0-10.0); NEUTROPHILS % (AUTO) 56.3 % (45.0-75.0); PLATELET COUNT 202 K/UL (150-450); RED BLOOD COUNT 4.23 M/UL (4.20-5.40); RED CELL DISTRIBUTION WIDTH 12.7 % (11.6-14.8); WHITE BLOOD COUNT 4.8 K/UL (4.8-10.8)
[2018-10-10 08:34] LABS: ALANINE AMINOTRANSFERASE 22 U/L (12-78); ALBUMIN 2.8 G/DL (3.4-5.0); ALBUMIN/GLOBULIN RATIO 0.8 (1.0-2.7); ALKALINE PHOSPHATASE 106 U/L (46-116); ANION GAP 4 mmol/L (5-15); ASPARTATE AMINO TRANSFERASE 22 U/L (15-37); BILIRUBIN,TOTAL 0.3 MG/DL (0.2-1.0); BLOOD UREA NITROGEN 11 mg/dL (7-18); CALCIUM 8.8 MG/DL (8.5-10.1); CARBON DIOXIDE 30 MMOL/L (21-32); CHLORIDE 105 MMOL/L (98-107); CREATININE 0.9 MG/DL (0.55-1.30); PHOSPHORUS 4.7 MG/DL (2.5-4.9); POTASSIUM 4.5 MMOL/L (3.5-5.1); SODIUM 139 MMOL/L (136-145)
[2018-10-10] MEDS ORDERED: Lactulose 20gm/30ml UDC ORAL SCH (09:00)
[2018-10-10] MEDS ORDERED: Fleet's Enema 133ml RECTAL SCH (09:00)
[2018-10-10] MEDS: Docusate 100mg cap ORAL SCH ×2 (09:12→16:57)
[2018-10-10] MEDS: Benazepril 10mg tab ORAL SCH (09:12)
[2018-10-10] MEDS: Eliquis 2.5mg tablet ORAL SCH ×2 (09:12→21:05)
[2018-10-10] MEDS: Sertraline 50mg tab ORAL SCH (09:13)
[2018-10-10] MEDS: Memantine 5 MG TAB ORAL SCH (09:13)
--- NOTE | 2018-10-10 10:35 | NUR ---
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 FAILURE TO THRIVE VS: BP 104/69, P 83, T 97.5, RR 18, SpO2 94 WBC 4.6, Na 135 IS:NS x1L IV ZOFRAN 4mg IVP ADMITTED TO MED/SURG DCP: RETURN TO [facility]
--- NOTE | 2018-10-10 10:39 | GI Progress Note ---
Assessment/Plan Problems: (1) Abdominal pain ICD Codes: R10.9 - Unspecified abdominal pain SNOMED: 22654195 (2) Constipation ICD Codes: K59.00 - Constipation, unspecified SNOMED: 29188275 (3) GERD (gastroesophageal reflux disease) ICD Codes: K21.9 - Gastro-esophageal reflux disease without esophagitis SNOMED: 706428687 (4) Abdominal pain ICD Codes: R10.9 - Unspecified abdominal pain SNOMED: 78191310 (5) Severe malnutrition ICD Codes: E43 - Unspecified severe protein-calorie malnutrition SNOMED: 88507675 (6) Abdominal cramping ICD Codes: R10.9 - Unspecified abdominal pain SNOMED: 93470798, 082236484 (7) Dehydration ICD Codes: E86.0 - Dehydration SNOMED: 87187390 (8) Failure to thrive SNOMED: 24182774 (9) Weakness ICD Codes: R53.1 - Weakness SNOMED: 83685188 Status: unchanged Status Narrative Discussed with Dr. Candelaria Assessment/Plan refused GI procedures adv to mechanical soft diet Bentyl as needed for abdominal Cramping Bowel regimen, hold all aggressive laxatives at this time. Hold lactulose. Colace 100 mg 3 times daily Senokot as needed Push p.o. Zofran as needed PPI IV/PO Hydration The patient was seen and examined at bedside and all new and available data was reviewed in the patients chart. I agree with the above findings, impression and plan. (Patient seen earlier today. Signature stamp does not reflect patient encounter time.). - Keon Candelaria MD Subjective Subjective Abdominal cramping after p.o. intake States she has not had an episode of cramping since admission Objective Last 24 Hour Vital Signs Date Time Temp Pulse Resp B/P (MAP) Pulse Ox O2 Delivery O2 Flow Rate FiO2 10/10/18 09:12 107/59 10/10/18 09:00 Room Air 10/10/18 08:00 97.6 79 16 107/59 (75) 96 10/10/18 04:00 97.4 73 16 109/59 (76) 96 10/10/18 00:00 97.3 68 18 108/56 (73) 98 10/09/18 21:00 Room Air 10/09/18 20:00 97.7 75 18 104/57 (73) 99 6/10/19 16:00 97.1 60 18 119/69 (86) 98 10/09/18 14:41 Room Air 10/09/18 13:31 97.7 91 16 108/72 100 Room Air 10/09/18 12:28 97.5 71 13 125/68 100 Room Air 10/09/18 11:00 83 18 Room Air 10/09/18 10:52 97.5 83 18 104/69 (81) 94 Room Air Intake and Output 10/09/18 10/10/18 18:59 06:59 Intake Total 1240 ml 120 ml Balance 1240 ml 120 ml Intake Oral 240 ml 120 ml IV Total 1000 ml # Voids 3 2 Laboratory Tests Test 10/09/18 11:30 10/09/18 13:15 10/10/18 07:42 White Blood Count 4.6 K/UL (4.8-10.8) L 4.8 K/UL (4.8-10.8) Red Blood Count 4.63 M/UL (4.20-5.40) 4.23 M/UL (4.20-5.40) Hemoglobin 13.5 G/DL (12.0-16.0) 12.6 G/DL (12.0-16.0) Hematocrit 41.8 % (37.0-47.0) 38.0 % (37.0-47.0) Mean Corpuscular Volume 90 FL (80-99) 90 FL (80-99) Mean Corpuscular Hemoglobin 29.2 PG (27.0-31.0) 29.8 PG (27.0-31.0) Mean Corpuscular Hemoglobin Concent 32.3 G/DL (32.0-36.0) 33.2 G/DL (32.0-36.0) Red Cell Distribution Width 12.7 % (11.6-14.8) 12.7 % (11.6-14.8) Platelet Count 252 K/UL (150-450) 202 K/UL (150-450) Mean Platelet Volume 8.4 FL (6.5-10.1) 8.0 FL (6.5-10.1) Neutrophils (%) (Auto) 67.1 % (45.0-75.0) 56.3 % (45.0-75.0) Lymphocytes (%) (Auto) 16.4 % (20.0-45.0) L 22.8 % (20.0-45.0) Monocytes (%) (Auto) 12.2 % (1.0-10.0) H 13.2 % (1.0-10.0) H Eosinophils (%) (Auto) 2.9 % (0.0-3.0) 6.5 % (0.0-3.0) H Basophils (%) (Auto) 1.4 % (0.0-2.0) 1.3 % (0.0-2.0) Prothrombin Time 11.5 SEC (9.30-11.50) Prothromb Time International Ratio 1.1 (0.9-1.1) Activated Partial Thromboplast Time 29 SEC (23-33) Sodium Level 135 MMOL/L (136-145) L 139 MMOL/L (136-145) Potassium Level 4.5 MMOL/L (3.5-5.1) 4.5 MMOL/L (3.5-5.1) Chloride Level 99 MMOL/L (98-107) 105 MMOL/L (98-107) Carbon Dioxide Level 30 MMOL/L (21-32) 30 MMOL/L (21-32) Anion Gap 6 mmol/L (5-15) 4 mmol/L (5-15) L Blood Urea Nitrogen 17 mg/dL (7-18) 11 mg/dL (7-18) Creatinine 1.1 MG/DL (0.55-1.30) 0.9 MG/DL (0.55-1.30) Estimat Glomerular Filtration Rate mL/min (>60) mL/min (>60) Glucose Level 86 MG/DL (74-106) 84 MG/DL (74-106) Calcium Level 9.5 MG/DL (8.5-10.1) 8.8 MG/DL (8.5-10.1) Total Bilirubin 0.3 MG/DL (0.2-1.0) 0.3 MG/DL (0.2-1.0) Aspartate Amino Transf (AST/SGOT) 27 U/L (15-37) 22 U/L (15-37) Alanine Aminotransferase (ALT/SGPT) 22 U/L (12-78) 22 U/L (12-78) Alkaline Phosphatase 120 U/L (46-116) H 106 U/L (46-116) Total Creatine Kinase 81 U/L (26-308) Troponin I 0.002 ng/mL (0.000-0.056) Total Protein 7.6 G/DL (6.4-8.2) 6.3 G/DL (6.4-8.2) L Albumin 3.4 G/DL (3.4-5.0) 2.8 G/DL (3.4-5.0) L Globulin 4.2 g/dL 3.5 g/dL Albumin/Globulin Ratio 0.8 (1.0-2.7) L 0.8 (1.0-2.7) L Lipase 142 U/L (73-393) Urine Color Pale yellow Urine Appearance Clear Urine pH 5 (4.5-8.0) Urine Specific [place] 1.005 (1.005-1.035) Urine Protein Negative (NEGATIVE) Urine Glucose (UA) Negative (NEGATIVE) Urine Ketones Negative (NEGATIVE) Urine Blood Negative (NEGATIVE) Urine Nitrite Negative (NEGATIVE) Urine Bilirubin Negative (NEGATIVE) Urine Urobilinogen Normal MG/DL (0.0-1.0) Urine Leukocyte Esterase 2+ (NEGATIVE) H Urine RBC 0 /HPF (0 - 2) Urine WBC 2-4 /HPF (0 - 2) Urine Squamous Epithelial Cells Few /LPF (NONE/OCC) Urine Bacteria Occasional /HPF (NONE) Phosphorus Level 4.7 MG/DL (2.5-4.9) Magnesium Level 2.0 MG/DL (1.8-2.4) Microbiology Date/Time Source Procedure Growth Status 10/09/18 12:23 Rectum Received Height (Feet): 5 Height (Inches): 6.00 Weight (Pounds): 100 General Appearance: WD/WN, no apparent distress, alert, thin Cardiovascular: normal rate Respiratory/Chest: normal breath sounds, no respiratory distress Abdominal Exam: normal bowel sounds, non tender, soft Extremities: non-tender Jen Zavaleta NP Oct 10, 2018 10:39
--- NOTE | 2018-10-10 10:57 | Diagnostic Imaging Report ---
APPROVED REPORT CPT Code: 12939 Present Symptoms Comments: BILATERAL LEGS PAIN. BILATERAL: Imaging reveals a patent deep venous system bilaterally. There is no evidence of thrombus within the femoral, popliteal or tibial segments. The greater saphenous veins are also within normal limits. Doppler indicates normal spontaneous flow within these segments.
--- NOTE | 2018-10-10 13:22 | NUR ---
RD ASSESSMENT & RECOMMENDATIONS SEE CARE ACTIVITY FOR COMPLETE ASSESSMENT DAILY ESTIMATED NEEDS: Needs based on Pulmonary, wound, mild - mod wasting , 56.6kg 28-33 kcals/kg 3800-7827 total kcals 1.25-1.5 g protein/kg 71-85 g total protein 25-30 mL/kg 4342-3214 total fluid mLs NUTRITION DIAGNOSIS: Increased kcal/prot needs R/T alteration in skin integrity as evidenced by multiple unstageable wounds, refer to EMR. CURRENT DIET:full liquid diet PO DIET RECOMMENDATIONS: Regular diet (texture per GI- full liquid, clear liquid, etc..) ADDITIONAL RECOMMENDATIONS: * CALIBRATED bedcale wt for accurate CBW * Weekly wt monitoring given generalized wasting * Ensure CLEAR TID - pt does not want other types of Ensure * Monitor BM regularity- c/o constipation * ADD SNACKS IN B/W ALL MEALS * Wound care: add TAMMIE BID + Vit C 250mg daily
--- NOTE | 2018-10-10 15:01 | Cardiology Report ---
APPROVED REPORT EKG Measurement Heart [id number] Atrial fibrillation Septal infarct, age undetermined Abnormal ECG
--- NOTE | 2018-10-10 17:33 | Consultation ---
History of Present Illness General Chief Complaint: Generalized Weakness Referring physician: TODD GALLEGOS Reason for Consultation: FTT Present Illness Allergies: Coded Allergies: PENICILLINS (Verified Allergy, Unknown, 01/12/16) SULFA (SULFONAMIDE ANTIBIOTICS) (Verified Allergy, Unknown, 01/12/16) Medication History Scheduled Apixaban (Eliquis), 2.5 MG PO Q12HR, (Reported) Benazepril Hcl* (Benazepril Hcl*), 5 MG ORAL DAILY, (Reported) Clonidine Hcl* (Catapres*), 0.1 MG ORAL EVERY 4 HOURS, (Reported) Cranberry (Cranberry), 450 MG PO BID, (Reported) Docusate Sodium* (Docusate Sodium*), 100 MG ORAL THREE TIMES A DAY, (Reported) Gabapentin* (Gabapentin*), 300 MG ORAL THREE TIMES A DAY, (Reported) Gabapentin* (Gabapentin*), 300 MG ORAL Q12HR, (Reported) Lactulose (Lactulose*), 30 ML ORAL DAILY, (Reported) Levothyroxine Sodium* (Levothyroxine Sodium*), 112 MCG ORAL ACBREAKFAST, ( Reported) Magnesium Hydroxide* (Milk Of Magnesia*), 30 ML ORAL Q6HR, (Reported) Memantine Hcl* (Namenda*), 5 MG ORAL DAILY, (Reported) Mirtazapine* (Remeron*), 30 MG ORAL BEDTIME, (Reported) Na Phos,M-B/Na Phos,Di-Ba* (Fleet Enema*), 133 ML RECTAL DAILY, (Reported) Oxybutynin Chloride (Oxybutynin Chloride), 5 MG ORAL BEDTIME, (Reported) Oxybutynin Chloride (Oxybutynin Chloride), 5 MG ORAL DAILY, (Reported) Pantoprazole* (Pantoprazole*), 40 MG ORAL DAILY, (Reported) Polyethylene Glycol 3350* (Polyethylene Glycol 3350*), 17 GM ORAL DAILY, ( Reported) Risperidone* (Risperdal*), 0.25 MG ORAL BID, (Reported) Sennosides (Senna), Unknown Dose PO HS, (Reported) Sertraline Hcl* (Zoloft*), 75 MG ORAL DAILY, (Reported) Trazodone Hcl* (Desyrel*), 100 MG ORAL BEDTIME, (Reported) Scheduled PRN Acetaminophen* (Acetaminophen 325MG Tablet*), 650 MG ORAL Q4H PRN for Mild Pain/ Temp > 100.5, (Reported) Bisacodyl* (Dulcolax*), 10 MG ORAL DAILY PRN for Constipation, (Reported) Clonidine Hcl* (Catapres*), 0.1 MG ORAL EVERY 4 HOURS PRN for SBP > 170, ( Reported) Diazepam* (Diazepam*), 10 MG ORAL HS PRN for Insomnia, (Reported) Hydrocodone Bit/Acetaminophen 5-325* ([place] 5-325*), 1 TAB ORAL Q4H PRN for Severe Pain (Pain Scale 7-10), (Reported) Magnesium Hydroxide* (Milk Of Magnesia*), 30 ML ORAL QHS PRN for Constipation, ( Reported) Na Phos,M-B/Na Phos,Di-Ba* (Fleet Enema*), 133 ML RECTAL QHS PRN for Constipation, (Reported) Nitroglycerin (Nitroglycerin), 0.4 MG SL Q5M PRN for chest pain, (Reported) Ondansetron* (Zofran*), 4 MG ORAL Q4HR PRN for Nausea & Vomiting, (Reported) Sennosides* (Sennosides*), 17.2 MG ORAL DAILY PRN for constipation, (Reported) Patient History Healthcare decision maker Resuscitation status Do Not Resuscitate Advanced Directive on File Yes Physical Exam Last 24 Hour Vital Signs Date Time Temp Pulse Resp B/P (MAP) Pulse Ox O2 Delivery O2 Flow Rate FiO2 10/10/18 16:00 98.8 91 16 115/62 (79) 96 10/10/18 11:46 98.2 75 16 98/60 (73) 96 10/10/18 09:12 107/59 10/10/18 09:00 Room Air 10/10/18 08:00 97.6 79 16 107/59 (75) 96 10/10/18 04:00 97.4 73 16 109/59 (76) 96 10/10/18 00:00 97.3 68 18 108/56 (73) 98 10/09/18 21:00 Room Air 10/09/18 20:00 97.7 75 18 104/57 (73) 99 Intake and Output 10/09/18 10/10/18 19:00 07:00 Intake Total 1240 ml 120 ml Balance 1240 ml 120 ml Intake Oral 240 ml 120 ml IV Total 1000 ml # Voids 3 2 Laboratory Tests Test 10/10/18 07:42 White Blood Count 4.8 K/UL (4.8-10.8) Red Blood Count 4.23 M/UL (4.20-5.40) Hemoglobin 12.6 G/DL (12.0-16.0) Hematocrit 38.0 % (37.0-47.0) Mean Corpuscular Volume 90 FL (80-99) Mean Corpuscular Hemoglobin 29.8 PG (27.0-31.0) Mean Corpuscular Hemoglobin Concent 33.2 G/DL (32.0-36.0) Red Cell Distribution Width 12.7 % (11.6-14.8) Platelet Count 202 K/UL (150-450) Mean Platelet Volume 8.0 FL (6.5-10.1) Neutrophils (%) (Auto) 56.3 % (45.0-75.0) Lymphocytes (%) (Auto) 22.8 % (20.0-45.0) Monocytes (%) (Auto) 13.2 % (1.0-10.0) H Eosinophils (%) (Auto) 6.5 % (0.0-3.0) H Basophils (%) (Auto) 1.3 % (0.0-2.0) Sodium Level 139 MMOL/L (136-145) Potassium Level 4.5 MMOL/L (3.5-5.1) Chloride Level 105 MMOL/L (98-107) Carbon Dioxide Level 30 MMOL/L (21-32) Anion Gap 4 mmol/L (5-15) L Blood Urea Nitrogen 11 mg/dL (7-18) Creatinine 0.9 MG/DL (0.55-1.30) Estimat Glomerular Filtration Rate mL/min (>60) Glucose Level 84 MG/DL (74-106) Calcium Level 8.8 MG/DL (8.5-10.1) Phosphorus Level 4.7 MG/DL (2.5-4.9) Magnesium Level 2.0 MG/DL (1.8-2.4) Total Bilirubin 0.3 MG/DL (0.2-1.0) Aspartate Amino Transf (AST/SGOT) 22 U/L (15-37) Alanine Aminotransferase (ALT/SGPT) 22 U/L (12-78) Alkaline Phosphatase 106 U/L (46-116) Total Protein 6.3 G/DL (6.4-8.2) L Albumin 2.8 G/DL (3.4-5.0) L Globulin 3.5 g/dL Albumin/Globulin Ratio 0.8 (1.0-2.7) L Height (Feet): 5 Height (Inches): 6.00 Weight (Pounds): 100 Medications Current Medications Medications (Trade) Dose Ordered Sig/Dejan Route PRN Reason Start Time Stop Time Status Last Admin Dose Admin Acetaminophen (Tylenol) 650 mg Q4H PRN ORAL Mild Pain/Temp > 100.5 10/09/18 15:15 11/08/18 15:14 Al Hydroxide/Mg Hydroxide (Mylanta) 30 ml Q6H PRN ORAL Abdominal cramps 10/10/18 15:15 11/09/18 15:14 10/10/18 16:57 Apixaban (Eliquis) 2.5 mg Q12HR ORAL 10/09/18 21:00 11/08/18 20:59 10/10/18 09:12 Benazepril HCl (Lotensin) 5 mg DAILY ORAL 10/10/18 09:00 11/09/18 08:59 10/10/18 09:12 Bisacodyl (Dulcolax) 10 mg DAILYPRN PRN ORAL Constipation 10/09/18 15:45 11/08/18 15:14 Clonidine HCl (Catapres Tab) 0.1 mg Q4H PRN ORAL SBP > 170 10/09/18 16:00 11/08/18 15:59 Diazepam (Valium) 10 mg BEDTIME ORAL 10/10/18 21:00 10/17/18 20:59 Dicyclomine HCl (Bentyl) 10 mg QIDPRN PRN ORAL ABDOMINAL CRAMPING 10/09/18 15:15 11/08/18 15:14 10/10/18 14:30 Docusate Sodium (Colace) 100 mg TWICE A DAY ORAL 10/09/18 18:00 11/08/18 17:59 10/10/18 16:57 Gabapentin (Neurontin) 300 mg Q12HR ORAL 10/09/18 21:00 7/10/19 20:59 10/10/18 09:13 Levothyroxine Sodium (Synthroid) 112 mcg ACBREAKFAST ORAL 10/10/18 06:30 11/09/18 06:29 10/10/18 06:10 Magnesium Hydroxide (Mom) 30 ml QHS PRN ORAL Constipation 10/09/18 16:00 11/08/18 15:59 Memantine (Namenda) 5 mg DAILY ORAL 10/10/18 09:00 11/09/18 08:59 10/10/18 09:13 Mirtazapine (Remeron) 30 mg BEDTIME ORAL 10/09/18 21:00 11/08/18 20:59 10/09/18 20:15 Oxybutynin Chloride (Ditropan) 5 mg BEDTIME ORAL 10/09/18 21:00 11/08/18 20:59 10/09/18 20:16 Pantoprazole (Protonix) 40 mg DAILY ORAL 10/10/18 09:00 11/09/18 08:59 10/10/18 09:13 Polyethylene Glycol (Miralax) 17 gm BEDTIME ORAL 10/10/18 21:00 11/09/18 20:59 Risperidone (RisperDAL) 0.25 mg BID ORAL 10/09/18 18:00 11/08/18 17:59 10/10/18 16:57 Sennosides (Senokot) 17.2 mg DAILYPRN PRN ORAL constipation 10/09/18 15:15 11/08/18 15:14 Sertraline HCl (Zoloft) 75 mg DAILY ORAL 10/10/18 09:00 11/09/18 08:59 10/10/18 09:13 Sodium Phosphate (Fleet's Sodium Phosl Enema) 133 ml QHS PRN RECTAL Constipation 10/09/18 16:00 11/08/18 15:59 Assessment/Plan Assessment/Plan: Hematology Consultation Reason for Consultation: FTT, secondary hypercoag disorder REQ : Todd Gallegos DOC: 10/10/18 HPI 83y old female presents emergency department today complaining of abdominal discomfort intermittently and become worse over the last week associated decreased appetite and essentially failure to thrive. Patient complains of abdominal discomfort. She denies any dysuria urinary frequency. Symptoms noted to be severe. Patient's primary care physician is Dr. Todd Manning he sent the patient here for further evaluation. No other modifying factors. No other associated signs and symptoms. No other complaints were noted. Gi has seen her , she had abdominal cramping and pain. Patient seen, awake alert and oriented x4 no apparent distress with no active signs symptoms of nausea vomiting. Was here during April 2018, which gi had plans for gastric tube to meet her nutritional needs at the patient. However, the patient began to increase her p.o. intake and was eventually discharged. Patient denies any diarrhea, has complaint of constipation in which she states she takes milk of magnesia and lactulose. The patient states is because of her abdominal cramping that she had a decrease in appetite and p[facility]. In addition, the patient stated that she disliked the food given to her there. The patient states that her last EGD and colonoscopy was approximately 2 years ago, in which she was diagnosed with gastric ulcer. Labs reviewed; no leukocytosis, no anemia, no transaminitis. Note that the patient is on Eliquis. Home Meds Sennosides (SENNA) 8.6 Mg Tablet, PO HS, TAB 10/09/18 Oxybutynin Chloride (OXYBUTYNIN CHLORIDE) 5 Mg Tablet, 5 MG ORAL DAILY, #30 TAB 0 Refills 10/09/18 Lactulose (LACTULOSE*) 20 Gm/30 Ml Solution, 30 ML ORAL DAILY, ML 0 Refills 10/09/18 Cranberry (CRANBERRY) 400 Mg Capsule, 450 MG PO BID, CAP 10/09/18 Benazepril Hcl* (BENAZEPRIL HCL*) 10 Mg Tablet, 5 MG ORAL DAILY, TAB 10/09/18 Trazodone Hcl* (DESYREL*) 100 Mg Tablet, 100 MG ORAL BEDTIME, TAB 04/26/18 Sertraline Hcl* (ZOLOFT*) 50 Mg Tablet, 75 MG ORAL DAILY, TAB 04/26/18 Sennosides* (SENNOSIDES*) 8.6 Mg Tablet, 17.2 MG ORAL DAILY PRN for constipation , TAB 04/26/18 Risperidone* (RISPERDAL*) 0.25 Mg Tablet, 0.25 MG ORAL BID, #30 TAB 0 Refills 04/26/18 Polyethylene Glycol 3350* (POLYETHYLENE GLYCOL 3350*) 17 Gm Powd.pack, 17 GM ORAL DAILY for constipation, PACKET 04/26/18 Pantoprazole* (PANTOPRAZOLE*) 40 Mg Tablet.dr, 40 MG ORAL DAILY, TAB 04/26/18 Oxybutynin Chloride (OXYBUTYNIN CHLORIDE) 5 Mg Tablet, 5 MG ORAL BEDTIME, #30 TAB 0 Refills 04/26/18 Ondansetron* (ZOFRAN*) 4 Mg Tablet, 4 MG ORAL Q4HR PRN for Nausea & Vomiting, TAB 04/26/18 Memantine Hcl* (NAMENDA*) 5 Mg Tablet, 5 MG ORAL DAILY, TAB 04/26/18 Magnesium Hydroxide* (MILK OF MAGNESIA*) 400 Mg/5 Ml Oral.susp, 30 ML ORAL Q6HR for constipation, ML 04/26/18 Levothyroxine Sodium* (LEVOTHYROXINE SODIUM*) 75 Mcg Tablet, 112 MCG ORAL ACBREAKFAST, TAB Take in the morning on an empty stomach, at least 30 minutes before food. 04/26/18 Hydrocodone Bit/Acetaminophen 5-325* (NORCO 5-325*) 1 Each Tablet, 1 TAB ORAL Q4H PRN for Severe Pain (Pain Scale 7-10), TAB 0 Refills 04/26/18 Gabapentin* (GABAPENTIN*) 300 Mg Capsule, 300 MG ORAL Q12HR, CAP 0 Refills 04/26/18 Docusate Sodium* (DOCUSATE SODIUM*) 100 Mg Capsule, 100 MG ORAL THREE TIMES A DAY, CAP 04/26/18 Clonidine Hcl* (CATAPRES*) 0.1 Mg Tablet, 0.1 MG ORAL EVERY 4 HOURS for sbp >170 , TAB 04/26/18 Bisacodyl* (DULCOLAX*) 5 Mg Tablet.dr, 10 MG ORAL DAILY PRN for Constipation, # 10 TAB 0 Refills 04/26/18 Apixaban (ELIQUIS) 2.5 Mg Tablet, 2.5 MG PO Q12HR, TAB 04/26/18 Acetaminophen* (ACETAMINOPHEN 325MG TABLET*) 325 Mg Tablet, 650 MG ORAL Q4H PRN for Mild Pain/Temp > 100.5, TAB 04/26/18 Mirtazapine* (REMERON*) 30 Mg Tablet, 30 MG ORAL BEDTIME, TAB 04/20/18 Gabapentin* (GABAPENTIN*) 300 Mg Capsule, 300 MG ORAL THREE TIMES A DAY, CAP 0 Refills 04/20/18 Na Phos,M-B/Na Phos,Di-Ba* (FLEET ENEMA*) 133 Ml Enema, 133 ML RECTAL DAILY, ML 0 Refills 04/20/18 Nitroglycerin (NITROGLYCERIN) 0.4 Mg Tab.subl, 0.4 MG SL Q5M PRN for chest pain , TAB 06/03/16 Diazepam* (DIAZEPAM*) 10 Mg Tablet, 10 MG ORAL HS PRN for Insomnia, TAB 0 Refills 06/03/16 Med list reviewed/reconciled: Yes Allergies: Coded Allergies: PENICILLINS (Verified Allergy, Unknown, 01/12/16) SULFA (SULFONAMIDE ANTIBIOTICS) (Verified Allergy, Unknown, 01/12/16) Patient History History Provided By: Patient, Medical Record PMH Narrative Past Medical History: HTN, COPD Past Surgical History: none Pertinent Family History: none Social History: Denies: smoking, alcohol use, drug use Reviewed Nursing Documentation: PMH: Agreed; PSxH: Agreed Nursing Documentation-PMH Past Medical History: No History, Except For Hx Cardiac Problems: No Hx Hypertension: Yes Hx Pacemaker: No Hx Asthma: No Hx COPD: Yes Hx Cancer: No Hx Gastrointestinal Problems: Yes Hx Dialysis: No Hx Neurological Problems: No Hx Cerebrovascular Accident: No Hx Seizures: No Social History: Denies: smoking, alcohol use, drug use, other Review of Systems All Other Systems: negative except mentioned in HPI Physical Exam Last 24 Hour Vital Signs Date Time Temp Pulse Resp B/P (MAP) Pulse Ox O2 Delivery O2 Flow Rate FiO2 10/10/18 16:00 98.8 91 16 115/62 (79) 96 10/10/18 11:46 98.2 75 16 98/60 (73) 96 10/10/18 09:12 107/59 10/10/18 09:00 Room Air 10/10/18 08:00 97.6 79 16 107/59 (75) 96 10/10/18 04:00 97.4 73 16 109/59 (76) 96 10/10/18 00:00 97.3 68 18 108/56 (73) 98 10/09/18 21:00 Room Air 10/09/18 20:00 97.7 75 18 104/57 (73) 99 Laboratory Tests Test 10/09/18 11:30 10/09/18 13:15 White Blood Count 4.6 K/UL (4.8-10.8) L Red Blood Count 4.63 M/UL (4.20-5.40) Hemoglobin 13.5 G/DL (12.0-16.0) Hematocrit 41.8 % (37.0-47.0) Mean Corpuscular Volume 90 FL (80-99) Mean Corpuscular Hemoglobin 29.2 PG (27.0-31.0) Mean Corpuscular Hemoglobin Concent 32.3 G/DL (32.0-36.0) Red Cell Distribution Width 12.7 % (11.6-14.8) Platelet Count 252 K/UL (150-450) Mean Platelet Volume 8.4 FL (6.5-10.1) Neutrophils (%) (Auto) 67.1 % (45.0-75.0) Lymphocytes (%) (Auto) 16.4 % (20.0-45.0) L Monocytes (%) (Auto) 12.2 % (1.0-10.0) H Eosinophils (%) (Auto) 2.9 % (0.0-3.0) Basophils (%) (Auto) 1.4 % (0.0-2.0) Prothrombin Time 11.5 SEC (9.30-11.50) Prothromb Time International Ratio 1.1 (0.9-1.1) Activated Partial Thromboplast Time 29 SEC (23-33) Sodium Level 135 MMOL/L (136-145) L Potassium Level 4.5 MMOL/L (3.5-5.1) Chloride Level 99 MMOL/L (98-107) Carbon Dioxide Level 30 MMOL/L (21-32) Anion Gap 6 mmol/L (5-15) Blood Urea Nitrogen 17 mg/dL (7-18) Creatinine 1.1 MG/DL (0.55-1.30) Estimat Glomerular Filtration Rate mL/min (>60) Glucose Level 86 MG/DL (74-106) Calcium Level 9.5 MG/DL (8.5-10.1) Total Bilirubin 0.3 MG/DL (0.2-1.0) Aspartate Amino Transf (AST/SGOT) 27 U/L (15-37) Alanine Aminotransferase (ALT/SGPT) 22 U/L (12-78) Alkaline Phosphatase 120 U/L (46-116) H Total Creatine Kinase 81 U/L (26-308) Troponin I 0.002 ng/mL (0.000-0.056) Total Protein 7.6 G/DL (6.4-8.2) Albumin 3.4 G/DL (3.4-5.0) Globulin 4.2 g/dL Albumin/Globulin Ratio 0.8 (1.0-2.7) L Lipase 142 U/L (73-393) Urine Color Pale yellow Urine Appearance Clear Urine pH 5 (4.5-8.0) Urine Specific [place] 1.005 (1.005-1.035) Urine Protein Negative (NEGATIVE) Urine Glucose (UA) Negative (NEGATIVE) Urine Ketones Negative (NEGATIVE) Urine Blood Negative (NEGATIVE) Urine Nitrite Negative (NEGATIVE) Urine Bilirubin Negative (NEGATIVE) Urine Urobilinogen Normal MG/DL (0.0-1.0) Urine Leukocyte Esterase 2+ (NEGATIVE) H Urine RBC 0 /HPF (0 - 2) Urine WBC 2-4 /HPF (0 - 2) Urine Squamous Epithelial Cells Few /LPF (NONE/OCC) Urine Bacteria Occasional /HPF (NONE) Gen: well appearing, no apparent distress, alert, thin Head: normocephalic EENT: PERRL/EOMI, normal ENT inspection Respiratory: normal breath sounds, no respiratory distress Cardiovascular: normal rate Gastrointestinal: normal inspection, non tender Rectal: deferred Genitourinary: no CVA tenderness Musculoskeletal: normal inspection, back normal Neurologic: normal inspection, alert, oriented x3, responsive Psychiatric: normal inspection, judgement/insight normal Skin: normal inspection, normal color, no rash, warm/dry Lymphatic: normal inspection Assessment and Recs: # Failure to thrive (FTT) - decreased bmi and low protein, recently was admitted for dehydration, dyshpagia, as per gi care --> have ordered for cea level --> will also obtain q3d caloric counts --> may consider mirtazapine as appetite stimulant --> GI consult on a prn basis, as needed for endosc (HOWEVER refusing) # 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 --> given h/h is stable --> okay to continue eliquis at this time --> further recs per cards # Leukopenia -- multiple etiologies could be related to underlying liver disease , medication-induced, infection versus viral syndrome --> peripheral smear has been ordered and does not show significant abnormalities --> Medications have been reviewed --> Continue to monitor for improvement, trend wbc 4.6-->4.8 --> reverse isolation if wbc downtrends # Abdominal cramping --> Bentyl as needed for abdominal Cramping --> Bowel regimen, hold all laxatives at this time --> per gi recs # Constipation # GERD (gastroesophageal reflux disease) # Severe malnutrition # Abdominal pain # Dehydration The timing of this note does not necessarily reflect the time of the patient was seen. GREATLY APPRECIATE CONSULTATION. Edwin Orozco MD Oct 10, 2018 17:33
--- NOTE | 2018-10-10 18:45 | History and Physical Report ---
DATE OF ADMISSION: 10/09/2018 NOTE: POOR AUDIO HISTORY OF PRESENT ILLNESS: The patient is admitted for of abdominal pain. The patient has also psychiatric history with depression, anxiety. The patient is admitted for also dehydration, decreased urine output, and has been going on for days. Denies nausea, vomiting, or diarrhea. No fever or chills. Denies shortness of breath. Denies cough. PAST MEDICAL HISTORY: Depression, anxiety, hypertension, hypothyroidism, urinary incontinence, constipation, GERD, and OCD. PAST SURGICAL HISTORY: Hernia repair. ALLERGIES: Penicillin and sulfa. MEDICATIONS: Eliquis, lorazepam, mirtazapine, oxybutynin, Senokot, and sertraline. FAMILY HISTORY: Noncontributory. SOCIAL HISTORY: Denies smoking, alcohol, or illicit drugs. Comes from a [facility]. REVIEW OF SYSTEMS: HEENT: Denies headaches. RESPIRATORY: Denies shortness of breath. Denies cough. CARDIOVASCULAR: Denies chest pain or orthopnea. GASTROINTESTINAL: Reports abdominal pain. Denies nausea, vomiting, or diarrhea. EXTREMITIES: She does have some back pain, which is chronic. CENTRAL NERVOUS SYSTEM: No change in vision or speech pattern. PHYSICAL EXAMINATION: VITAL SIGNS: Temperature is 97.5, pulse is 71, blood pressure 124/68. HEENT: PERRLA. NECK: Supple. No lymphadenopathy. CHEST: Clear to auscultation. CARDIOVASCULAR: Regular rate and rhythm. No murmurs or extra sounds. GASTROINTESTINAL: Abdomen is soft. No organomegaly. Abdomen is EXTREMITIES: No edema. CENTRAL NERVOUS SYSTEMS: Reflexes are equal on both sides. Moves all four extremities. No edema. LABORATORY DATA: Sodium 137, potassium 4.5, BUN of 17, creatinine 1.1, and glucose of 86. WBC of 4.6, hemoglobin 13.5, platelets 252. ASSESSMENT/PLAN: Dehydration. abdominal pain. I have asked Dr. Candelaria, Dr. Giraldo, Dr. Aly to see the patient for dehydration, IV fluids, and abdominal pain and also for depression, anxiety, and OCD. Amber Gallegos M.D. DR: DONA JOB#: [id number] CC:
--- NOTE | 2018-10-10 19:00 | NUR ---
NURSE NOTES: Received a report from Kathe Luna RN. Pt is in stable condition. AAOX4. Able to make needs known. On room air. No c/o pain/discomfort. IV site is patent and intact. Bed in lowest position. Bed alarm is on. Call light within reach. Will continue to monitor.
--- NOTE | 2018-10-10 19:30 | NUR ---
HAND-OFF: Report given to Chica HOPKINS.
[2018-10-10] MEDS: Miralax 17gm pkt ORAL SCH (21:00)
[2018-10-10] MEDS: Milk of Magnesia 30ml Ud ORAL PRN (21:04)
[2018-10-10] MEDS: Oxybutynin 5mg tab ORAL SCH (21:05)
--- NOTE | 2018-10-10 21:32 | NUR ---
NURSE NOTES: Explained to the pt that Valium will make her BP to go down. Since the BP at 1999 was 83/48 and after 1 hr it became 100/50. Chica HOKPINS taught the pt about the side effects of the Valium. Pt refused the Valium for tonight due to the side effects. But she wished for not to take her V/S at 0000 and 0400 tomorrow because she verbalized of wanting to have a restful sleep, and not to bother her. Charge Nurse Mony made aware.
--- NOTE | 2018-10-10 22:09 | General Progress Note ---
Assessment/Plan Problem List: (1) Hypothyroidism ICD Codes: E03.9 - Hypothyroidism, unspecified SNOMED: 78382636 (2) HTN (hypertension) ICD Codes: I10 - Essential (primary) hypertension SNOMED: 19076303 (3) Anxiety disorder ICD Codes: F41.9 - Anxiety disorder, unspecified SNOMED: 806188323 (4) OCD (obsessive compulsive disorder) ICD Codes: F42.9 - Obsessive-compulsive disorder, unspecified SNOMED: 823208365 (5) UTI (urinary tract infection) ICD Codes: N39.0 - Urinary tract infection, site not specified SNOMED: 77435272 (6) Abdominal pain ICD Codes: R10.9 - Unspecified abdominal pain SNOMED: 65123481 (7) Severe malnutrition ICD Codes: E43 - Unspecified severe protein-calorie malnutrition SNOMED: 71240127 (8) Dehydration ICD Codes: E86.0 - Dehydration SNOMED: 36494778 (9) Failure to thrive SNOMED: 68790979 (10) Weakness ICD Codes: R53.1 - Weakness SNOMED: 80543149 Status: progressing, unchanged Assessment/Plan: afebrile abdominal pain uti malnutrition abdomin cramps depression and anxiety Subjective ROS Limited/Unobtainable: Yes Gastrointestinal/Abdominal: Reports: abdominal pain Allergies: Coded Allergies: PENICILLINS (Verified Allergy, Unknown, 01/12/16) SULFA (SULFONAMIDE ANTIBIOTICS) (Verified Allergy, Unknown, 01/12/16) Objective Last 24 Hour Vital Signs Date Time Temp Pulse Resp B/P (MAP) Pulse Ox O2 Delivery O2 Flow Rate FiO2 10/10/18 21:00 78 18 100/50 (67) 97 10/10/18 20:00 98.3 81 18 83/48 (60) 98 10/10/18 16:00 98.8 91 16 115/62 (79) 96 10/10/18 11:46 98.2 75 16 98/60 (73) 96 10/10/18 09:12 107/59 10/10/18 09:00 Room Air 10/10/18 08:00 97.6 79 16 107/59 (75) 96 10/10/18 04:00 97.4 73 16 109/59 (76) 96 10/10/18 00:00 97.3 68 18 108/56 (73) 98 Intake and Output 10/09/18 10/10/18 19:00 07:00 Intake Total 1240 ml 120 ml Balance 1240 ml 120 ml Intake Oral 240 ml 120 ml IV Total 1000 ml # Voids 3 2 Laboratory Tests 10/10/18 07:42: White Blood Count 4.8, Red Blood Count 4.23, Hemoglobin 12.6, Hematocrit 38.0, Mean Corpuscular Volume 90, Mean Corpuscular Hemoglobin 29.8, Mean Corpuscular Hemoglobin Concent 33.2, Red Cell Distribution Width 12.7, Platelet Count 202, Mean Platelet Volume 8.0, Neutrophils (%) (Auto) 56.3, Lymphocytes (%) (Auto) 22.8, Monocytes (%) (Auto) 13.2H, Eosinophils (%) (Auto) 6.5H, Basophils (%) ( Auto) 1.3, Sodium Level 139, Potassium Level 4.5, Chloride Level 105, Carbon Dioxide Level 30, Anion Gap 4L, Blood Urea Nitrogen 11, Creatinine 0.9, Estimat Glomerular Filtration Rate , Glucose Level 84, Calcium Level 8.8, Phosphorus Level 4.7, Magnesium Level 2.0, Total Bilirubin 0.3, Aspartate Amino Transf (AST /SGOT) 22, Alanine Aminotransferase (ALT/SGPT) 22, Alkaline Phosphatase 106, Total Protein 6.3L, Albumin 2.8L, Globulin 3.5, Albumin/Globulin Ratio 0.8L, Carcinoembryonic Antigen [Pending] Height (Feet): 5 Height (Inches): 6.00 Weight (Pounds): 100 Neck: supple Cardiovascular: normal rate Respiratory/Chest: lungs clear Abdomen: soft Amber Gallegos MD Oct 10, 2018 22:08
--- NOTE | 2018-10-10 22:30 | Consultation ---
DATE OF CONSULTATION: 10/09/2018 CONSULTING PHYSICIAN: Manuela Giraldo M.D. HISTORY OF PRESENT ILLNESS: This is an 83-year-old patient who is well known to this physician from the long term. The patient has a history of depression, anxiety, eating disorder. The patient is being admitted for medical stabilization. The patient is presenting with anxiety, depressed mood, anhedonia, worthlessness, hopelessness. The patient also requested Valium at night. No suicidal or homicidal ideation. PAST PSYCHIATRIC HISTORY: As above. MEDICAL HISTORY: Significant for UTI, SOB, hyponatremia, leukocytosis, AFib, LFTs abnormality, bronchitis, weakness. ALLERGIES: Penicillin, sulfa. SUBSTANCE ABUSE HISTORY: No known history of illicit drug use or alcohol. MENTAL STATUS EXAMINATION: The patient is alert, oriented times self, place, and situation. Mood is depressed and anxious. Affect is constricted, congruent with mood. Thought process is linear. Thought content, no suicidal or homicidal ideation. ASSESSMENT: Clinton I Major depressive disorder. OCD. Clinton II Deferred. Clinton III Generalized weakness. Clinton IV Low. Clinton V 50. PLAN: 1. The patient will be started on Remeron. 2. The patient will be continued on Zoloft. 3. Valium 10 at bedtime. 4. Provide the patient with reality orientation and supportive therapy. Manuela Giraldo M.D. DR: JOSE JOB#: [id number] CC:
--- NOTE | 2018-10-10 22:30 | Progress Note ---
DATE: 10/10/2018 SUBJECTIVE: The patient did not receive the Valium last night. She is anxious and agitated. Depressed mood, anhedonia, worthlessness, hopelessness, decreased energy. MENTAL STATUS EXAMINATION: The patient is alert and oriented x4. Calm and cooperative. No behavior issues. Mood is anxious. Affect is constricted, congruent with mood. Thought process is linear. Thought content, no suicidal or homicidal ideations. ASSESSMENT: Major depressive disorder, OCD. PLAN: We will continue current medications. Provide the patient reality orientation and supportive therapy. Manuela Giraldo M.D. DR: JOSE JOB#: [id number] CC:
[2018-10-11 06:59] LABS: BASOPHILS % (AUTO) 1.3 % (0.0-2.0); EOSINOPHILS % (AUTO) 5.8 % (0.0-3.0); HEMATOCRIT 36.4 % (37.0-47.0); LYMPHOCYTES % (AUTO) 23.9 % (20.0-45.0); MEAN CORPUSCULAR VOLUME 90 FL (80-99); MONOCYTES % (AUTO) 11.6 % (1.0-10.0); NEUTROPHILS % (AUTO) 57.5 % (45.0-75.0); PLATELET COUNT 193 K/UL (150-450); RED BLOOD COUNT 4.05 M/UL (4.20-5.40); RED CELL DISTRIBUTION WIDTH 12.9 % (11.6-14.8); WHITE BLOOD COUNT 6.6 K/UL (4.8-10.8)
--- NOTE | 2018-10-11 07:00 | NUR ---
HAND-OFF: Report given to KELLIE Wynne.
[2018-10-11 07:15] LABS: ANION GAP 6 mmol/L (5-15); BLOOD UREA NITROGEN 16 mg/dL (7-18); CALCIUM 8.9 MG/DL (8.5-10.1); CARBON DIOXIDE 28 MMOL/L (21-32); CHLORIDE 102 MMOL/L (98-107); POTASSIUM 4.5 MMOL/L (3.5-5.1); SODIUM 136 MMOL/L (136-145)
[2018-10-11 08:00] VITALS: BP 123/71
--- NOTE | 2018-10-11 08:10 | NUR ---
NURSE NOTES: Patient alert x4, on room air, no sign of distress and shortness of breath; no sing of chest pain; IV Right AC flushes well; side rails up x2, bed at lowest position, breaks engaged. call light within reach. will keep monitoring.
[2018-10-11] MEDS: Memantine 5 MG TAB ORAL SCH (08:56)
[2018-10-11] MEDS: Docusate 100mg cap ORAL SCH ×2 (08:56→17:28)
[2018-10-11] MEDS: Sertraline 50mg tab ORAL SCH (08:56)
[2018-10-11] MEDS: Eliquis 2.5mg tablet ORAL SCH ×2 (08:57→22:09)
[2018-10-11] MEDS: Benazepril 10mg tab ORAL SCH (08:57)
--- NOTE | 2018-10-11 10:02 | GI Progress Note ---
Assessment/Plan Problems: (1) Abdominal pain ICD Codes: R10.9 - Unspecified abdominal pain SNOMED: 73001694 (2) Constipation ICD Codes: K59.00 - Constipation, unspecified SNOMED: 75819264 (3) GERD (gastroesophageal reflux disease) ICD Codes: K21.9 - Gastro-esophageal reflux disease without esophagitis SNOMED: 679884039 (4) Abdominal pain ICD Codes: R10.9 - Unspecified abdominal pain SNOMED: 12103381 (5) Severe malnutrition ICD Codes: E43 - Unspecified severe protein-calorie malnutrition SNOMED: 83053404 (6) Abdominal cramping ICD Codes: R10.9 - Unspecified abdominal pain SNOMED: 75396452, 481082289 (7) Dehydration ICD Codes: E86.0 - Dehydration SNOMED: 38296433 (8) Failure to thrive SNOMED: 76706294 (9) Weakness ICD Codes: R53.1 - Weakness SNOMED: 36187102 Status: stable Status Narrative Discussed with Dr. Candelaria Assessment/Plan refused GI procedures adv to mechanical soft diet, tolerating Bentyl as needed for abdominal Cramping Bowel regimen, hold all aggressive laxatives at this time. Hold lactulose. Colace 100 mg 3 times daily Senokot as needed Push p.o. Zofran as needed PPI IV/PO Hydration The patient was seen and examined at bedside and all new and available data was reviewed in the patients chart. I agree with the above findings, impression and plan. (Patient seen earlier today. Signature stamp does not reflect patient encounter time.). - Keon Candelaria MD Subjective Subjective Abdominal cramping after p.o. intake States she has not had an episode of cramping since admission Objective Last 24 Hour Vital Signs Date Time Temp Pulse Resp B/P (MAP) Pulse Ox O2 Delivery O2 Flow Rate FiO2 10/11/18 08:57 123/71 10/11/18 08:00 97.6 79 20 123/71 (88) 96 10/10/18 21:00 78 18 100/50 (67) 97 10/10/18 21:00 Room Air 10/10/18 20:00 98.3 81 18 83/48 (60) 98 10/10/18 16:00 98.8 91 16 115/62 (79) 96 10/10/18 11:46 98.2 75 16 98/60 (73) 96 Intake and Output 10/10/18 10/11/18 19:00 07:00 Intake Total 800 ml Balance 800 ml Intake Oral 800 ml # Voids 3 2 Laboratory Tests Test 10/11/18 05:10 White Blood Count 6.6 K/UL (4.8-10.8) Red Blood Count 4.05 M/UL (4.20-5.40) L Hemoglobin 12.0 G/DL (12.0-16.0) Hematocrit 36.4 % (37.0-47.0) L Mean Corpuscular Volume 90 FL (80-99) Mean Corpuscular Hemoglobin 29.8 PG (27.0-31.0) Mean Corpuscular Hemoglobin Concent 33.1 G/DL (32.0-36.0) Red Cell Distribution Width 12.9 % (11.6-14.8) Platelet Count 193 K/UL (150-450) Mean Platelet Volume 8.6 FL (6.5-10.1) Neutrophils (%) (Auto) 57.5 % (45.0-75.0) Lymphocytes (%) (Auto) 23.9 % (20.0-45.0) Monocytes (%) (Auto) 11.6 % (1.0-10.0) H Eosinophils (%) (Auto) 5.8 % (0.0-3.0) H Basophils (%) (Auto) 1.3 % (0.0-2.0) Sodium Level 136 MMOL/L (136-145) Potassium Level 4.5 MMOL/L (3.5-5.1) Chloride Level 102 MMOL/L (98-107) Carbon Dioxide Level 28 MMOL/L (21-32) Anion Gap 6 mmol/L (5-15) Blood Urea Nitrogen 16 mg/dL (7-18) Creatinine 1.0 MG/DL (0.55-1.30) Estimat Glomerular Filtration Rate mL/min (>60) Glucose Level 81 MG/DL (74-106) Calcium Level 8.9 MG/DL (8.5-10.1) Height (Feet): 5 Height (Inches): 6.00 Weight (Pounds): 103 General Appearance: WD/WN, no apparent distress, alert, thin Cardiovascular: normal rate Respiratory/Chest: normal breath sounds, no respiratory distress Abdominal Exam: normal bowel sounds, non tender, soft Extremities: non-tender Jen Zavaleta NP Oct 11, 2018 10:02
--- NOTE | 2018-10-11 11:56 | Hematology/Onc Progress Note ---
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 --> given h/h is stable --> okay to continue eliquis at this time --> further recs per cards # Leukopenia -- multiple etiologies could be related to underlying liver disease , medication-induced, infection versus viral syndrome --> peripheral smear has been ordered and does not show significant abnormalities --> Medications have been reviewed --> Continue to monitor for improvement, trend wbc 4.6-->4.8-->6.6 --> reverse isolation if wbc downtrends # Abdominal cramping --> Bentyl as needed for abdominal Cramping --> Bowel regimen, hold all laxatives at this time --> per gi recs # Constipation # GERD (gastroesophageal reflux disease) # Severe malnutrition # Abdominal pain # Dehydration The timing of this note does not necessarily reflect the time of the patient was seen. GREATLY APPRECIATE CONSULTATION. Subjective Allergies: Coded Allergies: PENICILLINS (Verified Allergy, Unknown, 01/12/16) SULFA (SULFONAMIDE ANTIBIOTICS) (Verified Allergy, Unknown, 01/12/16) Subjective 10/11: Pt alert x4, no signs of distress and shortness of breath; no sign of chest pain Objective Objective Current Medications Medications (Trade) Dose Ordered Sig/Dejan Route PRN Reason Start Time Stop Time Status Last Admin Dose Admin Acetaminophen (Tylenol) 650 mg Q4H PRN ORAL Mild Pain/Temp > 100.5 10/09/18 15:15 11/08/18 15:14 Al Hydroxide/Mg Hydroxide (Mylanta) 30 ml Q6H PRN ORAL Abdominal cramps 10/10/18 15:15 11/09/18 15:14 10/11/18 09:07 Apixaban (Eliquis) 2.5 mg Q12HR ORAL 10/09/18 21:00 11/08/18 20:59 10/11/18 08:57 Benazepril HCl (Lotensin) 5 mg DAILY ORAL 10/10/18 09:00 11/09/18 08:59 10/11/18 08:57 Bisacodyl (Dulcolax) 10 mg DAILYPRN PRN ORAL Constipation 10/09/18 15:45 11/08/18 15:14 Clonidine HCl (Catapres Tab) 0.1 mg Q4H PRN ORAL SBP > 170 10/09/18 16:00 11/08/18 15:59 Diazepam (Valium) 10 mg BEDTIME ORAL 10/10/18 21:00 10/17/18 20:59 Dicyclomine HCl (Bentyl) 10 mg QIDPRN PRN ORAL ABDOMINAL CRAMPING 10/09/18 15:15 11/08/18 15:14 10/10/18 14:30 Docusate Sodium (Colace) 100 mg TWICE A DAY ORAL 10/09/18 18:00 11/08/18 17:59 10/11/18 08:56 Gabapentin (Neurontin) 300 mg Q12HR ORAL 10/09/18 21:00 11/08/18 20:59 10/11/18 08:57 Levothyroxine Sodium (Synthroid) 112 mcg ACBREAKFAST ORAL 10/10/18 06:30 11/09/18 06:29 10/11/18 06:34 Magnesium Hydroxide (Mom) 30 ml QHS PRN ORAL Constipation 10/09/18 16:00 11/08/18 15:59 10/10/18 21:04 Memantine (Namenda) 5 mg DAILY ORAL 10/10/18 09:00 11/09/18 08:59 10/11/18 08:56 Mirtazapine (Remeron) 30 mg BEDTIME ORAL 10/09/18 21:00 11/08/18 20:59 10/10/18 21:05 Oxybutynin Chloride (Ditropan) 5 mg BEDTIME ORAL 10/09/18 21:00 11/08/18 20:59 10/10/18 21:05 Pantoprazole (Protonix) 40 mg DAILY ORAL 10/10/18 09:00 11/09/18 08:59 10/11/18 08:57 Polyethylene Glycol (Miralax) 17 gm BEDTIME ORAL 10/10/18 21:00 11/09/18 20:59 Risperidone (RisperDAL) 0.25 mg BID ORAL 10/09/18 18:00 11/08/18 17:59 10/11/18 08:56 Sennosides (Senokot) 17.2 mg DAILYPRN PRN ORAL constipation 10/09/18 15:15 11/08/18 15:14 Sertraline HCl (Zoloft) 75 mg DAILY ORAL 10/10/18 09:00 11/09/18 08:59 10/11/18 08:56 Sodium Phosphate (Fleet's Sodium Phosl Enema) 133 ml QHS PRN RECTAL Constipation 10/09/18 16:00 11/08/18 15:59 Last 24 Hour Vital Signs Date Time Temp Pulse Resp B/P (MAP) Pulse Ox O2 Delivery O2 Flow Rate FiO2 10/11/18 09:00 Room Air 10/11/18 08:57 123/71 10/11/18 08:00 97.6 79 20 123/71 (88) 96 10/10/18 21:00 78 18 100/50 (67) 97 10/10/18 21:00 Room Air 10/10/18 20:00 98.3 81 18 83/48 (60) 98 10/10/18 16:00 98.8 91 16 115/62 (79) 96 10/10/18 11:46 98.2 75 16 98/60 (73) 96 10/10/18 09:12 107/59 10/10/18 09:00 Room Air 10/10/18 08:00 97.6 79 16 107/59 (75) 96 10/10/18 04:00 97.4 73 16 109/59 (76) 96 10/10/18 00:00 97.3 68 18 108/56 (73) 98 10/09/18 21:00 Room Air 10/09/18 20:00 97.7 75 18 104/57 (73) 99 10/09/18 16:00 97.1 60 18 119/69 (86) 98 10/09/18 14:41 Room Air 10/09/18 13:31 97.7 91 16 108/72 100 Room Air 10/09/18 12:28 97.5 71 13 125/68 100 Room Air Intake and Output 10/10/18 10/11/18 18:59 06:59 Intake Total 800 ml Balance 800 ml Intake Oral 800 ml # Voids 3 2 Labs Test 10/09/18 11:30 10/09/18 13:15 10/10/18 07:42 10/11/18 05:10 White Blood Count 4.6 K/UL (4.8-10.8) 4.8 K/UL (4.8-10.8) 6.6 K/UL (4.8-10.8) Red Blood Count 4.63 M/UL (4.20-5.40) 4.23 M/UL (4.20-5.40) 4.05 M/UL (4.20-5.40) Hemoglobin 13.5 G/DL (12.0-16.0) 12.6 G/DL (12.0-16.0) 12.0 G/DL (12.0-16.0) Hematocrit 41.8 % (37.0-47.0) 38.0 % (37.0-47.0) 36.4 % (37.0-47.0) Mean Corpuscular Volume 90 FL (80-99) 90 FL (80-99) 90 FL (80-99) Mean Corpuscular Hemoglobin 29.2 PG (27.0-31.0) 29.8 PG (27.0-31.0) 29.8 PG (27.0-31.0) Mean Corpuscular Hemoglobin Concent 32.3 G/DL (32.0-36.0) 33.2 G/DL (32.0-36.0) 33.1 G/DL (32.0-36.0) Red Cell Distribution Width 12.7 % (11.6-14.8) 12.7 % (11.6-14.8) 12.9 % (11.6-14.8) Platelet Count 252 K/UL (150-450) 202 K/UL (150-450) 193 K/UL (150-450) Mean Platelet Volume 8.4 FL (6.5-10.1) 8.0 FL (6.5-10.1) 8.6 FL (6.5-10.1) Neutrophils (%) (Auto) 67.1 % (45.0-75.0) 56.3 % (45.0-75.0) 57.5 % (45.0-75.0) Lymphocytes (%) (Auto) 16.4 % (20.0-45.0) 22.8 % (20.0-45.0) 23.9 % (20.0-45.0) Monocytes (%) (Auto) 12.2 % (1.0-10.0) 13.2 % (1.0-10.0) 11.6 % (1.0-10.0) Eosinophils (%) (Auto) 2.9 % (0.0-3.0) 6.5 % (0.0-3.0) 5.8 % (0.0-3.0) Basophils (%) (Auto) 1.4 % (0.0-2.0) 1.3 % (0.0-2.0) 1.3 % (0.0-2.0) Prothrombin Time 11.5 SEC (9.30-11.50) Prothromb Time International Ratio 1.1 (0.9-1.1) Activated Partial Thromboplast Time 29 SEC (23-33) Sodium Level 135 MMOL/L (136-145) 139 MMOL/L (136-145) 136 MMOL/L (136-145) Potassium Level 4.5 MMOL/L (3.5-5.1) 4.5 MMOL/L (3.5-5.1) 4.5 MMOL/L (3.5-5.1) Chloride Level 99 MMOL/L (98-107) 105 MMOL/L (98-107) 102 MMOL/L (98-107) Carbon Dioxide Level 30 MMOL/L (21-32) 30 MMOL/L (21-32) 28 MMOL/L (21-32) Anion Gap 6 mmol/L (5-15) 4 mmol/L (5-15) 6 mmol/L (5-15) Blood Urea Nitrogen 17 mg/dL (7-18) 11 mg/dL (7-18) 16 mg/dL (7-18) Creatinine 1.1 MG/DL (0.55-1.30) 0.9 MG/DL (0.55-1.30) 1.0 MG/DL (0.55-1.30) Estimat Glomerular Filtration Rate mL/min (>60) mL/min (>60) mL/min (>60) Glucose Level 86 MG/DL (74-106) 84 MG/DL (74-106) 81 MG/DL (74-106) Calcium Level 9.5 MG/DL (8.5-10.1) 8.8 MG/DL (8.5-10.1) 8.9 MG/DL (8.5-10.1) Total Bilirubin 0.3 MG/DL (0.2-1.0) 0.3 MG/DL (0.2-1.0) Aspartate Amino Transf (AST/SGOT) 27 U/L (15-37) 22 U/L (15-37) Alanine Aminotransferase (ALT/SGPT) 22 U/L (12-78) 22 U/L (12-78) Alkaline Phosphatase 120 U/L (46-116) 106 U/L (46-116) Total Creatine Kinase 81 U/L (26-308) Troponin I 0.002 ng/mL (0.000-0.056) Total Protein 7.6 G/DL (6.4-8.2) 6.3 G/DL (6.4-8.2) Albumin 3.4 G/DL (3.4-5.0) 2.8 G/DL (3.4-5.0) Globulin 4.2 g/dL 3.5 g/dL Albumin/Globulin Ratio 0.8 (1.0-2.7) 0.8 (1.0-2.7) Lipase 142 U/L (73-393) Urine Color Pale yellow Urine Appearance Clear Urine pH 5 (4.5-8.0) Urine Specific [place] 1.005 (1.005-1.035) Urine Protein Negative (NEGATIVE) Urine Glucose (UA) Negative (NEGATIVE) Urine Ketones Negative (NEGATIVE) Urine Blood Negative (NEGATIVE) Urine Nitrite Negative (NEGATIVE) Urine Bilirubin Negative (NEGATIVE) Urine Urobilinogen Normal MG/DL (0.0-1.0) Urine Leukocyte Esterase 2+ (NEGATIVE) Urine RBC 0 /HPF (0 - 2) Urine WBC 2-4 /HPF (0 - 2) Urine Squamous Epithelial Cells Few /LPF (NONE/OCC) Urine Bacteria Occasional /HPF (NONE) Phosphorus Level 4.7 MG/DL (2.5-4.9) Magnesium Level 2.0 MG/DL (1.8-2.4) Carcinoembryonic Antigen 3.6 ng/mL (0.0-4.7) Height (Feet): 5 Height (Inches): 6.00 Weight (Pounds): 103 Edwin Orozco MD Oct 11, 2018 11:56
[2018-10-11 12:00] VITALS: BP 116/54
[2018-10-11] MEDS ORDERED: Lactulose 20gm/30ml UDC ORAL PRN (15:15)
[2018-10-11 16:00] VITALS: BP 113/57
--- NOTE | 2018-10-11 19:39 | NUR ---
HAND-OFF: Report given to Lesvia/KELLIE.
[2018-10-11 20:00] VITALS: BP 100/51
[2018-10-11] MEDS: Miralax 17gm pkt ORAL SCH (21:00)
--- NOTE | 2018-10-11 21:43 | General Progress Note ---
Assessment/Plan Problem List: (1) Hypothyroidism ICD Codes: E03.9 - Hypothyroidism, unspecified SNOMED: 30327796 (2) HTN (hypertension) ICD Codes: I10 - Essential (primary) hypertension SNOMED: 59416888 (3) Anxiety disorder ICD Codes: F41.9 - Anxiety disorder, unspecified SNOMED: 306763119 (4) OCD (obsessive compulsive disorder) ICD Codes: F42.9 - Obsessive-compulsive disorder, unspecified SNOMED: 316686502 (5) UTI (urinary tract infection) ICD Codes: N39.0 - Urinary tract infection, site not specified SNOMED: 40142017 (6) Abdominal pain ICD Codes: R10.9 - Unspecified abdominal pain SNOMED: 28140020 (7) Severe malnutrition ICD Codes: E43 - Unspecified severe protein-calorie malnutrition SNOMED: 81386569 (8) Dehydration ICD Codes: E86.0 - Dehydration SNOMED: 36826382 (9) Failure to thrive SNOMED: 96717340 (10) Weakness ICD Codes: R53.1 - Weakness SNOMED: 14513665 Status: stable Assessment/Plan: no change abdominal pain uti improving abdomin cramps depression and anxiety Subjective Gastrointestinal/Abdominal: Reports: abdominal pain Allergies: Coded Allergies: PENICILLINS (Verified Allergy, Unknown, 01/12/16) SULFA (SULFONAMIDE ANTIBIOTICS) (Verified Allergy, Unknown, 01/12/16) Objective Last 24 Hour Vital Signs Date Time Temp Pulse Resp B/P (MAP) Pulse Ox O2 Delivery O2 Flow Rate FiO2 10/11/18 20:00 97.2 79 18 100/51 (67) 97 10/11/18 16:00 98.2 69 20 113/57 (75) 97 10/11/18 12:00 98.1 74 20 116/54 (74) 98 10/11/18 09:00 Room Air 10/11/18 08:57 123/71 10/11/18 08:00 97.6 79 20 123/71 (88) 96 Intake and Output 10/10/18 10/11/18 19:00 07:00 Intake Total 800 ml Balance 800 ml Intake Oral 800 ml # Voids 3 2 Laboratory Tests 10/11/18 05:10: White Blood Count 6.6, Red Blood Count 4.05L, Hemoglobin 12.0, Hematocrit 36.4L , Mean Corpuscular Volume 90, Mean Corpuscular Hemoglobin 29.8, Mean Corpuscular Hemoglobin Concent 33.1, Red Cell Distribution Width 12.9, Platelet Count 193, Mean Platelet Volume 8.6, Neutrophils (%) (Auto) 57.5, Lymphocytes (% ) (Auto) 23.9, Monocytes (%) (Auto) 11.6H, Eosinophils (%) (Auto) 5.8H, Basophils (%) (Auto) 1.3, Sodium Level 136, Potassium Level 4.5, Chloride Level 102, Carbon Dioxide Level 28, Anion Gap 6, Blood Urea Nitrogen 16, Creatinine 1.0, Estimat Glomerular Filtration Rate , Glucose Level 81, Calcium Level 8.9 Height (Feet): 5 Height (Inches): 6.00 Weight (Pounds): 103 Neck: supple Cardiovascular: normal rate Abdomen: tender Amber Gallegos MD Oct 11, 2018 21:43
--- NOTE | 2018-10-11 22:00 | NUR ---
NURSE NOTES: Chica HOPKINS taught the pt about the side effects of the Valium. Pt refused the Valium for tonight due to the side effect, hypotension. But she wished to not take her V/S at 0000 and 0400 tomorrow because she verbalized of wanting to have a restful sleep, and not to bother her. Charge Nurse Ashley made aware.
[2018-10-11] MEDS: Oxybutynin 5mg tab ORAL SCH (22:09)
[2018-10-11] MEDS: Milk of Magnesia 30ml Ud ORAL PRN (22:10)
[2018-10-12 06:18] LABS: BASOPHILS % (AUTO) 0.6 % (0.0-2.0); EOSINOPHILS % (AUTO) 3.2 % (0.0-3.0); HEMATOCRIT 39.2 % (37.0-47.0); LYMPHOCYTES % (AUTO) 21.4 % (20.0-45.0); MEAN CORPUSCULAR VOLUME 91 FL (80-99); MONOCYTES % (AUTO) 10.7 % (1.0-10.0); NEUTROPHILS % (AUTO) 64.2 % (45.0-75.0); PLATELET COUNT 230 K/UL (150-450); RED BLOOD COUNT 4.31 M/UL (4.20-5.40); RED CELL DISTRIBUTION WIDTH 12.8 % (11.6-14.8)
[2018-10-12 06:25] LABS: ANION GAP 5 mmol/L (5-15); BLOOD UREA NITROGEN 17 mg/dL (7-18); CALCIUM 8.2 MG/DL (8.5-10.1); CARBON DIOXIDE 31 MMOL/L (21-32); CHLORIDE 101 MMOL/L (98-107); CREATININE 0.9 MG/DL (0.55-1.30); POTASSIUM 4.5 MMOL/L (3.5-5.1); SODIUM 137 MMOL/L (136-145)
--- NOTE | 2018-10-12 07:00 | NUR ---
HAND-OFF: Report given to KELLIE Wynne.
--- NOTE | 2018-10-12 07:26 | NUR ---
NURSE NOTES: Patient alert x4, on room air, no sign of distress and shortness of breath; no sing of chest pain; IV Right AC flushes well; patient states that she feels constipated, and no bowel movement, will followup with that; side rails up x2, breaks engaged, bed at lowest position; call light within reach; will keep monitoring.
[2018-10-12 08:00] VITALS: BP 129/69
[2018-10-12] MEDS: Memantine 5 MG TAB ORAL SCH (09:00)
[2018-10-12] MEDS: Sertraline 50mg tab ORAL SCH (09:00)
[2018-10-12] MEDS: Eliquis 2.5mg tablet ORAL SCH ×2 (09:00→21:34)
[2018-10-12] MEDS: Benazepril 10mg tab ORAL SCH (09:00)
[2018-10-12] MEDS: Docusate 100mg cap ORAL SCH ×2 (09:00→17:27)
--- NOTE | 2018-10-12 10:22 | GI Progress Note ---
Assessment/Plan Problems: (1) Abdominal pain ICD Codes: R10.9 - Unspecified abdominal pain SNOMED: 91094128 (2) Constipation ICD Codes: K59.00 - Constipation, unspecified SNOMED: 34621547 (3) GERD (gastroesophageal reflux disease) ICD Codes: K21.9 - Gastro-esophageal reflux disease without esophagitis SNOMED: 235941282 (4) Abdominal pain ICD Codes: R10.9 - Unspecified abdominal pain SNOMED: 37001586 (5) Severe malnutrition ICD Codes: E43 - Unspecified severe protein-calorie malnutrition SNOMED: 36966141 (6) Abdominal cramping ICD Codes: R10.9 - Unspecified abdominal pain SNOMED: 28166149, 730958142 (7) Dehydration ICD Codes: E86.0 - Dehydration SNOMED: 54039670 (8) Failure to thrive SNOMED: 39094958 (9) Weakness ICD Codes: R53.1 - Weakness SNOMED: 67618179 Status: stable Status Narrative Discussed with Dr. Candelaria Assessment/Plan refused GI procedures okay for DC per GI standpoint adv to mechanical soft diet, tolerating Bowel regimen, hold all aggressive laxatives at this time. Hold lactulose. Colace 100 mg 3 times daily, miralax qhs Senokot as needed Push p.o. Zofran as needed PPI IV/PO Hydration The patient was seen and examined at bedside and all new and available data was reviewed in the patients chart. I agree with the above findings, impression and plan. (Patient seen earlier today. Signature stamp does not reflect patient encounter time.). - Keon Candelaria MD Subjective Subjective Abdominal cramping after p.o. intake States she has not had an episode of cramping since admission Had BM this morning Objective Last 24 Hour Vital Signs Date Time Temp Pulse Resp B/P (MAP) Pulse Ox O2 Delivery O2 Flow Rate FiO2 10/12/18 08:00 98.0 78 18 129/69 (89) 97 10/11/18 21:00 Room Air 10/11/18 20:00 97.2 79 18 100/51 (67) 97 10/11/18 16:00 98.2 69 20 113/57 (75) 97 10/11/18 12:00 98.1 74 20 116/54 (74) 98 Intake and Output 10/11/18 10/12/18 19:00 07:00 Intake Total 720 ml Balance 720 ml Intake Oral 720 ml # Voids 5 4 Laboratory Tests Test 10/12/18 05:05 White Blood Count 7.0 K/UL (4.8-10.8) Red Blood Count 4.31 M/UL (4.20-5.40) Hemoglobin 13.0 G/DL (12.0-16.0) Hematocrit 39.2 % (37.0-47.0) Mean Corpuscular Volume 91 FL (80-99) Mean Corpuscular Hemoglobin 30.1 PG (27.0-31.0) Mean Corpuscular Hemoglobin Concent 33.1 G/DL (32.0-36.0) Red Cell Distribution Width 12.8 % (11.6-14.8) Platelet Count 230 K/UL (150-450) Mean Platelet Volume 8.3 FL (6.5-10.1) Neutrophils (%) (Auto) 64.2 % (45.0-75.0) Lymphocytes (%) (Auto) 21.4 % (20.0-45.0) Monocytes (%) (Auto) 10.7 % (1.0-10.0) H Eosinophils (%) (Auto) 3.2 % (0.0-3.0) H Basophils (%) (Auto) 0.6 % (0.0-2.0) Sodium Level 137 MMOL/L (136-145) Potassium Level 4.5 MMOL/L (3.5-5.1) Chloride Level 101 MMOL/L (98-107) Carbon Dioxide Level 31 MMOL/L (21-32) Anion Gap 5 mmol/L (5-15) Blood Urea Nitrogen 17 mg/dL (7-18) Creatinine 0.9 MG/DL (0.55-1.30) Estimat Glomerular Filtration Rate mL/min (>60) Glucose Level 81 MG/DL (74-106) Calcium Level 8.2 MG/DL (8.5-10.1) L Height (Feet): 5 Height (Inches): 6.00 Weight (Pounds): 103 General Appearance: WD/WN, no apparent distress, alert, thin Cardiovascular: normal rate Respiratory/Chest: normal breath sounds, no respiratory distress Abdominal Exam: normal bowel sounds, non tender, soft Extremities: non-tender Jen Zavaleta NP Oct 12, 2018 10:22
[2018-10-12 12:00] VITALS: BP 109/54
--- NOTE | 2018-10-12 13:03 | NUR ---
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 SEVERE MALNUTRITION VS: BP 109/54, P 71, T 98.4, RR 18, SpO2 97 Ca 8.2 IS:MYLANTA 30ml SYNTHROID 112mg MOM 30ml DITROPAN 5mg REMERON 30mg BENTYL 10mg MED/SURG STATUS
--- NOTE | 2018-10-12 13:30 | Progress Note ---
DATE: 10/11/2018 SUBJECTIVE: The patient continues to be anxious, easily agitated. MENTAL STATUS EXAMINATION: The patient is alert, oriented times self, place, and situation. Mood is anxious. Affect is constricted, congruent with mood. Thought process is circumstantial. Thought content, no suicidal or homicidal ideation. ASSESSMENT: 1. Major depressive disorder. 2. Anxiety disorder. PLAN: We will continue current medications. Provide the patient with reality orientation and supportive therapy. Manuela Giraldo M.D. DR: JD JOB#: [id number] CC:
[2018-10-12] MEDS ORDERED: Tubing IV Secondary IV ONE (15:47)
[2018-10-12 16:00] VITALS: BP 129/82
--- NOTE | 2018-10-12 16:42 | Hematology/Onc Progress Note ---
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 --> given h/h is stable --> okay to continue eliquis at this time --> further recs per cards --> refusing gi recs # Leukopenia -- multiple etiologies could be related to underlying liver disease , medication-induced, infection versus viral syndrome --> peripheral smear has been ordered and does not show significant abnormalities --> Medications have been reviewed --> Continue to monitor for improvement, trend wbc 4.6-->4.8-->6.6 --> reverse isolation if wbc downtrends # Abdominal cramping --> Bentyl as needed for abdominal Cramping --> Bowel regimen, hold all laxatives at this time --> per gi recs # Constipation # GERD (gastroesophageal reflux disease) # Severe malnutrition # Abdominal pain # Dehydration # Depression as per psych appreciated The timing of this note does not necessarily reflect the time of the patient was seen. GREATLY APPRECIATE CONSULTATION. Subjective Constitutional: Denies: no symptoms, chills, fever, malaise, weakness, other HEENT: Denies: no symptoms, eye pain, blurred vision, tearing, double vision, ear pain, ear discharge, nose pain, nose congestion, throat pain, throat swelling, mouth pain, mouth swelling, other Cardiovascular: Denies: no symptoms, chest pain, edema, irregular heart rate, lightheadedness, palpitations, syncope, other Respiratory: Denies: no symptoms, cough, shortness of breath, SOB with excertion, SOB at rest, sputum, wheezing, other Gastrointestinal/Abdominal: Denies: no symptoms, abdomen distended, abdominal pain, black stools, tarry stools, blood in stool, constipated, diarrhea, difficulty swallowing, nausea, poor appetite, poor fluid intake, rectal bleeding , vomiting, other Genitourinary: Denies: no symptoms, burning, discharge, frequency, flank pain, hematuria, incontinence, pain, urgency, other Allergies: Coded Allergies: PENICILLINS (Verified Allergy, Unknown, 01/12/16) SULFA (SULFONAMIDE ANTIBIOTICS) (Verified Allergy, Unknown, 01/12/16) Subjective 10/11: Pt alert x4, no signs of distress and shortness of breath; no sign of chest pain 10/12: refusing gi procedures, as per gi and psych recs, have been reviewed Objective Objective Current Medications Medications (Trade) Dose Ordered Sig/Dejan Route PRN Reason Start Time Stop Time Status Last Admin Dose Admin Acetaminophen (Tylenol) 650 mg Q4H PRN ORAL Mild Pain/Temp > 100.5 10/09/18 15:15 11/08/18 15:14 Al Hydroxide/Mg Hydroxide (Mylanta) 30 ml Q6H PRN ORAL Abdominal cramps 10/10/18 15:15 11/09/18 15:14 10/12/18 10:35 Apixaban (Eliquis) 2.5 mg Q12HR ORAL 10/09/18 21:00 11/08/18 20:59 10/11/18 22:09 Benazepril HCl (Lotensin) 5 mg DAILY ORAL 10/10/18 09:00 11/09/18 08:59 10/11/18 08:57 Bisacodyl (Dulcolax) 10 mg DAILYPRN PRN ORAL Constipation 10/09/18 15:45 11/08/18 15:14 Clonidine HCl (Catapres Tab) 0.1 mg Q4H PRN ORAL SBP > 170 10/09/18 16:00 11/08/18 15:59 Diazepam (Valium) 10 mg BEDTIME ORAL 10/10/18 21:00 10/17/18 20:59 Dicyclomine HCl (Bentyl) 10 mg QIDPRN PRN ORAL ABDOMINAL CRAMPING 10/09/18 15:15 11/08/18 15:14 10/10/18 14:30 Docusate Sodium (Colace) 100 mg TWICE A DAY ORAL 10/09/18 18:00 11/08/18 17:59 10/11/18 17:28 Gabapentin (Neurontin) 300 mg Q12HR ORAL 10/09/18 21:00 11/08/18 20:59 10/11/18 22:09 Lactulose (Cephulac) 30 gm QIDPRN PRN ORAL Constipation 10/11/18 15:15 11/10/18 15:14 10/11/18 17:34 Levothyroxine Sodium (Synthroid) 112 mcg ACBREAKFAST ORAL 10/10/18 06:30 11/09/18 06:29 10/12/18 06:20 Magnesium Hydroxide (Mom) 30 ml QHS PRN ORAL Constipation 10/09/18 16:00 11/08/18 15:59 10/11/18 22:10 Memantine (Namenda) 5 mg DAILY ORAL 10/10/18 09:00 11/09/18 08:59 10/11/18 08:56 Mirtazapine (Remeron) 30 mg BEDTIME ORAL 10/09/18 21:00 11/08/18 20:59 10/11/18 22:09 Oxybutynin Chloride (Ditropan) 5 mg BEDTIME ORAL 10/09/18 21:00 11/08/18 20:59 10/11/18 22:09 Pantoprazole (Protonix) 40 mg DAILY ORAL 10/10/18 09:00 11/09/18 08:59 10/11/18 08:57 Polyethylene Glycol (Miralax) 17 gm BEDTIME ORAL 10/10/18 21:00 11/09/18 20:59 Risperidone (RisperDAL) 0.25 mg BID ORAL 10/09/18 18:00 11/08/18 17:59 10/11/18 17:28 Sennosides (Senokot) 17.2 mg DAILYPRN PRN ORAL constipation 10/09/18 15:15 11/08/18 15:14 Sertraline HCl (Zoloft) 75 mg DAILY ORAL 10/10/18 09:00 11/09/18 08:59 10/11/18 08:56 Sodium Phosphate (Fleet's Sodium Phosl Enema) 133 ml QHS PRN RECTAL Constipation 10/09/18 16:00 11/08/18 15:59 Last 24 Hour Vital Signs Date Time Temp Pulse Resp B/P (MAP) Pulse Ox O2 Delivery O2 Flow Rate FiO2 10/12/18 16:00 98.1 88 18 129/82 (98) 98 10/12/18 12:00 98.4 71 18 109/54 (72) 97 10/12/18 09:00 Room Air 10/12/18 08:00 98.0 78 18 129/69 (89) 97 10/11/18 21:00 Room Air 10/11/18 20:00 97.2 79 18 100/51 (67) 97 10/11/18 16:00 98.2 69 20 113/57 (75) 97 10/11/18 12:00 98.1 74 20 116/54 (74) 98 10/11/18 09:00 Room Air 10/11/18 08:57 123/71 10/11/18 08:00 97.6 79 20 123/71 (88) 96 10/10/18 21:00 78 18 100/50 (67) 97 10/10/18 21:00 Room Air 10/10/18 20:00 98.3 81 18 83/48 (60) 98 Intake and Output 10/11/18 10/12/18 18:59 06:59 Intake Total 720 ml Balance 720 ml Intake Oral 720 ml # Voids 5 4 Labs Test 10/10/18 07:42 10/11/18 05:10 10/12/18 05:05 White Blood Count 4.8 K/UL (4.8-10.8) 6.6 K/UL (4.8-10.8) 7.0 K/UL (4.8-10.8) Red Blood Count 4.23 M/UL (4.20-5.40) 4.05 M/UL (4.20-5.40) 4.31 M/UL (4.20-5.40) Hemoglobin 12.6 G/DL (12.0-16.0) 12.0 G/DL (12.0-16.0) 13.0 G/DL (12.0-16.0) Hematocrit 38.0 % (37.0-47.0) 36.4 % (37.0-47.0) 39.2 % (37.0-47.0) Mean Corpuscular Volume 90 FL (80-99) 90 FL (80-99) 91 FL (80-99) Mean Corpuscular Hemoglobin 29.8 PG (27.0-31.0) 29.8 PG (27.0-31.0) 30.1 PG (27.0-31.0) Mean Corpuscular Hemoglobin Concent 33.2 G/DL (32.0-36.0) 33.1 G/DL (32.0-36.0) 33.1 G/DL (32.0-36.0) Red Cell Distribution Width 12.7 % (11.6-14.8) 12.9 % (11.6-14.8) 12.8 % (11.6-14.8) Platelet Count 202 K/UL (150-450) 193 K/UL (150-450) 230 K/UL (150-450) Mean Platelet Volume 8.0 FL (6.5-10.1) 8.6 FL (6.5-10.1) 8.3 FL (6.5-10.1) Neutrophils (%) (Auto) 56.3 % (45.0-75.0) 57.5 % (45.0-75.0) 64.2 % (45.0-75.0) Lymphocytes (%) (Auto) 22.8 % (20.0-45.0) 23.9 % (20.0-45.0) 21.4 % (20.0-45.0) Monocytes (%) (Auto) 13.2 % (1.0-10.0) 11.6 % (1.0-10.0) 10.7 % (1.0-10.0) Eosinophils (%) (Auto) 6.5 % (0.0-3.0) 5.8 % (0.0-3.0) 3.2 % (0.0-3.0) Basophils (%) (Auto) 1.3 % (0.0-2.0) 1.3 % (0.0-2.0) 0.6 % (0.0-2.0) Sodium Level 139 MMOL/L (136-145) 136 MMOL/L (136-145) 137 MMOL/L (136-145) Potassium Level 4.5 MMOL/L (3.5-5.1) 4.5 MMOL/L (3.5-5.1) 4.5 MMOL/L (3.5-5.1) Chloride Level 105 MMOL/L (98-107) 102 MMOL/L (98-107) 101 MMOL/L (98-107) Carbon Dioxide Level 30 MMOL/L (21-32) 28 MMOL/L (21-32) 31 MMOL/L (21-32) Anion Gap 4 mmol/L (5-15) 6 mmol/L (5-15) 5 mmol/L (5-15) Blood Urea Nitrogen 11 mg/dL (7-18) 16 mg/dL (7-18) 17 mg/dL (7-18) Creatinine 0.9 MG/DL (0.55-1.30) 1.0 MG/DL (0.55-1.30) 0.9 MG/DL (0.55-1.30) Estimat Glomerular Filtration Rate mL/min (>60) mL/min (>60) mL/min (>60) Glucose Level 84 MG/DL (74-106) 81 MG/DL (74-106) 81 MG/DL (74-106) Calcium Level 8.8 MG/DL (8.5-10.1) 8.9 MG/DL (8.5-10.1) 8.2 MG/DL (8.5-10.1) Phosphorus Level 4.7 MG/DL (2.5-4.9) Magnesium Level 2.0 MG/DL (1.8-2.4) Total Bilirubin 0.3 MG/DL (0.2-1.0) Aspartate Amino Transf (AST/SGOT) 22 U/L (15-37) Alanine Aminotransferase (ALT/SGPT) 22 U/L (12-78) Alkaline Phosphatase 106 U/L (46-116) Total Protein 6.3 G/DL (6.4-8.2) Albumin 2.8 G/DL (3.4-5.0) Globulin 3.5 g/dL Albumin/Globulin Ratio 0.8 (1.0-2.7) Carcinoembryonic Antigen 3.6 ng/mL (0.0-4.7) Height (Feet): 5 Height (Inches): 6.00 Weight (Pounds): 103 Objective VITAL SIGNS: Have been reviewed GENERAL: Morbidly obese. NECK: Jugular venous pressure difficult to assess. No accessory muscle use. LUNGS: Clear breath sounds. Chest wall without tenderness to palpation. CARDIAC: Regular rhythm and rate. Distant S1 and S2. No murmur. ABDOMEN: Obese. EXTREMITIES: Trace dependent edema. Edwin Orozco MD Oct 12, 2018 16:42
--- NOTE | 2018-10-12 17:49 | NUR ---
NURSE NOTES: To protect both heels and sacral, Optifoam, changed.
--- NOTE | 2018-10-12 19:30 | NUR ---
NURSE NOTES: RECEIVED PATIENT LYING IN BED, AWAKE, ALERT/ORIENTED X3, VERBALLY RESPONSIVE, DENIES PAIN. NO SIGNS AND SYMPTOMS OF ACUTE CARDIO RESPIRATORY DISTRESS/SHORTNESS OF BREATH, NO PERIPHERAL EDEMA NOTED, SCD'S INTACT TO BILATERAL LOWER EXTREMITIES/DVT PROPHYLAXIS. NO COMPLAINTS OF ABDOMINAL PAIN, NO REPORT OF N/V. SIDE RAILS UP X3/BED IN LOWEST POSITION FOR SAFETY. CALL LIGHT WITHIN REACH, ENCOURAGED PATIENT TO UTILIZE CALL LIGHT FOR ASSISTANCE, VERBALIZED UNDERSTANDING. NAD. WILL CONTINUE WITH CURRENT PLAN OF CARE.
--- NOTE | 2018-10-12 19:32 | NUR ---
HAND-OFF: Report given to ROSMERY Olivares.
[2018-10-12 20:00] VITALS: BP 108/58
[2018-10-12] MEDS: Miralax 17gm pkt ORAL SCH (21:00)
[2018-10-12] MEDS: Oxybutynin 5mg tab ORAL SCH (21:34)
--- NOTE | 2018-10-12 22:11 | General Progress Note ---
Assessment/Plan Problem List: (1) Hypothyroidism ICD Codes: E03.9 - Hypothyroidism, unspecified SNOMED: 12039719 (2) HTN (hypertension) ICD Codes: I10 - Essential (primary) hypertension SNOMED: 39336334 (3) Anxiety disorder ICD Codes: F41.9 - Anxiety disorder, unspecified SNOMED: 488589883 (4) OCD (obsessive compulsive disorder) ICD Codes: F42.9 - Obsessive-compulsive disorder, unspecified SNOMED: 508984686 (5) UTI (urinary tract infection) ICD Codes: N39.0 - Urinary tract infection, site not specified SNOMED: 43211712 (6) Abdominal pain ICD Codes: R10.9 - Unspecified abdominal pain SNOMED: 82990698 (7) Severe malnutrition ICD Codes: E43 - Unspecified severe protein-calorie malnutrition SNOMED: 62016298 (8) Dehydration ICD Codes: E86.0 - Dehydration SNOMED: 89123615 (9) Failure to thrive SNOMED: 30241446 (10) Weakness ICD Codes: R53.1 - Weakness SNOMED: 29204641 Status: stable Assessment/Plan: dc in am abdominal pain uti improving abdomin cramps had bm Subjective Gastrointestinal/Abdominal: Reports: abdominal pain Allergies: Coded Allergies: PENICILLINS (Verified Allergy, Unknown, 01/12/16) SULFA (SULFONAMIDE ANTIBIOTICS) (Verified Allergy, Unknown, 01/12/16) Objective Last 24 Hour Vital Signs Date Time Temp Pulse Resp B/P (MAP) Pulse Ox O2 Delivery O2 Flow Rate FiO2 10/12/18 20:00 98.6 85 18 108/58 (75) 97 10/12/18 16:00 98.1 88 18 129/82 (98) 98 10/12/18 12:00 98.4 71 18 109/54 (72) 97 10/12/18 09:00 Room Air 10/12/18 08:00 98.0 78 18 129/69 (89) 97 Intake and Output 10/11/18 10/12/18 18:59 06:59 Intake Total 720 ml Balance 720 ml Intake Oral 720 ml # Voids 5 4 Laboratory Tests 10/12/18 05:05: White Blood Count 7.0, Red Blood Count 4.31, Hemoglobin 13.0, Hematocrit 39.2, Mean Corpuscular Volume 91, Mean Corpuscular Hemoglobin 30.1, Mean Corpuscular Hemoglobin Concent 33.1, Red Cell Distribution Width 12.8, Platelet Count 230, Mean Platelet Volume 8.3, Neutrophils (%) (Auto) 64.2, Lymphocytes (%) (Auto) 21.4, Monocytes (%) (Auto) 10.7H, Eosinophils (%) (Auto) 3.2H, Basophils (%) ( Auto) 0.6, Sodium Level 137, Potassium Level 4.5, Chloride Level 101, Carbon Dioxide Level 31, Anion Gap 5, Blood Urea Nitrogen 17, Creatinine 0.9, Estimat Glomerular Filtration Rate , Glucose Level 81, Calcium Level 8.2L Height (Feet): 5 Height (Inches): 6.00 Weight (Pounds): 103 Cardiovascular: regular rhythm Respiratory/Chest: lungs clear Abdomen: soft Amber Gallegos MD Oct 12, 2018 22:11
--- NOTE | 2018-10-13 01:30 | Progress Note ---
DATE: 10/12/2018 SUBJECTIVE: The patient is still complaining of abdominal pain and anxiety, presents with depressed mood, anhedonia, worthlessness, hopelessness, decreased energy. The patient is less demanding, . MENTAL STATUS EXAMINATION: The patient is alert and oriented x4. Mood is depressed and anxious. Affect is constricted, congruent with mood. Thought process is concrete. Thought content, no suicidal or homicidal ideation. ASSESSMENT: Stable. PLAN: We will continue current medications. Provide the patient reality orientation and supportive therapy. Manuela Giraldo M.D. DR: JD JOB#: [id number] CC:
[2018-10-13 05:55] VITALS: BP 106/63
[2018-10-13 06:22] LABS: EOSINOPHILS % (AUTO) 5.6 % (0.0-3.0); HEMATOCRIT 38.3 % (37.0-47.0); HEMOGLOBIN 12.6 G/DL (12.0-16.0); LYMPHOCYTES % (AUTO) 24.8 % (20.0-45.0); MEAN CORPUSCULAR VOLUME 90 FL (80-99); MONOCYTES % (AUTO) 12.3 % (1.0-10.0); NEUTROPHILS % (AUTO) 56.2 % (45.0-75.0); PLATELET COUNT 203 K/UL (150-450); RED BLOOD COUNT 4.25 M/UL (4.20-5.40); RED CELL DISTRIBUTION WIDTH 12.8 % (11.6-14.8); WHITE BLOOD COUNT 6.2 K/UL (4.8-10.8)
[2018-10-13 07:03] LABS: ANION GAP 5 mmol/L (5-15); BLOOD UREA NITROGEN 22 mg/dL (7-18); CALCIUM 8.9 MG/DL (8.5-10.1); CARBON DIOXIDE 30 MMOL/L (21-32); CHLORIDE 100 MMOL/L (98-107); POTASSIUM 4.5 MMOL/L (3.5-5.1); SODIUM 135 MMOL/L (136-145)
[2018-10-13 08:00] VITALS: BP 113/65
--- NOTE | 2018-10-13 08:15 | NUR ---
NURSE NOTES: Patient is alert and oriented. Patient has no reports of discomfort at the moment. Side rails are upx2, bed is locked, in lowest position, and call light is within reach. Will continue to monitor.
--- NOTE | 2018-10-13 08:20 | NUR ---
NURSE NOTES: Dr. Gallegos called nurse's station. Discharge order received.
[2018-10-13] MEDS: Memantine 5 MG TAB ORAL SCH (09:27)
[2018-10-13] MEDS: Docusate 100mg cap ORAL SCH (09:27)
[2018-10-13] MEDS: Sertraline 50mg tab ORAL SCH (09:28)
[2018-10-13] MEDS: Benazepril 10mg tab ORAL SCH (09:28)
[2018-10-13] MEDS: Eliquis 2.5mg tablet ORAL SCH (09:28)
--- NOTE | 2018-10-13 11:19 | NUR ---
[facility] SKILL[facility] T# [phone] FOR NURSE TO NURSE REPORT [facility] WILL D[facility] AT 1200
--- NOTE | 2018-10-13 11:39 | Hematology/Onc Progress Note ---
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 --> further recs per cards --> refusing gi recs # Leukopenia -- multiple etiologies could be related to underlying liver disease , medication-induced, infection versus viral syndrome --> peripheral smear has been ordered and does not show significant abnormalities --> Medications have been reviewed --> Continue to monitor for improvement, trend wbc 4.6-->4.8-->6.6--> 6.2 --> reverse isolation if wbc downtrends # Abdominal cramping --> Bentyl as needed for abdominal Cramping --> Bowel regimen, hold all laxatives at this time --> per gi recs # Constipation # GERD (gastroesophageal reflux disease) # Severe malnutrition # Abdominal pain # Dehydration # Depression as per psych appreciated The timing of this note does not necessarily reflect the time of the patient was seen. GREATLY APPRECIATE CONSULTATION. Subjective Allergies: Coded Allergies: PENICILLINS (Verified Allergy, Unknown, 01/12/16) SULFA (SULFONAMIDE ANTIBIOTICS) (Verified Allergy, Unknown, 01/12/16) Subjective 10/11: Pt alert x4, no signs of distress and shortness of breath; no sign of chest pain 10/12: refusing gi procedures, as per gi and psych recs, have been reviewed 10/13: no overnight events, no acute distress. h/h remain stable. Objective Objective Current Medications Medications (Trade) Dose Ordered Sig/Dejan Route PRN Reason Start Time Stop Time Status Last Admin Dose Admin Acetaminophen (Tylenol) 650 mg Q4H PRN ORAL Mild Pain/Temp > 100.5 10/09/18 15:15 11/08/18 15:14 Al Hydroxide/Mg Hydroxide (Mylanta) 30 ml Q6H PRN ORAL Abdominal cramps 10/10/18 15:15 11/09/18 15:14 10/12/18 10:35 Apixaban (Eliquis) 2.5 mg Q12HR ORAL 10/09/18 21:00 11/08/18 20:59 10/13/18 09:28 Benazepril HCl (Lotensin) 5 mg DAILY ORAL 10/10/18 09:00 11/09/18 08:59 10/13/18 09:28 Bisacodyl (Dulcolax) 10 mg DAILYPRN PRN ORAL Constipation 10/09/18 15:45 11/08/18 15:14 Clonidine HCl (Catapres Tab) 0.1 mg Q4H PRN ORAL SBP > 170 10/09/18 16:00 11/08/18 15:59 Diazepam (Valium) 10 mg BEDTIME ORAL 10/10/18 21:00 10/17/18 20:59 10/12/18 21:34 Dicyclomine HCl (Bentyl) 10 mg QIDPRN PRN ORAL ABDOMINAL CRAMPING 10/09/18 15:15 11/08/18 15:14 10/10/18 14:30 Docusate Sodium (Colace) 100 mg TWICE A DAY ORAL 10/09/18 18:00 11/08/18 17:59 10/13/18 09:27 Gabapentin (Neurontin) 300 mg Q12HR ORAL 10/09/18 21:00 11/08/18 20:59 10/13/18 09:28 Lactulose (Cephulac) 30 gm QIDPRN PRN ORAL Constipation 10/11/18 15:15 11/10/18 15:14 10/11/18 17:34 Levothyroxine Sodium (Synthroid) 112 mcg ACBREAKFAST ORAL 10/10/18 06:30 11/09/18 06:29 10/13/18 06:06 Magnesium Hydroxide (Mom) 30 ml QHS PRN ORAL Constipation 10/09/18 16:00 11/08/18 15:59 10/11/18 22:10 Memantine (Namenda) 5 mg DAILY ORAL 10/10/18 09:00 11/09/18 08:59 10/13/18 09:27 Mirtazapine (Remeron) 30 mg BEDTIME ORAL 10/09/18 21:00 11/08/18 20:59 10/12/18 21:34 Oxybutynin Chloride (Ditropan) 5 mg BEDTIME ORAL 10/09/18 21:00 11/08/18 20:59 10/12/18 21:34 Pantoprazole (Protonix) 40 mg DAILY ORAL 10/10/18 09:00 11/09/18 08:59 10/13/18 09:28 Polyethylene Glycol (Miralax) 17 gm BEDTIME ORAL 10/10/18 21:00 11/09/18 20:59 Risperidone (RisperDAL) 0.25 mg BID ORAL 10/09/18 18:00 11/08/18 17:59 10/13/18 09:27 Sennosides (Senokot) 17.2 mg DAILYPRN PRN ORAL constipation 10/09/18 15:15 11/08/18 15:14 Sertraline HCl (Zoloft) 75 mg DAILY ORAL 10/10/18 09:00 11/09/18 08:59 10/13/18 09:28 Sodium Phosphate (Fleet's Sodium Phosl Enema) 133 ml QHS PRN RECTAL Constipation 10/09/18 16:00 11/08/18 15:59 Last 24 Hour Vital Signs Date Time Temp Pulse Resp B/P (MAP) Pulse Ox O2 Delivery O2 Flow Rate FiO2 10/13/18 09:28 113/65 10/13/18 08:15 Room Air 10/13/18 08:00 97.7 68 18 113/65 (81) 96 10/13/18 05:55 96.9 67 18 106/63 (77) 96 10/12/18 21:00 Room Air 10/12/18 20:00 98.6 85 18 108/58 (75) 97 10/12/18 16:00 98.1 88 18 129/82 (98) 98 10/12/18 12:00 98.4 71 18 109/54 (72) 97 10/12/18 09:00 Room Air 10/12/18 08:00 98.0 78 18 129/69 (89) 97 10/11/18 21:00 Room Air 10/11/18 20:00 97.2 79 18 100/51 (67) 97 10/11/18 16:00 98.2 69 20 113/57 (75) 97 10/11/18 12:00 98.1 74 20 116/54 (74) 98 Intake and Output 10/12/18 10/13/18 19:00 07:00 Intake Total 720 ml 240 ml Balance 720 ml 240 ml Intake Oral 720 ml 240 ml # Voids 5 2 # Bowel Movements 2 Labs Test 10/11/18 05:10 10/12/18 05:05 10/13/18 05:45 White Blood Count 6.6 K/UL (4.8-10.8) 7.0 K/UL (4.8-10.8) 6.2 K/UL (4.8-10.8) Red Blood Count 4.05 M/UL (4.20-5.40) 4.31 M/UL (4.20-5.40) 4.25 M/UL (4.20-5.40) Hemoglobin 12.0 G/DL (12.0-16.0) 13.0 G/DL (12.0-16.0) 12.6 G/DL (12.0-16.0) Hematocrit 36.4 % (37.0-47.0) 39.2 % (37.0-47.0) 38.3 % (37.0-47.0) Mean Corpuscular Volume 90 FL (80-99) 91 FL (80-99) 90 FL (80-99) Mean Corpuscular Hemoglobin 29.8 PG (27.0-31.0) 30.1 PG (27.0-31.0) 29.7 PG (27.0-31.0) Mean Corpuscular Hemoglobin Concent 33.1 G/DL (32.0-36.0) 33.1 G/DL (32.0-36.0) 33.0 G/DL (32.0-36.0) Red Cell Distribution Width 12.9 % (11.6-14.8) 12.8 % (11.6-14.8) 12.8 % (11.6-14.8) Platelet Count 193 K/UL (150-450) 230 K/UL (150-450) 203 K/UL (150-450) Mean Platelet Volume 8.6 FL (6.5-10.1) 8.3 FL (6.5-10.1) 8.1 FL (6.5-10.1) Neutrophils (%) (Auto) 57.5 % (45.0-75.0) 64.2 % (45.0-75.0) 56.2 % (45.0-75.0) Lymphocytes (%) (Auto) 23.9 % (20.0-45.0) 21.4 % (20.0-45.0) 24.8 % (20.0-45.0) Monocytes (%) (Auto) 11.6 % (1.0-10.0) 10.7 % (1.0-10.0) 12.3 % (1.0-10.0) Eosinophils (%) (Auto) 5.8 % (0.0-3.0) 3.2 % (0.0-3.0) 5.6 % (0.0-3.0) Basophils (%) (Auto) 1.3 % (0.0-2.0) 0.6 % (0.0-2.0) 1.0 % (0.0-2.0) Sodium Level 136 MMOL/L (136-145) 137 MMOL/L (136-145) 135 MMOL/L (136-145) Potassium Level 4.5 MMOL/L (3.5-5.1) 4.5 MMOL/L (3.5-5.1) 4.5 MMOL/L (3.5-5.1) Chloride Level 102 MMOL/L (98-107) 101 MMOL/L (98-107) 100 MMOL/L (98-107) Carbon Dioxide Level 28 MMOL/L (21-32) 31 MMOL/L (21-32) 30 MMOL/L (21-32) Anion Gap 6 mmol/L (5-15) 5 mmol/L (5-15) 5 mmol/L (5-15) Blood Urea Nitrogen 16 mg/dL (7-18) 17 mg/dL (7-18) 22 mg/dL (7-18) Creatinine 1.0 MG/DL (0.55-1.30) 0.9 MG/DL (0.55-1.30) 1.0 MG/DL (0.55-1.30) Estimat Glomerular Filtration Rate mL/min (>60) mL/min (>60) mL/min (>60) Glucose Level 81 MG/DL (74-106) 81 MG/DL (74-106) 88 MG/DL (74-106) Calcium Level 8.9 MG/DL (8.5-10.1) 8.2 MG/DL (8.5-10.1) 8.9 MG/DL (8.5-10.1) Height (Feet): 5 Height (Inches): 6.00 Weight (Pounds): 103 Objective VITAL SIGNS: Have been reviewed GENERAL: Morbidly obese. NECK: Jugular venous pressure difficult to assess. No accessory muscle use. LUNGS: Clear breath sounds. Chest wall without tenderness to palpation. CARDIAC: Regular rhythm and rate. Distant S1 and S2. No murmur. ABDOMEN: Obese. EXTREMITIES: Trace dependent edema. Edwin Orozco MD Oct 13, 2018 11:39
[2018-10-13 12:00] VITALS: BP 128/59
--- NOTE | 2018-10-13 12:36 | GI Progress Note ---
Assessment/Plan Problems: (1) Abdominal pain ICD Codes: R10.9 - Unspecified abdominal pain SNOMED: 25800402 (2) Constipation ICD Codes: K59.00 - Constipation, unspecified SNOMED: 63525534 (3) GERD (gastroesophageal reflux disease) ICD Codes: K21.9 - Gastro-esophageal reflux disease without esophagitis SNOMED: 530242913 (4) Abdominal pain ICD Codes: R10.9 - Unspecified abdominal pain SNOMED: 87457546 (5) Severe malnutrition ICD Codes: E43 - Unspecified severe protein-calorie malnutrition SNOMED: 00005554 (6) Abdominal cramping ICD Codes: R10.9 - Unspecified abdominal pain SNOMED: 78654050, 329746362 (7) Dehydration ICD Codes: E86.0 - Dehydration SNOMED: 79074087 (8) Failure to thrive SNOMED: 27423800 (9) Weakness ICD Codes: R53.1 - Weakness SNOMED: 83804628 Status: stable Status Narrative Discussed with Dr. Candelaria. Assessment/Plan refused GI procedures okay for DC per GI standpoint adv to mechanical soft diet, tolerating Bowel regimen, hold all aggressive laxatives at this time. Hold lactulose. Colace 100 mg 3 times daily, miralax qhs Senokot as needed Push p.o. Zofran as needed PPI IV/PO Hydration The patient was seen and examined at bedside and all new and available data was reviewed in the patients chart. I agree with the above findings, impression and plan. (Patient seen earlier today. Signature stamp does not reflect patient encounter time.). - Keon Candelaria MD Subjective Subjective Abdominal cramping after p.o. intake States she has not had an episode of cramping since admission Had BM Objective Last 24 Hour Vital Signs Date Time Temp Pulse Resp B/P (MAP) Pulse Ox O2 Delivery O2 Flow Rate FiO2 10/13/18 12:00 98.2 84 18 128/59 (82) 95 10/13/18 09:28 113/65 10/13/18 08:15 Room Air 10/13/18 08:00 97.7 68 18 113/65 (81) 96 10/13/18 05:55 96.9 67 18 106/63 (77) 96 10/12/18 21:00 Room Air 10/12/18 20:00 98.6 85 18 108/58 (75) 97 10/12/18 16:00 98.1 88 18 129/82 (98) 98 Intake and Output 10/12/18 10/13/18 19:00 07:00 Intake Total 720 ml 240 ml Balance 720 ml 240 ml Intake Oral 720 ml 240 ml # Voids 5 2 # Bowel Movements 2 Laboratory Tests Test 10/13/18 05:45 White Blood Count 6.2 K/UL (4.8-10.8) Red Blood Count 4.25 M/UL (4.20-5.40) Hemoglobin 12.6 G/DL (12.0-16.0) Hematocrit 38.3 % (37.0-47.0) Mean Corpuscular Volume 90 FL (80-99) Mean Corpuscular Hemoglobin 29.7 PG (27.0-31.0) Mean Corpuscular Hemoglobin Concent 33.0 G/DL (32.0-36.0) Red Cell Distribution Width 12.8 % (11.6-14.8) Platelet Count 203 K/UL (150-450) Mean Platelet Volume 8.1 FL (6.5-10.1) Neutrophils (%) (Auto) 56.2 % (45.0-75.0) Lymphocytes (%) (Auto) 24.8 % (20.0-45.0) Monocytes (%) (Auto) 12.3 % (1.0-10.0) H Eosinophils (%) (Auto) 5.6 % (0.0-3.0) H Basophils (%) (Auto) 1.0 % (0.0-2.0) Sodium Level 135 MMOL/L (136-145) L Potassium Level 4.5 MMOL/L (3.5-5.1) Chloride Level 100 MMOL/L (98-107) Carbon Dioxide Level 30 MMOL/L (21-32) Anion Gap 5 mmol/L (5-15) Blood Urea Nitrogen 22 mg/dL (7-18) H Creatinine 1.0 MG/DL (0.55-1.30) Estimat Glomerular Filtration Rate mL/min (>60) Glucose Level 88 MG/DL (74-106) Calcium Level 8.9 MG/DL (8.5-10.1) Height (Feet): 5 Height (Inches): 6.00 Weight (Pounds): 103 General Appearance: WD/WN, no apparent distress, alert, thin Cardiovascular: normal rate Respiratory/Chest: normal breath sounds, no respiratory distress Abdominal Exam: normal bowel sounds, non tender, soft Extremities: non-tender Jen Zavaleta NP Oct 13, 2018 12:36
--- NOTE | 2018-10-13 14:15 | NUR ---
NURSE NOTES: Patient discharged to [facility] via ambulance. Belongings reviewed and accounted for. IV removed and ID bracelet removed. Report given to Fern at facility. Patient stable upon discharge.
--- NOTE | 2018-10-14 01:01 | Progress Note ---
DATE: 10/13/2018 SUBJECTIVE: The patient has episodes of anxiety. complaining of abdominal pain. Poor insight and judgment. MENTAL STATUS EXAMINATION: The patient is alert and oriented times self, place, and situation. Mood is dysphoric. Affect is constricted. Congruent with mood. Thought process is linear. Thought content, no suicidal or homicidal ideation. ASSESSMENT: 1. Anxiety disorder. 2. Depression. PLAN: 1. We will continue current medications. 2. Provide the patient with reality orientation and supportive therapy. Manuela Giralod M.D. DR: DIEGO JOB#: [id number] CC:
--- NOTE | 2018-10-14 20:26 | Discharge Summary ---
Discharge Summary Discharge Summary _ DATE OF ADMISSION: 10/09/2018 DATE OF DISCHARGE: 10/13/2018 DISCHARGED BY: Dr Gallegos REASON FOR ADMISSION: 83 years old female, resident of longterm facility, with past medical history of hypertension, COPD, presented with complaint of intermittent abdominal discomfort, slowly worsening over the last week with associated poor appetite and essentially failure to thrive. No dysuria, no urinary frequency. Upon evaluation vital signs were stable. Laboratory work-up revealed no leukocytosis, stable hemoglobin and hematocrit. Stable electrolytes and renal parameters. Glucose 86. Stable LFT and lipase. Troponin - 0.002. Albumin 3.4. Urinalysis revealed no evidence of UTI. EKG revealed atrial fibrillation with controlled ventricular rate. Chest x-ray revealed no acute cardiopulmonary pathology. Abdominal x-ray revealed no acute findings. On clinical examination patient appeared emaciated and dehydrated. Patient subsequently admitted with abdominal pain, failure to thrive, dehydration and weakness. CONSULTANTS: GI specialist Dr. Candelaria inspector bicycle/oncologist Dr. Orozco psychiatrist [facility] COURSE: Patient admitted to medical surgical floor. Patient started on the IV hydration. GI specialist followed. Patient declined GI procedures. Bowel regimen instituted. Patient started on stool softener and MiraLAX at nighttime along with Senokot on as needed basis. Oral fluids were pushed. Antiemetic provided as needed. GI prophylaxis provided. Patient was able to tolerate diet. Dietary supplements, including protein supplements, implemented in diet as per labor and delivery registered nurse recommendations. Adjunct Faculty Instructor followed. Patient initially presented with leukopenia. WBC trending up and prior to discharge 6.2. CEA 3.6. Patient also had a secondary Hypercoagulability due to anticoagulation. Hemoglobin and hematocrit remained stable. Venous duplex bilateral lower extremity revealed no evidence of DVT. Adjunct Faculty Instructor recommended continue Eliquis for now, given stable hemoglobin and hematocrit and follow-up with math instructor as outpatient. Psychiatrist closely followed. Reality orientation and supportive therapy provided. Patient started on Remeron. Zoloft was continued. SNF medication were resumed, including levothyroxine. Supportive care provided. Patient clinically stabilized and was ready for discharge back to longterm facility for continuation of care. FINAL DIAGNOSES: Constipation GERD Severe malnutrition Dehydration Abdominal pain, likely due to constipation -resolved Atrial fibrillation Leukopenia-resolved Major depressive disorder Anxiety disorder DISCHARGE MEDICATIONS: See Medication Reconciliation list. DISCHARGE INSTRUCTIONS: Patient was discharged to the longterm facility. Follow up with medical doctor at the facility. I have been assigned to dictate discharge summary for this account. I was not involved in the patient's management. Kaylen Culver NP Oct 14, 2018 20:26
== END 2018-10-13 13:57 | DRG 391 ==
LOC: EDBD 10:51 → EMR 11:22 → 4E 11:57 → EDBEDREQ 12:15 → 4E 20:14
DX: K59.00 Constipation, unspecified (principal); E43 Unspecified severe protein-calorie malnutrition; N39.0 Urinary tract infection, site not specified; Z68.1 Body mass index [BMI] 19.9 or less, adult; D68.69 Other thrombophilia; E86.0 Dehydration; R10.9 Unspecified abdominal pain; Z88.0 Allergy status to penicillin; Z88.2 Allergy status to sulfonamides; I10 Essential (primary) hypertension; J44.9 Chronic obstructive pulmonary disease, unspecified; K21.9 Gastro-esophageal reflux disease without esophagitis; I48.91 Unspecified atrial fibrillation; F32.9 Major depressive disorder, single episode, unspecified; F41.9 Anxiety disorder, unspecified; R62.7 Adult failure to thrive; Z79.01 Long term (current) use of anticoagulants; F42.9 Obsessive-compulsive disorder, unspecified; E03.9 Hypothyroidism, unspecified; R53.1 Weakness
CPT/HCPCS: 36415; 71045; 74018; 80048; 80053; 81003; 82378; 82550; 83690; 83735; 84100; 84484; 85025; 85610; 85730; 87081; 93005; 93970; 96361; 96374; 99285; J2405

== ENCOUNTER 2018-11-28 11:13 | Emergency (ER) | payer MEDICARE, MEDICAID ==
[~2018-11-28] VITALS: Ht 170.2 cm; Wt 51.7 kg
[~2018-11-28 11:13] MED LIST changes: +CRANBERRY400 MG PO; +LACTULOSE20 GM/301 ORAL; +SENNA8.6 M2 PO
--- NOTE | 2018-11-28 11:22 | Emergency Room Report ---
History of Present Illness General Source: Patient, EMS Present Illness HPI Patient is an 83-year-old female sent in from nursing facility after increased low back pain. Patient reports having onset approximately 1 week. She was sent in after x-ray imaging was performed and showed a L2 fracture. Patient had been followed at a [facility]. She reports having prior history of medication induced constipation with pain medications. She denies any fever. She reports having some intermittent pain to the left lower extremity. She denies any recent trauma Allergies: Coded Allergies: PENICILLINS (Verified Allergy, Unknown, 01/12/16) SULFA (SULFONAMIDE ANTIBIOTICS) (Verified Allergy, Unknown, 01/12/16) Patient History Past Medical History: see triage record Now: No Reviewed Nursing Documentation: PMH: Agreed; PSxH: Agreed Nursing Documentation-PMH Past Medical History: No History, Except For Hx Cardiac Problems: No Hx Hypertension: Yes Hx Pacemaker: No Hx Asthma: No Hx COPD: Yes Hx Cancer: No Hx Gastrointestinal Problems: Yes Hx Dialysis: No Hx Neurological Problems: No Hx Cerebrovascular Accident: No Hx Seizures: No Review of Systems All Other Systems: limited - by poor historian Physical Exam Vital Signs Date Time Temp Pulse Resp B/P (MAP) Pulse Ox O2 Delivery O2 Flow Rate FiO2 11/28/18 11:15 98.1 82 20 97/59 (72) 96 Room Air Sp02 EP Interpretation: reviewed, normal General Appearance: normal inspection, no apparent distress, alert, GCS 15, non -toxic, Chronically Ill Head: atraumatic ENT: normal ENT inspection, hearing grossly normal, normal voice Neck: normal inspection, full range of motion, supple, no bony tend Respiratory: normal inspection, lungs clear, normal breath sounds, no respiratory distress, no retraction, no wheezing Cardiovascular #1: regular rate, rhythm, no edema Gastrointestinal: normal inspection, normal bowel sounds, non tender, soft, no guarding, no hernia Genitourinary: no CVA tenderness Musculoskeletal: normal inspection, normal range of motion Neurologic: normal inspection, alert, responsive, speech normal Psychiatric: normal inspection, mood/affect normal Medical Decision Making Diagnostic Impression: Primary Impression: Back pain ER Course Presented for low back pain. Differential diagnosis include was not limited to compression fracture, spinal stenosis, cauda equina syndrome among others. Because of complexity of patient's case imaging studies were ordered.CT imaging of the lumbar spine read by radiology showed no evidence of acute fracture. Patient had postsurgical changes as well as some narrowing. See radiology report for full details. Patient was noted to be able to sit up and appears to have a stable spine. Patient appears to be stable for discharge back to her nursing facility. Patient is to return if worse. She was discharged home with a basic ambulance. Last Vital Signs Date Time Temp Pulse Resp B/P (MAP) Pulse Ox O2 Delivery O2 Flow Rate FiO2 11/28/18 11:15 98.1 82 20 97/59 (72) 96 Room Air Status: improved Disposition: HOME, SELF-CARE Condition: Stable Gustavo Tong MD Nov 28, 2018 11:22
--- NOTE | 2018-11-28 11:25 | NUR ---
ED Nurse Note: [facility] due to compression fracture dx 2 weeks ago. Denies any trauma recently. AAO x4, follows commands, nonlabored breathing.
--- NOTE | 2018-11-28 11:38 | NUR ---
ED Nurse Note: PT TAKEN TO CT. VSS.
[2018-11-28 12:24] VITALS: BP 112/60
--- NOTE | 2018-11-28 12:41 | Diagnostic Imaging Report ---
Indication: Back pain Technique: Continuous helical transaxial imaging of the lumbar spine was obtained. No IV contrast was administered. Coronal 2-D reformats were also obtained. Study obtained in a Siemens sensation [address] Total Dose length Product (DLP): 517.[address] Dose Index Volume (CTDIvol): 12.24 mGy Comparison: None Findings: Bones are osteopenic. There is a partially visualized posterior fusion hardware in the lower part of the thoracic spine consisting of fusion rods and bilateral pedicle screws present at the levels of T11 and T12. The hardware goes beyond the [id number] into the thoracic spine. There is no malalignment or evidence of an acute fracture. At T12-L1 there is vacuum disc phenomenon and endplate osteophyte formation. Facet hypertrophy is also demonstrated at this level. The L1-2 disc is heavily calcified. There is osseous interbody fusion at this level. There is foraminal stenosis present bilaterally. The L2-3 disc appears relatively normal in height. Hypertrophied facets noted at this level. There is somewhat unusual ossification of the left aspect of ligamentum flavum at this level. There is no obvious foraminal stenosis on the right. There may be mild foraminal stenosis on the left. There is suggestion of a partial interbody fusion at L3-4. Facets also appear partially fused. There is mild foraminal stenosis present. L4-5 notable for hypertrophied facets and mild to moderate bilateral foraminal stenosis. Endplate spurs are present. L5-S1 shows no evidence of central or foraminal stenosis. Aorta is moderately calcified. The kidneys appear somewhat atrophic. The lung bases demonstrate small bilateral pleural effusions. IMPRESSION: No evidence of acute injury. 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 Multilevel facet arthropathy and disc disease. This is described in detail on the above report. Lower thoracic posterior fusion hardware at T11 and T12. Hardware not completely visualized. Consider further evaluation with MRI for evaluation of nerve roots and the central canal. Trace bilateral pleural effusions. Atherosclerotic vascular disease. The CT scanner at [facility] is accredited by the [employer] and the scans are performed using dose optimization techniques as appropriate to a performed exam including Automatic Exposure control.
--- NOTE | 2018-11-28 13:03 | NUR ---
ED Nurse Note: REPORT GIVEN TO VIGNESH HOPKINS OF [facility] THAT PT IS GOING BACK TO THEIR FACILITY.
[2018-11-28 13:30] VITALS: BP 99/75
--- NOTE | 2018-11-28 13:30 | NUR ---
ED Nurse Note: Report given to [facility]. Pt transferred via gurney and went back to [facility]. All belongings sent with pt.
== END 2018-11-28 13:30 ==
LOC: EDBD 11:13 → EMR 11:40
DX: M54.5 Low back pain (principal); M79.605 Pain in left leg; I10 Essential (primary) hypertension; J44.9 Chronic obstructive pulmonary disease, unspecified
CPT/HCPCS: 72131; 99284